=== PATIENT | male | born 1960 | race Caucasian/White ===

== ENCOUNTER 2017-10-08 12:33 | Inpatient (IN) | payer BC ==
[~2017-10-08] VITALS: Ht 190.5 cm; Wt 84.6 kg
[2017-10-08] MEDS ORDERED: IPRATROPIUM BROM 0.5 MG/2.5ML INH SOL NEB ONE (13:00)
[2017-10-08] MEDS ORDERED: ALBUTEROL SULF 2.5 MG/0.5ML(0.5%) NEB SOLN NEB ONE (13:00)
[2017-10-08 13:17] LABS: Basophils # (auto) 0 uL; Basophils % (auto) 0.1 % (0.0-2.0); Eosinophils # (auto) 0 uL; Hematocrit 39.5 % (41.0-53.0); Hemoglobin 13.5 g/dL (13.5-17.5); Lymphocytes # (auto) 0.8 uL; Lymphocytes % (auto) 4.2 % (10.0-50.0); Mean Corpuscular Hemoglobin 33.9 pg (28.0-32.0); Mean Corpuscular Hgb Conc. 34.2 g/dL (32.0-36.0); Mean Corpuscular Volume 99.2 fL (80.0-100.0); Monocytes # (auto) 1.5 uL; Monocytes % (auto) 8.2 % (0.0-12.0); Neutrophils # (auto) 16.4 uL; Neutrophils % (auto) 87.5 % (37.0-80.0); Nucleated Red Blood Cells % 0.1 %; Platelet Count (auto) 319 10^3/uL (140-450); Red Blood Cells 3.98 10^6/uL (4.5-5.90); White Blood Cell 18.8 10^3/uL (4.4-10.8)
[2017-10-08 13:37] LABS: Alanine Aminotransferase 42 U/L (16-61); Albumin 2.6 g/dL (3.4-5.0); Alkaline Phosphatase 120 U/L (45-117); Anion Gap 9 (5-15); Aspartate Aminotransferase 28 U/L (15-37); BUN/Creatinine Ratio 12.3; Bilirubin, Total 0.4 mg/dL (0.2-1.0); Blood Urea Nitrogen 7 mg/dL (7-18); Calcium 8.6 mg/dL (8.5-10.1); Carbon Dioxide 29 mmol/L (21-32); Chloride 88 mmol/L (98-107); GFR African American 191 mL/min; GFR Non-African American 158 mL/min; Glucose 133 mg/dL (74-106); Magnesium 2.4 mg/dL (1.6-2.6); Potassium 3.4 mmol/L (3.5-5.1); Sodium 126 mmol/L (136-145); Total Protein 7.4 g/dL (6.4-8.2)
[2017-10-08] MEDS ORDERED: cefTRIAXone 1GM/10ml IVPUSH 10 ML IV ONE ×2 (16:00→17:00)
[2017-10-08] MEDS ORDERED: AZITHROMYCIN 500MG/ 250ML 250 ML IV ONE ×2 (16:00→18:00)
[2017-10-08] MEDS ORDERED: POTASSIUM CHL 10% (20 MEQ/15ML) 15ml ORAL SOLN PO ONE (16:30)
[2017-10-08] MEDS: SODIUM CHLORIDE 0.9% 1,000 ML IV SCH (16:53)
[2017-10-08] MEDS ORDERED: NICOTINE 14 MG/24HR TOPICAL PATCH TD ONE (17:00)
[2017-10-08] MEDS ORDERED: GABAPENTIN 300 MG CAP PO ONE (17:00)
[2017-10-08] MEDS ORDERED: chlordiazePOXIDE HCL 25 MG CAP PO PRN (17:00)
[2017-10-08] MEDS ORDERED: HYDROcodone-ACET 5/325MG TAB PO PRN (17:00)
[2017-10-08] MEDS: InsuLIN REG 1unit/0.01ml Soln (100units/ml) SC SCH ×2 (17:00→21:55)
[2017-10-08] MEDS ORDERED: NITROGLYCERIN 0.4 MG SL TAB SL PRN (17:00)
[2017-10-08] MEDS ORDERED: MORPHINE SULFATE 8mg/ml INJ SDV IV PRN (17:00)
[2017-10-08] MEDS ORDERED: DEXTROSE (50%) 50ML SYRG IV PRN (17:00)
[2017-10-08] MEDS ORDERED: POTASSIUM CHL 10 Meq TABLET PO ONE (17:00)
[2017-10-08] MEDS ORDERED: ONDANSETRON HCL 4 MG/2 ML VIAL IV PRN (17:00)
[2017-10-08] MEDS ORDERED: LORazepam 2MG/ML-1ML VIAL IV PRN (17:00)
[2017-10-08] MEDS ORDERED: DOCUSATE SOD 100 MG CAP PO PRN (17:00)
[2017-10-08] MEDS ORDERED: ACETAMINOPHEN 325 MG TAB PO PRN (17:00)
[2017-10-08] MEDS: ACCU-CHEK COMFORT CURVE STRIP VI SCH ×2 (17:00→21:54)
[2017-10-08] MEDS: Boost Glucose Control 8 Ounces PO SCH (18:00)
[2017-10-08] MEDS: IPRATROPIUM BROM 0.5 MG/2.5ML INH SOL NEB SCH ×2 (18:28→22:36)
[2017-10-08] MEDS: ALBUTEROL SULF 2.5 MG/0.5ML(0.5%) NEB SOLN NEB SCH ×2 (18:28→22:36)
[2017-10-08] MEDS: BUDESONIDE (INHALATION) 0.5 MG/2 ML NEB NEB SCH (21:54)
[2017-10-08] MEDS: FAMOTIDINE 20 MG TAB PO SCH (22:01)
[2017-10-08] MEDS: CARVEDILOL 3.125 MG TAB PO SCH (22:01)
[2017-10-08] MEDS: IBUPROFEN 600 MG TAB PO SCH (22:01)
[2017-10-08] MEDS: GABAPENTIN 300 MG CAP PO SCH (22:01)
[2017-10-08 22:44] VITALS: BP 133/73
[2017-10-08] MEDS ORDERED: PNEUMOCOCCAL VACC POLYS 25 MCG/0.5 ML VIAL IM ONE (23:45)
[2017-10-09 01:55] VITALS: BP 133/73
[2017-10-09] MEDS: ALBUTEROL SULF 2.5 MG/0.5ML(0.5%) NEB SOLN NEB SCH ×6 (02:39→22:37)
[2017-10-09] MEDS: IPRATROPIUM BROM 0.5 MG/2.5ML INH SOL NEB SCH ×6 (02:39→22:37)
[2017-10-09 04:58] VITALS: BP 121/67
[2017-10-09] MEDS: CARVEDILOL 3.125 MG TAB PO SCH ×3 (05:48→21:45)
[2017-10-09] MEDS: GABAPENTIN 300 MG CAP PO SCH ×3 (05:48→21:45)
[2017-10-09] MEDS: IBUPROFEN 600 MG TAB PO SCH ×3 (05:48→21:45)
[2017-10-09] MEDS: SODIUM CHLORIDE 0.9% 1,000 ML IV SCH (05:54)
[2017-10-09 06:28] LABS: Hemoglobin 13.1 g/dL (13.5-17.5)
[2017-10-09 06:31] LABS: Hematocrit 38.2 % (41.0-53.0); Mean Corpuscular Hemoglobin 34.6 pg (28.0-32.0); Mean Corpuscular Hgb Conc. 34.4 g/dL (32.0-36.0); Mean Corpuscular Volume 100.7 fL (80.0-100.0); Platelet Count (auto) 334 10^3/uL (140-450); Red Blood Cells 3.79 10^6/uL (4.5-5.90); White Blood Cell 15.1 10^3/uL (4.4-10.8)
[2017-10-09 06:49] LABS: Band Neutrophils % (manual) 0; Basophils % (manual) 0 (0.0-2.0); Blast Cells 0; Eosinophils % (manual) 0 (0-7); Metamyelocytes % 0; Myelocytes % 0; Promyelocytes % 0; Reactive Lymphocytes 0
[2017-10-09 06:50] LABS: Albumin 2.4 g/dL (3.4-5.0); BUN/Creatinine Ratio 12.7
[2017-10-09] MEDS: ACCU-CHEK COMFORT CURVE STRIP VI SCH ×2 (06:54→11:05)
[2017-10-09] MEDS: InsuLIN REG 1unit/0.01ml Soln (100units/ml) SC SCH ×2 (06:54→11:05)
[2017-10-09 06:59] LABS: Bilirubin, Total 0.2 mg/dL (0.2-1.0); Potassium 4.1 mmol/L (3.5-5.1); Total Protein 6.7 g/dL (6.4-8.2)
[2017-10-09 08:19] LABS: Lymphocytes % (manual) 4 (10.0-50.0); Monocytes % (manual) 10 (0-12)
[2017-10-09] MEDS: Boost Glucose Control 8 Ounces PO SCH ×3 (08:28→18:00)
[2017-10-09] MEDS: ASPirin-EC 81 mg tab PO SCH (08:31)
[2017-10-09] MEDS: FAMOTIDINE 20 MG TAB PO SCH ×2 (08:31→21:45)
[2017-10-09] MEDS: cefTRIAXone 1GM/10ml IVPUSH 10 ML IV SCH (08:31)
[2017-10-09] MEDS: MULTIPLE VITAMIN TAB PO SCH (08:31)
[2017-10-09] MEDS: AZITHROMYCIN 500MG/ 250ML 250 ML IV SCH (08:31)
[2017-10-09] MEDS: LISINOPRIL 10 MG TAB PO SCH (08:32)
[2017-10-09] MEDS: NICOTINE 14 MG/24HR TOPICAL PATCH TD SCH (08:32)
[2017-10-09 09:00] VITALS: BP 96/68
[2017-10-09] MEDS: BUDESONIDE (INHALATION) 0.5 MG/2 ML NEB NEB SCH ×2 (10:08→19:03)
[2017-10-09 13:00] VITALS: BP 96/48
[2017-10-09 17:00] VITALS: BP 109/56
[2017-10-09 23:28] LABS: Urine Bacteria NONE SEEN /hpf (None Seen); Urine Blood TRACE /uL (Negative); Urine Specific Gravity 1.012 (1.001-1.035); Urine WBC 2 /hpf (0 - 3)
[2017-10-10 00:47] VITALS: BP 157/70
[2017-10-10] MEDS: ALBUTEROL SULF 2.5 MG/0.5ML(0.5%) NEB SOLN NEB SCH ×6 (02:17→22:30)
[2017-10-10] MEDS: IPRATROPIUM BROM 0.5 MG/2.5ML INH SOL NEB SCH ×6 (02:17→22:30)
[2017-10-10] MEDS: SODIUM CHLORIDE 0.9% 1,000 ML IV SCH (05:03)
[2017-10-10 06:00] VITALS: BP 143/67
[2017-10-10] MEDS: CARVEDILOL 3.125 MG TAB PO SCH (06:05)
[2017-10-10] MEDS: IBUPROFEN 600 MG TAB PO SCH ×3 (06:05→21:37)
[2017-10-10] MEDS: GABAPENTIN 300 MG CAP PO SCH ×3 (06:05→21:38)
[2017-10-10 06:55] LABS: Basophils # (auto) 0 uL; Eosinophils # (auto) 0.1 uL; Eosinophils % (auto) 0.6 % (0.0-7.0); Hematocrit 36.6 % (41.0-53.0); Hemoglobin 12.5 g/dL (13.5-17.5); Lymphocytes # (auto) 0.9 uL; Mean Corpuscular Hemoglobin 34.7 pg (28.0-32.0); Nucleated Red Blood Cells % 0.1 %; Red Blood Cells 3.59 10^6/uL (4.5-5.90)
[2017-10-10 06:58] LABS: Basophils % (auto) 0.1 % (0.0-2.0); Lymphocytes % (auto) 8.8 % (10.0-50.0); Mean Corpuscular Hgb Conc. 34.1 g/dL (32.0-36.0); Mean Corpuscular Volume 101.8 fL (80.0-100.0); Monocytes # (auto) 1.1 uL; Monocytes % (auto) 10.8 % (0.0-12.0); Neutrophils # (auto) 7.8 uL; Neutrophils % (auto) 79.7 % (37.0-80.0); Platelet Count (auto) 410 10^3/uL (140-450); White Blood Cell 9.8 10^3/uL (4.4-10.8)
[2017-10-10 07:05] LABS: Chloride 98 mmol/L (98-107); Potassium 4.2 mmol/L (3.5-5.1); Sodium 138 mmol/L (136-145)
[2017-10-10] MEDS: BUDESONIDE (INHALATION) 0.5 MG/2 ML NEB NEB SCH ×2 (07:09→18:44)
[2017-10-10 07:12] LABS: Albumin 2.2 g/dL (3.4-5.0); Anion Gap 7 (5-15); Aspartate Aminotransferase 26 U/L (15-37); BUN/Creatinine Ratio 15.6; Blood Urea Nitrogen 10 mg/dL (7-18); Calcium 8.9 mg/dL (8.5-10.1); Carbon Dioxide 33 mmol/L (21-32); GFR African American 167 mL/min; GFR Non-African American 138 mL/min; Glucose 142 mg/dL (74-106)
[2017-10-10 07:24] LABS: Alanine Aminotransferase 55 U/L (16-61); Alkaline Phosphatase 102 U/L (45-117); Bilirubin, Total < 0.1 mg/dL (0.2-1.0); Total Protein 6.3 g/dL (6.4-8.2)
[2017-10-10] MEDS: Boost Glucose Control 8 Ounces PO SCH ×2 (08:00→12:00)
[2017-10-10] MEDS: cefTRIAXone 1GM/10ml IVPUSH 10 ML IV SCH (08:56)
[2017-10-10] MEDS: FAMOTIDINE 20 MG TAB PO SCH ×2 (08:56→21:38)
[2017-10-10] MEDS: LISINOPRIL 10 MG TAB PO SCH (08:56)
[2017-10-10] MEDS: ASPirin-EC 81 mg tab PO SCH (08:56)
[2017-10-10] MEDS: MULTIPLE VITAMIN TAB PO SCH (08:56)
[2017-10-10] MEDS: AZITHROMYCIN 500MG/ 250ML 250 ML IV SCH (08:56)
[2017-10-10] MEDS: NICOTINE 14 MG/24HR TOPICAL PATCH TD SCH (08:57)
[2017-10-10 09:00] VITALS: BP 98/64
[2017-10-10] MEDS ORDERED: ENOXAPARIN SOD 40 MG/0.4 ML SYRINGE SC ONE (11:15)
[2017-10-10] MEDS ORDERED: IOHEXOL 350 MG/ML 100ML IJ ONE (11:59)
[2017-10-10] MEDS ORDERED: diphenhdrAMINE HCL 50 MG/1 ML VL ONE (12:53)
[2017-10-10 13:00] VITALS: BP 112/64
[2017-10-10] MEDS ORDERED: diphenhdrAMINE HCL 50 MG/1 ML VL IV ONE (13:00)
[2017-10-10 17:03] VITALS: BP 146/80
[2017-10-10 18:52] LABS: Folate (Folic Acid) 14.4 ng/mL (5.38-24)
[2017-10-10 21:30] VITALS: BP 119/65
[2017-10-10] MEDS: methylPREDNISolone SOD SUCC 125 MG/2 ML VL IV SCH (21:37)
[2017-10-10] MEDS: TEMAZEPAM 15 MG CAP PO PRN (23:07)
[2017-10-11] MEDS: IPRATROPIUM BROM 0.5 MG/2.5ML INH SOL NEB SCH ×6 (02:00→22:24)
[2017-10-11] MEDS: ALBUTEROL SULF 2.5 MG/0.5ML(0.5%) NEB SOLN NEB SCH ×6 (02:00→22:24)
[2017-10-11 05:00] VITALS: BP 142/83
[2017-10-11] MEDS: SODIUM CHLORIDE 0.9% 1,000 ML IV SCH ×2 (05:23→10:59)
[2017-10-11] MEDS: GABAPENTIN 300 MG CAP PO SCH ×3 (05:55→21:10)
[2017-10-11] MEDS: IBUPROFEN 600 MG TAB PO SCH ×3 (06:04→21:10)
[2017-10-11 06:58] LABS: Basophils # (auto) 0 uL; Basophils % (auto) 0.1 % (0.0-2.0); Eosinophils # (auto) 0 uL
[2017-10-11 07:00] LABS: % Iron Saturation 20.1 % (20-55); Hematocrit 35.7 % (41.0-53.0); Lymphocytes # (auto) 0.4 uL; Mean Corpuscular Hemoglobin 34.7 pg (28.0-32.0); Mean Corpuscular Hgb Conc. 33.8 g/dL (32.0-36.0); Mean Corpuscular Volume 102.7 fL (80.0-100.0); Monocytes # (auto) 0.1 uL; Monocytes % (auto) 1.5 % (0.0-12.0); Neutrophils # (auto) 9.2 uL; Neutrophils % (auto) 94.4 % (37.0-80.0); Platelet Count (auto) 470 10^3/uL (140-450); Red Blood Cells 3.47 10^6/uL (4.5-5.90); White Blood Cell 9.7 10^3/uL (4.4-10.8)
[2017-10-11 07:09] LABS: Albumin 2.4 g/dL (3.4-5.0); BUN/Creatinine Ratio 12.3; Bilirubin, Total 0.1 mg/dL (0.2-1.0); Calcium 8.5 mg/dL (8.5-10.1); Potassium 3.5 mmol/L (3.5-5.1); Total Protein 6.5 g/dL (6.4-8.2)
[2017-10-11] MEDS: Boost Glucose Control 8 Ounces PO SCH ×3 (08:00→18:00)
[2017-10-11 08:06] LABS: Immunoglobulin G, Serum 580 mg/dL (700-1600)
[2017-10-11 09:18] VITALS: BP 128/74
[2017-10-11] MEDS: NICOTINE 14 MG/24HR TOPICAL PATCH TD SCH (10:00)
[2017-10-11] MEDS: ASPirin-EC 81 mg tab PO SCH (10:00)
[2017-10-11] MEDS: ENOXAPARIN SOD 40 MG/0.4 ML SYRINGE SC SCH (10:00)
[2017-10-11] MEDS: MULTIPLE VITAMIN TAB PO SCH (10:00)
[2017-10-11] MEDS: methylPREDNISolone SOD SUCC 125 MG/2 ML VL IV SCH ×2 (10:00→21:10)
[2017-10-11] MEDS: AZITHROMYCIN 500MG/ 250ML 250 ML IV SCH (10:00)
[2017-10-11] MEDS: FAMOTIDINE 20 MG TAB PO SCH ×2 (10:00→21:10)
[2017-10-11] MEDS: BUDESONIDE (INHALATION) 0.5 MG/2 ML NEB NEB SCH ×2 (10:20→18:47)
[2017-10-11] MEDS: cefTRIAXone 1GM/10ml IVPUSH 10 ML IV SCH (10:28)
[2017-10-11 13:00] VITALS: BP 135/62
[2017-10-11 16:40] VITALS: BP 143/89
[2017-10-11] MEDS: MORPHINE SULFATE 8mg/ml INJ SDV IV PRN (21:08)
[2017-10-11 22:00] VITALS: BP 135/78
[2017-10-12] MEDS: TEMAZEPAM 15 MG CAP PO PRN (00:05)
[2017-10-12] MEDS: SODIUM CHLORIDE 0.9% 1,000 ML IV SCH (01:37)
[2017-10-12] MEDS: ALBUTEROL SULF 2.5 MG/0.5ML(0.5%) NEB SOLN NEB SCH ×5 (02:24→18:34)
[2017-10-12] MEDS: IPRATROPIUM BROM 0.5 MG/2.5ML INH SOL NEB SCH ×5 (02:24→18:34)
[2017-10-12] MEDS: MORPHINE SULFATE 8mg/ml INJ SDV IV PRN (02:31)
[2017-10-12 03:16] VITALS: BP 135/78
[2017-10-12] MEDS: IBUPROFEN 600 MG TAB PO SCH ×2 (05:11→14:25)
[2017-10-12] MEDS: GABAPENTIN 300 MG CAP PO SCH ×2 (05:11→14:25)
[2017-10-12 05:23] VITALS: BP 151/89
[2017-10-12 05:34] LABS: Eosinophils # (auto) 0 uL; Hemoglobin 11.8 g/dL (13.5-17.5); Lymphocytes # (auto) 0.5 uL; Monocytes # (auto) 0.2 uL; Red Cell Distribution Width 12.8 % (11.8-14.3)
[2017-10-12 05:39] LABS: Basophils # (auto) 0.3 uL; Basophils % (auto) 2.4 % (0.0-2.0); Eosinophils % (auto) 0.4 % (0.0-7.0); Hematocrit 35.5 % (41.0-53.0); Lymphocytes % (auto) 4.3 % (10.0-50.0); Mean Corpuscular Hgb Conc. 33.4 g/dL (32.0-36.0); Mean Corpuscular Volume 101.9 fL (80.0-100.0); Monocytes % (auto) 1.8 % (0.0-12.0); Neutrophils # (auto) 10.7 uL; Neutrophils % (auto) 91.1 % (37.0-80.0); Nucleated Red Blood Cells % 0.1 %; Platelet Count (auto) 486 10^3/uL (140-450); Red Blood Cells 3.48 10^6/uL (4.5-5.90); White Blood Cell 11.7 10^3/uL (4.4-10.8)
[2017-10-12 05:49] LABS: Albumin 2.4 g/dL (3.4-5.0); BUN/Creatinine Ratio 14.5; Calcium 8.6 mg/dL (8.5-10.1); Potassium 3.7 mmol/L (3.5-5.1)
[2017-10-12 05:52] LABS: Bilirubin, Total 0.1 mg/dL (0.2-1.0); Total Protein 6.1 g/dL (6.4-8.2)
[2017-10-12] MEDS: BUDESONIDE (INHALATION) 0.5 MG/2 ML NEB NEB SCH (06:39)
[2017-10-12] MEDS: Boost Glucose Control 8 Ounces PO SCH ×2 (08:00→12:00)
[2017-10-12 09:00] VITALS: BP 154/80
[2017-10-12] MEDS: cefTRIAXone 1GM/10ml IVPUSH 10 ML IV SCH (09:25)
[2017-10-12] MEDS: AZITHROMYCIN 500MG/ 250ML 250 ML IV SCH (09:41)
[2017-10-12] MEDS: methylPREDNISolone SOD SUCC 125 MG/2 ML VL IV SCH (09:41)
[2017-10-12] MEDS: ENOXAPARIN SOD 40 MG/0.4 ML SYRINGE SC SCH (09:41)
[2017-10-12] MEDS: FAMOTIDINE 20 MG TAB PO SCH (09:42)
[2017-10-12] MEDS: MULTIPLE VITAMIN TAB PO SCH (09:42)
[2017-10-12] MEDS: ASPirin-EC 81 mg tab PO SCH (09:42)
[2017-10-12] MEDS: NICOTINE 14 MG/24HR TOPICAL PATCH TD SCH (09:43)
[2017-10-12 13:00] VITALS: BP 154/98
[2017-10-12 17:00] VITALS: BP 160/96
== END 2017-10-12 19:40 | disposition home or self-care (01) | DRG 872 ==
LOC: ER 12:33 → TELE 12:34 → TELE-EAST 22:05
PROVIDERS: ADMIT Internal Medicine; ATTEND Family Medicine
DX: A41.9 Sepsis, unspecified organism (principal); E11.42 Type 2 diabetes mellitus with diabetic polyneuropathy; E44.0 Moderate protein-calorie malnutrition; J44.0 Chronic obstructive pulmonary disease with (acute) lower respiratory infection; Z94.84 Stem cells transplant status; I11.0 Hypertensive heart disease with heart failure; E87.1 Hypo-osmolality and hyponatremia; J45.901 Unspecified asthma with (acute) exacerbation; I50.9 Heart failure, unspecified; E11.65 Type 2 diabetes mellitus with hyperglycemia; J44.1 Chronic obstructive pulmonary disease with (acute) exacerbation; F10.239 Alcohol dependence with withdrawal, unspecified; Z96.642 Presence of left artificial hip joint; E87.6 Hypokalemia; F17.210 Nicotine dependence, cigarettes, uncomplicated; J20.9 Acute bronchitis, unspecified; Z82.49 Family history of ischemic heart disease and other diseases of the circulatory system; Z68.23 Body mass index [BMI] 23.0-23.9, adult; Z23 Encounter for immunization; Z85.71 Personal history of Hodgkin lymphoma; Z85.72 Personal history of non-Hodgkin lymphomas; Z92.21 Personal history of antineoplastic chemotherapy; Z79.899 Other long term (current) drug therapy; Z71.6 Tobacco abuse counseling
CPT/HCPCS: 36415; 36600; 71046; 71260; 74177; 80053; 81001; 82607; 82728; 82746; 82784; 82805; 82962; 83036; 83540; 83550; 83735; 83880; 84484; 85007; 85025; 85027; 85379; 87040; 87070; 87086; 87205; 87804; 93005; 93306; 94640; 96374; 99291; J1815; J2270

== ENCOUNTER 2024-08-05 16:14 | Inpatient (IN) | payer BC, OTHER ==
[~2024-08-05] VITALS: Ht 182.9 cm; Wt 75.8 kg
--- NOTE | 2024-08-05 16:44 | ECG ---
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
[2024-08-05] MEDS: ALBUTEROL SULF 2.5 MG/0.5ML(0.5%) NEB SOLN NEB ONE ×2 (17:07→23:27)
[2024-08-05] MEDS: IPRATROPIUM BROM 0.5 MG/2.5ML INH SOL NEB ONE ×2 (17:07→23:27)
--- NOTE | 2024-08-05 17:20 | DVH ---
CHEST RADIOGRAPH Indication: sob Technique: Single frontal view of the chest was obtained COMPARISON: None FINDINGS: Lines and Tubes: None Lungs: Clear Pleura: No effusion. No pneumothorax. Cardiomediastinal contours: Unremarkable Bones: Unremarkable IMPRESSION: 1. No acute disease. Postop sternotomyNo CHF No infiltrates No adenopathy No consolidation
[2024-08-05 18:00] VITALS: PULSE 110; RESP 25; O2SAT 94
[2024-08-05] MEDS: methylPREDNISolone SOD SUCC 125 MG/2 ML VL IM ONE (18:00)
[2024-08-05] MEDS: SODIUM CHLORIDE 0.9% 1,000 ML IV ONE (18:00)
[2024-08-05 18:54] LABS: Basophils # (auto) 0 10 ^3/uL (0-0.2); Basophils % (auto) 0.2 % (0.0-2.0); Eosinophils # (auto) 0 10 ^3/uL (0-0.8); Hematocrit 40.7 % (41.0-53.0); Hemoglobin 13.2 g/dL (13.5-17.5); Lymphocytes # (auto) 0.6 10 ^3/uL (0.4-5.4); Lymphocytes % (auto) 6.1 % (10.0-50.0); Mean Corpuscular Hemoglobin 32.1 pg (28.0-32.0); Mean Corpuscular Hgb Conc. 32.4 g/dL (32.0-36.0); Mean Corpuscular Volume 98.8 fL (80.0-100.0); Monocytes # (auto) 0.9 10 ^3/uL (0-1.3); Neutrophils # (auto) 8.6 10 ^3/uL (1.6-8.6); Neutrophils % (auto) 84.7 % (37.0-80.0); Nucleated Red Blood Cells % 0.1 %; Platelet Count (auto) 396 10^3/uL (140-450); Red Blood Cells 4.12 10^6/uL (4.5-5.90); Red Cell Distribution Width 15.1 % (11.8-14.3); White Blood Cell 10.2 10^3/uL (4.4-10.8)
[2024-08-05 19:20] VITALS: PULSE 112; RESP 25; O2SAT 95
[2024-08-05 19:25] LABS: Alanine Aminotransferase 19 U/L (7-40); Albumin 4.2 g/dL (3.2-4.8); Alkaline Phosphatase 81 U/L (46-116); Anion Gap 13 (5-15); Aspartate Aminotransferase 16 U/L (13-40); BUN/Creatinine Ratio 18.8 (10.0-20.0); Calcium 9.3 mg/dL (8.7-10.4); Carbon Dioxide 24 mmol/L (20-31); Chloride 101 mmol/L (98-107); Sodium 138 mmol/L (136-145)
[2024-08-05 19:26] LABS: Bilirubin, Total 0.2 mg/dL (0.2-1.0); Blood Urea Nitrogen 54 mg/dL (9-23); Glucose 122 mg/dL (74-106); Total Protein 6.4 g/dL (5.7-8.2)
[2024-08-05 21:21] LABS: Urine Bacteria None Seen /hpf (None Seen)
[2024-08-05 22:03] LABS: Urine Blood Negative /uL (Negative); Urine Clarity Turbid (Clear); Urine Color Yellow (Yellow); Urine Hyaline Cast FEW /lpf (0 - 2); Urine Protein, UAD 1+ (Negative); Urine Squamous Epithelial Cell FEW /hpf (<5); Urine Urobilinogen Normal (Negative); Urine WBC 3 /HPF (0-3); Urine pH 5.5 (5.0-9.0)
--- NOTE | 2024-08-05 22:25 | ED.PDOC ---
History of Present Illness HPI Comments 64-year-old male complaining of shortness a breath. States he he was diagnosed with influenza last week. He was discharged home without medications. States he was felt no significant improvement over the last week. States shortness a breath it got worse today so he called EMS. Patient states he does use 5 L nasal cannula at home. Does have a history of COPD. Patient's son called EMS because patient was not willing to get out of bed due to his generalized weakness and shortness a breath. On arrival patient's blood pressure is very low at 80s over 40s. Chief Complaint: Shortness of Breath Time Seen by MD: 16:51 Reviewed Notes: Nurses Notes Allergies: Coded Allergies: NO KNOWN ALLERGIES (Unverified , 10/08/17) Home Meds Unable to Obtain Active Prescriptions or Reported Meds Information Source: Patient, Emergency Med Personnel Mode of Arrival: EMS Past Medical History PAST MEDICAL HISTORY: CHF, COPD, HTN Surgical History: Hernia Repair Family History Family History: Unknown Social History Smoker: Cigarettes, Greater Than 1 Pack/Day Alcohol: Denies ETOH Use Drugs: Denies Drug Use Lives In: Home Constitutional: reports: fatigue; denies: chills, diaphoresis, fever, malaise, sweats, weakness, others EENTM: denies: blurred vision, double vision, ear bleeding, ear discharge, ear drainage, ear pain, ear ringing, eye pain, eye redness, hearing loss, mouth pain, mouth swelling, nasal discharge, nose bleeding, nose congestion, nose pain, photophobia, tearing, throat pain, throat swelling, voice changes, others Respiratory: reports: cough, SOB at rest, SOB with excertion; denies: he moptysis, orthopnea, shortness of breath, stridor, wheezing, others Cardiovascular: denies: chest pain, dizzy spells, diaphoresis, Dyspnea on exertion, edema, irregular heart beat, left arm pain, lightheadedness, palpitations, PND, syncope, others Gastrointestinal: denies: abdomen distended, abdominal pain, blood streaked bowels, constipated, diarrhea, dysphagia, difficulty swallowing, hematemesis, melena, nausea, poor appetite, poor fluid intake, rectal bleeding, rectal pain, vomiting, others Genitourinary: denies: burning, dysuria, flank pain, frequency, hematuria, incontinence, penile discharge, penile sore, pain, testicle pain, testicle swelling, urgency, others Neurological: denies: dizziness, fainting, headache, left sided numbness, left sided weakness, numbness, paresthesia, pre-existing deficit, right sided numbness, right sided weakness, seizure, speech problems, tingling, tremors, weakness, others Musculoskeletal: denies: back pain, gout, joint pain, joint swelling, muscle pain, muscle stiffness, neck pain, others Integumetry: denies: bruises, change in color, change in hair/nails, dryness, laceration, lesions, lumps, rash, wounds, others Allergic/Immunocompromised: denies: Difficulty Healing, Frequent Infections, Hives, Itching, others Hematologic/Lymphatic: denies: anemia, blood clots, easy bleeding, easy bruising, swollen glands, others Physical Exam General Appearance: No Apparent Distress, Normal HEENT: Normal ENT Inspection, Pharynx Normal, TMs Normal Neck: Full Range of Motion, Non-Tender, Normal, Normal Inspection Respiratory: Chest Non-Tender, Decreased Breath Sounds (Bilateral lower), No Accessory Muscle Use, Wheezing (Faint wheezing) Cardiovascular: No Edema, No JVD, No Murmur, No Gallop, Normal Peripheral Pulses, Regular Rate/Rhythm Breast Exam: Deferred Gastrointestinal: No Organomegaly, Non Tender, No Pulsatile Mass, Normal Bowel Sounds, Soft Genitalia: Deferred Pelvic: Deferred Rectal: Deferred Extremities: No calf tenderness, Normal capillary refill, Normal inspection, Normal range of motion, Non-tender, No pedal edema Musculoskeletal : Apperance: Normal Neurologic: Alert, cracking machine operator II-XII nml as Tested, No Motor Deficits, Normal Affect, Normal Mood, No Sensory Deficits Cerebellar Function: Normal Reflexes: Normal Skin: Dry, Normal Color, Warm Lymphatic: No Adenopathy Was a procedure done? Was a procedure done?: No Differential Dx Considerations may include: URI, influenza, COVID, strep throat, pharyngitis, pneumonia X-Ray, Labs, Meds, VS Vital Signs Date Time Temp Pulse Resp B/P (MAP) Pulse Ox O2 Delivery O2 Flow Rate FiO2 08/05/24 20:00 97.4 112 25 86/57 (67) 95 97.4 08/05/24 20:00 116 08/05/24 19:20 112 25 95 Nasal Cannula* 4 36 2/18/25 18:38 112 08/05/24 18:00 97.9 110 25 134/90 (105) 94 97.9 08/05/24 18:00 110 25 94 Nasal Cannula* 4 36 08/05/24 17:08 16 94 Nasal Cannula* 4 36 08/05/24 16:30 116 08/05/24 16:17 97.9 106 18 87/53 (64) 96 08/05/24 16:17 16 94 Nasal Cannula* 4 36 08/05/24 16:17 Nasal Cannula* 4 36 Lab Test 08/05/24 21:07 08/05/24 20:56 08/05/24 17:51 08/05/24 16:50 Range/Units Troponin I High Sensitivity 41 48 47 </=54 ng/L Urine Color Yellow Yellow Urine Clarity Turbid H Clear Urine pH 5.5 5.0-9.0 Urine Specific [place] 1.020 1.001-1.035 Urine Protein 1+ H Negative Urine Ketones Trace Negative Urine Blood Negative Negative /uL Urine Nitrite Negative Negative Urine Bilirubin Negative Negative Urine Urobilinogen Normal Negative mg/dL Urine Leukocyte Esterase Negative Negative /uL Urine RBC 1 0 - 3 /hpf Urine Microscopic WBC 3 0-3 /HPF Urine Squamous Epithelial Cells Few <5 /hpf Urine Bacteria None seen None Seen /hpf Urine Hyaline Casts Few 0 - 2 /lpf Urine Glucose Normal Normal mg/dL White Blood Count 10.2 4.4-10.8 10^3/uL Red Blood Count 4.12 L 4.5-5.90 10^6/uL Hemoglobin 13.2 L 13.5-17.5 g/dL Hematocrit 40.7 L 41.0-53.0 % Mean Corpuscular Volume 98.8 80.0-100.0 fL Mean Corpuscular Hemoglobin 32.1 H 28.0-32.0 pg Mean Corpuscular Hemoglobin Concent 32.4 32.0-36.0 g/dL Red Cell Distribution Width 15.1 H 11.8-14.3 % Platelet Count 396 140-450 10^3/uL Mean Platelet Volume 8.4 6.9-10.8 fL Neutrophils (%) (Auto) 84.7 H 37.0-80.0 % Lymphocytes (%) (Auto) 6.1 L 10.0-50.0 % Monocytes (%) (Auto) 9.0 0.0-12.0 % Eosinophils (%) (Auto) 0.0 0.0-7.0 % Basophils (%) (Auto) 0.2 0.0-2.0 % Neutrophils # (Auto) 8.6 1.6-8.6 10 ^3/uL Lymphocytes # (Auto) 0.6 0.4-5.4 10 ^3/uL Monocytes # (Auto) 0.9 0-1.3 10 ^3/uL Eosinophils # (Auto) 0 0-0.8 10 ^3/uL Basophils # (Auto) 0 0-0.2 10 ^3/uL Nucleated Red Blood Cells 0.1 % Sodium Level 138 136-145 mmol/L Potassium Level 5.0 3.5-5.1 mmol/L Chloride Level 101 98-107 mmol/L Carbon Dioxide Level 24 20-31 mmol/L Anion Gap 13 5-15 Blood Urea Nitrogen 54 H 9-23 mg/dL Creatinine 2.87 H 0.700-1.30 mg/dL Glomerular Filtration Rate Calc 24 >90 mL/min BUN/Creatinine Ratio 18.8 10.0-20.0 Serum Glucose 122 H 74-106 mg/dL Calcium Level 9.3 8.7-10.4 mg/dL Total Bilirubin 0.2 0.2-1.0 mg/dL Aspartate Amino Transferase (AST) 16 13-40 U/L Alanine Aminotransferase (ALT) 19 7-40 U/L Alkaline Phosphatase 81 46-116 U/L Total Protein 6.4 5.7-8.2 g/dL Albumin 4.2 3.2-4.8 g/dL Current Medications Medications (Trade) Dose Ordered Sig/Ashwin Route Start Time Stop Time Status Last Admin Albuterol (Ventolin Medneb) 2.5 mg ONCE ONCE NEB 08/05/24 17:00 08/05/24 17:01 DC 08/05/24 17:07 Ipratropium [place] (Atrovent Medneb) 0.5 mg ONCE ONCE NEB 08/05/24 17:00 08/05/24 17:01 DC 08/05/24 17:07 Methylprednisolone Sodium Succinate (Solu Medrol) 125 mg ONCE ONCE IM 08/05/24 17:00 08/05/24 17:01 DC 08/05/24 18:00 Sodium Chloride 1,000 ml @ 1,000 mls/hr Q1H ONCE IV 08/05/24 17:30 08/05/24 18:29 DC 08/05/24 18:00 X-Ray, Labs, Meds, VS Comment Imaging: X-rays and CT scans were reviewed and interpreted by this provider, imaging shows no fractures and no pathological disease. Pending radiology review. Laboratory: Labs reviewed and interpreted by this provider. Decreased BUN and creatinine concerns for possible acute kidney injury Patient will be given DuoNeb treatments Patient has prior medical visits reviewed. Med reconciliation performed Vital signs reviewed Time of 1ST Reevaluation: 22:25 Reevaluation 1ST: Improved Patient Education/Counseling: Diagnosis, Treatment Family Education/Counseling: Diagnosis, Treatment Departure 1 Departure Time of Disposition: 22:24 Impression: Primary Impression: COPD exacerbation Additional Impressions: Viral illness Hypoxia Acute kidney injury Disposition: ADMITTED INPATIENT Condition: Fair e-Prescriptions Unable to Obtain Active Prescriptions or Reported Meds Discharged With: Self Critical Care Note Critical Care Time?: No Stability Stability form required: No Heart Score Heart Score: Heart Score Response (Comments) Value History N/A 0 EKG N/A 0 Age N/A 0 Risk Factors N/A 0 Troponin N/A 0 Total 0 MICA GARLAND Aug 05, 2024 22:25
[2024-08-05 23:30] VITALS: O2SAT 94
[2024-08-05] MEDS: cefTRIAXone 1GM/50ML D5W 50 ML IV ONE (23:30)
[2024-08-05] MEDS ORDERED: NITROGLYCERIN 0.4 MG SL TAB SL PRN (23:30)
[2024-08-05] MEDS ORDERED: MORPHINE SULFATE INJ 2 MG/ml SYRG IV PRN (23:30)
[2024-08-06] VITALS (7 sets, daily range): BP systolic 86–151; BP diastolic 57–98; PULSE 109–130; RESP 20–36; TEMP 97.4–98.2; O2SAT 92–99
[2024-08-06] MEDS: ALBUMIN 5% 250 ML IV ONE (00:07)
--- NOTE | 2024-08-06 03:26 | DVHHP2 ---
History of Present Illness Reason for Visit: Shortness for breath History of Present Illness 64-year-old male presents for evaluation of shortness for breath. Patient with a history of COPD currently using 5 L nasal cannula oxygen at home presents for evaluation of a two day history of worsening shortness for breath. On arrival patient's saturation was in the low 80s. Denies chest pain or palpitations. No cough or fever. No other acute complaints. Heme/Onc: B12 deficiency Past Medical History Hypertension, peripheral vascular disease, COPD and? CHF Past Surgical History Hernia repair Family History Noncontributory Smoke: 1 pack per day ALCOHOL: none Drugs: None Lives: with Family Review of Systems Review of Systems Review of systems are currently negative otherwise addressed in HPI. Allergies: Coded Allergies: NO KNOWN ALLERGIES (Unverified , 10/08/17) Medications Current Medications Medications Dose Ordered Sig/[place] Route Start Time Stop Time Status Last Admin Dose Admin Albuterol 2.5 mg Q6HPRN PRN NEB 08/05/24 23:30 Ipratropium [place] 0.5 mg Q6HPRN PRN NEB 08/05/24 23:30 Amiodarone HCl 200 mg DAILY PO 08/06/24 10:00 Atorvastatin Calcium 10 mg HS PO 08/06/24 22:00 Methylprednisolone Sodium Succinate 40 mg BID IV 08/06/24 10:00 Ondansetron HCl 4 mg Q4HP PRN IV 08/05/24 23:30 Acetaminophen 650 mg Q6HP PRN PO 08/05/24 23:30 Nitroglycerin 0.4 mg Q5MINP PRN SL 08/05/24 23:30 Morphine Sulfate 2 mg Q30M PRN IV 08/05/24 23:30 Ceftriaxone Sodium 50 ml @ 100 mls/hr DAILY@09 IV 08/06/24 09:00 Exam Vital Signs Vital Signs Date Time Temp Pulse Resp B/P (MAP) Pulse Ox O2 Delivery O2 Flow Rate FiO2 08/06/24 00:00 97.4 86/57 94 4.0 36 97.4 08/05/24 23:30 Nasal Cannula 08/05/24 23:27 20 08/05/24 20:00 112 Exam Gen: 64-year-old male in moderate distress Skin: Warm, dry, normal color and texture, no rash. HEENT: Normocephalic atraumatic, mucous membranes moist and pink. Neck: Cervical and supraclavicular nodes normal without enlargement, trachea is midline, thyroid gland is normal without masses. Pulmonary: Bilateral wheeze Cardiac: Regular rate and rhythm. No murmur Abdomen: Soft, nontender, nondistended, bowel sounds present all 4 quadrants, no guarding, no rigidity, no organomegaly. Extremities: No cyanosis, clubbing, no edema Neuro: Cranial nerves II through XII grossly intact, normal affect and speech, no focal motor deficits. Labs/Xrays ORDERING PHYSICIAN: MICA GARLAND PROCEDURE(s): CXR1 - CHEST XRAY 1 VIEW REASON: sob ORDER NUMBER(s): [id number], ACCESSION NUMBER(s): [id number] CHEST RADIOGRAPH Indication: sob Technique: Single frontal view of the chest was obtained COMPARISON: None FINDINGS: Lines and Tubes: None Lungs: Clear Pleura: No effusion. No pneumothorax. Cardiomediastinal contours: Unremarkable Bones: Unremarkable IMPRESSION: 1. No acute disease. Postop sternotomyNo CHF No infiltrates No adenopathy No consolidation Labs Test 08/06/24 03:11 08/05/24 23:36 08/05/24 21:07 08/05/24 20:56 Range/Units D-Dimer, Quantitative 0.46 0.0-0.49 mg/L FEU Creatine Kinase 113 46-171 U/L Troponin I High Sensitivity 41 </=54 ng/L Urine Color Yellow Yellow Urine Clarity Turbid H Clear Urine pH 5.5 5.0-9.0 Urine Specific [place] 1.020 1.001-1.035 Urine Protein 1+ H Negative Urine Ketones Trace Negative Urine Blood Negative Negative /uL Urine Nitrite Negative Negative Urine Bilirubin Negative Negative Urine Urobilinogen Normal Negative mg/dL Urine Leukocyte Esterase Negative Negative /uL Urine RBC 1 0 - 3 /hpf Urine Microscopic WBC 3 0-3 /HPF Urine Squamous Epithelial Cells Few <5 /hpf Urine Bacteria None seen None Seen /hpf Urine Hyaline Casts Few 0 - 2 /lpf Urine Glucose Normal Normal mg/dL Test 08/05/24 17:51 Range/Units Eosinophils (%) (Auto) 0.0 0.0-7.0 % Eosinophils # (Auto) 0 0-0.8 10 ^3/uL Basophils # (Auto) 0 0-0.2 10 ^3/uL Nucleated Red Blood Cells 0.1 % Total Bilirubin 0.2 0.2-1.0 mg/dL Aspartate Amino Transferase (AST) 16 13-40 U/L Alanine Aminotransferase (ALT) 19 7-40 U/L Alkaline Phosphatase 81 46-116 U/L Total Protein 6.4 5.7-8.2 g/dL Albumin 4.2 3.2-4.8 g/dL Assessment/Plan Assessment/Plan Assessment Acute on chronic hypoxic respiratory failure COPD exacerbation Acute renal failure Hypotension Active smoker Plan Admit the patient to telemetry to the hospitalist Nephrology consultation Resume home medications Med nebs Continue treatment per orders. Plan discussed with: Patient My Orders Orders - ANNETTE ARNETT Procedure Category Date Status Time Albuterol Medneb PHA 08/05/24 In Process (Ventolin Medneb) 23:30 Ipratropium Medneb PHA 08/05/24 In Process (Atrovent Medneb) 23:30 Amiodarone Tablet PHA 08/06/24 In Process (Cordarone Tablet) 10:00 Atorvastatin (Lipitor) PHA 08/06/24 In Process 22:00 Methylprednisolone PHA 08/06/24 In Process Sod Succ (Solu Medrol 10:00 Rapid Influenza A&B LAB 08/05/24 Logged 23:16 Covid19 Antigen Adriana LAB 08/05/24 Logged Basic Metabolic Panel LAB 08/06/24 In Process 04:00 Admit ADMIT 08/05/24 Transmitted 23:16 Renal DIET 08/06/24 Transmitted Standard(2gna,3gk,Lopho) Breakfast Ondansetron Hcl PHA 08/05/24 In Process (Zofran) 23:30 Complete Blood Count LAB 08/06/24 In Process 04:00 Echo 2d Mode Cardiac US 08/05/24 Logged DOP 23:16 Condition: Fair VITALY 08/05/24 In Process 23:16 Acetaminophen Tablet PHA 08/05/24 In Process (Tylenol Tablet) 23:30 Bedrest With Bathroom VITALY 08/05/24 In Process Privileg 23:16 Nitroglycerin PHA 08/05/24 In Process Sublingual (Ntrostat 23:30 Morphine Sulfate PHA 08/05/24 In Process Injection 23:30 Stat Ekg For Chest VITALY 08/05/24 In Process Pain 23:16 Notify Md Of Changes VITALY 08/05/24 In Process From Base 23:16 Comic Writer For VITALY 08/05/24 In Process 24 Hours 23:16 Emergency Dysrhythmia VITALY 08/05/24 In Process Protocol 23:16 Rhythm Strips Once VITALY 08/05/24 In Process Every Shift 23:16 Oxygen By Nasal RT 08/05/24 Transmitted Cannula 23:16 *[facility] CONS 08/05/24 Transmitted -[place] 23:16 Ceftriaxone 1gm/50ml PHA 08/06/24 In Process D5w (Rocephin) 09:00 Date of Service: Aug 05, 2024 Billing Provider: ANNETTE ARNETT Common Visit Codes: [id number] INP/OBS CARE (HIGH) ANNETTE ARNETT Aug 06, 2024 03:26
[2024-08-06 03:35] LABS: Chloride 101 mmol/L (98-107); Potassium 4.7 mmol/L (3.5-5.1)
[2024-08-06 03:36] LABS: Anion Gap 14 (5-15); Hematocrit 38.7 % (41.0-53.0); Hemoglobin 12.4 g/dL (13.5-17.5); Mean Corpuscular Hemoglobin 31.8 pg (28.0-32.0); Mean Corpuscular Hgb Conc. 32.1 g/dL (32.0-36.0); Mean Corpuscular Volume 99.3 fL (80.0-100.0); Platelet Count (auto) 351 10^3/uL (140-450); Red Blood Cells 3.89 10^6/uL (4.5-5.90); Red Cell Distribution Width 15.1 % (11.8-14.3); White Blood Cell 7.9 10^3/uL (4.4-10.8)
[2024-08-06 03:37] LABS: Calcium 9.2 mg/dL (8.7-10.4)
[2024-08-06 03:41] LABS: BUN/Creatinine Ratio 17.2 (10.0-20.0)
[2024-08-06 03:42] LABS: Basophils % (manual) 0 (0.0-2.0); Blast Cells 0; Eosinophils % (manual) 0 (0-7); Metamyelocytes % 0; Myelocytes % 0; Promyelocytes % 0; Reactive Lymphocytes 0
[2024-08-06 03:55] LABS: Blood Urea Nitrogen 46 mg/dL (9-23); Carbon Dioxide 19 mmol/L (20-31); Glucose 151 mg/dL (74-106); Sodium 134 mmol/L (136-145)
[2024-08-06 05:25] LABS: Rapid Influenza A Negative (Negative); Rapid Influenza B Negative (Negative)
[2024-08-06 05:26] LABS: COVID19 ANTIGEN SOFIA FIA NEGATIVE (NEGATIVE)
[2024-08-06 07:33] LABS: Band Neutrophils % (manual) 1; Lymphocytes % (manual) 5 (10.0-50.0); Monocytes % (manual) 1 (0-12); Platelet Estimate Adequate
[2024-08-06] MEDS: AMIODARONE HCL 200 MG TAB PO SCH (10:10)
[2024-08-06] MEDS: cefTRIAXone 1GM/50ML D5W 50 ML IV SCH (10:10)
[2024-08-06] MEDS: methylPREDNISolone SOD SUCC 40 MG/ML VL IV SCH (10:10)
--- NOTE | 2024-08-06 11:42 | DVHPN2 ---
Subjective The patient is seen and examined at bedside. Complain of being tired and sick. Very confused and tried to take the oxygen off. Son at bedside. Reviewed: Care Plan, H&P, Labs, Medications, Previous Orders, Radiology Changes from previous H/P or p: No Changes Objective Vitals Vital Signs Date Time Temp Pulse Resp B/P (MAP) Pulse Ox O2 Delivery O2 Flow Rate FiO2 08/06/24 04:00 111 22 119/68 (85) 93 08/06/24 00:00 97.4 4.0 36 97.4 08/05/24 23:30 Nasal Cannula Intake/Output Intake and Output 08/06/24 07:00 Intake Total 1300 ml Balance 1300 ml Intake IV Total 1300 ml General Appearance: Alert, Cooperative, No acute distress HEENT: Atraumatic, PERRLA, EOMI, Mucous membr. moist/pink Neck: Supple Lungs: Clear to auscultation, Normal air movement Cardiovascular: Regular rate, Normal S1, Normal S2, No murmurs, Gallops, Rubs Abdomen: Normal bowel sounds, Soft, No tenderness Neuro: Cranial nerves 3-12 NL Psych/Mental Status: Mental status NL Medications Current Medications Medications Dose Ordered Sig/[place] Route Start Time Stop Time Status Last Admin Dose Admin Albuterol 2.5 mg Q6HPRN PRN NEB 08/05/24 23:30 Ipratropium [place] 0.5 mg Q6HPRN PRN NEB 08/05/24 23:30 Amiodarone HCl 200 mg DAILY PO 08/06/24 10:00 08/06/24 10:10 200 MG Atorvastatin Calcium 10 mg HS PO 08/06/24 22:00 Methylprednisolone Sodium Succinate 40 mg BID IV 08/06/24 10:00 08/06/24 10:10 40 MG Ondansetron HCl 4 mg Q4HP PRN IV 08/05/24 23:30 Acetaminophen 650 mg Q6HP PRN PO 08/05/24 23:30 Nitroglycerin 0.4 mg Q5MINP PRN SL 08/05/24 23:30 Morphine Sulfate 2 mg Q30M PRN IV 08/05/24 23:30 Ceftriaxone Sodium 50 ml @ 100 mls/hr DAILY@09 IV 08/06/24 09:00 08/06/24 10:10 100 MLS/HR Laboratory Results Laboratory Tests 08/06/24 03:11 Chemistry Test 2/18/25 17:51 08/06/24 03:11 Albumin 4.2 g/dL (3.2-4.8) Calcium Level 9.3 mg/dL (8.7-10.4) 9.2 mg/dL (8.7-10.4) Total Protein 6.4 g/dL (5.7-8.2) Coagulation Test 08/05/24 23:36 D-Dimer, Quantitative 0.46 mg/L FEU (0.0-0.49) LFT Test 08/05/24 17:51 Alanine Aminotransferase (ALT) 19 U/L (7-40) Alkaline Phosphatase 81 U/L (46-116) Aspartate Amino Transferase (AST) 16 U/L (13-40) Total Bilirubin 0.2 mg/dL (0.2-1.0) Urinalysis Test 08/05/24 20:56 Urine Color Yellow (Yellow) Urine Clarity Turbid (Clear) H Urine pH 5.5 (5.0-9.0) Urine Specific [place] 1.020 (1.001-1.035) Urine Protein 1+ (Negative) H Urine Ketones Trace (Negative) Urine Blood Negative /uL (Negative) Urine Nitrite Negative (Negative) Urine Bilirubin Negative (Negative) Urine Urobilinogen Normal mg/dL (Negative) Urine Leukocyte Esterase Negative /uL (Negative) Urine RBC 1 /hpf (0 - 3) Urine Microscopic WBC 3 /HPF (0-3) Urine Squamous Epithelial Cells Few /hpf (<5) Urine Bacteria None seen /hpf (None Seen) Urine Hyaline Casts Few /lpf (0 - 2) Urine Glucose Normal mg/dL (Normal) Labs and/or images reviewed: Labs reviewed by me Assessment/Plan Assessment/Plan Acute on chronic hypoxic respiratory failure COPD exacerbation Acute renal failure Hypotension Tobacco abuse Plan Continuing current management. We will start the patient on Rocephin 1 g IV q.day and Zithromax 500 mg IV q.day. waiting for dispatcher bus and trolley to see the patient. I will give bolus of normal saline 500 mL. Advised the patient to stop smoking. Continuing oxygen and advised the patient to not take oxygen off. I will continuing the patient nebulizer and I will start the patient on Solu- Medrol 60 mg IV Q 8 hours. This medical document was created using an electronic medical record system with [employer] direct computerized dictation system. Although this document has been carefully reviewed, there may still be some phonetic and typographical errors. These areas are purely typographical due to imperfections of the software programs, and do not reflect any compromise in the patient's medical care. Plan discussed with: Patient, Son Date of Service: Aug 06, 2024 Billing Provider: CRISSY BRYANT MD Common Visit Codes: [id number] INP/OBS CARE(HIGH) CRISSY BRYANT MD Aug 06, 2024 11:42
[2024-08-06] MEDS: SODIUM CHLORIDE 0.9% 1,000 ML IV ONE (12:55)
[2024-08-06] MEDS: LORazepam 2MG/ML-1ML VIAL ONE (16:11)
--- NOTE | 2024-08-06 17:01 | DVHINCON2 ---
Date of service: Aug 06, 2024 Reason for Consultation jerilyn History of Present Illness 64 years old male past medical history of non-Hodgkin's lymphoma on diagnosed in 2008, status post bone marrow transplant, extensive smoking history, COPD, chronic hypoxic respiratory failure using home O2, hypertension, questionable Congestive heart failure presented with chief complaints of worsening shortness of breath and lethargy as per the son who is bedside patient was sick likely secondary to norovirus was having extensive diarrhea and poor p.o. intake,,, ever since then patient has overall condition has been deteriorating per son patient seen and examined in emergency room Past Medical History As per HPI Past Surgical History As per HPI Allergies: Coded Allergies: NO KNOWN ALLERGIES (Unverified , 10/08/17) Home Meds Unable to Obtain Active Prescriptions or Reported Meds Current Medications Current Medications Medications (Trade) Dose Ordered Sig/Ashwin Route PRN Reason Start Time Stop Time Status Last Admin Albuterol (Ventolin Medneb) 2.5 mg Q6HPRN PRN NEB SHORTNESS OF BREATH 08/05/24 23:30 Ipratropium [place] (Atrovent Medneb) 0.5 mg Q6HPRN PRN NEB SHORTNESS OF BREATH 08/05/24 23:30 Amiodarone HCl (Cordarone Tablet) 200 mg DAILY PO 08/06/24 10:00 08/06/24 10:10 Atorvastatin Calcium (Lipitor) 10 mg HS PO 08/06/24 22:00 Methylprednisolone Sodium Succinate (Solu Medrol) 40 mg BID IV 08/06/24 10:00 08/06/24 10:10 Ondansetron HCl (Zofran) 4 mg Q4HP PRN IV NAUSEA / VOMITING 08/05/24 23:30 Acetaminophen (Tylenol Tablet) 650 mg Q6HP PRN PO PAIN SCALE 1-3 OR TEMP>100.4 08/05/24 23:30 Nitroglycerin (Ntrostat Sublingual) 0.4 mg Q5MINP PRN SL FOR CHEST PAIN 08/05/24 23:30 Morphine Sulfate 2 mg Q30M PRN IV FOR CHEST PAIN 08/05/24 23:30 Ceftriaxone Sodium 50 ml @ 100 mls/hr DAILY@09 IV 08/06/24 09:00 08/06/24 10:10 Lorazepam (Ativan Inj) 1 mg Q4HPRN PRN IV ANXIETY 08/06/24 13:45 UNV Family History: Hypertension G8 MOTHER G8 FATHER Review of Systems As documented in HPI H&P Exam Vital Signs/I&O Vital Sign Date Time Temp Pulse Resp B/P (MAP) Pulse Ox O2 Delivery O2 Flow Rate FiO2 08/06/24 15:30 129 24 127/63 (84) 08/06/24 13:30 87 08/06/24 12:07 Nasal Cannula* 3 32 08/06/24 00:00 97.4 97.4 Intake and Output 08/05/24 08/06/24 19:00 07:00 Intake Total 1300 ml Balance 1300 ml Intake IV Total 1300 ml Physical Exam General-not in any distress HEENT-normocephalic, no icterus, no pallor, neck supple Respiratory-tachypnea, difficulty breathing [id number] heard, Abdominal-soft, nontender, nondistended Musculoskeletal-no pedal edema, no calf tenderness Genitourinary-deferred Neuro-awake alert oriented x3, Psychiatric-not agitated, cooperative, Labs/Diagnostic Data Labs/Diagnostic Data Laboratory Tests Test 08/06/24 03:45 08/06/24 03:11 08/05/24 23:36 08/05/24 21:07 Range/Units Influenza Type A Antigen Negative Negative Influenza Type B Antigen Negative Negative SARS-CoV-2 Antigen (Rapid) Negative NEGATIVE White Blood Count 7.9 4.4-10.8 10^3/uL Red Blood Count 3.89 L 4.5-5.90 10^6/uL Hemoglobin 12.4 L 13.5-17.5 g/dL Hematocrit 38.7 L 41.0-53.0 % Mean Corpuscular Volume 99.3 80.0-100.0 fL Mean Corpuscular Hemoglobin 31.8 28.0-32.0 pg Mean Corpuscular Hemoglobin Concent 32.1 32.0-36.0 g/dL Red Cell Distribution Width 15.1 H 11.8-14.3 % Platelet Count 351 140-450 10^3/uL Mean Platelet Volume 8.6 6.9-10.8 fL Neutrophils (%) (Auto) 37.0-80.0 % Lymphocytes (%) (Auto) 10.0-50.0 % Monocytes (%) (Auto) 0.0-12.0 % Basophils (%) (Auto) 0.0-2.0 % Neutrophils # (Auto) 1.6-8.6 10 ^3/uL Lymphocytes # (Auto) 0.4-5.4 10 ^3/uL Monocytes # (Auto) 0-1.3 10 ^3/uL Differential Total Cells Counted 100.0 100 Neutrophils % (Manual) 93 H 37.0-80.0 Band Neutrophils % (Manual) 1 Lymphocytes % (Manual) 5 L 10.0-50.0 Monocytes % (Manual) 1 0-12 Eosinophils % (Manual) 0 0-7 Basophils % (Manual) 0 0.0-2.0 Metamyelocytes % (manual) 0 Myelocytes % (Manual) 0 Promyelocytes % (Manual) 0 Blast Cells % (Manual) 0 Reactive Lymphocytes 0 Platelet Estimate Adequate Sodium Level 134 L 136-145 mmol/L Potassium Level 4.7 3.5-5.1 mmol/L Chloride Level 101 98-107 mmol/L Carbon Dioxide Level 19 L 20-31 mmol/L Anion Gap 14 5-15 Blood Urea Nitrogen 46 H 9-23 mg/dL Creatinine 2.67 H 0.700-1.30 mg/dL Glomerular Filtration Rate Calc 26 >90 mL/min BUN/Creatinine Ratio 17.2 10.0-20.0 Serum Glucose 151 H 74-106 mg/dL Calcium Level 9.2 8.7-10.4 mg/dL D-Dimer, Quantitative 0.46 0.0-0.49 mg/L FEU Creatine Kinase 113 46-171 U/L Troponin I High Sensitivity 41 </=54 ng/L Test 08/05/24 20:56 08/05/24 17:51 08/05/24 16:50 Range/Units Urine Color Yellow Yellow Urine Clarity Turbid H Clear Urine pH 5.5 5.0-9.0 Urine Specific [place] 1.020 1.001-1.035 Urine Protein 1+ H Negative Urine Ketones Trace Negative Urine Blood Negative Negative /uL Urine Nitrite Negative Negative Urine Bilirubin Negative Negative Urine Urobilinogen Normal Negative mg/dL Urine Leukocyte Esterase Negative Negative /uL Urine RBC 1 0 - 3 /hpf Urine Microscopic WBC 3 0-3 /HPF Urine Squamous Epithelial Cells Few <5 /hpf Urine Bacteria None seen None Seen /hpf Urine Hyaline Casts Few 0 - 2 /lpf Urine Glucose Normal Normal mg/dL White Blood Count 10.2 4.4-10.8 10^3/uL Red Blood Count 4.12 L 4.5-5.90 10^6/uL Hemoglobin 13.2 L 13.5-17.5 g/dL Hematocrit 40.7 L 41.0-53.0 % Mean Corpuscular Volume 98.8 80.0-100.0 fL Mean Corpuscular Hemoglobin 32.1 H 28.0-32.0 pg Mean Corpuscular Hemoglobin Concent 32.4 32.0-36.0 g/dL Red Cell Distribution Width 15.1 H 11.8-14.3 % Platelet Count 396 140-450 10^3/uL Mean Platelet Volume 8.4 6.9-10.8 fL Neutrophils (%) (Auto) 84.7 H 37.0-80.0 % Lymphocytes (%) (Auto) 6.1 L 10.0-50.0 % Monocytes (%) (Auto) 9.0 0.0-12.0 % Eosinophils (%) (Auto) 0.0 0.0-7.0 % Basophils (%) (Auto) 0.2 0.0-2.0 % Neutrophils # (Auto) 8.6 1.6-8.6 10 ^3/uL Lymphocytes # (Auto) 0.6 0.4-5.4 10 ^3/uL Monocytes # (Auto) 0.9 0-1.3 10 ^3/uL Eosinophils # (Auto) 0 0-0.8 10 ^3/uL Basophils # (Auto) 0 0-0.2 10 ^3/uL Nucleated Red Blood Cells 0.1 % Sodium Level 138 136-145 mmol/L Potassium Level 5.0 3.5-5.1 mmol/L Chloride Level 101 98-107 mmol/L Carbon Dioxide Level 24 20-31 mmol/L Anion Gap 13 5-15 Blood Urea Nitrogen 54 H 9-23 mg/dL Creatinine 2.87 H 0.700-1.30 mg/dL Glomerular Filtration Rate Calc 24 >90 mL/min BUN/Creatinine Ratio 18.8 10.0-20.0 Serum Glucose 122 H 74-106 mg/dL Calcium Level 9.3 8.7-10.4 mg/dL Total Bilirubin 0.2 0.2-1.0 mg/dL Aspartate Amino Transferase (AST) 16 13-40 U/L Alanine Aminotransferase (ALT) 19 7-40 U/L Alkaline Phosphatase 81 46-116 U/L Troponin I High Sensitivity 48 47 </=54 ng/L Total Protein 6.4 5.7-8.2 g/dL Albumin 4.2 3.2-4.8 g/dL Assessment Acute kidney injury unknown baseline in the setting of hypotension Acute on chronic hypoxic respiratory failure COPD exacerbation History of non Hodgkin's lymphoma post bone marrow transplant History of recent gastroenteritis Recommendations IV normal saline as ordered Use vasopressors as needed to maintain map greater than 65 Complete septic w/u Discussed With son bedside Plan discussed with: Patient, Son IRIS FORTE MD Aug 06, 2024 17:01
[2024-08-06] MEDS: ALBUTEROL SULF 2.5 MG/0.5ML(0.5%) NEB SOLN NEB PRN (17:43)
[2024-08-06] MEDS: IPRATROPIUM BROM 0.5 MG/2.5ML INH SOL NEB PRN (17:43)
[2024-08-06] MEDS: HALOPERIDOL LACTATE 5 MG/ML INJ VIAL IM ONE (18:15)
[2024-08-06] MEDS: LORazepam 2MG/ML-1ML VIAL IV PRN (20:28)
[2024-08-06] MEDS: ATORVASTATIN 20 MG TAB PO SCH (21:15)
[2024-08-07] VITALS (41 sets, daily range): BP systolic 36–153; BP diastolic 31–101; PULSE 89–132; RESP 18–40; TEMP 97.4–98.9; O2SAT 80–100
--- NOTE | 2024-08-07 08:52 | DVHPN2 ---
Progress Note Date Seen: Aug 07, 2024 Medical Necessity Reason Pt with a Central, PICC or Fol: No Subjective Patient reports: Other Review of Systems: HEENT:Normal, CVS:Normal, RESPIRATORY:Abnormal, GI:Normal, :Normal, MSK:Normal, NEURO:Normal Objective vital signs Vital Sign Date Time Temp Pulse Resp B/P (MAP) Pulse Ox O2 Delivery O2 Flow Rate FiO2 08/07/24 07:57 97 Nasal Cannula* 4 36 08/07/24 07:57 116 26 08/07/24 04:36 97.8 119/44 (69) 97.8 Total Intake and Output 08/06/24 08/06/24 08/07/24 15:00 23:00 07:00 Intake Total 220 ml Output Total 0 ml Balance 220 ml medications Current Medications Medications Dose Ordered Sig/Ashwin Route Start Time Stop Time Status Last Admin Dose Admin Albuterol 2.5 mg Q6HPRN PRN NEB 08/05/24 23:30 08/07/24 07:57 2.5 MG Ipratropium [place] 0.5 mg Q6HPRN PRN NEB 08/05/24 23:30 08/07/24 07:57 0.5 MG Amiodarone HCl 200 mg DAILY PO 08/06/24 10:00 08/06/24 10:10 200 MG Atorvastatin Calcium 10 mg HS PO 08/06/24 22:00 08/06/24 21:15 10 MG Ondansetron HCl 4 mg Q4HP PRN IV 08/05/24 23:30 Acetaminophen 650 mg Q6HP PRN PO 08/05/24 23:30 Nitroglycerin 0.4 mg Q5MINP PRN SL 08/05/24 23:30 Morphine Sulfate 2 mg Q30M PRN IV 08/05/24 23:30 Ceftriaxone Sodium 50 ml @ 100 mls/hr DAILY@09 IV 08/06/24 09:00 08/06/24 10:10 100 MLS/HR Lorazepam 1 mg Q4HPRN PRN IV 08/06/24 13:45 08/07/24 08:26 1 MG Azithromycin 250 ml @ 125 mls/hr DAILY IV 08/07/24 10:00 UNV Methylprednisolone Sodium Succinate 60 mg Q8HR IV 08/07/24 14:00 UNV Examination: GENERAL:Normal, HEENT:Normal, NECK:Normal, LUNGS:Abnormal, CVS:Normal, ABDOMEN:Normal, MSK:Abnormal, SKIN:Normal, NEURO:Normal, :Normal laboratory and microbiology Laboratory Tests 08/06/24 03:11 Test 08/06/24 03:11 Range/Units Serum Glucose 151 H 74-106 mg/dL Problem List/Assessment/Plan Problem List/Assessment/Plan Acute kidney injury unknown baseline in the setting of hypotension Acute on chronic hypoxic respiratory failure COPD exacerbation History of non Hodgkin's lymphoma post bone marrow transplant History of recent gastroenteritis Recommendations kidney US hold ivf as bp better upcr check ckd pane llabs pending today Plan discussed with: Patient My Orders My Orders Orders - IRIS FORTE MD Procedure Category Date Status Time Kidney US 08/07/24 Verified 08:51 Urine Creatinine LAB 08/07/24 Verified 08:51 Urine Protein LAB 08/07/24 Verified 08:51 Urine Sodium LAB 08/07/24 Verified 08:51 Basic Metabolic Panel LAB 08/08/24 Verified 05:00 Basic Metabolic Panel LAB 08/09/24 Verified 05:00 Basic Metabolic Panel LAB 08/10/24 Verified 05:00 Basic Metabolic Panel LAB 08/11/24 Verified 05:00 Basic Metabolic Panel LAB 08/12/24 Verified 05:00 Basic Metabolic Panel LAB 08/13/24 Verified 05:00 Basic Metabolic Panel LAB 08/14/24 Verified 05:00 IRIS FORTE MD Aug 07, 2024 08:52
--- NOTE | 2024-08-07 10:02 | DVH ---
INDICATION: jerilyn TECHNIQUE: Multiple real-time sonographic images of the kidneys and bladder were obtained. COMPARISON: None FINDINGS: The right kidney measures 9 cm in length. The right renal echogenicity, contour and cortical thickne ss are within normal limits. No hydronephrosis or large masses/calculi are seen. The left kidney measures 11 cm in length. The left renal echogenicity, contour, and cortical thickne ss are within normal limits. no hydronephrosis or large masses/calculi are seen. No large intraluminal masses are seen in the bladder. IMPRESSION: 1. Unremarkable examination.
[2024-08-07 11:35] LABS: Basophils # (auto) 0 10 ^3/uL (0-0.2); Basophils % (auto) 0.1 % (0.0-2.0); Eosinophils # (auto) 0 10 ^3/uL (0-0.8); Eosinophils % (auto) 0.1 % (0.0-7.0); Hematocrit 35.9 % (41.0-53.0); Hemoglobin 11.6 g/dL (13.5-17.5); Lymphocytes # (auto) 0.2 10 ^3/uL (0.4-5.4); Lymphocytes % (auto) 2.3 % (10.0-50.0); Mean Corpuscular Hemoglobin 31.6 pg (28.0-32.0); Mean Corpuscular Hgb Conc. 32.3 g/dL (32.0-36.0); Mean Corpuscular Volume 97.8 fL (80.0-100.0); Monocytes # (auto) 0.7 10 ^3/uL (0-1.3); Monocytes % (auto) 6.7 % (0.0-12.0); Neutrophils # (auto) 9.9 10 ^3/uL (1.6-8.6); Neutrophils % (auto) 90.8 % (37.0-80.0); Platelet Count (auto) 353 10^3/uL (140-450); Red Blood Cells 3.67 10^6/uL (4.5-5.90); Red Cell Distribution Width 14.9 % (11.8-14.3); White Blood Cell 10.9 10^3/uL (4.4-10.8)
--- NOTE | 2024-08-07 11:35 | DVHSR ---
APPROVED REPORT EXAM: Two-dimensional and M-mode echocardiogram with Doppler and color Doppler. Blood Pressure: 119/68 mmHg INDICATION EF RISK FACTORS Height: 6', Weight: 170 DIMENSIONS LVDd5.2 (3.8-5.7cm)LA (2D)3.4 (1.9-4.0cm)Aortic Root3.9 (2.0-3.7cm) LVDs3.7 (2.5-4.0cm)LA (MM) (1.9-4.0cm)Aortic Cusp Exc1.8 (1.5-2.0cm) EF (%) 57.0 (55-70%)Rt. Atrium4.1 (1.9-4.0cm)Asc. Aorta3.3 cm IVSd1.2 (0.7-1.1cm)RV (D)3.8 (1.8-2.4cm) PWd0.9 (0.7-1.1cm) Mitral Valve MitralMitral Stenosis E wave0.94m/sMV Mean GR.mmHg E/A ratio0.02D MVAcm2 Aortic Valve Aortic ValveAortic Stenosis V10.93m/Swati Mean GR.6mmHg V21.71m/Swati Peak GR.12mmHg LVOT Diameter2.3 (1.8-2.4cm)Doppler AVA2.26cm2 Pulmonic Valve V21.10m/s Other Information Quality : Technically LimitedRhythm : Technically limited study due to body habitus and pt moving. Conclusion lvef 60% by visual estimate normal rv function left atrium enlarged normal pericardium no severe valve abnormalites noted
[2024-08-07] MEDS: methylPREDNISolone SOD SUCC 125 MG/2 ML VL IV ONE (12:04)
[2024-08-07 12:10] LABS: Sodium 142 mmol/L (136-145)
[2024-08-07 12:11] LABS: Anion Gap 4 (5-15); Carbon Dioxide 30 mmol/L (20-31)
[2024-08-07 12:12] LABS: Calcium 9.5 mg/dL (8.7-10.4)
[2024-08-07 12:15] LABS: Base Excess -2.8 mmol/L (-2.0-3.0)
[2024-08-07 12:17] LABS: BUN/Creatinine Ratio 29.6 (10.0-20.0)
[2024-08-07 12:19] LABS: Blood Urea Nitrogen 47 mg/dL (9-23); Chloride 108 mmol/L (98-107); Glucose 184 mg/dL (74-106); Potassium 5.2 mmol/L (3.5-5.1)
[2024-08-07 12:21] LABS: Phosphorus 2.2 mg/dL (2.4-5.1)
[2024-08-07 12:26] LABS: Magnesium 5.4 mg/dL (1.6-2.6)
[2024-08-07] MEDS: AZITHROMYCIN 500MG/ 250ML 250 ML IV SCH (14:16)
--- NOTE | 2024-08-07 15:05 | DVH ---
EXAM: XY CHEST XRAY 1 VIEW Indication: SOB Technique: Single frontal view of the chest was obtained Comparison: XY CHEST XRAY 1 VIEW on DOS: 08/05/24 FINDINGS: Lines and Tubes: None Lungs: No focal consolidation. Pleura: No effusion. No pneumothorax. Cardiomediastinal contours: Unremarkable Bones: No acute osseous abnormality. IMPRESSION: No acute cardiopulmonary disease.
[2024-08-07] MEDS: CALCIUM GLUC 1,000mg/50ml-NS 50 ML IV SCH (17:26)
[2024-08-07] MEDS: D5W/LACTATED RINGERS 1,000 ML IV ONE (17:27)
[2024-08-07] MEDS: methylPREDNISolone SOD SUCC 125 MG/2 ML VL IV SCH (17:34)
[2024-08-07] MEDS: FUROSEMIDE 40 MG/4 ML VIAL IV ONE (17:38)
[2024-08-07 18:25] LABS: Base Excess -0.8 mmol/L (-2.0-3.0)
[2024-08-07] MEDS: ETOMIDATE (2MG/ML) 20ML VIAL IV ONE ×2 (18:44→19:10)
[2024-08-07] MEDS: fentaNYL Drip 2500mCg/250mlNS 250 ML IV ONE (18:45)
[2024-08-07] MEDS: ROCURONIUM 10MG/ML 10ML VIAL IV ONE ×2 (18:45→19:10)
[2024-08-07] MEDS: NOREPINEPHRINE 8 MG/250ML KIT 250 ML IV SCH (19:00)
[2024-08-07] MEDS: fentaNYL Drip 2500mCg/250mlNS 250 ML IV SCH (19:00)
[2024-08-07] MEDS: PROPOFOL 100 ML IV SCH (19:00)
[2024-08-07] MEDS: MIDAZOLAM DRIP 50 mg/50mL 50 ML IV ONE (19:16)
--- NOTE | 2024-08-07 20:43 | DVH ---
CHEST RADIOGRAPH Indication: INTUBATION, CENTRAL LINE PLACEMENT, NG PLACED Technique: Single frontal view of the chest was obtained COMPARISON: XY CHEST XRAY 1 VIEW on DOS: 08/07/24, XY CHEST XRAY 1 VIEW on DOS: 08/05/24 FINDINGS: Lines and Tubes: Median sternotomy. Endotracheal tube and enteric catheter in satisfactory position. Lungs: Congestion Pleura: No effusion. No pneumothorax. Cardiomediastinal contours: Unremarkable Bones: Unremarkable IMPRESSION: Lines and tubes in satisfactory position.
[2024-08-07] MEDS ORDERED: GABA-339 PO (21:21)
[2024-08-07] MEDS ORDERED: MET50T PO (21:21)
[2024-08-07] MEDS: MIDAZOLAM DRIP 50 mg/50mL 50 ML IV SCH (21:57)
[2024-08-07 22:02] LABS: Base Excess -2.9 mmol/L (-2.0-3.0)
--- NOTE | 2024-08-07 22:43 | DVHINCON2 ---
Date of service: Aug 07, 2024 Referring Physician Romaine Durbin DO Reason for Consultation Acute on chronic hypoxic respiratory failure and COPD exacerbation History of Present Illness 64-year-old man with PMHx of COPD, hypertension, peripheral vascular disease, ? CHF, and B12 deficiency who presented to ED on 08/05/24 for evaluation of shortness of breath. Patient currently on 5 L nasal cannula oxygen at home, presented for evaluation of a 2-day history of worsening shortness of breath. On arrival to ED, O2 sat was in the low 80s. Denied chest pain, palpitations, cough, fever or other acute complaints. Patient was admitted for further care, and pulmonary consultation is requested for evaluation and management of acute on chronic hypoxic respiratory failure and COPD exacerbation. Review of Systems: 14-point review of systems negative unless otherwise noted above. Past Medical History: COPD, hypertension, peripheral vascular disease, ? CHF, B12 deficiency. Past Surgical History: Hernia repair Medications: Reviewed. Allergies: No known drug allergies. Family History: Significant for hypertension. No family history of premature CAD or lung disorders. Social History: Smoker, smokes 1 pack per day. No alcohol or illicit drug use. Family History: Hypertension G8 MOTHER G8 FATHER Allergies: Coded Allergies: NO KNOWN ALLERGIES (Unverified , 10/08/17) Home Meds Reported Medications Gabapentin (Gabapentin) 600 Mg Tab, 600 MG PO BID for 30 Days, MG 08/07/24 Metoprolol Tartrate (LOPRESSOR TABLET) 50 Mg Tb, 25 MG PO BID, #60 TAB 5 Refills 08/07/24 Current Medications Current Medications Medications (Trade) Dose Ordered Sig/Ashwin Route PRN Reason Start Time Stop Time Status Last Admin Azithromycin 250 ml @ 125 mls/hr DAILY IV 08/07/24 10:00 08/07/24 14:16 Methylprednisolone Sodium Succinate (Solu Medrol) 60 mg Q8HR IV 08/07/24 14:00 08/07/24 21:55 Calcium Gluconate/ Sodium Chloride 50 ml @ 100 mls/hr Q30M IV 08/07/24 15:00 08/07/24 15:59 DC 08/07/24 18:39 Propofol 100 ml @ 2.442 mls/ hr Q24H IV 08/07/24 19:00 Fentanyl Citrate 250 ml @ 2.5 mls/hr Q24H IV 08/07/24 19:00 08/07/24 19:00 Norepinephrine Bitartrate 250 ml @ 3.75 mls/hr Q24H IV 08/07/24 19:00 Midazolam HCl 50 ml @ 1 mls/hr Q24H IV 08/07/24 21:45 08/07/24 21:57 Vital Signs Vital Signs Date Time Temp Pulse Resp B/P (MAP) Pulse Ox O2 Delivery O2 Flow Rate FiO2 08/07/24 21:57 93/65 08/07/24 21:55 130 24 99 60 08/07/24 18:36 Facial BiPAP Mask 08/07/24 17:00 97.9 97.9 08/07/24 10:00 5 Physical Exam Gen.: Patient lying in bed in no apparent distress. On BiPAP Head: Normocephalic, atraumatic. Eyes: EOMI/PERRLA. Ears: Normal hearing. Normal anatomy. Neck/trachea: Trachea midline, supple. Nose: Normal external anatomy. Mouth: Moist mucous membranes. Chest: Decreased air entry bilaterally. No wheezing or rhonchi. Cardiovascular: Positive S1, positive S2. Regular rate and rhythm. Abdomen: Positive bowel sounds in all 4 quadrants. Soft, non-tender, non- distended. : Deferred. Rectal: Deferred. Skin: Warm, dry. Intact. Extremities: 2+ radial pulses bilaterally. No lower extremity edema. Neuro: Awake, alert, oriented x3. No gross motor or sensory deficits. Cranial nerves II through XII intact. Gait not assessed. Labs/Diagnostic Data Labs Test 08/07/24 21:30 08/07/24 18:20 08/07/24 11:57 08/07/24 10:57 Range/Units Blood Gas Specimen Type Arterial Blood Gas Sample Site Right brachial Blood Gas Patient Temperature 37.0 Arterial Blood Date Drawn [id number] Arterial Blood pH 7.213 *L 7.350-7.450 Arterial Blood Partial Pressure CO2 66.0 *H 35.0-48.0 mmHg Arterial Blood Partial Pressure O2 489.8 *H 83.0-108.0 mmHg Arterial Blood HCO3 26.0 21.0-28.0 mmol/L Arterial Blood Oxygen Saturation 99.6 H 94.0-98.0 % Arterial Blood Base Excess -2.9 L -2.0-3.0 mmol/L Arterial Blood Oxyhemoglobin 98.5 H 94.0-98.0 % Arterial Blood Carboxyhemoglobin 0.9 0.5-1.5 % Arterial Blood Methemoglobin 0.2 0.0-1.5 % Mason Test N/a Blood Gas Total Hemoglobin 12.10 L 13.5-17.5 g/dL Blood Gas Set Respiration Rate 24.0 Blood Gas Modality Vent - ac FiO2 % 100.0 Blood Gas Tidal Volume 450.0 Blood Gas PEEP or CPAP 8.0 Blood Gas Critical Value Read Back Yes Blood Gas Notified Whom Maribell stevenson md Blood Gas Notified Time [id number] Blood Gas Notified By Rasheed leyva rrt Blood Gas EPAP 6 Blood Gas IPAP 20 Blood Gas Liter Flow 3.00 White Blood Count 10.9 #H 4.4-10.8 10^3/uL Red Blood Count 3.67 L 4.5-5.90 10^6/uL Hemoglobin 11.6 L 13.5-17.5 g/dL Hematocrit 35.9 L 41.0-53.0 % Mean Corpuscular Volume 97.8 80.0-100.0 fL Mean Corpuscular Hemoglobin 31.6 28.0-32.0 pg Mean Corpuscular Hemoglobin Concent 32.3 32.0-36.0 g/dL Red Cell Distribution Width 14.9 H 11.8-14.3 % Platelet Count 353 140-450 10^3/uL Mean Platelet Volume 8.4 6.9-10.8 fL Neutrophils (%) (Auto) 90.8 H 37.0-80.0 % Lymphocytes (%) (Auto) 2.3 L 10.0-50.0 % Monocytes (%) (Auto) 6.7 0.0-12.0 % Eosinophils (%) (Auto) 0.1 0.0-7.0 % Basophils (%) (Auto) 0.1 0.0-2.0 % Neutrophils # (Auto) 9.9 H 1.6-8.6 10 ^3/uL Lymphocytes # (Auto) 0.2 L 0.4-5.4 10 ^3/uL Monocytes # (Auto) 0.7 0-1.3 10 ^3/uL Eosinophils # (Auto) 0 0-0.8 10 ^3/uL Basophils # (Auto) 0 0-0.2 10 ^3/uL Nucleated Red Blood Cells 0.0 % Sodium Level 142 # 136-145 mmol/L Potassium Level 5.2 H 3.5-5.1 mmol/L Chloride Level 108 H 98-107 mmol/L Carbon Dioxide Level 30 # 20-31 mmol/L Anion Gap 4 L 5-15 Blood Urea Nitrogen 47 H 9-23 mg/dL Creatinine 1.59 H 0.700-1.30 mg/dL Glomerular Filtration Rate Calc 49 >90 mL/min BUN/Creatinine Ratio 29.6 H 10.0-20.0 Serum Glucose 184 H 74-106 mg/dL Calcium Level 9.5 8.7-10.4 mg/dL Phosphorus Level 2.2 L 2.4-5.1 mg/dL Magnesium Level 5.4 *H 1.6-2.6 mg/dL Vitamin D 25-Hydroxy 81.4 30.0-100 ng/mL Parathyroid Hormone (Intact) 19.2 18.4-80.1 pg/mL Test 08/06/24 03:45 08/06/24 03:11 08/05/24 23:36 08/05/24 21:07 Range/Units Influenza Type A Antigen Negative Negative Influenza Type B Antigen Negative Negative SARS-CoV-2 Antigen (Rapid) Negative NEGATIVE Differential Total Cells Counted 100.0 100 Neutrophils % (Manual) 93 H 37.0-80.0 Band Neutrophils % (Manual) 1 Lymphocytes % (Manual) 5 L 10.0-50.0 Monocytes % (Manual) 1 0-12 Eosinophils % (Manual) 0 0-7 Basophils % (Manual) 0 0.0-2.0 Metamyelocytes % (manual) 0 Myelocytes % (Manual) 0 Promyelocytes % (Manual) 0 Blast Cells % (Manual) 0 Reactive Lymphocytes 0 Platelet Estimate Adequate D-Dimer, Quantitative 0.46 0.0-0.49 mg/L FEU Creatine Kinase 113 46-171 U/L Troponin I High Sensitivity 41 </=54 ng/L Test 08/05/24 20:56 08/05/24 17:51 Range/Units Urine Color Yellow Yellow Urine Clarity Turbid H Clear Urine pH 5.5 5.0-9.0 Urine Specific [place] 1.020 1.001-1.035 Urine Protein 1+ H Negative Urine Ketones Trace Negative Urine Blood Negative Negative /uL Urine Nitrite Negative Negative Urine Bilirubin Negative Negative Urine Urobilinogen Normal Negative mg/dL Urine Leukocyte Esterase Negative Negative /uL Urine RBC 1 0 - 3 /hpf Urine Microscopic WBC 3 0-3 /HPF Urine Squamous Epithelial Cells Few <5 /hpf Urine Bacteria None seen None Seen /hpf Urine Hyaline Casts Few 0 - 2 /lpf Urine Glucose Normal Normal mg/dL Total Bilirubin 0.2 0.2-1.0 mg/dL Aspartate Amino Transferase (AST) 16 13-40 U/L Alanine Aminotransferase (ALT) 19 7-40 U/L Alkaline Phosphatase 81 46-116 U/L Total Protein 6.4 5.7-8.2 g/dL Albumin 4.2 3.2-4.8 g/dL Microbiology Date/Time Source Procedure Growth Status 08/07/24 20:13 Trachea Pending Resulted 08/07/24 20:13 Trachea Pending Resulted 08/07/24 20:13 Trachea Pending Resulted 08/07/24 20:13 Trachea Pending Resulted 08/07/24 20:13 Trachea - Final See Separate Report... Resulted Assessment Impression: Acute on chronic hypoxic respiratory failure On mechanical ventilation Dependence on supplemental oxygen COPD exacerbation Nicotine dependence Acute renal failure Hypotension/shock Plan: ABG reviewed, notable for acidemia d/t hypercarbia Start BiPAP with IPAP 16, EPAP 6 Titrate IPAP to achieve tidal volume of 400-500 mL. Obtain ABG in 1 hour Upgrade to ICU Continue bronchodilators. IV steroids Lasix 40 mg IVP given Ativan for anxiety Patient underwent left subclavian central line and left radial arterial line placement. S/p bronchoscopy with RML BAL today d/t increased secretions - cleared mucous plugging from L5-L10 and R4-10 See separate procedure note for details. Monitor renal function. Monitor electrolytes. Supplement as necessary. Monitor ins and outs. DVT prophylaxis. Addendum: Patient's respiratory status decompensated and required emergent intubation and placement on mechanical ventilator. A bronchoscopy was performed to clear suspected mucus plugs. See separate procedure note for full details. A central line was placed for administration of medications and blood draws. An arterial line was placed for ABG draws and hemodynamic monitoring. s/p intubation CXR image and report reviewed. Endotracheal tube in place. Mild pulmonary vascular congestion. ABG reviewed. Compensated. On AC mode: Respiratory rate 24, tidal volume 550, peep of eight, FiO2 of 30%. Titrate FiO2 to keep sats above 92%. VAP bundle. Bronchodilators IV steroids Continue antibiotics On pressors for hemodynamic support. On Levophed Titrate to keep MAP above 65 mmHg. Monitor renal function Monitor electrolytes. Supplement as necessary. 35 minutes of critical care time. Prognosis: Poor given patient's multiple co-morbidities. Condition: Critical Rest of plan per hospitalist and other consultants. A total of 35 minutes of critical care time was spent reviewing the patient record, examining the patient, making a diagnostic and therapeutic plan, discussing this plan with the medical personnel, following up on diagnostic studies and following the patient for clinical stability excluding any and all procedures. At least 50% of this time was spent in direct, [id number] contact. Thank you, Dr. Durbin, for allowing me to participate in this patient's care. Further recommendations will depend on the patient's clinical course. Please do not hesitate to contact me if you have any questions or concerns. This medical document was created using an electronic medical record system with [employer] computerized dictation system. Although these documentations are being carefully reviewed, there may still be some phonetic and typographical changes. The errors are purely typographical, due to imperfection on the software program, and do not reflect any compromise in the patient's medical care. Plan discussed with: Other (RUBEN Barros/Dr. Durbin) NATHAN STEVENSON MD Aug 07, 2024 22:43
--- NOTE | 2024-08-07 22:48 | DVHNC2 ---
Procedure - Procedure: Endotracheal Intubation INDICATION: Acute respiratory failure, accessory muscle usage Physician: Nathan Chau MD CONSENT: Emergent procedure. Implied. Patient medications and allergies reviewed. Patient identification and proposed procedure were verified prior to the procedure by the physician, and a nurse in the patient's room. The heart rate, respiratory rate, oxygen saturations, blood pressure, adequacy of pulmonary ventilation, and response to care were monitored throughout the procedure. The physical status of the patient was reassessed after the procedure. PROCEDURE SUMMARY: A time out was performed. My hands were washed immediately prior to the procedure. I wore a surgical cap, mask with protective eyewear, gown and gloves throughout the procedure. The patient was placed on a desk monitor including continuous pulse oximetry. The patient received 16 mg Etomidate and 50 mg rocuronium for induction. Cricoid pressure was maintained from time induction agent was given to time of cuff balloon inflation. Using a MAC 4 GlideoScope and a size 8.0 endotracheal tube with stylet, the patient was intubated on the 1 attempt. The stylet was removed and cuff balloon was inflated. Appropriate endotracheal tube position was confirmed by direct visualization of vocal cord passage, fogging of the tube, CO2 colorimetric indicator and symmetric breath sounds. The tube was secured at 23 cm at the lips. Post intubation chest x-ray is demonstrates the ETT between 6 cm above the adeola. CPT Code: 63270 NATHAN CHAU MD Aug 07, 2024 22:48
--- NOTE | 2024-08-07 22:50 | DVHNC2 ---
Procedure - Bronchoscopy procedure note: Indications: Possible mucous plugging. 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 Complications: None Procedure: Patient medications and allergies reviewed. The risks and benefits of the procedure and the sedation options and risk were discussed with the patient's healthcare proxy. All questions were answered and informed consent was obtained. Patient identification and proposed procedure were verified prior to the procedure by the physician, and a nurse, and the respiratory therapist in ICU room. The heart rate, respiratory rate, oxygen saturations, blood pressure, adequacy of pulmonary ventilation, and response to care were monitored throughout the procedure. The physical status of the patient was reassessed after the procedure. After obtaining informed consent, the bronchoscope was introduced through the endotracheal tube and advanced into the trachea bronchial tree of both lungs. The procedure was accomplished without difficulty. The patient tolerated the procedure well. Findings: The trachea is in normal caliber. The adeola is sharp. The tracheobronchial tree of the right lung was examined to at least the first subsegmental level. The bronchial mucosa and anatomy in the right lung are normal. There are no endobronchial lesions. There was copious whitish secretions from right main stem bronchus onward throughout R4-R10. Right middle lobe (RML) Bronchoalveolar lavage (BAL) obtained. RML BAL sent for gram stain and culture and fungal culture. The left upper lobe, lingula, and left lower lobe were examined to at least the first subsegmental level. Bronchial mucosa and anatomy in the left upper lobe and lingula are normal. There were no endobronchial lesions. There was copious whitish secretions from left main stem bronchus onward throughout L5-L10. Mucous plugging removed from L5-L10. There was no active bleeding at the completion of the procedure. Estimated blood loss: Less than 5 mL. Impression: Left lower lobe and right middle/lower lobe atelectasis due to mucous plugging Mucous plugging from L5-L10 and R4-10 RML BAL performed Recommendation: Follow-up RML BAL results. Procedure codes: 01776, bronchoscopy, rigid and flexible, including fluoroscopic guidance, one performed; with bronchial endobronchial broncho-alveolar lavage, single or multiple sites NATHAN TALAVERA MD Aug 07, 2024 22:50
--- NOTE | 2024-08-07 22:52 | DVHNC2 ---
Procedure - ULTRASOUND-GUIDED LEFT SUBCLAVIAN INTERNAL JUGULAR CENTRAL VENOUS CANNULATION CPT Codes: 61728 (ultrasound guidance) 02064 (insertion of non-tunneled centrally inserted central venous catheter) 65009 (CXR interpretation) Patient medications and allergies reviewed. The risks and benefits of the procedure and the sedation options and risk were discussed with the patient's healthcare proxy. All questions were answered and informed consent was obtaine d. Patient identification and proposed procedure were verified prior to the procedure by the physician, and a nurse in the patient's room. The heart rate, respiratory rate, oxygen saturations, blood pressure, adequacy of pulmonary ventilation, and response to care were monitored throughout the procedure. The physical status of the patient was reassessed after the procedure. Date: 08/07/24 PHYSICIAN: Nathan Chau PREOPERATIVE DIAGNOSIS: Septic shock POSTOPERATIVE DIAGNOSIS: Septic shock PROCEDURE PERFORMED: Limited Ultrasound-guided LEFT SUBCLAVIAN jugular central line placement. ANESTHESIA: 2 mL of 1% lidocaine plain. ESTIMATED BLOOD LOSS: less than 5 mL. SPECIMENS: None. COMPLICATIONS: None. INDICATIONS FOR PROCEDURE: The patient is in need of large bore IV access for administration of fluids, including blood products and vasoactive drugs, possible transvenous cardiac pacing and CVP monitoring for hemodynamic instability. DESCRIPTION OF PROCEDURE IN DETAIL: The patient was lying in the Trendelenburg position with head turned 30 degrees away from the insertion site. The skin was thoroughly sponged with chlorhexidine and allowed to dry. All persons involved were shielded with hair nets, face masks and sterile gowns. With sterile-gloved hands the right neck area was drap ed with the large disposable sterile field provided in the pre-manufactured kit. The skin and subcutaneous tissues superficial to the LEFT SUBCLAVIAN vein were anesthetized with 2 mL of 1% lidocaine. The LEFT SUBCLAVIAN vein was identified on ultrasound using the linear ultrasound probe in the transverse orientation. The subclavian artery was identified and avoided utilizing color-flow. The subclavian vein was then placed in the center of the ultrasound field and compressed for patency. A movement artifact was identified as the needle was advanced through the skin and advanced toward the vessel. A real time hyperechoic signal revealed visualization of vascular needle entry into the lumen as blood was noted to flashback in the syringe. The needle was then held in place while the guide wire was advanced. The needle was then removed. Direct visualization of guide wire location within the vein was noted on ultrasound indicating proper placement and was document in the electronic medical record chart. A skin dilator was advanced over the guidewire and removed, and the triple-lumen catheter was then advanced over the guide wire into proper position. The guide wire was removed and discarded. The ports were aspirated which showed good blood return and then carefully flushed with normal saline. The catheter was stabilized and sutured to the skin with 2-0 silk at 2 anchor points. A sterile bio-patch and dressing was placed over the catheter, including the insertion site. The patient tolerated the procedure well. A chest x-ray was ordered for position confirmation. I reviewed the image immediately after it was taken at bedside. Post-procedure chest x-ray demonstrates the central line in the superior vena and no evidence of any pneumothorax. An image recording of the procedure accompanies the chart. NATHAN CHAU MD Aug 07, 2024 22:52
--- NOTE | 2024-08-07 22:54 | DVHNC2 ---
Procedure - Radial arterial line procedure note Indication: Hemodynamic monitoring, frequent blood ABG draws. 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 Indications, risks, and benefits were explained at length. Patient medications and allergies reviewed. The risks and benefits of the procedure and the sedation options and risk were discussed with the patient's healthcare proxy. All questions were answered and informed consent was obtained. Patient identification and proposed procedure were verified prior to the procedure by the physician, and a nurse in the patient's room. The heart rate, respiratory rate, oxygen saturations, blood pressure, adequacy of pulmonary ventilation, and response to care were monitored throughout the procedure. The physical status of the patient was reassessed after the procedure. Procedure summary: A time-out was performed. My hands were washed immediately prior to the procedure. I wore surgical cap, mask with protective eyewear, sterile gown and sterile gloves throughout the procedure. After an Mason test was performed to ensure adequate perfusion, the LEFT wrist was prepped using chlorhexidine scrub and draped in sterile fashion using sterile towels. The radial pulse was identified with the use of ultrasound. The wrist was positioned in the usual fashion. Anesthesia was achieved using 1% lidocaine. Using the radial arterial line kit, needle was inserted into the radial artery using ultrasound guidance. Arterial blood flow was seen to pulsate in the flash chamber. The internal guidewire was advanced easily into the radial artery. The catheter was then advanced over the wire and the needle and wire were withdrawn. The catheter was sutured into place with 1 sutures. A sterile Biopatch and Tegaderm was placed over the catheter at the insertion site. The patient tolerated the procedure without any hemodynamic compromise. At the time of procedure completion, the catheter was connected to the color television console monitor and calibrated. Appropriate waveform and blood pressure tracing was observed. Estimated blood loss is less than 5 mL. CPT: 84455 Arterial line insertion CPT: 76202 US add-on NATHAN CHAU MD Aug 07, 2024 22:54
[2024-08-07] MEDS: SODIUM CHLORIDE 0.9% 500 ML IV ONE (23:15)
[2024-08-07] MEDS: PHENYLEPHRINE IV 250 ML IV SCH (23:47)
[2024-08-08] VITALS (103 sets, daily range): BP systolic 80–142; BP diastolic 52–95; PULSE 48–131; RESP 15–25; TEMP 96.9–98.1; O2SAT 95–100
[2024-08-08 01:49] LABS: Base Excess 1.8 mmol/L (-2.0-3.0)
[2024-08-08 05:22] LABS: Anion Gap 8 (5-15); Carbon Dioxide 28 mmol/L (20-31); Potassium 4.5 mmol/L (3.5-5.1)
[2024-08-08 05:23] LABS: Calcium 9.6 mg/dL (8.7-10.4)
[2024-08-08 05:25] LABS: Chloride 110 mmol/L (98-107); Sodium 146 mmol/L (136-145)
[2024-08-08 05:28] LABS: BUN/Creatinine Ratio 36.5 (10.0-20.0)
[2024-08-08 05:29] LABS: Magnesium 2.1 mg/dL (1.6-2.6)
[2024-08-08 05:35] LABS: Blood Urea Nitrogen 46 mg/dL (9-23); Glucose 221 mg/dL (74-106)
[2024-08-08 06:30] LABS: Base Excess 3.4 mmol/L (-2.0-3.0)
--- NOTE | 2024-08-08 07:39 | DVH ---
EXAM: XR Chest, 1 View CLINICAL INDICATION: ETT ADVANCED, CHECK PLACEMENT TECHNIQUE: Frontal view of the chest. COMPARISON: XY CHEST PORTABLE on DOS: 08/07/24, XY CHEST XRAY 1 VIEW on DOS: 08/07/24, XY CHEST XRAY 1 VIEW on DOS: 08/05/24 FINDINGS: LUNGS AND PLEURAL SPACES: Mild pulmonary congestion. No consolidation. No pneumothorax. HEART: Unremarkable. No cardiomegaly. MEDIASTINUM: Unremarkable. Normal mediastinal contour. BONES/JOINTS: Unremarkable. No acute fracture. TUBES, LINES AND DEVICES: ETT with distal tip 6.9 cm from the adeola. Enteric tube tip in the stom ach. Left internal jugular central venous catheter tip in the superior vena cava. OTHER FINDINGS: . ... IMPRESSION: 1. ETT with distal tip 6.9 cm from the adeola. Further advancement by 3-4 cm may be beneficial. 2. Mild pulmonary congestion.
--- NOTE | 2024-08-08 09:43 | DVHPN2 ---
Progress Note Date Seen: Aug 08, 2024 Medical Necessity Reason Pt with a Central, PICC or Fol: No Subjective Review of Systems: RESPIRATORY:Abnormal Other Systems: Patient seen and examined by myself today in follow-up, patient remained intubated on ventilator Objective vital signs Vital Sign Date Time Temp Pulse Resp B/P (MAP) Pulse Ox O2 Delivery O2 Flow Rate FiO2 08/08/24 08:01 79 24 117/81 (93) 98 30 08/08/24 08:00 96.9 96.9 08/07/24 20:00 Mechanical Ventilator+ 08/07/24 10:00 5 Total Intake and Output 08/07/24 08/07/24 08/08/24 15:00 23:00 07:00 Intake Total 50 ml 400.0 ml 657.31 ml Output Total 225 ml 1300 ml Balance 50 ml 175.0 ml -642.69 ml medications Current Medications Medications Dose Ordered Sig/Ashwin Route Start Time Stop Time Status Last Admin Dose Admin Albuterol 2.5 mg Q6HPRN PRN NEB 08/05/24 23:30 08/07/24 07:57 2.5 MG Ipratropium [place] 0.5 mg Q6HPRN PRN NEB 08/05/24 23:30 08/07/24 07:57 0.5 MG Amiodarone HCl 200 mg DAILY PO 08/06/24 10:00 08/08/24 08:50 200 MG Atorvastatin Calcium 10 mg HS PO 08/06/24 22:00 08/07/24 21:55 10 MG Ondansetron HCl 4 mg Q4HP PRN IV 08/05/24 23:30 Acetaminophen 650 mg Q6HP PRN PO 08/05/24 23:30 Nitroglycerin 0.4 mg Q5MINP PRN SL 08/05/24 23:30 Morphine Sulfate 2 mg Q30M PRN IV 08/05/24 23:30 Ceftriaxone Sodium 50 ml @ 100 mls/hr DAILY@09 IV 08/06/24 09:00 08/08/24 08:50 100 MLS/HR Lorazepam 1 mg Q4HPRN PRN IV 08/06/24 13:45 08/07/24 17:24 1 MG Azithromycin 250 ml @ 125 mls/hr DAILY IV 08/07/24 10:00 08/08/24 08:50 125 MLS/HR Methylprednisolone Sodium Succinate 60 mg Q8HR IV 08/07/24 14:00 08/08/24 05:19 60 MG Propofol 100 ml @ 2.442 mls/ hr Q24H IV 08/07/24 19:00 Fentanyl Citrate 250 ml @ 2.5 mls/hr Q24H IV 08/07/24 19:00 08/08/24 07:40 20 MLS/HR Norepinephrine Bitartrate 250 ml @ 3.75 mls/hr Q24H IV 08/07/24 19:00 Midazolam HCl 50 ml @ 1 mls/hr Q24H IV 08/07/24 21:45 08/08/24 05:18 7 MLS/HR Phenylephrine HCl 250 ml @ 30 mls/hr Q8H20M IV 08/07/24 23:15 08/07/24 23:47 30 MLS/HR Examination: LUNGS:Normal, CVS:Normal, MSK:Normal laboratory and microbiology Laboratory Tests 08/08/24 04:29 08/07/24 10:57 Test 08/08/24 04:29 Range/Units Serum Glucose 221 H 74-106 mg/dL Microbiology Date/Time Source Procedure Growth Status 08/07/24 20:13 Trachea Pending Resulted 08/07/24 20:13 Trachea Pending Resulted 08/07/24 20:13 Trachea Pending Resulted 08/07/24 20:13 Trachea Pending Resulted 08/07/24 20:13 Trachea - Final See Separate Report... 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
[2024-08-08] MEDS: SOD CHL 0.45% 1,000 ML IV SCH (09:45)
--- NOTE | 2024-08-08 10:06 | DVH ---
CHEST RADIOGRAPH Indication: advanced et tube Technique: Frontal view of the chest. Comparison: XY CHEST PORTABLE on DOS: 08/08/24, XY CHEST PORTABLE on DOS: 08/07/24, XY CHEST XRAY 1 VIE W on DOS: 08/07/24, XY CHEST XRAY 1 VIEW on DOS: 08/05/24, XY CHEST PORTABLE on DOS: 08/08/24 FINDINGS: LUNGS AND PLEURAL SPACES: Mild pulmonary congestion. No consolidation. No pneumothorax. HEART: Unremarkable. No cardiomegaly. MEDIASTINUM: Unremarkable. Normal mediastinal contour. BONES/JOINTS: Unremarkable. No acute fracture. TUBES, LINES AND DEVICES: ETT with distal tip 5 cm from the adeola. Enteric tube tip in the stomac h. Left internal jugular central venous catheter tip in the superior vena cava. IMPRESSION: 1. ETT with distal tip 5 cm from the adeola. 2. Mild pulmonary congestion.
--- NOTE | 2024-08-08 11:28 | ECG ---
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
--- NOTE | 2024-08-08 16:33 | MEDREC ---
[facility] Intervention Section I [facility] Intervention: Review courses of therapy (PLEASE CONSIDER SWITCHING AZITHROMYCIN TO DOXYCYLINE FOR COPD EXACERBATION DUE TO QT PROLONGATION (QTc 519 ON 08/08). ) SUZANNA PAUL Aug 08, 2024 16:33
[2024-08-08] MEDS: BUMETANIDE 1mg/4ml VIAL (0.25mg/ml) IV SCH (20:28)
--- NOTE | 2024-08-08 21:16 | DVHPN2 ---
Progress Note - Dictate Date Seen: Aug 08, 2024 Medical Necessity Reason Pt with a Central, PICC or Fol: No Subjective Patient seen and examined at bedside. Sedated, intubated on mechanical ventilator. Overnight events reviewed. vital signs Vital Sign Date Time Temp Pulse Resp B/P (MAP) Pulse Ox O2 Delivery O2 Flow Rate FiO2 08/08/24 20:28 90/55 08/08/24 19:50 84 24 95 30 08/08/24 17:00 97.6 97.6 08/08/24 10:00 Mechanical Ventilator+ 08/07/24 10:00 5 Total Intake and Output 08/07/24 08/07/24 08/08/24 15:00 23:00 07:00 Intake Total 50 ml 400.0 ml 819.06 ml Output Total 225 ml 1300 ml Balance 50 ml 175.0 ml -480.94 ml medications Current Medications Medications Dose Ordered Sig/Ashwin Route Start Time Stop Time Status Last Admin Dose Admin Albuterol 2.5 mg Q6HPRN PRN NEB 08/05/24 23:30 08/07/24 07:57 2.5 MG Ipratropium [place] 0.5 mg Q6HPRN PRN NEB 08/05/24 23:30 08/07/24 07:57 0.5 MG Amiodarone HCl 200 mg DAILY PO 08/06/24 10:00 08/08/24 08:50 200 MG Atorvastatin Calcium 10 mg HS PO 08/06/24 22:00 08/07/24 21:55 10 MG Ondansetron HCl 4 mg Q4HP PRN IV 08/05/24 23:30 Acetaminophen 650 mg Q6HP PRN PO 08/05/24 23:30 Nitroglycerin 0.4 mg Q5MINP PRN SL 08/05/24 23:30 Morphine Sulfate 2 mg Q30M PRN IV 08/05/24 23:30 Ceftriaxone Sodium 50 ml @ 100 mls/hr DAILY@09 IV 08/06/24 09:00 08/08/24 08:50 100 MLS/HR Lorazepam 1 mg Q4HPRN PRN IV 08/06/24 13:45 08/07/24 17:24 1 MG Azithromycin 250 ml @ 125 mls/hr DAILY IV 08/07/24 10:00 08/08/24 08:50 125 MLS/HR Methylprednisolone Sodium Succinate 60 mg Q8HR IV 08/07/24 14:00 08/08/24 14:53 60 MG Propofol 100 ml @ 2.442 mls/ hr Q24H IV 08/07/24 19:00 Fentanyl Citrate 250 ml @ 2.5 mls/hr Q24H IV 08/07/24 19:00 08/08/24 19:33 20 MLS/HR Norepinephrine Bitartrate 250 ml @ 3.75 mls/hr Q24H IV 08/07/24 19:00 08/08/24 14:13 3.75 MLS/HR Midazolam HCl 50 ml @ 1 mls/hr Q24H IV 08/07/24 21:45 08/08/24 16:01 8 MLS/HR Phenylephrine HCl 250 ml @ 30 mls/hr Q8H20M IV 08/07/24 23:15 08/08/24 07:35 11.25 MLS/HR Sodium Chloride 1,000 ml @ 75 mls/hr [id number] IV 08/08/24 09:45 08/08/24 09:45 75 MLS/HR Dexmedetomidine HCl 400 mcg/ Dextrose 100 ml @ 3.805 mls/ hr Q24H IV 08/08/24 11:30 Bumetanide 1 mg BIDD IV 08/08/24 19:00 08/08/24 20:28 1 MG objective Gen.: Patient lying in bed in medical ICU. Sedated, intubated on mechanical ventilator. Head: Normocephalic, atraumatic. Eyes: PERRLA. Ears: Normal external anatomy. Throat: Endotracheal tube and orogastric tube in place. Neck: Supple, trachea midline. Chest: Transmitted breath sounds bilaterally. Decreased air entry bilaterally. No wheezing. Bibasilar crackles. Cardiovascular: Positive S1, positive S2. Regular rate and rhythm. Abdomen: Positive bowel sounds in all 4 quadrants. Soft, nontender, nondistended. : Charles in place. Normal external genitalia. Rectal: Deferred. Skin: Warm, dry. Intact. Extremities: 2+ radial pulses bilaterally. No lower extremity edema. Neuro: Sedated. laboratory and microbiology Laboratory Tests 08/08/24 04:29 08/07/24 10:57 Test 08/08/24 04:29 Range/Units Serum Glucose 221 H 74-106 mg/dL Assessment/Plan Impression: Acute on chronic hypoxic respiratory failure On mechanical ventilation COPD exacerbation Nicotine dependence Acute renal failure Hypotension/shock Events: Currently intubated, on mechanical ventilator. On AC mode: Respiratory rate 24, tidal volume 550, PEEP of 8, FiO2 of 30%. Titrate FiO2 to keep sats above 92%. CXR image and report reviewed. Endotracheal tube in place. Mild pulmonary vascular congestion. ABG reviewed. Compensated. Sedated on Versed/Fentanyl On pressors for hemodynamic support. On [place]-Synephrine 15 mcg/min Titrate to keep MAP above 65 mmHg. Continue bronchodilators IV steroids Continue antibiotics IV fluids with D5-LR. Labs and imaging reviewed. Rest of plan as noted below. Plan: s/p intubation and placement on mechanical ventilator on 08/07/24 On AC mode: Respiratory rate 24, tidal volume 550, PEEP of 8, FiO2 of 30%. Titrate FiO2 to keep sats above 92%. VAP bundle. Sedated on Versed/Fentanyl On pressors for hemodynamic support. Titrate to keep MAP above 65 mmHg. Continue bronchodilators. IV steroids - taper as tolerated Continue antibiotics 08/07 - S/p bronchoscopy with RML BAL d/t increased secretions - cleared mucous plugging from L5-L10 and R4-10 See separate procedure note for details. A central line was placed for administration of medications and blood draws. An arterial line was placed for ABG draws and hemodynamic monitoring. Monitor renal function. Monitor electrolytes. Supplement as necessary. Monitor ins and outs. DVT prophylaxis. Prognosis: Poor given patient's multiple co-morbidities. Condition: Critical Rest of plan per hospitalist and other consultants. A total of 35 minutes of critical care time was spent reviewing the patient record, examining the patient, making a diagnostic and therapeutic plan, discussing this plan with the medical personnel, following up on diagnostic studies and following the patient for clinical stability excluding any and all procedures. At least 50% of this time was spent in direct, [id number] contact. Thank you, Dr. Durbin, for allowing me to participate in this patient's care. Further recommendations will depend on the patient's clinical course. Please do not hesitate to contact me if you have any questions or concerns. This medical document was created using an electronic medical record system with [employer] system. Although these documentations are being carefully reviewed, there may still be some phonetic and typographical changes. The errors are purely typographical, due to imperfection on the software program, and do not reflect any compromise in the patient's medical care. Plan discussed with: Other (RUBEN Saeed) Critical Care Time(min): 35 NATHAN TALAVERA MD Aug 08, 2024 21:16
[2024-08-09] VITALS (107 sets, daily range): BP systolic 85–145; BP diastolic 54–93; PULSE 73–150; RESP 20–24; TEMP 96.8–99.1; O2SAT 92–100
[2024-08-09 05:42] LABS: Anion Gap 6 (5-15); Carbon Dioxide 28 mmol/L (20-31); Potassium 4.6 mmol/L (3.5-5.1)
[2024-08-09 05:43] LABS: Calcium 9.3 mg/dL (8.7-10.4)
[2024-08-09 05:48] LABS: BUN/Creatinine Ratio 41.9 (10.0-20.0)
[2024-08-09 05:49] LABS: Blood Urea Nitrogen 54 mg/dL (9-23); Chloride 112 mmol/L (98-107); Glucose 176 mg/dL (74-106); Sodium 146 mmol/L (136-145)
--- NOTE | 2024-08-09 06:17 | DVHINCON2 ---
Date of service: Aug 09, 2024 Referring Physician Cortney Burton NP Reason for Consultation Atrial Flutter History of Present Illness This is a 64-year old male known outside to our practice who initially presented (08/06/2024) with progressive worsening of shortness of breath for approximately 2 days prior to initial presentation. Upon ED arrival, patient was found hypoxic with an initial SPO2 level within the 80s. Patient was subsequently admitted to the telemetry unit where he had been undergoing management for acute hypoxic respiratory failure in the setting acute COPD exacerbation which respiratory status later deteriorated requiring subsequent endotracheal intu bation/bronchoscopy by Pulmonology services (08/07/2024). Patient was then upgraded to the ICU where he has been undergoing close observation and further management. It is of note, upon ED arrival, patient was noted to be in atrial flutter with presence of a variable AV block and in RVR which throughout present course of hospitalization atrial flutter itself has been managed with Amiodarone 200mg once daily. It is of note, TSH level is found abnormal at 0.08 which could have attributed to the underlying tachyarrhythmia. Initial HS troponin level was found unremarkable unremarkable at 47, with subsequent repeat levels of 48, and 41. D-dimer was found normal at 0.46. BNP level was found to be 101.87 which initial chest imaging upon arrival had revealed no acute cardiopulmonary abnormalities however subsequent repeat chest imaging (08/09/2024) revealed presence of pulmonary venous congestion which the patient has been undergoing diuretic therapy as managed by Nephrology services secondary to underlying acute kidney injury. Echocardiogram (08/06/2024) during present hospitalization has revealed a preserved LVEF of 60%. At present time of consultation, telemetry reveals atrial flutter with variable AV block and intermittent episodes of RVR. As the patient initially presented with shortness of breath and found to have atrial flutter with transient episodes of RVR, Cardiology services have now been involved by primary team request late within the admission for cardiac aspects of care. Past Medical History Past medical history includes chronic atrial fibrillation/flutter status post Watchman Device Implantation (03/27/2022), systolic heart failure with improved ejection fraction, coronary artery disease status post previous PCI involving pRCA (03/31/2022 [facility]), Hodgkin lymphoma status post chemotherapy, COPD on home oxygen, asthma, peripheral vascular disease, GERD, gastroenteritis, vitamin d deficiency, neuropathy, hyperlipidemia, hypertension, and chronic anemia. Patient is known to have underlying nicotine dependence. Cardiac Catheterization: (03/31/2022 [facility]) revealed 1 vessel coronary artery disease, Prox RCA 80% lesion, s/p RAFAT deployment, LVEF of 50%, EDP of 14 Echocardiogram: (01/26/2022 [facility]) revealed a reduced LVEF of 40-50% with mild con centric left ventricular hypertrophy Transesophageal Echocardiogram: (10/31/2022 [facility]) revealed LVEF is 55%, trace MR, minimal AR, mild TR, NEL watchman is functioning good. Echocardiogram: (08/06/2024 [facility] revealed LVEF of 60% by visual estimate, normal rv function, left atrium enlarged, normal pericardium, no severe valve abnormalities noted Past Surgical History Reviewed Family History: Hypertension G8 MOTHER G8 FATHER Allergies: Coded Allergies: NO KNOWN ALLERGIES (Unverified , 10/08/17) Home Meds Reported Medications Gabapentin (Gabapentin) 600 Mg Tab, 600 MG PO BID for 30 Days, MG 08/07/24 Metoprolol Tartrate (LOPRESSOR TABLET) 50 Mg Tb, 25 MG PO BID, #60 TAB 5 Refills 08/07/24 Current Medications Current Medications Medications (Trade) Dose Ordered Sig/Ashwin Route PRN Reason Start Time Stop Time Status Last Admin Sodium Chloride 1,000 ml @ 75 mls/hr [id number] IV 08/08/24 09:45 08/09/24 01:20 Dexmedetomidine HCl 400 mcg/ Dextrose 100 ml @ 3.805 mls/ hr Q24H IV 08/08/24 11:30 Bumetanide (Bumex Injection) 1 mg BIDD IV 08/08/24 19:00 08/09/24 05:38 Review of Systems Unable to perform as patient is mechanically intubated on sedation Vital Signs Vital Signs Date Time Temp Pulse Resp B/P (MAP) Pulse Ox O2 Delivery O2 Flow Rate FiO2 08/09/24 05:38 108/70 08/09/24 05:15 79 24 97 08/09/24 04:19 30 08/09/24 04:00 99.1 99.1 08/08/24 20:00 Mechanical Ventilator+ 08/07/24 10:00 5 Physical Exam Heart: S1 and S2 present. Patient is in atrial flutter Lungs: Scattered rhonchi. Abdomen: Benign. Extremities: Distal pulses palpable, 2+. Peripheral edema present Labs/Diagnostic Data Labs Test 08/09/24 04:50 08/08/24 06:23 08/08/24 04:29 08/07/24 21:30 Range/Units Sodium Level 146 H 136-145 mmol/L Potassium Level 4.6 3.5-5.1 mmol/L Chloride Level 112 H 98-107 mmol/L Carbon Dioxide Level 28 20-31 mmol/L Anion Gap 6 5-15 Blood Urea Nitrogen 54 H 9-23 mg/dL Creatinine 1.29 0.700-1.30 mg/dL Glomerular Filtration Rate Calc 63 >90 mL/min BUN/Creatinine Ratio 41.9 H 10.0-20.0 Serum Glucose 176 H 74-106 mg/dL Calcium Level 9.3 8.7-10.4 mg/dL Blood Gas Specimen Type Arterial Blood Gas Sample Site Left radial Blood Gas Patient Temperature 37.0 Arterial Blood Date Drawn [id number] Arterial Blood pH 7.409 7.350-7.450 Arterial Blood Partial Pressure CO2 46.4 35.0-48.0 mmHg Arterial Blood Partial Pressure O2 80.7 L 83.0-108.0 mmHg Arterial Blood HCO3 28.7 H 21.0-28.0 mmol/L Arterial Blood Oxygen Saturation 95.8 94.0-98.0 % Arterial Blood Base Excess 3.4 H -2.0-3.0 mmol/L Arterial Blood Oxyhemoglobin 94.7 94.0-98.0 % Arterial Blood Carboxyhemoglobin 0.8 0.5-1.5 % Arterial Blood Methemoglobin 0.3 0.0-1.5 % Mason Test Modified Blood Gas Total Hemoglobin 11.50 L 13.5-17.5 g/dL Blood Gas Set Respiration Rate 24.0 Blood Gas Modality Vent - ac FiO2 % 30.0 Blood Gas Tidal Volume 550.0 Blood Gas PEEP or CPAP 8.0 Magnesium Level 2.1 # 1.6-2.6 mg/dL Blood Gas Critical Value Read Back Yes Blood Gas Notified Whom Maribell stevenson md Blood Gas Notified Time [id number] Blood Gas Notified By Rasheed leyva bucket pusher Test 08/07/24 18:20 08/07/24 11:57 08/07/24 10:57 08/06/24 03:45 Range/Units Blood Gas EPAP 6 Blood Gas IPAP 20 Blood Gas Liter Flow 3.00 White Blood Count 10.9 #H 4.4-10.8 10^3/uL Red Blood Count 3.67 L 4.5-5.90 10^6/uL Hemoglobin 11.6 L 13.5-17.5 g/dL Hematocrit 35.9 L 41.0-53.0 % Mean Corpuscular Volume 97.8 80.0-100.0 fL Mean Corpuscular Hemoglobin 31.6 28.0-32.0 pg Mean Corpuscular Hemoglobin Concent 32.3 32.0-36.0 g/dL Red Cell Distribution Width 14.9 H 11.8-14.3 % Platelet Count 353 140-450 10^3/uL Mean Platelet Volume 8.4 6.9-10.8 fL Neutrophils (%) (Auto) 90.8 H 37.0-80.0 % Lymphocytes (%) (Auto) 2.3 L 10.0-50.0 % Monocytes (%) (Auto) 6.7 0.0-12.0 % Eosinophils (%) (Auto) 0.1 0.0-7.0 % Basophils (%) (Auto) 0.1 0.0-2.0 % Neutrophils # (Auto) 9.9 H 1.6-8.6 10 ^3/uL Lymphocytes # (Auto) 0.2 L 0.4-5.4 10 ^3/uL Monocytes # (Auto) 0.7 0-1.3 10 ^3/uL Eosinophils # (Auto) 0 0-0.8 10 ^3/uL Basophils # (Auto) 0 0-0.2 10 ^3/uL Nucleated Red Blood Cells 0.0 % Phosphorus Level 2.2 L 2.4-5.1 mg/dL Vitamin D 25-Hydroxy 81.4 30.0-100 ng/mL Parathyroid Hormone (Intact) 19.2 18.4-80.1 pg/mL Influenza Type A Antigen Negative Negative Influenza Type B Antigen Negative Negative SARS-CoV-2 Antigen (Rapid) Negative NEGATIVE Test 08/06/24 03:11 08/05/24 23:36 08/05/24 21:07 08/05/24 20:56 Range/Units Differential Total Cells Counted 100.0 100 Neutrophils % (Manual) 93 H 37.0-80.0 Band Neutrophils % (Manual) 1 Lymphocytes % (Manual) 5 L 10.0-50.0 Monocytes % (Manual) 1 0-12 Eosinophils % (Manual) 0 0-7 Basophils % (Manual) 0 0.0-2.0 Metamyelocytes % (manual) 0 Myelocytes % (Manual) 0 Promyelocytes % (Manual) 0 Blast Cells % (Manual) 0 Reactive Lymphocytes 0 Platelet Estimate Adequate D-Dimer, Quantitative 0.46 0.0-0.49 mg/L FEU Creatine Kinase 113 46-171 U/L Troponin I High Sensitivity 41 </=54 ng/L Urine Color Yellow Yellow Urine Clarity Turbid H Clear Urine pH 5.5 5.0-9.0 Urine Specific [place] 1.020 1.001-1.035 Urine Protein 1+ H Negative Urine Ketones Trace Negative Urine Blood Negative Negative /uL Urine Nitrite Negative Negative Urine Bilirubin Negative Negative Urine Urobilinogen Normal Negative mg/dL Urine Leukocyte Esterase Negative Negative /uL Urine RBC 1 0 - 3 /hpf Urine Microscopic WBC 3 0-3 /HPF Urine Squamous Epithelial Cells Few <5 /hpf Urine Bacteria None seen None Seen /hpf Urine Hyaline Casts Few 0 - 2 /lpf Urine Glucose Normal Normal mg/dL Test 08/05/24 17:51 Range/Units Total Bilirubin 0.2 0.2-1.0 mg/dL Aspartate Amino Transferase (AST) 16 13-40 U/L Alanine Aminotransferase (ALT) 19 7-40 U/L Alkaline Phosphatase 81 46-116 U/L Total Protein 6.4 5.7-8.2 g/dL Albumin 4.2 3.2-4.8 g/dL Microbiology Date/Time Source Procedure Growth Status 08/07/24 20:13 Trachea Pending Resulted 08/07/24 20:13 Trachea Pending Resulted 08/07/24 20:13 Trachea Pending Resulted 08/07/24 20:13 Trachea Pending Resulted 08/07/24 20:13 Trachea - Final See Separate Report... Resulted Plan/Recommendation ASSESSMENT: This is a 64-year old male known outside to our practice who initially presented (08/06/2024) with progressive worsening of shortness of breath for approximately 2 days prior to initial presentation. Upon ED arrival, patient was found hypoxic with an initial SPO2 level within the 80s. Patient was subsequently admitted to the telemetry unit where he had been undergoing management for acute hypoxic respiratory failure in the setting acute COPD exacerbation which respiratory status later deteriorated requiring subsequent endotracheal intubation/bronchoscopy by Pulmonology services (08/07/2024). Patient was then upgraded to the ICU where he has been undergoing close observation and further management. It is of note, upon ED arrival, patient was noted to be in atrial flutter with presence of a variable AV block and in RVR which throughout present course of hospitalization atrial flutter itself has been managed with Amiodarone 200mg once daily. It is of note, TSH level is found abnormal at 0.08 which could have attributed to the underlying tachyarrhythmia. Initial HS troponin level was found unremarkable unremarkable at 47, with subsequent repeat levels of 48, and 41. D-dimer was found normal at 0.46. BNP level was found to be 101.87 which initial chest imaging upon arrival had revealed no acute cardiopulmonary abnormalities however subsequent repeat chest imaging (08/09/2024) revealed presence of pulmonary venous congestion which the patient has been undergoing diuretic therapy as managed by Nephrology services secondary to underlying acute kidney injury. Echocardiogram (08/06/2024) during present hospitalization has revealed a preserved LVEF of 60%. At present time of consultation, telemetry reveals atrial flutter with variable AV block and intermittent episodes of RVR. As the patient initially presented with shortness of breath and found to have atrial flutter with transient episodes of RVR, Cardiology services have now been involved by primary team request late within the admission for cardiac aspects of care. Past medical history includes chronic atrial fibrillation/flutter status post Watchman Device Implantation (03/27/2022), systolic heart failure with improved ejection fraction, coronary artery disease status post previous PCI involving pRCA (03/31/2022 [facility]), Hodgkin lymphoma status post chemotherapy, COPD on home oxygen, asthma, peripheral vascular disease, GERD, gastroenteritis, vitamin d deficiency, neuropathy, hyperlipidemia, hypertension, and chronic anemia. Patient is known to have underlying nicotine dependence. Cardiac Catheterization: (03/31/2022 [facility]) revealed 1 vessel coronary artery disease, Prox RCA 80% lesion, s/p RAFAT deployment, LVEF of 50%, EDP of 14 Echocardiogram: (01/26/2022 [facility]) revealed a reduced LVEF of 40-50% with mild concentric left ventricular hypertrophy Transesophageal Echocardiogram: (10/31/2022 [facility]) revealed LVEF is 55%, trace MR, minimal AR, mild TR, NEL watchman is functioning good. Echocardiogram: (08/06/2024 [facility]) revealed LVEF of 60% by visual estimate, normal rv function, left atrium enlarged, normal pericardium, no severe valve abnormalities noted Acute on chronic COPD, with exacerbation Acute hypoxic respiratory failure, status post intubation/bronchoscopy (08/07/2024) Chronic atrial flutter with variable AV block, s/p watchman device implantation (03/27/2022) Systolic heart failure with improved LV function, EF of 60% (08/06/2024) Coronary artery disease, s/p previous PCI involving pRCA (03/31/2022) Abnormal TSH level (0.08), previously on Amiodarone Hypermagnesemia (5.4), resolved Acute kidney injury, improving Hypertension, history of Hyperkalemia, resolved Nicotine dependence Chronic anemia Hyperlipidemia CARDIAC SUGGESTIONS FOR MANAGEMENT: Request for thyroid sonogram Discontinue current Amiodarone secondary to abnormal thyroid function Proceed with rate control strategy as for now for underlying atrial flutter Start Metoprolol Tartrate 25mg twice daily for rate control (titrate as warranted) As patient is status post Watchman Device implantation, Aspirin 81mg daily is advised Fluid volume management (IV diuresis) as per Nephrology secondary to VALERI Proceed with close observation for overt signs of fluid overload Proceed with strict intakes, outputs, and daily weights Proceed with optimized medical therapy Proceed with risk factor modification Follow up renal function/electrolytes On IV antibiotics and steroids On Bumex 1mg IV twice daily Atorvastatin 10mg daily Aspirin 81mg daily Re-initiate GDMT for previous HF once clinically stable Proceed with close rate and rhythm surveillance Proceed with close hemodynamic surveillance Proceed with optimized blood pressure control Transfuse to sustain HGB level above 7.0 Sustain Magnesium level greater than 2.0 Sustain Potassium level greater than 4.0 Follow up renal function and electrolytes Patient to be counseled on importance of tobacco cessation as patient regains higher brain function Management of COPD exacerbation as per primary team/pulmonology Management of VALERI as per primary team/nephrology Management of co-morbidities as per primary team Management within the ICU Follow up peoplesoft hcm consultant recommendations Will proceed to follow from a cardiac perspective Further recommendations per clinical progression All available diagnostic labs, EKG's, and images were personally reviewed Patient's status, findings, and plan of care was reviewed and discussed with supervising physician Dr. Kong, who is in agreement with current plan of care. Plan of care discussed with and agreed upon by family / primary RN Prognosis: Guarded Thank you for allowing me to participate in the care of this patient. Further recommendations based on patients clinical course and progression, primary attending, and other consultants. Will continue to follow with primary attending. If you have any questions or concerns, please do not hesitate to contact me. A total of 75 minutes was spent reviewing the patient record, examining the patient, making a diagnostic and therapeutic plan, discussing this plan with medical personnel, following up on diagnostic studies and following the patient for clinical stability excluding any and all procedures. At least 50% of this time was spent in direct, [id number] contact. Plan discussed with: Other (Primary RN and Patients son ) PRINCE JOYNER Aug 09, 2024 06:17
[2024-08-09 07:18] LABS: Base Excess 2.4 mmol/L (-2.0-3.0)
[2024-08-09 09:02] LABS: Basophils # (auto) 0 10 ^3/uL (0-0.2); Basophils % (auto) 0.1 % (0.0-2.0); Eosinophils # (auto) 0 10 ^3/uL (0-0.8); Hematocrit 32.9 % (41.0-53.0); Hemoglobin 10.2 g/dL (13.5-17.5); Lymphocytes # (auto) 0.3 10 ^3/uL (0.4-5.4); Lymphocytes % (auto) 4.3 % (10.0-50.0); Mean Corpuscular Hemoglobin 30.2 pg (28.0-32.0); Mean Corpuscular Hgb Conc. 31.1 g/dL (32.0-36.0); Mean Corpuscular Volume 97.1 fL (80.0-100.0); Monocytes # (auto) 0.3 10 ^3/uL (0-1.3); Monocytes % (auto) 4.1 % (0.0-12.0); Neutrophils % (auto) 91.5 % (37.0-80.0); Nucleated Red Blood Cells % 0.2 %; Platelet Count (auto) 280 10^3/uL (140-450); Red Blood Cells 3.39 10^6/uL (4.5-5.90); Red Cell Distribution Width 14.9 % (11.8-14.3); White Blood Cell 6.6 10^3/uL (4.4-10.8)
--- NOTE | 2024-08-09 09:22 | DVHPN2 ---
Progress Note Date Seen: Aug 09, 2024 Medical Necessity Reason Pt with a Central, PICC or Fol: No Subjective Review of Systems: RESPIRATORY:Abnormal Other Systems: Patient seen and examined by myself today in follow-up, patient remained intubated on ventilator Objective vital signs Vital Sign Date Time Temp Pulse Resp B/P (MAP) Pulse Ox O2 Delivery O2 Flow Rate FiO2 08/09/24 09:00 146 24 121/73 (89) 98 08/09/24 08:15 30 08/09/24 08:00 97.1 97.1 08/08/24 20:00 Mechanical Ventilator+ 08/07/24 10:00 5 Total Intake and Output 08/08/24 08/08/24 08/09/24 15:00 23:00 07:00 Intake Total 1322.75 ml 899.25 ml 868.25 ml Output Total 350 ml 400 ml Balance 1322.75 ml 549.25 ml 468.25 ml medications Current Medications Medications Dose Ordered Sig/Ashwin Route Start Time Stop Time Status Last Admin Dose Admin Albuterol 2.5 mg Q6HPRN PRN NEB 08/05/24 23:30 08/07/24 07:57 2.5 MG Ipratropium [place] 0.5 mg Q6HPRN PRN NEB 08/05/24 23:30 08/07/24 07:57 0.5 MG Amiodarone HCl 200 mg DAILY PO 08/06/24 10:00 08/08/24 08:50 200 MG Atorvastatin Calcium 10 mg HS PO 08/06/24 22:00 08/08/24 21:54 10 MG Ondansetron HCl 4 mg Q4HP PRN IV 08/05/24 23:30 Acetaminophen 650 mg Q6HP PRN PO 08/05/24 23:30 Nitroglycerin 0.4 mg Q5MINP PRN SL 08/05/24 23:30 Morphine Sulfate 2 mg Q30M PRN IV 08/05/24 23:30 Ceftriaxone Sodium 50 ml @ 100 mls/hr DAILY@09 IV 08/06/24 09:00 08/09/24 08:44 100 MLS/HR Lorazepam 1 mg Q4HPRN PRN IV 08/06/24 13:45 08/07/24 17:24 1 MG Azithromycin 250 ml @ 125 mls/hr DAILY IV 08/07/24 10:00 08/08/24 08:50 125 MLS/HR Methylprednisolone Sodium Succinate 60 mg Q8HR IV 08/07/24 14:00 08/09/24 05:37 60 MG Propofol 100 ml @ 2.442 mls/ hr Q24H IV 08/07/24 19:00 Fentanyl Citrate 250 ml @ 2.5 mls/hr Q24H IV 08/07/24 19:00 08/09/24 08:47 12.5 MLS/HR Norepinephrine Bitartrate 250 ml @ 3.75 mls/hr Q24H IV 08/07/24 19:00 08/08/24 14:13 3.75 MLS/HR Midazolam HCl 50 ml @ 1 mls/hr Q24H IV 08/07/24 21:45 08/09/24 08:44 4 MLS/HR Phenylephrine HCl 250 ml @ 30 mls/hr Q8H20M IV 08/07/24 23:15 08/08/24 07:35 11.25 MLS/HR Sodium Chloride 1,000 ml @ 75 mls/hr [id number] IV 08/08/24 09:45 08/09/24 01:20 75 MLS/HR Dexmedetomidine HCl 400 mcg/ Dextrose 100 ml @ 3.805 mls/ hr Q24H IV 08/08/24 11:30 Bumetanide 1 mg BIDD IV 08/08/24 19:00 08/09/24 05:38 1 MG Aspirin 81 mg DAILY PO 08/09/24 10:00 Examination: LUNGS:Normal, CVS:Normal, MSK:Normal laboratory and microbiology Laboratory Tests 08/09/24 08:00 08/09/24 04:50 Test 08/09/24 04:50 Range/Units Serum Glucose 176 H 74-106 mg/dL Microbiology Date/Time Source Procedure Growth Status 08/07/24 20:13 Trachea Pending Resulted 08/07/24 20:13 Trachea Pending Resulted 08/07/24 20:13 Trachea Pending Resulted 08/07/24 20:13 Trachea Pending Resulted 08/07/24 20:13 Trachea - Final See Separate Report... 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
[2024-08-09 09:29] LABS: LDL Cholesterol 56 mg/dL (< 100)
[2024-08-09 09:30] LABS: Cholesterol 117 mg/dL (< 200)
[2024-08-09 09:36] LABS: HDL Cholesterol 30 mg/dL (40-59); Triglycerides 252 mg/dL (< 150)
--- NOTE | 2024-08-09 09:51 | DVH ---
EXAM: XR Chest, 1 View CLINICAL INDICATION: INTUBATED TECHNIQUE: Frontal view of the chest. COMPARISON: XY CHEST PORTABLE on DOS: 08/08/24, XY CHEST PORTABLE on DOS: 08/08/24, XY CHEST PORTABLE on DOS: 08/07/24, XY CHEST XRAY 1 VIEW on DOS: 08/07/24, XY CHEST XRAY 1 VIEW on DOS: 08/05/24 FINDINGS: LUNGS AND PLEURAL SPACES: Pulmonary venous congestion. Bibasilar atelectasis. No pneumothorax. HEART: Unremarkable. No cardiomegaly. MEDIASTINUM: Unremarkable. Normal mediastinal contour. BONES/JOINTS: Unremarkable. No acute fracture. TUBES, LINES AND DEVICES: The endotracheal tube (ETT) is in satisfactory position. Enteric tube ti p in the stomach. Left internal jugular central venous catheter tip in the superior vena cava. OTHER FINDINGS: . IMPRESSION: Pulmonary venous congestion.
[2024-08-09] MEDS: METOPROLOL TARTRATE 25 MG TAB PO SCH (10:26)
[2024-08-09] MEDS: ASPirin 81 mg TAB PO SCH (10:26)
[2024-08-09] MEDS: methylPREDNISolone SOD SUCC 125 MG/2 ML VL IV SCH (11:15)
[2024-08-09 19:16] LABS: Basophils # (auto) 0 10 ^3/uL (0-0.2); Basophils % (auto) 0.4 % (0.0-2.0); Eosinophils # (auto) 0 10 ^3/uL (0-0.8); Hematocrit 32.4 % (41.0-53.0); Hemoglobin 10.5 g/dL (13.5-17.5); Lymphocytes # (auto) 0.4 10 ^3/uL (0.4-5.4); Lymphocytes % (auto) 5.6 % (10.0-50.0); Mean Corpuscular Hemoglobin 31.4 pg (28.0-32.0); Mean Corpuscular Hgb Conc. 32.4 g/dL (32.0-36.0); Mean Corpuscular Volume 96.8 fL (80.0-100.0); Monocytes # (auto) 0.3 10 ^3/uL (0-1.3); Neutrophils # (auto) 6.7 10 ^3/uL (1.6-8.6); Nucleated Red Blood Cells % 0.1 %; Platelet Count (auto) 244 10^3/uL (140-450); Red Blood Cells 3.35 10^6/uL (4.5-5.90); Red Cell Distribution Width 14.7 % (11.8-14.3); White Blood Cell 7.4 10^3/uL (4.4-10.8)
[2024-08-09 19:21] LABS: Potassium 4.4 mmol/L (3.5-5.1); Sodium 144 mmol/L (136-145)
[2024-08-09 19:22] LABS: Anion Gap 7 (5-15); Carbon Dioxide 28 mmol/L (20-31); Chloride 109 mmol/L (98-107)
[2024-08-09 19:27] LABS: BUN/Creatinine Ratio 39.1 (10.0-20.0)
[2024-08-09 19:28] LABS: Blood Urea Nitrogen 54 mg/dL (9-23); Glucose 206 mg/dL (74-106)
--- NOTE | 2024-08-09 20:27 | DVHPN2 ---
Progress Note - Dictate Date Seen: Aug 09, 2024 Medical Necessity Reason Pt with a Central, PICC or Fol: No The following are medically ne: Lance Catheter Reason for lance catheter: Strict I&O Subjective Patient seen and examined at bedside. Sedated, intubated on mechanical ventilator. Overnight events reviewed. vital signs Vital Sign Date Time Temp Pulse Resp B/P (MAP) Pulse Ox O2 Delivery O2 Flow Rate FiO2 08/09/24 20:00 88 24 94/63 (73) 97 08/09/24 19:58 30 08/09/24 16:30 96.8 96.8 08/09/24 08:00 Mechanical Ventilator+ 08/07/24 10:00 5 Total Intake and Output 08/08/24 08/08/24 08/09/24 15:00 23:00 07:00 Intake Total 1322.75 ml 899.25 ml 974.50 ml Output Total 350 ml 400 ml Balance 1322.75 ml 549.25 ml 574.50 ml medications Current Medications Medications Dose Ordered Sig/Ashwin Route Start Time Stop Time Status Last Admin Dose Admin Albuterol 2.5 mg Q6HPRN PRN NEB 08/05/24 23:30 08/07/24 07:57 2.5 MG Ipratropium [place] 0.5 mg Q6HPRN PRN NEB 08/05/24 23:30 08/07/24 07:57 0.5 MG Atorvastatin Calcium 10 mg HS PO 08/06/24 22:00 08/08/24 21:54 10 MG Ondansetron HCl 4 mg Q4HP PRN IV 08/05/24 23:30 Acetaminophen 650 mg Q6HP PRN PO 08/05/24 23:30 Nitroglycerin 0.4 mg Q5MINP PRN SL 08/05/24 23:30 Morphine Sulfate 2 mg Q30M PRN IV 08/05/24 23:30 Ceftriaxone Sodium 50 ml @ 100 mls/hr DAILY@09 IV 08/06/24 09:00 08/09/24 08:44 100 MLS/HR Lorazepam 1 mg Q4HPRN PRN IV 08/06/24 13:45 08/07/24 17:24 1 MG Azithromycin 250 ml @ 125 mls/hr DAILY IV 08/07/24 10:00 08/09/24 10:00 125 MLS/HR Propofol 100 ml @ 2.442 mls/ hr Q24H IV 08/07/24 19:00 Fentanyl Citrate 250 ml @ 2.5 mls/hr Q24H IV 08/07/24 19:00 08/09/24 08:47 12.5 MLS/HR Norepinephrine Bitartrate 250 ml @ 3.75 mls/hr Q24H IV 08/07/24 19:00 08/08/24 14:13 3.75 MLS/HR Midazolam HCl 50 ml @ 1 mls/hr Q24H IV 08/07/24 21:45 08/09/24 08:44 4 MLS/HR Phenylephrine HCl 250 ml @ 30 mls/hr Q8H20M IV 08/07/24 23:15 08/08/24 07:35 11.25 MLS/HR Sodium Chloride 1,000 ml @ 75 mls/hr [id number] IV 08/08/24 09:45 08/09/24 01:20 75 MLS/HR Dexmedetomidine HCl 400 mcg/ Dextrose 100 ml @ 3.805 mls/ hr Q24H IV 08/08/24 11:30 08/09/24 10:05 3.805 MLS/HR Bumetanide 1 mg BIDD IV 08/08/24 19:00 08/09/24 17:26 1 MG Aspirin 81 mg DAILY PO 08/09/24 10:00 08/09/24 10:26 81 MG Metoprolol Tartrate 25 mg BID PO 08/09/24 10:00 08/09/24 10:26 25 MG Methylprednisolone Sodium Succinate 60 mg Q12HR IV 08/09/24 11:15 Enteral Nutritional Formula 1,000 ml DAILY NG 08/10/24 10:00 objective Gen.: Patient lying in bed in medical ICU. Sedated, intubated on mechanical ventilator. Head: Normocephalic, atraumatic. Eyes: PERRLA. Ears: Normal external anatomy. Throat: Endotracheal tube and orogastric tube in place. Neck: Supple, trachea midline. Chest: Transmitted breath sounds bilaterally. Decreased air entry bilaterally. No wheezing. Bibasilar crackles. Cardiovascular: Positive S1, positive S2. Regular rate and rhythm. Abdomen: Positive bowel sounds in all 4 quadrants. Soft, nontender, nondistended. : Lance in place. Normal external genitalia. Rectal: Deferred. Skin: Warm, dry. Intact. Extremities: 2+ radial pulses bilaterally. No lower extremity edema. Neuro: Sedated. laboratory and microbiology Laboratory Tests 08/09/24 18:38 Test 08/09/24 18:38 Range/Units Serum Glucose 206 H 74-106 mg/dL Assessment/Plan Impression: Acute on chronic hypoxic respiratory failure On mechanical ventilation COPD exacerbation Nicotine dependence Acute renal failure Hypotension/shock Events: Remains intubated, on mechanical ventilator. On AC mode: Respiratory rate 24, tidal volume 550, PEEP of 8, FiO2 of 30%. Titrate FiO2 to keep sats above 92%. CXR image and report reviewed. Endotracheal tube in place. Mild pulmonary vascular congestion. ABG reviewed. Compensated. Sedated on Versed/Fentanyl On Precedex drip Off pressors, hemodynamically stable Amiodarone + metoprolol Cardiology recs appreciated. Continue bronchodilators IV steroids - tapered frequency Continue antibiotics WBC 6.6 K, within normal IV fluids with 1/2 NS at 75 ml/hr. Diurese w/ Bumex as tolerated Monitor renal function. Monitor electrolytes. Supplement as necessary. SBT/EDINSON Will attempt CPAP in the AM. Accu-Cheks, ISS Hyperglycemia likely d/t steroids Labs and imaging reviewed. Rest of plan as noted below. Plan: s/p intubation and placement on mechanical ventilator on 08/07/24 On AC mode: Respiratory rate 24, tidal volume 550, PEEP of 8, FiO2 of 30%. Titrate FiO2 to keep sats above 92%. VAP bundle. Sedated on Versed/Fentanyl Pressors if necessary for hemodynamic support. Titrate to keep MAP above 65 mmHg. Continue bronchodilators. IV steroids - taper as tolerated Continue antibiotics 08/07 - S/p bronchoscopy with RML BAL d/t increased secretions - cleared mucous plugging from L5-L10 and R4-10 See separate procedure note for details. A central line was placed for administration of medications and blood draws. An arterial line was placed for ABG draws and hemodynamic monitoring. Monitor renal function. Monitor electrolytes. Supplement as necessary. Monitor ins and outs. DVT prophylaxis. Prognosis: Poor given patient's multiple co-morbidities. Condition: Critical Rest of plan per hospitalist and other consultants. A total of 35 minutes of critical care time was spent reviewing the patient record, examining the patient, making a diagnostic and therapeutic plan, discussing this plan with the medical personnel, following up on diagnostic studies and following the patient for clinical stability excluding any and all procedures. At least 50% of this time was spent in direct, [id number] contact. Thank you, Dr. Durbin, for allowing me to participate in this patient's care. Further recommendations will depend on the patient's clinical course. Please do not hesitate to contact me if you have any questions or concerns. This medical document was created using an electronic medical record system with [employer] dictation system. Although these documentations are being carefully reviewed, there may still be some phonetic and typographical changes. The errors are purely typographical, due to imperfection on the software program, and do not reflect any compromise in the patient's medical care. Dietary Evaluation Review Comments: 1) If GI route is prefererred, consider Jevity 1.2 @ 50 mL/hr goal rate as tolerated. Goal rate will provide 1440 kcals, 67g Pro, and 968 mL free H2O per 24 hrs. TF regimen will meet ~ 94% daily estimated energy needs and 100% daily estiamted protein needs. 2) If patient remains NPO for more than 7 days, consider TPN to meet at least 75% of estimated needs 3) Advance patient to cardiac diet when medically feasible, pending VASCULAR NURSE approval 4) Continue current plan of care Expected Outcomes/Goals: 1) patient to receive nutritional support within 7 days 2) labs to improve 3) diet to advance 4) f/u in 3 days Plan discussed with: Other (RN) Critical Care Time(min): 35 NATHAN TALAVERA MD Aug 09, 2024 20:27
[2024-08-09] MEDS: Jevity 1.2 Cal/Fiber 1 Liter NG SCH (22:22)
[2024-08-10] VITALS (108 sets, daily range): BP systolic 85–140; BP diastolic 55–89; PULSE 71–148; RESP 16–32; TEMP 97.6–98.6; O2SAT 94–100
--- NOTE | 2024-08-10 04:57 | DVHPN2 ---
Progress Note - Dictate Date Seen: Aug 10, 2024 Medical Necessity Reason Pt with a Central, PICC or Fol: No The following are medically ne: Lance Catheter Reason for lance catheter: Strict I&O vital signs Vital Sign Date Time Temp Pulse Resp B/P (MAP) Pulse Ox O2 Delivery O2 Flow Rate FiO2 08/10/24 04:03 83 24 108/70 (83) 96 30 08/10/24 00:15 98.2 98.2 08/09/24 20:00 Mechanical Ventilator+ Total Intake and Output 08/09/24 08/09/24 08/10/24 15:00 23:00 07:00 Intake Total 853.513 ml 768 ml 476.5 ml Output Total 850 ml Balance 853.513 ml -82 ml 476.5 ml medications Current Medications Medications Dose Ordered Sig/[place] Route Start Time Stop Time Status Last Admin Dose Admin Albuterol 2.5 mg Q6HPRN PRN NEB 08/05/24 23:30 08/07/24 07:57 2.5 MG Ipratropium [place] 0.5 mg Q6HPRN PRN NEB 08/05/24 23:30 08/07/24 07:57 0.5 MG Atorvastatin Calcium 10 mg HS PO 08/06/24 22:00 08/09/24 22:23 10 MG Ondansetron HCl 4 mg Q4HP PRN IV 08/05/24 23:30 Acetaminophen 650 mg Q6HP PRN PO 08/05/24 23:30 Nitroglycerin 0.4 mg Q5MINP PRN SL 08/05/24 23:30 Morphine Sulfate 2 mg Q30M PRN IV 08/05/24 23:30 Ceftriaxone Sodium 50 ml @ 100 mls/hr DAILY@09 IV 08/06/24 09:00 08/09/24 08:44 100 MLS/HR Lorazepam 1 mg Q4HPRN PRN IV 08/06/24 13:45 08/07/24 17:24 1 MG Azithromycin 250 ml @ 125 mls/hr DAILY IV 08/07/24 10:00 08/09/24 10:00 125 MLS/HR Propofol 100 ml @ 2.442 mls/ hr Q24H IV 08/07/24 19:00 Fentanyl Citrate 250 ml @ 2.5 mls/hr Q24H IV 08/07/24 19:00 08/10/24 00:19 15 MLS/HR Norepinephrine Bitartrate 250 ml @ 3.75 mls/hr Q24H IV 08/07/24 19:00 08/08/24 14:13 3.75 MLS/HR Midazolam HCl 50 ml @ 1 mls/hr Q24H IV 08/07/24 21:45 08/09/24 20:57 6 MLS/HR Phenylephrine HCl 250 ml @ 30 mls/hr Q8H20M IV 08/07/24 23:15 08/08/24 07:35 11.25 MLS/HR Sodium Chloride 1,000 ml @ 75 mls/hr [id number] IV 08/08/24 09:45 08/09/24 01:20 75 MLS/HR Dexmedetomidine HCl 400 mcg/ Dextrose 100 ml @ 3.805 mls/ hr Q24H IV 08/08/24 11:30 08/09/24 10:05 3.805 MLS/HR Bumetanide 1 mg BIDD IV 08/08/24 19:00 08/09/24 17:26 1 MG Aspirin 81 mg DAILY PO 08/09/24 10:00 08/09/24 10:26 81 MG Metoprolol Tartrate 25 mg BID PO 08/09/24 10:00 08/09/24 22:23 25 MG Methylprednisolone Sodium Succinate 60 mg Q12HR IV 08/09/24 11:15 08/09/24 22:23 60 MG Enteral Nutritional Formula 1,000 ml DAILY NG 08/10/24 10:00 08/09/24 22:22 1,000 ML laboratory and microbiology Laboratory Tests 08/09/24 18:38 Test 08/09/24 18:38 Range/Units Serum Glucose 206 H 74-106 mg/dL Assessment/Plan ASSESSMENT: This is a 64-year old male known outside to our practice who initially presented (08/06/2024) with progressive worsening of shortness of breath for approximately 2 days prior to initial presentation. Upon ED arrival, patient was found hypoxic with an initial SPO2 level within the 80s. Patient was subsequently admitted to the telemetry unit where he had been undergoing management for acute hypoxic respiratory failure in the setting acute COPD exacerbation which respiratory status later deteriorated requiring subsequent endotracheal intubation/bronchoscopy by Pulmonology services (08/07/2024). Patient was then upgraded to the ICU where he has been undergoing close observation and further management. It is of note, upon ED arrival, patient was noted to be in atrial flutter with presence of a variable AV block and in RVR which throughout present course of hospitalization atrial flutter itself has been managed with Amiodarone 200mg once daily. It is of note, TSH level is found abnormal at 0.08 which could have attributed to the underlying tachyarrhythmia. Initial HS troponin level was found unremarkable unremarkable at 47, with subsequent repeat levels of 48, and 41. D-dimer was found normal at 0.46. BNP level was found to be 101.87 which initial chest imaging upon arrival had revealed no acute cardiopulmonary abnormalities however subsequent repeat chest imaging (08/09/2024) revealed presence of pulmonary venous congestion which the patient has been undergoing diuretic therapy as managed by Nephrology services secondary to underlying acute kidney injury. Echocardiogram (08/06/2024) during present hospitalization has revealed a preserved LVEF of 60%. At present time of consultation, telemetry reveals atrial flutter with variable AV block and intermittent episodes of RVR. As the patient initially presented with shortness of breath and found to have atrial flutter with transient episodes of RVR, Cardiology services have now been involved by primary team request late within the admission for cardiac aspects of care. Past medical history includes chronic atrial fibrillation/flutter status post Watchman Device Implantation (03/27/2022), systolic heart failure with improved ejection fraction, coronary artery disease status post previous PCI involving pRCA (03/31/2022 [facility]), npn-Hodgkin lymphoma status post chemotherapy, COPD on home oxygen, asthma, peripheral vascular disease, GERD, gastroenteritis, vitamin d deficiency, neuropathy, hyperlipidemia, hypertension, and chronic anemia. Patient is known to have underlying nicotine dependence. Cardiac Catheterization: (03/31/2022 [facility]) revealed 1 vessel coronary artery disease, Prox RCA 80% lesion, s/p RAFAT deployment, LVEF of 50%, EDP of 14 Echocardiogram: (01/26/2022 [facility]) revealed a reduced LVEF of 40-50% with mild concentric left ventricular hypertrophy Transesophageal Echocardiogram: (10/31/2022 [facility]) revealed LVEF is 55%, trace MR, minimal AR, mild TR, NEL watchman is functioning good. Echocardiogram: (08/06/2024 [facility]) revealed LVEF of 60% by visual estimate, normal rv function, left atrium enlarged, normal pericardium, no severe valve abnormalities noted Acute on chronic COPD, with exacerbation Acute hypoxic respiratory failure, status post intubation/bronchoscopy (08/07/2024) Chronic atrial flutter with variable AV block, s/p watchman device implantation (03/27/2022) Systolic heart failure with improved LV function, EF of 60% (08/06/2024) Coronary artery disease, s/p previous PCI involving pRCA (03/31/2022) Abnormal TSH level (0.08), previously on Amiodarone Hypermagnesemia (5.4), resolved Acute kidney injury, improving Hypertension, history of Hyperkalemia, resolved Nicotine dependence Chronic anemia Hyperlipidemia CARDIAC SUGGESTIONS FOR MANAGEMENT: Request for thyroid sonogram upon extubation Amiodarone discontinued secondary to abnormal thyroid function Proceed with rate control strategy as for now for underlying atrial flutter Tolerating Metoprolol Tartrate 25mg twice daily for rate control (titrate as warranted) As patient is status post Watchman Device implantation, Aspirin 81mg daily is advised Fluid volume management (IV diuresis) as per Nephrology secondary to VALERI Proceed with close observation for overt signs of fluid overload Proceed with strict intakes, outputs, and daily weights Proceed with optimized medical therapy Proceed with risk factor modification Follow up renal function/electrolytes On IV antibiotics and steroids On Bumex 1mg IV twice daily Atorvastatin 10mg daily Aspirin 81mg daily Re-initiate GDMT for previous HF once clinically stable Proceed with close rate and rhythm surveillance Proceed with close hemodynamic surveillance Proceed with optimized blood pressure control Transfuse to sustain HGB level above 7.0 Sustain Magnesium level greater than 2.0 Sustain Potassium level greater than 4.0 Follow up renal function and electrolytes Patient to be counseled on importance of tobacco cessation as patient regains higher brain function Management of COPD exacerbation as per primary team/pulmonology Management of VALERI as per primary team/nephrology Management of co-morbidities as per primary team Management within the ICU Follow up contact center consultant recommendations Will proceed to follow from a cardiac perspective Further recommendations per clinical progression All available diagnostic labs, EKG's, and images were personally reviewed Patient's status, findings, and plan of care was reviewed and discussed with supervising physician Dr. Kong, who is in agreement with current plan of care. Plan of care discussed with and agreed upon by family / primary RN Prognosis: Guarded Thank you for allowing me to participate in the care of this patient. Further recommendations based on patients clinical course and progression, primary attending, and other consultants. Will continue to follow with primary attending. If you have any questions or concerns, please do not hesitate to contact me. A total of 75 minutes was spent reviewing the patient record, examining the patient, making a diagnostic and therapeutic plan, discussing this plan with medical personnel, following up on diagnostic studies and following the patient for clinical stability excluding any and all procedures. At least 50% of this time was spent in direct, [id number] contact. Dietary Evaluation Review Comments: 1) If GI route is prefererred, consider Jevity 1.2 @ 50 mL/hr goal rate as tolerated. Goal rate will provide 1440 kcals, 67g Pro, and 968 mL free H2O per 24 hrs. TF regimen will meet ~ 94% daily estimated energy needs and 100% daily estiamted protein needs. 2) If patient remains NPO for more than 7 days, consider TPN to meet at least 75% of estimated needs 3) Advance patient to cardiac diet when medically feasible, pending DYER ASSISTANT approval 4) Continue current plan of care Expected Outcomes/Goals: 1) patient to receive nutritional support within 7 days 2) labs to improve 3) diet to advance 4) f/u in 3 days Plan discussed with: Other (Primary RN ) PRINCE JOYNER Aug 10, 2024 04:57
[2024-08-10 05:20] LABS: Basophils # (auto) 0 10 ^3/uL (0-0.2); Basophils % (auto) 0.5 % (0.0-2.0); Eosinophils # (auto) 0 10 ^3/uL (0-0.8); Hematocrit 34.5 % (41.0-53.0); Lymphocytes # (auto) 0.4 10 ^3/uL (0.4-5.4); Lymphocytes % (auto) 4.5 % (10.0-50.0); Mean Corpuscular Hemoglobin 30.7 pg (28.0-32.0); Mean Corpuscular Hgb Conc. 31.7 g/dL (32.0-36.0); Mean Corpuscular Volume 96.9 fL (80.0-100.0); Monocytes # (auto) 0.4 10 ^3/uL (0-1.3); Monocytes % (auto) 3.8 % (0.0-12.0); Neutrophils # (auto) 8.6 10 ^3/uL (1.6-8.6); Neutrophils % (auto) 91.2 % (37.0-80.0); Nucleated Red Blood Cells % 0.1 %; Platelet Count (auto) 238 10^3/uL (140-450); Red Blood Cells 3.57 10^6/uL (4.5-5.90); Red Cell Distribution Width 14.7 % (11.8-14.3); White Blood Cell 9.4 10^3/uL (4.4-10.8)
[2024-08-10 05:28] LABS: Anion Gap 6 (5-15); Carbon Dioxide 30 mmol/L (20-31)
--- NOTE | 2024-08-10 05:43 | DVH ---
EXAM: XY CHEST PORTABLE Indication: INTUBATED Technique: Frontal view of the chest. Comparison: XY CHEST PORTABLE on DOS: 08/09/24, XY CHEST PORTABLE on DOS: 08/08/24, XY CHEST PORTABLE o n DOS: 08/08/24, XY CHEST PORTABLE on DOS: 08/07/24, XY CHEST XRAY 1 VIEW on DOS: 08/07/24, XY CHEST POR TABLE on DOS: 08/09/24 FINDINGS: LUNGS AND PLEURAL SPACES: Pulmonary venous congestion. Bibasilar atelectasis. No pneumothorax. HEART: Unremarkable. No cardiomegaly. MEDIASTINUM: Unremarkable. Normal mediastinal contour. BONES/JOINTS: Unremarkable. No acute fracture. TUBES, LINES AND DEVICES: The endotracheal tube (ETT) is in satisfactory position. Enteric tube ti p in the stomach. Left internal jugular central venous catheter tip in the superior vena cava. IMPRESSION: No significant change compared to prior exam.
[2024-08-10 05:55] LABS: Blood Urea Nitrogen 59 mg/dL (9-23); Chloride 110 mmol/L (98-107); Glucose 178 mg/dL (74-106); Potassium 5.2 mmol/L (3.5-5.1); Sodium 146 mmol/L (136-145)
[2024-08-10] MEDS ORDERED: METOPROLOL TARTRATE 1MG/1ML-5ML VIAL IV PRN ×2 (07:30)
[2024-08-10 08:45] LABS: Base Excess -0.8 mmol/L (-2.0-3.0)
--- NOTE | 2024-08-10 10:15 | DVHPN2 ---
Progress Note Date Seen: Aug 10, 2024 Medical Necessity Reason Pt with a Central, PICC or Fol: No The following are medically ne: Lance Catheter Reason for lance catheter: Strict I&O Subjective Review of Systems: RESPIRATORY:Abnormal Other Systems: Patient seen and examined by myself today in follow-up Patient intubated on ventilator Objective vital signs Vital Sign Date Time Temp Pulse Resp B/P (MAP) Pulse Ox O2 Delivery O2 Flow Rate FiO2 08/10/24 10:00 30 08/10/24 10:00 74 08/10/24 09:38 24 116/77 (90) 98 08/10/24 08:00 97.6 97.6 08/10/24 08:00 Mechanical Ventilator+ Total Intake and Output 08/09/24 08/09/24 08/10/24 15:00 23:00 07:00 Intake Total 853.513 ml 768 ml 927.415 ml Output Total 850 ml 1300 ml Balance 853.513 ml -82 ml -372.585 ml medications Current Medications Medications Dose Ordered Sig/[place] Route Start Time Stop Time Status Last Admin Dose Admin Albuterol 2.5 mg Q6HPRN PRN NEB 08/05/24 23:30 08/07/24 07:57 2.5 MG Ipratropium [place] 0.5 mg Q6HPRN PRN NEB 08/05/24 23:30 08/07/24 07:57 0.5 MG Atorvastatin Calcium 10 mg HS PO 08/06/24 22:00 08/09/24 22:23 10 MG Ondansetron HCl 4 mg Q4HP PRN IV 08/05/24 23:30 Acetaminophen 650 mg Q6HP PRN PO 08/05/24 23:30 Nitroglycerin 0.4 mg Q5MINP PRN SL 08/05/24 23:30 Morphine Sulfate 2 mg Q30M PRN IV 08/05/24 23:30 Ceftriaxone Sodium 50 ml @ 100 mls/hr DAILY@09 IV 08/06/24 09:00 08/10/24 07:48 100 MLS/HR Lorazepam 1 mg Q4HPRN PRN IV 08/06/24 13:45 08/07/24 17:24 1 MG Azithromycin 250 ml @ 125 mls/hr DAILY IV 08/07/24 10:00 08/10/24 07:47 125 MLS/HR Propofol 100 ml @ 2.442 mls/ hr Q24H IV 08/07/24 19:00 Fentanyl Citrate 250 ml @ 2.5 mls/hr Q24H IV 08/07/24 19:00 08/10/24 00:19 15 MLS/HR Norepinephrine Bitartrate 250 ml @ 3.75 mls/hr Q24H IV 08/07/24 19:00 08/08/24 14:13 3.75 MLS/HR Midazolam HCl 50 ml @ 1 mls/hr Q24H IV 08/07/24 21:45 08/09/24 20:57 6 MLS/HR Phenylephrine HCl 250 ml @ 30 mls/hr Q8H20M IV 08/07/24 23:15 08/08/24 07:35 11.25 MLS/HR Sodium Chloride 1,000 ml @ 75 mls/hr [id number] IV 08/08/24 09:45 08/10/24 05:06 75 MLS/HR Dexmedetomidine HCl 400 mcg/ Dextrose 100 ml @ 3.805 mls/ hr Q24H IV 08/08/24 11:30 08/09/24 10:05 3.805 MLS/HR Bumetanide 1 mg BIDD IV 08/08/24 19:00 08/10/24 05:07 1 MG Aspirin 81 mg DAILY PO 08/09/24 10:00 08/10/24 07:46 81 MG Metoprolol Tartrate 25 mg BID PO 08/09/24 10:00 08/10/24 07:46 25 MG Methylprednisolone Sodium Succinate 60 mg Q12HR IV 08/09/24 11:15 08/10/24 07:47 60 MG Enteral Nutritional Formula 1,000 ml DAILY NG 08/10/24 10:00 08/09/24 22:22 1,000 ML Metoprolol Tartrate 5 mg Q3HP PRN IV 08/10/24 07:30 Examination: LUNGS:Normal, CVS:Normal, MSK:Normal laboratory and microbiology Laboratory Tests 08/10/24 04:52 Test 08/10/24 04:52 Range/Units Serum Glucose 178 H 74-106 mg/dL Microbiology Date/Time Source Procedure Growth Status 08/08/24 21:20 Nose MRSA Screen - Final Complete Problem List/Assessment/Plan Problem List/Assessment/Plan Acute kidney injury unknown baseline in the setting of hypotension Acute on chronic hypoxic respiratory failure , patient intubated on ventilator COPD exacerbation 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 Goal rate will provide 1440 kcals, 67g Pro, and 968 mL free H2O per 24 hrs. TF regimen will meet ~ 94% daily estimated energy needs and 100% daily estiamted protein needs. 2) If patient remains NPO for more than 7 days, consider TPN to meet at least 75% of estimated needs 3) Advance patient to cardiac diet when medically feasible, pending CHUTE LOADER approval 4) Continue current plan of care Expected Outcomes/Goals: 1) patient to receive nutritional support within 7 days 2) labs to improve 3) diet to advance 4) f/u in 3 days ELLIOT VALDES MD Aug 10, 2024 10:15
[2024-08-10 10:41] LABS: Potassium 4.7 mmol/L (3.5-5.1); Sodium 143 mmol/L (136-145)
[2024-08-10 10:42] LABS: Anion Gap 6 (5-15); Carbon Dioxide 30 mmol/L (20-31)
[2024-08-10 10:47] LABS: BUN/Creatinine Ratio 42.8 (10.0-20.0); Calcium 8.6 mg/dL (8.7-10.4); Chloride 107 mmol/L (98-107)
[2024-08-10 10:48] LABS: Blood Urea Nitrogen 59 mg/dL (9-23); Glucose 228 mg/dL (74-106); Magnesium 1.9 mg/dL (1.6-2.6)
--- NOTE | 2024-08-10 21:20 | DVHPN2 ---
Reviewed: Care Plan, H&P, Labs, Medications, Previous Orders, Radiology Changes from previous H/P or p: No Changes General: Per HPI Objective Vitals Vital Signs Date Time Temp Pulse Resp B/P (MAP) Pulse Ox O2 Delivery O2 Flow Rate FiO2 08/10/24 21:00 75 16 98 08/10/24 20:35 30 08/10/24 20:00 98.4 98.4 08/10/24 08:00 Mechanical Ventilator+ Intake/Output Intake and Output 08/10/24 07:00 Intake Total 2548.928 ml Output Total 2150 ml Balance 398.928 ml IV Total 2448.928 ml Tube Feeding 40 ml Other 60 ml Output Urine Total 2150 ml General Appearance: Alert, Cooperative, No acute distress HEENT: Atraumatic, PERRLA, EOMI, Mucous membr. moist/pink Neck: Supple Lungs: Clear to auscultation, Normal air movement Cardiovascular: Regular rate, Normal S1, Normal S2, No murmurs, Gallops, Rubs Abdomen: Normal bowel sounds, Soft, No tenderness Neuro: Cranial nerves 3-12 NL Psych/Mental Status: Mental status NL Medications Current Medications Medications Dose Ordered Sig/Ashwin Route Start Time Stop Time Status Last Admin Dose Admin Albuterol 2.5 mg Q6HPRN PRN NEB 08/05/24 23:30 08/07/24 07:57 2.5 MG Ipratropium [place] 0.5 mg Q6HPRN PRN NEB 08/05/24 23:30 08/07/24 07:57 0.5 MG Atorvastatin Calcium 10 mg HS PO 08/06/24 22:00 08/09/24 22:23 10 MG Ondansetron HCl 4 mg Q4HP PRN IV 08/05/24 23:30 Acetaminophen 650 mg Q6HP PRN PO 08/05/24 23:30 Nitroglycerin 0.4 mg Q5MINP PRN SL 08/05/24 23:30 Morphine Sulfate 2 mg Q30M PRN IV 08/05/24 23:30 Ceftriaxone Sodium 50 ml @ 100 mls/hr DAILY@09 IV 08/06/24 09:00 08/10/24 07:48 100 MLS/HR Lorazepam 1 mg Q4HPRN PRN IV 08/06/24 13:45 08/07/24 17:24 1 MG Azithromycin 250 ml @ 125 mls/hr DAILY IV 08/07/24 10:00 08/10/24 07:47 125 MLS/HR Propofol 100 ml @ 2.442 mls/ hr Q24H IV 08/07/24 19:00 08/10/24 20:29 17.094 MLS/HR Fentanyl Citrate 250 ml @ 2.5 mls/hr Q24H IV 08/07/24 19:00 08/10/24 00:19 15 MLS/HR Norepinephrine Bitartrate 250 ml @ 3.75 mls/hr Q24H IV 08/07/24 19:00 08/08/24 14:13 3.75 MLS/HR Midazolam HCl 50 ml @ 1 mls/hr Q24H IV 08/07/24 21:45 08/09/24 20:57 6 MLS/HR Phenylephrine HCl 250 ml @ 30 mls/hr Q8H20M IV 08/07/24 23:15 08/08/24 07:35 11.25 MLS/HR Sodium Chloride 1,000 ml @ 75 mls/hr [id number] IV 08/08/24 09:45 08/10/24 20:29 75 MLS/HR Dexmedetomidine HCl 400 mcg/ Dextrose 100 ml @ 3.805 mls/ hr Q24H IV 08/08/24 11:30 08/10/24 11:30 11.415 MLS/HR Bumetanide 1 mg BIDD IV 08/08/24 19:00 08/10/24 17:53 1 MG Aspirin 81 mg DAILY PO 08/09/24 10:00 08/10/24 07:46 81 MG Metoprolol Tartrate 25 mg BID PO 08/09/24 10:00 08/10/24 07:46 25 MG Methylprednisolone Sodium Succinate 60 mg Q12HR IV 08/09/24 11:15 08/10/24 07:47 60 MG Enteral Nutritional Formula 1,000 ml DAILY NG 08/10/24 10:00 08/09/24 22:22 1,000 ML Metoprolol Tartrate 5 mg Q3HP PRN IV 08/10/24 07:30 Nicotine 1 patch DAILY TD 08/10/24 22:00 Laboratory Results Laboratory Tests 08/10/24 04:52 08/10/24 10:07 Chemistry Test 08/10/24 04:52 08/10/24 10:07 Calcium Level 9.0 mg/dL (8.7-10.4) 8.6 mg/dL (8.7-10.4) L Magnesium Level 1.9 mg/dL (1.6-2.6) Urinalysis Test 08/05/24 20:56 Urine Color Yellow (Yellow) Urine Clarity Turbid (Clear) H Urine pH 5.5 (5.0-9.0) Urine Specific [place] 1.020 (1.001-1.035) Urine Protein 1+ (Negative) H Urine Ketones Trace (Negative) Urine Blood Negative /uL (Negative) Urine Nitrite Negative (Negative) Urine Bilirubin Negative (Negative) Urine Urobilinogen Normal mg/dL (Negative) Urine Leukocyte Esterase Negative /uL (Negative) Urine RBC 1 /hpf (0 - 3) Urine Microscopic WBC 3 /HPF (0-3) Urine Squamous Epithelial Cells Few /hpf (<5) Urine Bacteria None seen /hpf (None Seen) Urine Hyaline Casts Few /lpf (0 - 2) Urine Glucose Normal mg/dL (Normal) Blood Gas Results Test 08/10/24 08:40 Arterial Blood pH 7.354 (7.350-7.450) FiO2 % 30.0 Microbiology Microbiology Date/Time Source Procedure Growth Status 08/08/24 21:20 Nose MRSA Screen - Final Complete Assessment/Plan Assessment/Plan Acute on chronic hypoxic respiratory failure, intubated COPD exacerbation Acute renal failure Hypotension Tobacco abuse Plan Continuing current management continue with Rocephin 1 g IV q.day and Zithromax 500 mg IV q.day. Plan discussed with: Other (nursing staff) Date of Service: Aug 07, 2024 Billing Provider: CHER JOHNSTON DO Common Visit Codes: [id number] CARE 30-74 MIN CHER JOHNSTON DO Aug 10, 2024 21:20
--- NOTE | 2024-08-10 21:22 | DVHPN2 ---
Reviewed: Care Plan, H&P, Labs, Medications, Previous Orders, Radiology Changes from previous H/P or p: No Changes General: Per HPI Objective Vitals Vital Signs Date Time Temp Pulse Resp B/P (MAP) Pulse Ox O2 Delivery O2 Flow Rate FiO2 08/10/24 21:00 75 16 98 08/10/24 20:35 30 08/10/24 20:00 98.4 98.4 08/10/24 08:00 Mechanical Ventilator+ Intake/Output Intake and Output 08/10/24 07:00 Intake Total 2548.928 ml Output Total 2150 ml Balance 398.928 ml IV Total 2448.928 ml Tube Feeding 40 ml Other 60 ml Output Urine Total 2150 ml General Appearance: Alert, No acute distress HEENT: Atraumatic, PERRLA, EOMI, Mucous membr. moist/pink Neck: Supple Lungs: Clear to auscultation, Normal air movement Cardiovascular: Regular rate, Normal S1, Normal S2, No murmurs, Gallops, Rubs Abdomen: Normal bowel sounds, Soft, No tenderness Neuro: Cranial nerves 3-12 NL Psych/Mental Status: Mental status NL Medications Current Medications Medications Dose Ordered Sig/Ashwin Route Start Time Stop Time Status Last Admin Dose Admin Albuterol 2.5 mg Q6HPRN PRN NEB 08/05/24 23:30 08/07/24 07:57 2.5 MG Ipratropium [place] 0.5 mg Q6HPRN PRN NEB 08/05/24 23:30 08/07/24 07:57 0.5 MG Atorvastatin Calcium 10 mg HS PO 08/06/24 22:00 08/09/24 22:23 10 MG Ondansetron HCl 4 mg Q4HP PRN IV 08/05/24 23:30 Acetaminophen 650 mg Q6HP PRN PO 08/05/24 23:30 Nitroglycerin 0.4 mg Q5MINP PRN SL 08/05/24 23:30 Morphine Sulfate 2 mg Q30M PRN IV 08/05/24 23:30 Ceftriaxone Sodium 50 ml @ 100 mls/hr DAILY@09 IV 08/06/24 09:00 08/10/24 07:48 100 MLS/HR Lorazepam 1 mg Q4HPRN PRN IV 08/06/24 13:45 08/07/24 17:24 1 MG Azithromycin 250 ml @ 125 mls/hr DAILY IV 08/07/24 10:00 08/10/24 07:47 125 MLS/HR Propofol 100 ml @ 2.442 mls/ hr Q24H IV 08/07/24 19:00 08/10/24 20:29 17.094 MLS/HR Fentanyl Citrate 250 ml @ 2.5 mls/hr Q24H IV 08/07/24 19:00 08/10/24 00:19 15 MLS/HR Norepinephrine Bitartrate 250 ml @ 3.75 mls/hr Q24H IV 08/07/24 19:00 08/08/24 14:13 3.75 MLS/HR Midazolam HCl 50 ml @ 1 mls/hr Q24H IV 08/07/24 21:45 08/09/24 20:57 6 MLS/HR Phenylephrine HCl 250 ml @ 30 mls/hr Q8H20M IV 08/07/24 23:15 08/08/24 07:35 11.25 MLS/HR Sodium Chloride 1,000 ml @ 75 mls/hr [id number] IV 08/08/24 09:45 08/10/24 20:29 75 MLS/HR Dexmedetomidine HCl 400 mcg/ Dextrose 100 ml @ 3.805 mls/ hr Q24H IV 08/08/24 11:30 08/10/24 11:30 11.415 MLS/HR Bumetanide 1 mg BIDD IV 08/08/24 19:00 08/10/24 17:53 1 MG Aspirin 81 mg DAILY PO 08/09/24 10:00 08/10/24 07:46 81 MG Metoprolol Tartrate 25 mg BID PO 08/09/24 10:00 08/10/24 07:46 25 MG Methylprednisolone Sodium Succinate 60 mg Q12HR IV 08/09/24 11:15 08/10/24 07:47 60 MG Enteral Nutritional Formula 1,000 ml DAILY NG 08/10/24 10:00 08/09/24 22:22 1,000 ML Metoprolol Tartrate 5 mg Q3HP PRN IV 08/10/24 07:30 Nicotine 1 patch DAILY TD 08/10/24 22:00 Laboratory Results Laboratory Tests 08/10/24 04:52 08/10/24 10:07 Chemistry Test 08/10/24 04:52 08/10/24 10:07 Calcium Level 9.0 mg/dL (8.7-10.4) 8.6 mg/dL (8.7-10.4) L Magnesium Level 1.9 mg/dL (1.6-2.6) Urinalysis Test 08/05/24 20:56 Urine Color Yellow (Yellow) Urine Clarity Turbid (Clear) H Urine pH 5.5 (5.0-9.0) Urine Specific [place] 1.020 (1.001-1.035) Urine Protein 1+ (Negative) H Urine Ketones Trace (Negative) Urine Blood Negative /uL (Negative) Urine Nitrite Negative (Negative) Urine Bilirubin Negative (Negative) Urine Urobilinogen Normal mg/dL (Negative) Urine Leukocyte Esterase Negative /uL (Negative) Urine RBC 1 /hpf (0 - 3) Urine Microscopic WBC 3 /HPF (0-3) Urine Squamous Epithelial Cells Few /hpf (<5) Urine Bacteria None seen /hpf (None Seen) Urine Hyaline Casts Few /lpf (0 - 2) Urine Glucose Normal mg/dL (Normal) Blood Gas Results Test 08/10/24 08:40 Arterial Blood pH 7.354 (7.350-7.450) FiO2 % 30.0 Microbiology Microbiology Date/Time Source Procedure Growth Status 08/08/24 21:20 Nose MRSA Screen - Final Complete Labs and/or images reviewed: Labs reviewed by me, Image(s) reviewed by me Assessment/Plan Assessment/Plan Acute on chronic hypoxic respiratory failure, intubated COPD exacerbation Acute renal failure Hypotension Tobacco abuse Plan weaning down on vent as tolerated discussed with nursing at bedside Plan discussed with: Other (nursing) Date of Service: Aug 08, 2024 Billing Provider: CHER JOHNSTON DO Common Visit Codes: [id number] CARE 30-74 MIN CHER JOHNSTON DO Aug 10, 2024 21:22
--- NOTE | 2024-08-10 21:23 | DVHPN2 ---
Reviewed: Care Plan, H&P, Labs, Medications, Previous Orders, Radiology Changes from previous H/P or p: No Changes General: Per HPI Objective Vitals Vital Signs Date Time Temp Pulse Resp B/P (MAP) Pulse Ox O2 Delivery O2 Flow Rate FiO2 08/10/24 21:00 75 16 98 08/10/24 20:35 30 08/10/24 20:00 98.4 98.4 08/10/24 08:00 Mechanical Ventilator+ Intake/Output Intake and Output 08/10/24 07:00 Intake Total 2548.928 ml Output Total 2150 ml Balance 398.928 ml IV Total 2448.928 ml Tube Feeding 40 ml Other 60 ml Output Urine Total 2150 ml General Appearance: Alert, No acute distress HEENT: Atraumatic, PERRLA, EOMI, Mucous membr. moist/pink Neck: Supple Lungs: Clear to auscultation, Normal air movement Cardiovascular: Regular rate, Normal S1, Normal S2, No murmurs, Gallops, Rubs Abdomen: Normal bowel sounds, Soft, No tenderness Neuro: Cranial nerves 3-12 NL Psych/Mental Status: Mental status NL Medications Current Medications Medications Dose Ordered Sig/Ashwin Route Start Time Stop Time Status Last Admin Dose Admin Albuterol 2.5 mg Q6HPRN PRN NEB 08/05/24 23:30 08/07/24 07:57 2.5 MG Ipratropium [place] 0.5 mg Q6HPRN PRN NEB 08/05/24 23:30 08/07/24 07:57 0.5 MG Atorvastatin Calcium 10 mg HS PO 08/06/24 22:00 08/09/24 22:23 10 MG Ondansetron HCl 4 mg Q4HP PRN IV 08/05/24 23:30 Acetaminophen 650 mg Q6HP PRN PO 08/05/24 23:30 Nitroglycerin 0.4 mg Q5MINP PRN SL 08/05/24 23:30 Morphine Sulfate 2 mg Q30M PRN IV 08/05/24 23:30 Ceftriaxone Sodium 50 ml @ 100 mls/hr DAILY@09 IV 08/06/24 09:00 08/10/24 07:48 100 MLS/HR Lorazepam 1 mg Q4HPRN PRN IV 08/06/24 13:45 08/07/24 17:24 1 MG Azithromycin 250 ml @ 125 mls/hr DAILY IV 08/07/24 10:00 08/10/24 07:47 125 MLS/HR Propofol 100 ml @ 2.442 mls/ hr Q24H IV 08/07/24 19:00 08/10/24 20:29 17.094 MLS/HR Fentanyl Citrate 250 ml @ 2.5 mls/hr Q24H IV 08/07/24 19:00 08/10/24 00:19 15 MLS/HR Norepinephrine Bitartrate 250 ml @ 3.75 mls/hr Q24H IV 08/07/24 19:00 08/08/24 14:13 3.75 MLS/HR Midazolam HCl 50 ml @ 1 mls/hr Q24H IV 08/07/24 21:45 08/09/24 20:57 6 MLS/HR Phenylephrine HCl 250 ml @ 30 mls/hr Q8H20M IV 08/07/24 23:15 08/08/24 07:35 11.25 MLS/HR Sodium Chloride 1,000 ml @ 75 mls/hr [id number] IV 08/08/24 09:45 08/10/24 20:29 75 MLS/HR Dexmedetomidine HCl 400 mcg/ Dextrose 100 ml @ 3.805 mls/ hr Q24H IV 08/08/24 11:30 08/10/24 11:30 11.415 MLS/HR Bumetanide 1 mg BIDD IV 08/08/24 19:00 08/10/24 17:53 1 MG Aspirin 81 mg DAILY PO 08/09/24 10:00 08/10/24 07:46 81 MG Metoprolol Tartrate 25 mg BID PO 08/09/24 10:00 08/10/24 07:46 25 MG Methylprednisolone Sodium Succinate 60 mg Q12HR IV 08/09/24 11:15 08/10/24 07:47 60 MG Enteral Nutritional Formula 1,000 ml DAILY NG 08/10/24 10:00 08/09/24 22:22 1,000 ML Metoprolol Tartrate 5 mg Q3HP PRN IV 08/10/24 07:30 Nicotine 1 patch DAILY TD 08/10/24 22:00 Laboratory Results Laboratory Tests 08/10/24 04:52 08/10/24 10:07 Chemistry Test 08/10/24 04:52 08/10/24 10:07 Calcium Level 9.0 mg/dL (8.7-10.4) 8.6 mg/dL (8.7-10.4) L Magnesium Level 1.9 mg/dL (1.6-2.6) Urinalysis Test 08/05/24 20:56 Urine Color Yellow (Yellow) Urine Clarity Turbid (Clear) H Urine pH 5.5 (5.0-9.0) Urine Specific [place] 1.020 (1.001-1.035) Urine Protein 1+ (Negative) H Urine Ketones Trace (Negative) Urine Blood Negative /uL (Negative) Urine Nitrite Negative (Negative) Urine Bilirubin Negative (Negative) Urine Urobilinogen Normal mg/dL (Negative) Urine Leukocyte Esterase Negative /uL (Negative) Urine RBC 1 /hpf (0 - 3) Urine Microscopic WBC 3 /HPF (0-3) Urine Squamous Epithelial Cells Few /hpf (<5) Urine Bacteria None seen /hpf (None Seen) Urine Hyaline Casts Few /lpf (0 - 2) Urine Glucose Normal mg/dL (Normal) Blood Gas Results Test 08/10/24 08:40 Arterial Blood pH 7.354 (7.350-7.450) FiO2 % 30.0 Microbiology Microbiology Date/Time Source Procedure Growth Status 08/08/24 21:20 Nose MRSA Screen - Final Complete Assessment/Plan Assessment/Plan Acute on chronic hypoxic respiratory failure, intubated COPD exacerbation Acute renal failure Hypotension Tobacco abuse Plan weaning down on vent as tolerated discussed with nursing at bedside Plan discussed with: Other (nursing staff) Date of Service: Aug 09, 2024 Billing Provider: CHER JOHNSTON DO Common Visit Codes: [id number] INP/OBS CARE(HIGH) CHER JOHNSTON DO Aug 10, 2024 21:23
[2024-08-10] MEDS: NICOTINE 21MG/24 HR TOPICAL PATCH TD SCH (22:25)
--- NOTE | 2024-08-10 23:00 | DVHPN2 ---
Progress Note - Dictate Date Seen: Aug 10, 2024 Medical Necessity Reason Pt with a Central, PICC or Fol: No The following are medically ne: Lance Catheter Reason for lance catheter: Strict I&O Subjective Patient seen and examined at bedside. Sedated, intubated on mechanical ventilator. Overnight events reviewed. vital signs Vital Sign Date Time Temp Pulse Resp B/P (MAP) Pulse Ox O2 Delivery O2 Flow Rate FiO2 08/10/24 22:46 143 24 102/55 (71) 98 08/10/24 20:35 30 08/10/24 20:00 98.4 98.4 08/10/24 08:00 Mechanical Ventilator+ Total Intake and Output 08/09/24 08/09/24 08/10/24 15:00 23:00 07:00 Intake Total 853.513 ml 768 ml 927.415 ml Output Total 850 ml 1300 ml Balance 853.513 ml -82 ml -372.585 ml medications Current Medications Medications Dose Ordered Sig/Ashwin Route Start Time Stop Time Status Last Admin Dose Admin Albuterol 2.5 mg Q6HPRN PRN NEB 08/05/24 23:30 08/07/24 07:57 2.5 MG Ipratropium [place] 0.5 mg Q6HPRN PRN NEB 08/05/24 23:30 08/07/24 07:57 0.5 MG Atorvastatin Calcium 10 mg HS PO 08/06/24 22:00 08/10/24 22:24 10 MG Ondansetron HCl 4 mg Q4HP PRN IV 08/05/24 23:30 Acetaminophen 650 mg Q6HP PRN PO 08/05/24 23:30 Nitroglycerin 0.4 mg Q5MINP PRN SL 08/05/24 23:30 Morphine Sulfate 2 mg Q30M PRN IV 08/05/24 23:30 Ceftriaxone Sodium 50 ml @ 100 mls/hr DAILY@09 IV 08/06/24 09:00 08/10/24 07:48 100 MLS/HR Lorazepam 1 mg Q4HPRN PRN IV 08/06/24 13:45 08/07/24 17:24 1 MG Azithromycin 250 ml @ 125 mls/hr DAILY IV 08/07/24 10:00 08/10/24 07:47 125 MLS/HR Propofol 100 ml @ 2.442 mls/ hr Q24H IV 08/07/24 19:00 08/10/24 20:29 17.094 MLS/HR Fentanyl Citrate 250 ml @ 2.5 mls/hr Q24H IV 08/07/24 19:00 08/10/24 00:19 15 MLS/HR Norepinephrine Bitartrate 250 ml @ 3.75 mls/hr Q24H IV 08/07/24 19:00 08/08/24 14:13 3.75 MLS/HR Midazolam HCl 50 ml @ 1 mls/hr Q24H IV 08/07/24 21:45 08/09/24 20:57 6 MLS/HR Phenylephrine HCl 250 ml @ 30 mls/hr Q8H20M IV 08/07/24 23:15 08/08/24 07:35 11.25 MLS/HR Sodium Chloride 1,000 ml @ 75 mls/hr [id number] IV 08/08/24 09:45 08/10/24 20:29 75 MLS/HR Dexmedetomidine HCl 400 mcg/ Dextrose 100 ml @ 3.805 mls/ hr Q24H IV 08/08/24 11:30 08/10/24 11:30 11.415 MLS/HR Bumetanide 1 mg BIDD IV 08/08/24 19:00 08/10/24 17:53 1 MG Aspirin 81 mg DAILY PO 08/09/24 10:00 08/10/24 07:46 81 MG Metoprolol Tartrate 25 mg BID PO 08/09/24 10:00 08/10/24 22:23 25 MG Methylprednisolone Sodium Succinate 60 mg Q12HR IV 08/09/24 11:15 08/10/24 22:24 60 MG Enteral Nutritional Formula 1,000 ml DAILY NG 08/10/24 10:00 08/09/24 22:22 1,000 ML Metoprolol Tartrate 5 mg Q3HP PRN IV 08/10/24 07:30 Nicotine 1 patch DAILY TD 08/10/24 22:00 08/10/24 22:25 1 PATCH objective Gen.: Patient lying in bed in medical ICU. Sedated, intubated on mechanical ventilator. Head: Normocephalic, atraumatic. Eyes: PERRLA. Ears: Normal external anatomy. Throat: Endotracheal tube and orogastric tube in place. Neck: Supple, trachea midline. Chest: Transmitted breath sounds bilaterally. Decreased air entry bilaterally. No wheezing. Bibasilar crackles. Cardiovascular: Positive S1, positive S2. Regular rate and rhythm. Abdomen: Positive bowel sounds in all 4 quadrants. Soft, nontender, nondistended. : Lance in place. Normal external genitalia. Rectal: Deferred. Skin: Warm, dry. Intact. Extremities: 2+ radial pulses bilaterally. No lower extremity edema. Neuro: Sedated. laboratory and microbiology Laboratory Tests 08/10/24 10:07 08/10/24 04:52 Test 08/10/24 10:07 Range/Units Serum Glucose 228 H 74-106 mg/dL Assessment/Plan Impression: Acute on chronic hypoxic respiratory failure On mechanical ventilation COPD exacerbation Nicotine dependence Acute renal failure Hypotension/shock Events: Remains intubated, on mechanical ventilator. On AC mode: Respiratory rate 24, tidal volume 550, PEEP of 8, FiO2 of 30%. Titrate FiO2 to keep sats above 92%. CXR image and report reviewed. Endotracheal tube in place. Mild pulmonary vascular congestion. Bibasilar atelectasis. No pneumothorax ABG reviewed. Compensated. Sedated on Versed/Fentanyl Off pressors, hemodynamically stable On metoprolol Cardiology recs appreciated. Continue bronchodilators IV steroids - tapered frequency Continue antibiotics WBC within normal limits IV fluids with 1/2 NS at 75 ml/hr. Hgb currently 11.0 g/dl Diurese w/ Bumex as tolerated Monitor renal function - Cr of 1.38 Monitor electrolytes. Supplement as necessary. SBT/EDINSON Taper sedation CPAP in the AM with PS 8, PEEP of 5 Accu-Cheks, ISS Hyperglycemia likely d/t steroids NRT. Labs and imaging reviewed. Rest of plan as noted below. Plan: s/p intubation and placement on mechanical ventilator on 08/07/24 On AC mode: Respiratory rate 24, tidal volume 550, PEEP of 8, FiO2 of 30%. Titrate FiO2 to keep sats above 92%. VAP bundle. Sedated on Versed/Fentanyl Pressors if necessary for hemodynamic support. Titrate to keep MAP above 65 mmHg. Continue bronchodilators. IV steroids - taper as tolerated Continue antibiotics 08/07 - S/p bronchoscopy with RML BAL d/t increased secretions - cleared mucous plugging from L5-L10 and R4-10 See separate procedure note for details. A central line was placed for administration of medications and blood draws. An arterial line was placed for ABG draws and hemodynamic monitoring. Monitor renal function. Monitor electrolytes. Supplement as necessary. Monitor ins and outs. DVT prophylaxis. Prognosis: Poor given patient's multiple co-morbidities. Condition: Critical Rest of plan per hospitalist and other consultants. A total of 35 minutes of critical care time was spent reviewing the patient record, examining the patient, making a diagnostic and therapeutic plan, discussing this plan with the medical personnel, following up on diagnostic studies and following the patient for clinical stability excluding any and all procedures. At least 50% of this time was spent in direct, [id number] contact. Thank you, Dr. Durbni, for allowing me to participate in this patient's care. Further recommendations will depend on the patient's clinical course. Please do not hesitate to contact me if you have any questions or concerns. This medical document was created using an electronic medical record system with [employer] dictation system. Although these documentations are being carefully reviewed, there may still be some phonetic and typographical changes. The errors are purely typographical, due to imperfection on the software program, and do not reflect any compromise in the patient's medical care. Dietary Evaluation Review Comments: 1) If GI route is prefererred, consider Jevity 1.2 @ 50 mL/hr goal rate as tolerated. Goal rate will provide 1440 kcals, 67g Pro, and 968 mL free H2O per 24 hrs. TF regimen will meet ~ 94% daily estimated energy needs and 100% daily estiamted protein needs. 2) If patient remains NPO for more than 7 days, consider TPN to meet at least 75% of estimated needs 3) Advance patient to cardiac diet when medically feasible, pending WORK ORDER CLERK approval 4) Continue current plan of care Expected Outcomes/Goals: 1) patient to receive nutritional support within 7 days 2) labs to improve 3) diet to advance 4) f/u in 3 days Plan discussed with: Other (RUBEN Garcia) Critical Care Time(min): 35 NATHAN TALAVERA MD Aug 10, 2024 23:00
[2024-08-11] VITALS (107 sets, daily range): BP systolic 81–147; BP diastolic 46–94; PULSE 42–168; RESP 13–39; TEMP 97.8–99.1; O2SAT 86–100
[2024-08-11 05:46] LABS: Chloride 107 mmol/L (98-107); Potassium 4.1 mmol/L (3.5-5.1); Sodium 145 mmol/L (136-145)
[2024-08-11 05:47] LABS: Anion Gap 8 (5-15); Carbon Dioxide 30 mmol/L (20-31)
[2024-08-11 05:48] LABS: Calcium 8.9 mg/dL (8.7-10.4)
[2024-08-11 05:53] LABS: BUN/Creatinine Ratio 47.7 (10.0-20.0); Blood Urea Nitrogen 52 mg/dL (9-23); Glucose 168 mg/dL (74-106)
[2024-08-11 07:50] LABS: Base Excess 3.3 mmol/L (-2.0-3.0)
--- NOTE | 2024-08-11 09:05 | DVHPN2 ---
Progress Note - Dictate Date Seen: Aug 11, 2024 Medical Necessity Reason Pt with a Central, PICC or Fol: No The following are medically ne: Lance Catheter Reason for lance catheter: Strict I&O vital signs Vital Sign Date Time Temp Pulse Resp B/P (MAP) Pulse Ox O2 Delivery O2 Flow Rate FiO2 08/11/24 08:32 148 24 117/86 (96) 98 30 08/11/24 08:00 98.8 98.8 08/10/24 20:00 Mechanical Ventilator+ Total Intake and Output 08/10/24 08/10/24 08/11/24 14:59 22:59 06:59 Intake Total 958.453 ml 748.466 ml 1004.839 ml Output Total 750 ml 1600 ml Balance 958.453 ml -1.534 ml -595.161 ml medications Current Medications Medications Dose Ordered Sig/Ashwin Route Start Time Stop Time Status Last Admin Dose Admin Albuterol 2.5 mg Q6HPRN PRN NEB 08/05/24 23:30 08/07/24 07:57 2.5 MG Ipratropium [place] 0.5 mg Q6HPRN PRN NEB 08/05/24 23:30 08/07/24 07:57 0.5 MG Atorvastatin Calcium 10 mg HS PO 08/06/24 22:00 08/10/24 22:24 10 MG Ondansetron HCl 4 mg Q4HP PRN IV 08/05/24 23:30 Acetaminophen 650 mg Q6HP PRN PO 08/05/24 23:30 Nitroglycerin 0.4 mg Q5MINP PRN SL 08/05/24 23:30 Morphine Sulfate 2 mg Q30M PRN IV 08/05/24 23:30 Ceftriaxone Sodium 50 ml @ 100 mls/hr DAILY@09 IV 08/06/24 09:00 08/11/24 08:23 100 MLS/HR Lorazepam 1 mg Q4HPRN PRN IV 08/06/24 13:45 08/07/24 17:24 1 MG Azithromycin 250 ml @ 125 mls/hr DAILY IV 08/07/24 10:00 08/10/24 07:47 125 MLS/HR Propofol 100 ml @ 2.442 mls/ hr Q24H IV 08/07/24 19:00 08/11/24 08:23 9.768 MLS/HR Fentanyl Citrate 250 ml @ 2.5 mls/hr Q24H IV 08/07/24 19:00 08/10/24 00:19 15 MLS/HR Norepinephrine Bitartrate 250 ml @ 3.75 mls/hr Q24H IV 08/07/24 19:00 08/08/24 14:13 3.75 MLS/HR Midazolam HCl 50 ml @ 1 mls/hr Q24H IV 08/07/24 21:45 08/11/24 00:24 2 MLS/HR Phenylephrine HCl 250 ml @ 30 mls/hr Q8H20M IV 08/07/24 23:15 08/08/24 07:35 11.25 MLS/HR Sodium Chloride 1,000 ml @ 75 mls/hr [id number] IV 08/08/24 09:45 08/10/24 20:29 75 MLS/HR Dexmedetomidine HCl 400 mcg/ Dextrose 100 ml @ 3.805 mls/ hr Q24H IV 08/08/24 11:30 08/10/24 11:30 11.415 MLS/HR Bumetanide 1 mg BIDD IV 08/08/24 19:00 08/11/24 05:28 1 MG Aspirin 81 mg DAILY PO 08/09/24 10:00 08/10/24 07:46 81 MG Metoprolol Tartrate 25 mg BID PO 08/09/24 10:00 08/10/24 22:23 25 MG Methylprednisolone Sodium Succinate 60 mg Q12HR IV 08/09/24 11:15 08/10/24 22:24 60 MG Enteral Nutritional Formula 1,000 ml DAILY NG 08/10/24 10:00 08/09/24 22:22 1,000 ML Metoprolol Tartrate 5 mg Q3HP PRN IV 08/10/24 07:30 Nicotine 1 patch DAILY TD 08/10/24 22:00 08/10/24 22:25 1 PATCH laboratory and microbiology Laboratory Tests 08/11/24 05:16 08/10/24 04:52 Test 08/11/24 05:16 Range/Units Serum Glucose 168 H 74-106 mg/dL Assessment/Plan This is a 64-year old male known outside to our practice who initially presented (08/06/2024) with progressive worsening of shortness of breath for approximately 2 days prior to initial presentation. Upon ED arrival, patient was found hypoxic with an initial SPO2 level within the 80s. Patient was subsequently admitted to the telemetry unit where he had been undergoing management for acute hypoxic respiratory failure in the setting acute COPD exacerbation which respiratory status later deteriorated requiring subsequent endotracheal intubation/bronchoscopy by Pulmonology services (08/07/2024). Patient was then upgraded to the ICU where he has been undergoing close observation and further management. It is of note, upon ED arrival, patient was noted to be in atrial flutter with presence of a variable AV block and in RVR which throughout present course of hospitalization atrial flutter itself has been managed with Amiodarone 200mg once daily. It is of note, TSH level is found abnormal at 0.08 which could have attributed to the underlying tachyarrhythmia. Initial HS troponin level was found unremarkable unremarkable at 47, with subsequent repeat levels of 48, and 41. D-dimer was found normal at 0.46. BNP level was found to be 101.87 which initial chest imaging upon arrival had revealed no acute cardiopulmonary abnormalities however subsequent repeat chest imaging (08/09/2024) revealed presence of pulmonary venous congestion which the patient has been undergoing diuretic therapy as managed by Nephrology services secondary to underlying acute kidney injury. Echocardiogram (08/06/2024) during present hospitalization has revealed a preserved LVEF of 60%. At present time of consultation, telemetry reveals atrial flutter with variable AV block and intermittent episodes of RVR. As the patient initially presented with shortness of breath and found to have atrial flutter with transient episodes of RVR, Cardiology services have now been involved by primary team request late within the admission for cardiac aspects of care. Past medical history includes chronic atrial fibrillation/flutter status post Watchman Device Implantation (03/27/2022), systolic heart failure with improved ejection fraction, coronary artery disease status post previous PCI involving pRCA (03/31/2022 [facility]), npn-Hodgkin lymphoma status post chemotherapy, COPD on home oxygen, asthma, peripheral vascular disease, GERD, gastroenteritis, vitamin d deficiency, neuropathy, hyperlipidemia, hypertension, and chronic anemia. Patient is known to have underlying nicotine dependence. Cardiac Catheterization: (03/31/2022 [facility]) revealed 1 vessel coronary artery disease, Prox RCA 80% lesion, s/p RAFAT deployment, LVEF of 50%, EDP of 14 Echocardiogram: (01/26/2022 [facility]) revealed a reduced LVEF of 40-50% with mild concentric left ventricular hypertrophy Transesophageal Echocardiogram: (10/31/2022 [facility]) revealed LVEF is 55%, trace MR, minimal AR, mild TR, NEL watchman is functioning good. Echocardiogram: (08/06/2024 [facility]) revealed LVEF of 60% by visual estimate, normal rv function, left atrium enlarged, normal pericardium, no severe valve abnormalities noted Acute on chronic COPD, with exacerbation Acute hypoxic respiratory failure, status post intubation/bronchoscopy (08/07/2024) Chronic atrial flutter with variable AV block, s/p watchman device implantation (03/27/2022) Systolic heart failure with improved LV function, EF of 60% (08/06/2024) Coronary artery disease, s/p previous PCI involving pRCA (03/31/2022) Abnormal TSH level (0.08), previously on Amiodarone Hypermagnesemia (5.4), resolved Acute kidney injury, improving Hypertension, history of Hyperkalemia, resolved Nicotine dependence Chronic anemia Hyperlipidemia CARDIAC SUGGESTIONS FOR MANAGEMENT: Request for thyroid sonogram upon extubation Amiodarone discontinued secondary to abnormal thyroid function Proceed with rate control strategy as for now for underlying atrial flutter Tolerating Metoprolol Tartrate 25mg twice daily for rate control (titrate as warranted) As patient is status post Watchman Device implantation, Aspirin 81mg daily is advised Fluid volume management (IV diuresis) as per Nephrology secondary to VALERI Proceed with close observation for overt signs of fluid overload Proceed with strict intakes, outputs, and daily weights Proceed with optimized medical therapy Proceed with risk factor modification Follow up renal function/electrolytes On IV antibiotics and steroids On Bumex 1mg IV twice daily Atorvastatin 10mg daily Aspirin 81mg daily DVT prophylaxis Re-initiate GDMT for previous HF once clinically stable Proceed with close rate and rhythm surveillance Proceed with close hemodynamic surveillance Proceed with optimized blood pressure control Transfuse to sustain HGB level above 7.0 Sustain Magnesium level greater than 2.0 Sustain Potassium level greater than 4.0 Follow up renal function and electrolytes Patient to be counseled on importance of tobacco cessation as patient regains higher brain function Management of COPD exacerbation as per primary team/pulmonology Management of VALERI as per primary team/nephrology Management of co-morbidities as per primary team Management within the ICU Follow up oracle iam consultant recommendations Will proceed to follow from a cardiac perspective Further recommendations per clinical progression All available diagnostic labs, EKG's, and images were personally reviewed Patient's status, findings, and plan of care was reviewed and discussed with supervising physician Dr. Kong, who is in agreement with current plan of care. Plan of care discussed with and agreed upon by family / primary RN Prognosis: Guarded Thank you for allowing me to participate in the care of this patient. Further recommendations based on patients clinical course and progression, primary attending, and other consultants. Will continue to follow with primary attending. If you have any questions or concerns, please do not hesitate to contact me. A total of 75 minutes was spent reviewing the patient record, examining the patient, making a diagnostic and therapeutic plan, discussing this plan with medical personnel, following up on diagnostic studies and following the patient for clinical stability excluding any and all procedures. At least 50% of this time was spent in direct, [id number] contact. Dietary Evaluation Review Comments: 1) If GI route is prefererred, consider Jevity 1.2 @ 50 mL/hr goal rate as tolerated. Goal rate will provide 1440 kcals, 67g Pro, and 968 mL free H2O per 24 hrs. TF regimen will meet ~ 94% daily estimated energy needs and 100% daily estiamted protein needs. 2) If patient remains NPO for more than 7 days, consider TPN to meet at least 75% of estimated needs 3) Advance patient to cardiac diet when medically feasible, pending [employer] approval 4) Continue current plan of care Expected Outcomes/Goals: 1) patient to receive nutritional support within 7 days 2) labs to improve 3) diet to advance 4) f/u in 3 days Plan discussed with: Other (nurse) FRANCE VIRAMONTES MD Aug 11, 2024 09:05
--- NOTE | 2024-08-11 12:22 | DVHPN2 ---
Progress Note Date Seen: Aug 11, 2024 Medical Necessity Reason Pt with a Central, PICC or Fol: No The following are medically ne: Lance Catheter Reason for lance catheter: Strict I&O Objective vital signs Vital Sign Date Time Temp Pulse Resp B/P (MAP) Pulse Ox O2 Delivery O2 Flow Rate FiO2 08/11/24 12:00 98.3 144 30 130/94 (106) 96 98.3 08/11/24 10:28 30 08/11/24 08:00 Mechanical Ventilator+ Total Intake and Output 08/10/24 08/10/24 08/11/24 15:00 23:00 07:00 Intake Total 952.356 ml 765.931 ml 902.861 ml Output Total 750 ml 1600 ml Balance 952.356 ml 15.931 ml -697.139 ml medications Current Medications Medications Dose Ordered Sig/Ashwin Route Start Time Stop Time Status Last Admin Dose Admin Albuterol 2.5 mg Q6HPRN PRN NEB 08/05/24 23:30 08/07/24 07:57 2.5 MG Ipratropium [place] 0.5 mg Q6HPRN PRN NEB 08/05/24 23:30 08/07/24 07:57 0.5 MG Atorvastatin Calcium 10 mg HS PO 08/06/24 22:00 08/10/24 22:24 10 MG Ondansetron HCl 4 mg Q4HP PRN IV 08/05/24 23:30 Acetaminophen 650 mg Q6HP PRN PO 08/05/24 23:30 Nitroglycerin 0.4 mg Q5MINP PRN SL 08/05/24 23:30 Morphine Sulfate 2 mg Q30M PRN IV 08/05/24 23:30 Ceftriaxone Sodium 50 ml @ 100 mls/hr DAILY@09 IV 08/06/24 09:00 08/11/24 08:23 100 MLS/HR Lorazepam 1 mg Q4HPRN PRN IV 08/06/24 13:45 08/07/24 17:24 1 MG Azithromycin 250 ml @ 125 mls/hr DAILY IV 08/07/24 10:00 08/11/24 09:21 125 MLS/HR Propofol 100 ml @ 2.442 mls/ hr Q24H IV 08/07/24 19:00 08/11/24 08:23 9.768 MLS/HR Fentanyl Citrate 250 ml @ 2.5 mls/hr Q24H IV 08/07/24 19:00 08/10/24 00:19 15 MLS/HR Norepinephrine Bitartrate 250 ml @ 3.75 mls/hr Q24H IV 08/07/24 19:00 08/08/24 14:13 3.75 MLS/HR Midazolam HCl 50 ml @ 1 mls/hr Q24H IV 08/07/24 21:45 08/11/24 00:24 2 MLS/HR Phenylephrine HCl 250 ml @ 30 mls/hr Q8H20M IV 08/07/24 23:15 08/08/24 07:35 11.25 MLS/HR Dexmedetomidine HCl 400 mcg/ Dextrose 100 ml @ 3.805 mls/ hr Q24H IV 08/08/24 11:30 08/11/24 09:23 9.513 MLS/HR Bumetanide 1 mg BIDD IV 08/08/24 19:00 08/11/24 05:28 1 MG Aspirin 81 mg DAILY PO 08/09/24 10:00 08/11/24 09:23 81 MG Metoprolol Tartrate 25 mg BID PO 08/09/24 10:00 08/11/24 09:22 25 MG Methylprednisolone Sodium Succinate 60 mg Q12HR IV 08/09/24 11:15 08/11/24 09:19 60 MG Enteral Nutritional Formula 1,000 ml DAILY NG 08/10/24 10:00 08/09/24 22:22 1,000 ML Metoprolol Tartrate 5 mg Q3HP PRN IV 08/10/24 07:30 Nicotine 1 patch DAILY TD 08/10/24 22:00 08/11/24 09:22 1 PATCH Enoxaparin Sodium 40 mg DAILY SC 08/11/24 10:00 UNV Micafungin Sodium 100 mg/Sodium Chloride 100 ml @ 100 mls/hr DAILY IV 08/12/24 10:00 UNV Examination: LUNGS:Abnormal, CVS:Abnormal laboratory and microbiology Laboratory Tests 08/11/24 05:16 08/10/24 04:52 Test 08/11/24 05:16 Range/Units Serum Glucose 168 H 74-106 mg/dL Microbiology Date/Time Source Procedure Growth Status 08/08/24 21:20 Nose MRSA Screen - Final Complete Problem List/Assessment/Plan Problem List/Assessment/Plan Acute kidney injury unknown baseline in the setting of hypotension Acute on chronic hypoxic respiratory failure , patient intubated on ventilator COPD exacerbation 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 Goal rate will provide 1440 kcals, 67g Pro, and 968 mL free H2O per 24 hrs. TF regimen will meet ~ 94% daily estimated energy needs and 100% daily estiamted protein needs. 2) If patient remains NPO for more than 7 days, consider TPN to meet at least 75% of estimated needs 3) Advance patient to cardiac diet when medically feasible, pending [employer] approval 4) Continue current plan of care Expected Outcomes/Goals: 1) patient to receive nutritional support within 7 days 2) labs to improve 3) diet to advance 4) f/u in 3 days ISRAEL MACHUCA MD Aug 11, 2024 12:22
--- NOTE | 2024-08-11 15:08 | DVHPN2 ---
Subjective Patient encephalopathic, awake and following some commands while on mechanical ventilation. Reviewed: Care Plan, H&P, Labs, Medications, Previous Orders, Radiology Changes from previous H/P or p: No Changes General: Per HPI Objective Vitals Vital Signs Date Time Temp Pulse Resp B/P (MAP) Pulse Ox O2 Delivery O2 Flow Rate FiO2 08/11/24 12:00 98.3 144 30 130/94 (106) 96 98.3 08/11/24 10:28 30 08/11/24 08:00 Mechanical Ventilator+ Intake/Output Intake and Output 08/11/24 07:00 Intake Total 2621.148 ml Output Total 2350 ml Balance 271.148 ml IV Total 2461.148 ml Tube Feeding 100 ml Other 60 ml Output Urine Total 2350 ml General Appearance: Alert, No acute distress HEENT: Atraumatic, PERRLA, EOMI, Mucous membr. moist/pink Neck: Supple Lungs: Clear to auscultation, Normal air movement Cardiovascular: Normal S1, Normal S2, No murmurs, Gallops, Rubs, Other (A flutter 2-1 conduction) Abdomen: Normal bowel sounds, Soft, No tenderness Neuro: Cranial nerves 3-12 NL Skin: Dry, Intact Psych/Mental Status: Mental status NL Medications Current Medications Medications Dose Ordered Sig/Ashwin Route Start Time Stop Time Status Last Admin Dose Admin Albuterol 2.5 mg Q6HPRN PRN NEB 08/05/24 23:30 08/07/24 07:57 2.5 MG Ipratropium [place] 0.5 mg Q6HPRN PRN NEB 08/05/24 23:30 08/07/24 07:57 0.5 MG Atorvastatin Calcium 10 mg HS PO 08/06/24 22:00 08/10/24 22:24 10 MG Ondansetron HCl 4 mg Q4HP PRN IV 08/05/24 23:30 Acetaminophen 650 mg Q6HP PRN PO 08/05/24 23:30 Nitroglycerin 0.4 mg Q5MINP PRN SL 08/05/24 23:30 Morphine Sulfate 2 mg Q30M PRN IV 08/05/24 23:30 Ceftriaxone Sodium 50 ml @ 100 mls/hr DAILY@09 IV 08/06/24 09:00 08/11/24 08:23 100 MLS/HR Lorazepam 1 mg Q4HPRN PRN IV 08/06/24 13:45 08/07/24 17:24 1 MG Azithromycin 250 ml @ 125 mls/hr DAILY IV 08/07/24 10:00 08/11/24 09:21 125 MLS/HR Propofol 100 ml @ 2.442 mls/ hr Q24H IV 08/07/24 19:00 08/11/24 08:23 9.768 MLS/HR Fentanyl Citrate 250 ml @ 2.5 mls/hr Q24H IV 08/07/24 19:00 08/10/24 00:19 15 MLS/HR Norepinephrine Bitartrate 250 ml @ 3.75 mls/hr Q24H IV 08/07/24 19:00 08/08/24 14:13 3.75 MLS/HR Midazolam HCl 50 ml @ 1 mls/hr Q24H IV 08/07/24 21:45 08/11/24 00:24 2 MLS/HR Phenylephrine HCl 250 ml @ 30 mls/hr Q8H20M IV 08/07/24 23:15 08/08/24 07:35 11.25 MLS/HR Dexmedetomidine HCl 400 mcg/ Dextrose 100 ml @ 3.805 mls/ hr Q24H IV 08/08/24 11:30 08/11/24 09:23 9.513 MLS/HR Bumetanide 1 mg BIDD IV 08/08/24 19:00 08/11/24 05:28 1 MG Aspirin 81 mg DAILY PO 08/09/24 10:00 08/11/24 09:23 81 MG Metoprolol Tartrate 25 mg BID PO 08/09/24 10:00 08/11/24 09:22 25 MG Methylprednisolone Sodium Succinate 60 mg Q12HR IV 08/09/24 11:15 08/11/24 09:19 60 MG Enteral Nutritional Formula 1,000 ml DAILY NG 08/10/24 10:00 08/09/24 22:22 1,000 ML Metoprolol Tartrate 5 mg Q3HP PRN IV 08/10/24 07:30 Nicotine 1 patch DAILY TD 08/10/24 22:00 08/11/24 09:22 1 PATCH Enoxaparin Sodium 40 mg DAILY SC 08/11/24 10:00 Micafungin Sodium 100 mg/Sodium Chloride 100 ml @ 100 mls/hr DAILY IV 08/12/24 10:00 Diltiazem HCl 125 ml @ 5 mls/hr Q24H IV 08/11/24 14:45 UNV Laboratory Results Laboratory Tests 08/10/24 04:52 08/11/24 05:16 Chemistry Test 08/11/24 05:16 Calcium Level 8.9 mg/dL (8.7-10.4) Urinalysis Test 08/05/24 20:56 Urine Color Yellow (Yellow) Urine Clarity Turbid (Clear) H Urine pH 5.5 (5.0-9.0) Urine Specific [place] 1.020 (1.001-1.035) Urine Protein 1+ (Negative) H Urine Ketones Trace (Negative) Urine Blood Negative /uL (Negative) Urine Nitrite Negative (Negative) Urine Bilirubin Negative (Negative) Urine Urobilinogen Normal mg/dL (Negative) Urine Leukocyte Esterase Negative /uL (Negative) Urine RBC 1 /hpf (0 - 3) Urine Microscopic WBC 3 /HPF (0-3) Urine Squamous Epithelial Cells Few /hpf (<5) Urine Bacteria None seen /hpf (None Seen) Urine Hyaline Casts Few /lpf (0 - 2) Urine Glucose Normal mg/dL (Normal) Blood Gas Results Test 08/11/24 07:40 Arterial Blood pH 7.472 (7.350-7.450) FiO2 % 30.0 Microbiology Microbiology Date/Time Source Procedure Growth Status 08/08/24 21:20 Nose MRSA Screen - Final Complete Labs and/or images reviewed: Labs reviewed by me, Image(s) reviewed by me Assessment/Plan Assessment/Plan Impression: -acute respiratory failure with mechanical ventilation -COPD -acute kidney injury, vasomotor nephropathy -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 Critical care time spent with patient discussing and formulating plan of care: 40 minutes. This does not include time spent performing procedures. This medical document was created using an electronic medical record system with Dragon computerized dictation system. Although this document has been carefully reviewed, there may still be some phonetic and typographical errors. These areas are purely typographical due to imperfections of the software programs, and do not reflect any compromise in the patient's medical care. Plan discussed with: Patient, Other (RN) My Orders Orders - MAIKEL MCKINNEY NP Procedure Category Date Status Time Micafungin Sodium PHA 08/12/24 In Process (Mycamine) 10:00 Diltiazem Injection PHA 08/11/24 Logged (Cardizem Injection) 14:45 Diltiazem 125mg/125ml PHA 08/11/24 Logged Bag Kit (Cardizem) 14:45 Date of Service: Aug 11, 2024 Billing Provider: MAIKEL MCKINNEY NP Common Visit Codes: [id number] CARE 30-74 MIN MAIKEL MCKINNEY NP Aug 11, 2024 15:08
[2024-08-11 16:00] LABS: Base Excess 4.9 mmol/L (-2.0-3.0)
[2024-08-11] MEDS: ONDANSETRON HCL 4 MG/2 ML VIAL IV PRN (16:08)
[2024-08-11] MEDS: ENOXAPARIN SOD 40 MG/0.4 ML SYRINGE SC SCH (16:47)
[2024-08-11] MEDS: dilTIAZem 25 MG/5 ML VIAL IV ONE (16:47)
[2024-08-11] MEDS: dilTIAZem 125mg/125ml BAG KIT 125 ML IV SCH (17:41)
[2024-08-11] MEDS: ACETAMINOPHEN 325 MG TAB PO PRN (17:56)
[2024-08-11] MEDS ORDERED: NICOTINE 7MG/24HR TOPICAL PATCH TD ONE (20:15)
--- NOTE | 2024-08-11 22:31 | DVHPN2 ---
Progress Note - Dictate Date Seen: Aug 11, 2024 Medical Necessity Reason Pt with a Central, PICC or Fol: No The following are medically ne: Lance Catheter Reason for lance catheter: Strict I&O Subjective Patient seen and examined at bedside. S/p extubation, on supplemental oxygen Overnight events reviewed. vital signs Vital Sign Date Time Temp Pulse Resp B/P (MAP) Pulse Ox O2 Delivery O2 Flow Rate FiO2 08/11/24 20:17 96 Nasal Cannula 3.0 08/11/24 20:17 32 08/11/24 20:15 97.8 111 16 138/77 (97) 97.8 Total Intake and Output 08/10/24 08/10/24 08/11/24 15:00 23:00 07:00 Intake Total 952.356 ml 765.931 ml 927.361 ml Output Total 750 ml 1600 ml Balance 952.356 ml 15.931 ml -672.639 ml medications Current Medications Medications Dose Ordered Sig/Ashwin Route Start Time Stop Time Status Last Admin Dose Admin Albuterol 2.5 mg Q6HPRN PRN NEB 08/05/24 23:30 08/07/24 07:57 2.5 MG Ipratropium [place] 0.5 mg Q6HPRN PRN NEB 08/05/24 23:30 08/07/24 07:57 0.5 MG Atorvastatin Calcium 10 mg HS PO 08/06/24 22:00 08/10/24 22:24 10 MG Ondansetron HCl 4 mg Q4HP PRN IV 08/05/24 23:30 08/11/24 16:08 4 MG Acetaminophen 650 mg Q6HP PRN PO 08/05/24 23:30 08/11/24 17:56 650 MG Nitroglycerin 0.4 mg Q5MINP PRN SL 08/05/24 23:30 Morphine Sulfate 2 mg Q30M PRN IV 08/05/24 23:30 Ceftriaxone Sodium 50 ml @ 100 mls/hr DAILY@09 IV 08/06/24 09:00 08/11/24 08:23 100 MLS/HR Lorazepam 1 mg Q4HPRN PRN IV 08/06/24 13:45 08/11/24 22:20 1 MG Azithromycin 250 ml @ 125 mls/hr DAILY IV 08/07/24 10:00 08/11/24 09:21 125 MLS/HR Propofol 100 ml @ 2.442 mls/ hr Q24H IV 08/07/24 19:00 08/11/24 08:23 9.768 MLS/HR Fentanyl Citrate 250 ml @ 2.5 mls/hr Q24H IV 08/07/24 19:00 08/10/24 00:19 15 MLS/HR Norepinephrine Bitartrate 250 ml @ 3.75 mls/hr Q24H IV 08/07/24 19:00 08/08/24 14:13 3.75 MLS/HR Midazolam HCl 50 ml @ 1 mls/hr Q24H IV 08/07/24 21:45 08/11/24 00:24 2 MLS/HR Phenylephrine HCl 250 ml @ 30 mls/hr Q8H20M IV 08/07/24 23:15 08/08/24 07:35 11.25 MLS/HR Dexmedetomidine HCl 400 mcg/ Dextrose 100 ml @ 3.805 mls/ hr Q24H IV 08/08/24 11:30 08/11/24 09:23 9.513 MLS/HR Bumetanide 1 mg BIDD IV 08/08/24 19:00 08/11/24 17:49 1 MG Aspirin 81 mg DAILY PO 08/09/24 10:00 08/11/24 09:23 81 MG Metoprolol Tartrate 25 mg BID PO 08/09/24 10:00 08/11/24 09:22 25 MG Methylprednisolone Sodium Succinate 60 mg Q12HR IV 08/09/24 11:15 08/11/24 22:19 60 MG Enteral Nutritional Formula 1,000 ml DAILY NG 08/10/24 10:00 08/09/24 22:22 1,000 ML Metoprolol Tartrate 5 mg Q3HP PRN IV 08/10/24 07:30 Nicotine 1 patch DAILY TD 08/10/24 22:00 08/11/24 09:22 1 PATCH Enoxaparin Sodium 40 mg DAILY SC 08/11/24 10:00 08/11/24 16:47 40 MG Micafungin Sodium 100 mg/Sodium Chloride 100 ml @ 100 mls/hr DAILY IV 08/12/24 10:00 Diltiazem HCl 125 ml @ 5 mls/hr Q24H IV 08/11/24 14:45 08/11/24 17:41 5 MLS/HR objective Gen.: Patient lying in bed in no apparent distress. On supplemental oxygen. Head: Normocephalic, atraumatic. Eyes: EOMI/PERRLA. Ears: Normal hearing. Normal anatomy. Neck/trachea: Trachea midline, supple. Nose: Normal external anatomy. Mouth: Moist mucous membranes. Chest: Decreased air entry bilaterally. No wheezing or rhonchi. Cardiovascular: Positive S1, positive S2. Regular rate and rhythm. Abdomen: Positive bowel sounds in all 4 quadrants. Soft, non-tender, non- distended. : Deferred. Rectal: Deferred. Skin: Warm, dry. Intact. Extremities: 2+ radial pulses bilaterally. No lower extremity edema. Neuro: Awake, alert, oriented x3. No gross motor or sensory deficits. Cranial nerves II through XII intact. Gait not assessed. laboratory and microbiology Laboratory Tests 08/11/24 05:16 08/10/24 04:52 Test 08/11/24 05:16 Range/Units Serum Glucose 168 H 74-106 mg/dL Assessment/Plan Impression: Acute on chronic hypoxic respiratory failure On mechanical ventilation COPD exacerbation Nicotine dependence Acute renal failure Hypotension/shock Events: CXR image and report reviewed. Endotracheal tube in place. Mild pulmonary vascular congestion. Bibasilar atelectasis. No pneumothorax ABG reviewed. Compensated. Vent support AC mode: Respiratory rate 24, tidal volume 550, PEEP of 8, FiO2 of 30%. Patient tolerated CPAP trial and was extubated uneventfully, placed on cool aerosol Son at bedside. Off pressors, hemodynamically stable Continue bronchodilators IV steroids - taper as tolerated Continue antibiotics WBC within normal limits Monitor hemoglobin Diurese w/ Bumex as tolerated Monitor renal function Monitor electrolytes. Supplement as necessary. Accu-Cheks for glycemic monitoring NRT. Labs and imaging reviewed. Rest of plan as noted below. Plan: s/p extubation Supplemental oxygen Titrate to keep sats above 90% Pressors if necessary for hemodynamic support. Titrate to keep MAP above 65 mmHg. Continue bronchodilators. IV steroids - taper as tolerated Continue antibiotics 08/07 - S/p bronchoscopy with RML BAL d/t increased secretions - cleared mucous plugging from L5-L10 and R4-10 See separate procedure note for details. A central line was placed for administration of medications and blood draws. An arterial line was placed for ABG draws and hemodynamic monitoring. Monitor renal function. Monitor electrolytes. Supplement as necessary. Monitor ins and outs. DVT prophylaxis. Prognosis: Poor given patient's multiple co-morbidities. Condition: Critical Rest of plan per hospitalist and other consultants. A total of 35 minutes of critical care time was spent reviewing the patient record, examining the patient, making a diagnostic and therapeutic plan, discussing this plan with the medical personnel, following up on diagnostic studies and following the patient for clinical stability excluding any and all procedures. At least 50% of this time was spent in direct, [id number] contact. Thank you, Dr. Durbin, for allowing me to participate in this patient's care. Further recommendations will depend on the patient's clinical course. Please do not hesitate to contact me if you have any questions or concerns. This medical document was created using an electronic medical record system with [employer] dictation system. Although these documentations are being carefully reviewed, there may still be some phonetic and typographical changes. The errors are purely typographical, due to imperfection on the software program, and do not reflect any compromise in the patient's medical care. Dietary Evaluation Review Comments: 1) If GI route is prefererred, consider Jevity 1.2 @ 50 mL/hr goal rate as tolerated. Goal rate will provide 1440 kcals, 67g Pro, and 968 mL free H2O per 24 hrs. TF regimen will meet ~ 94% daily estimated energy needs and 100% daily estiamted protein needs. 2) If patient remains NPO for more than 7 days, consider TPN to meet at least 75% of estimated needs 3) Advance patient to cardiac diet when medically feasible, pending SIGNAL MAINTAINER HELPER approval 4) Continue current plan of care Expected Outcomes/Goals: 1) patient to receive nutritional support within 7 days 2) labs to improve 3) diet to advance 4) f/u in 3 days Plan discussed with: Other (RUBEN Mcdaniel) Critical Care Time(min): 35 NATHAN TALAVERA MD Aug 11, 2024 22:31
[2024-08-12] VITALS (97 sets, daily range): BP systolic 96–156; BP diastolic 26–106; PULSE 53–153; RESP 14–37; TEMP 97.4–98.8; O2SAT 74–99
[2024-08-12] MEDS: KETOROLAC TROMETH 30 MG/ML 1ML VIAL IV ONE (05:34)
[2024-08-12 05:38] LABS: Basophils # (auto) 0.1 10 ^3/uL (0-0.2); Basophils % (auto) 0.7 % (0.0-2.0); Eosinophils # (auto) 0 10 ^3/uL (0-0.8); Hematocrit 34.9 % (41.0-53.0); Hemoglobin 11.4 g/dL (13.5-17.5); Lymphocytes # (auto) 0.3 10 ^3/uL (0.4-5.4); Lymphocytes % (auto) 1.8 % (10.0-50.0); Mean Corpuscular Hemoglobin 31.1 pg (28.0-32.0); Mean Corpuscular Hgb Conc. 32.8 g/dL (32.0-36.0); Monocytes # (auto) 0.4 10 ^3/uL (0-1.3); Monocytes % (auto) 2.5 % (0.0-12.0); Neutrophils # (auto) 15.9 10 ^3/uL (1.6-8.6); Platelet Count (auto) 232 10^3/uL (140-450); Red Blood Cells 3.68 10^6/uL (4.5-5.90); Red Cell Distribution Width 14.5 % (11.8-14.3); White Blood Cell 16.7 10^3/uL (4.4-10.8)
[2024-08-12 05:55] LABS: Anion Gap 9 (5-15); Chloride 101 mmol/L (98-107); Potassium 4.1 mmol/L (3.5-5.1); Sodium 145 mmol/L (136-145)
[2024-08-12 05:57] LABS: Calcium 9.2 mg/dL (8.7-10.4)
[2024-08-12 06:01] LABS: BUN/Creatinine Ratio 36.1 (10.0-20.0)
--- NOTE | 2024-08-12 06:14 | DVHPN2 ---
Progress Note - Dictate Date Seen: Aug 12, 2024 Medical Necessity Reason Pt with a Central, PICC or Fol: No The following are medically ne: Lance Catheter Reason for lance catheter: Strict I&O vital signs Vital Sign Date Time Temp Pulse Resp B/P (MAP) Pulse Ox O2 Delivery O2 Flow Rate FiO2 08/12/24 04:00 98.8 110 25 110/50 (70) 96 98.8 08/12/24 03:50 Nasal Cannula* 3 32 Total Intake and Output 08/11/24 08/11/24 08/12/24 15:00 23:00 07:00 Intake Total 397.4 ml 126 ml 65 ml Output Total 1500 ml Balance 397.4 ml -1374 ml 65 ml medications Current Medications Medications Dose Ordered Sig/Ashwin Route Start Time Stop Time Status Last Admin Dose Admin Albuterol 2.5 mg Q6HPRN PRN NEB 08/05/24 23:30 08/12/24 04:05 2.5 MG Ipratropium [place] 0.5 mg Q6HPRN PRN NEB 08/05/24 23:30 08/12/24 04:05 0.5 MG Atorvastatin Calcium 10 mg HS PO 08/06/24 22:00 08/10/24 22:24 10 MG Ondansetron HCl 4 mg Q4HP PRN IV 08/05/24 23:30 08/11/24 16:08 4 MG Acetaminophen 650 mg Q6HP PRN PO 08/05/24 23:30 08/11/24 17:56 650 MG Nitroglycerin 0.4 mg Q5MINP PRN SL 08/05/24 23:30 Morphine Sulfate 2 mg Q30M PRN IV 08/05/24 23:30 Ceftriaxone Sodium 50 ml @ 100 mls/hr DAILY@09 IV 08/06/24 09:00 08/11/24 08:23 100 MLS/HR Lorazepam 1 mg Q4HPRN PRN IV 08/06/24 13:45 08/12/24 02:24 1 MG Azithromycin 250 ml @ 125 mls/hr DAILY IV 08/07/24 10:00 08/11/24 09:21 125 MLS/HR Propofol 100 ml @ 2.442 mls/ hr Q24H IV 08/07/24 19:00 08/11/24 08:23 9.768 MLS/HR Fentanyl Citrate 250 ml @ 2.5 mls/hr Q24H IV 08/07/24 19:00 08/10/24 00:19 15 MLS/HR Norepinephrine Bitartrate 250 ml @ 3.75 mls/hr Q24H IV 08/07/24 19:00 08/08/24 14:13 3.75 MLS/HR Midazolam HCl 50 ml @ 1 mls/hr Q24H IV 08/07/24 21:45 08/11/24 00:24 2 MLS/HR Phenylephrine HCl 250 ml @ 30 mls/hr Q8H20M IV 08/07/24 23:15 08/08/24 07:35 11.25 MLS/HR Dexmedetomidine HCl 400 mcg/ Dextrose 100 ml @ 3.805 mls/ hr Q24H IV 08/08/24 11:30 08/11/24 09:23 9.513 MLS/HR Bumetanide 1 mg BIDD IV 08/08/24 19:00 08/12/24 03:58 1 MG Aspirin 81 mg DAILY PO 08/09/24 10:00 08/11/24 09:23 81 MG Metoprolol Tartrate 25 mg BID PO 08/09/24 10:00 08/11/24 09:22 25 MG Methylprednisolone Sodium Succinate 60 mg Q12HR IV 08/09/24 11:15 08/11/24 22:19 60 MG Enteral Nutritional Formula 1,000 ml DAILY NG 08/10/24 10:00 08/09/24 22:22 1,000 ML Metoprolol Tartrate 5 mg Q3HP PRN IV 08/10/24 07:30 Nicotine 1 patch DAILY TD 08/10/24 22:00 08/11/24 09:22 1 PATCH Enoxaparin Sodium 40 mg DAILY SC 08/11/24 10:00 08/11/24 16:47 40 MG Micafungin Sodium 100 mg/Sodium Chloride 100 ml @ 100 mls/hr DAILY IV 08/12/24 10:00 Diltiazem HCl 125 ml @ 5 mls/hr Q24H IV 08/11/24 14:45 08/11/24 17:41 5 MLS/HR laboratory and microbiology Test 08/12/24 05:09 Range/Units Serum Glucose Pending Assessment/Plan This is a 64-year old male known outside to our practice who initially presented (08/06/2024) with progressive worsening of shortness of breath for approximately 2 days prior to initial presentation. Upon ED arrival, patient was found hypoxic with an initial SPO2 level within the 80s. Patient was subsequently admitted to the telemetry unit where he had been undergoing management for acute hypoxic respiratory failure in the setting acute COPD exacerbation which respiratory status later deteriorated requiring subsequent endotracheal intubation/bronchoscopy by Pulmonology services (08/07/2024). Patient was then upgraded to the ICU where he has been undergoing close observation and further management. It is of note, upon ED arrival, patient was noted to be in atrial flutter with presence of a variable AV block and in RVR which throughout present course of hospitalization atrial flutter itself has been managed with Amiodarone 200mg once daily. It is of note, TSH level is found abnormal at 0.08 which could have attributed to the underlying tachyarrhythmia. Initial HS troponin level was found unremarkable unremarkable at 47, with subsequent repeat levels of 48, and 41. D-dimer was found normal at 0.46. BNP level was found to be 101.87 which initial chest imaging upon arrival had revealed no acute cardiopulmonary abnormalities however subsequent repeat chest imaging (08/09/2024) revealed presence of pulmonary venous congestion which the patient has been undergoing diuretic therapy as managed by Nephrology services secondary to underlying acute kidney injury. Echocardiogram (08/06/2024) during present hospitalization has revealed a preserved LVEF of 60%. At present time of consultation, telemetry reveals atrial flutter with variable AV block and intermittent episodes of RVR. As the patient initially presented with shortness of breath and found to have atrial flutter with transient episodes of RVR, Cardiology services have now been involved by primary team request late within the admission for cardiac aspects of care. Past medical history includes chronic atrial fibrillation/flutter status post Watchman Device Implantation (03/27/2022), systolic heart failure with improved ejection fraction, coronary artery disease status post previous PCI involving pRCA (03/31/2022 [facility]), npn-Hodgkin lymphoma status post chemotherapy, COPD on home oxygen, asthma, peripheral vascular disease, GERD, gastroenteritis, vitamin d deficiency, neuropathy, hyperlipidemia, hypertension, and chronic anemia. Patient is known to have underlying nicotine dependence. Cardiac Catheterization: (03/31/2022 [facility]) revealed 1 vessel coronary artery disease, Prox RCA 80% lesion, s/p RAFAT deployment, LVEF of 50%, EDP of 14 Echocardiogram: (01/26/2022 [facility]) revealed a reduced LVEF of 40-50% with mild concentric left ventricular hypertrophy Transesophageal Echocardiogram: (10/31/2022 [facility] revealed LVEF is 55%, trace MR, minimal AR, mild TR, NEL watchman is functioning good. Echocardiogram: (08/06/2024 [facility]) revealed LVEF of 60% by visual estimate, normal rv function, left atrium enlarged, normal pericardium, no severe valve abnormalities noted Acute on chronic COPD, with exacerbation Acute hypoxic respiratory failure, status post intubation/bronchoscopy (08/07/2024) Chronic atrial flutter with variable AV block, s/p watchman device implantation (03/27/2022) Systolic heart failure with improved LV function, EF of 60% (08/06/2024) Coronary artery disease, s/p previous PCI involving pRCA (03/31/2022) Abnormal TSH level (0.08), previously on Amiodarone Hypermagnesemia (5.4), resolved Acute kidney injury, improving Hypertension, history of Hyperkalemia, resolved Nicotine dependence Chronic anemia Hyperlipidemia CARDIAC SUGGESTIONS FOR MANAGEMENT: Request for thyroid sonogram upon extubation Amiodarone discontinued secondary to abnormal thyroid function Proceed with rate control strategy as for now for underlying atrial flutter Tolerating Metoprolol Tartrate 25mg twice daily for rate control (titrate as warranted) As patient is status post Watchman Device implantation, Aspirin 81mg daily is advised Fluid volume management (IV diuresis) as per Nephrology secondary to VALERI Proceed with close observation for overt signs of fluid overload Proceed with strict intakes, outputs, and daily weights Proceed with optimized medical therapy Proceed with risk factor modification Follow up renal function/electrolytes On IV antibiotics and steroids On Bumex 1mg IV twice daily Atorvastatin 10mg daily Aspirin 81mg daily DVT prophylaxis Re-initiate GDMT for previous HF once clinically stable Proceed with close rate and rhythm surveillance Proceed with close hemodynamic surveillance Proceed with optimized blood pressure control Transfuse to sustain HGB level above 7.0 Sustain Magnesium level greater than 2.0 Sustain Potassium level greater than 4.0 Follow up renal function and electrolytes Patient to be counseled on importance of tobacco cessation as patient regains higher brain function Management of COPD exacerbation as per primary team/pulmonology Management of VALERI as per primary team/nephrology Management of co-morbidities as per primary team Management within the ICU Follow up managing consultant clinical professor recommendations Will proceed to follow from a cardiac perspective Further recommendations per clinical progression All available diagnostic labs, EKG's, and images were personally reviewed Patient's status, findings, and plan of care was reviewed and discussed with supervising physician Dr. Kong, who is in agreement with current plan of care. Plan of care discussed with and agreed upon by family / primary RN Prognosis: Guarded Thank you for allowing me to participate in the care of this patient. Further recommendations based on patients clinical course and progression, primary attending, and other consultants. Will continue to follow with primary attending. If you have any questions or concerns, please do not hesitate to contact me. A total of 75 minutes was spent reviewing the patient record, examining the patient, making a diagnostic and therapeutic plan, discussing this plan with medical personnel, following up on diagnostic studies and following the patient for clinical stability excluding any and all procedures. At least 50% of this time was spent in direct, [id number] contact. Dietary Evaluation Review Comments: 1) If GI route is prefererred, consider Jevity 1.2 @ 50 mL/hr goal rate as tolerated. Goal rate will provide 1440 kcals, 67g Pro, and 968 mL free H2O per 24 hrs. TF regimen will meet ~ 94% daily estimated energy needs and 100% daily estiamted protein needs. 2) If patient remains NPO for more than 7 days, consider TPN to meet at least 75% of estimated needs 3) Advance patient to cardiac diet when medically feasible, pending ELEMENTARY SCHOOL TEACHER'S AIDE approval 4) Continue current plan of care Expected Outcomes/Goals: 1) patient to receive nutritional support within 7 days 2) labs to improve 3) diet to advance 4) f/u in 3 days Plan discussed with: Other (nurse) FRANCE VIRAMONTES MD Aug 12, 2024 06:14
[2024-08-12 06:41] LABS: Blood Urea Nitrogen 39 mg/dL (9-23); Carbon Dioxide 35 mmol/L (20-31); Glucose 183 mg/dL (74-106)
[2024-08-12] MEDS ORDERED: ONDANSETRON HCL 4 MG/2 ML VIAL IV PRN (08:45)
--- NOTE | 2024-08-12 09:48 | DVH ---
ULTRASOUND SOFT TISSUE HEAD AND NECK CLINICAL INDICATION: Hyperthyroid TECHNIQUE: Multiple real time sonographic images of the thyroid were obtained. Comparison: None FINDINGS: The right thyroid gland measures 4.0 x 2.0 x 2.0 cm. The left thyroid gland measures approximately 4.2 x 2.4 x 2.2 cm. The isthmus measures 0.3 cm. IMPRESSION: 1. Normal Thyroid. [employer] TI-RADS Categories and Recommendations (2017): TR1: 0 points, Benign, No FNA TR2: 2 points, Not suspicious, No FNA TR3: 3 points, Mildly suspicious, FNA if > or = 2.5 cm, Follow if > or = 1.5 cm TR4: 4-6 points, Moderately Suspicious, FNA if > or = 1.5 cm, Follow if > or = 1.0 cm TR5: 7+ points, Highly Suspicious, FNA if > or = 1.0 cm, Follow if > or = 0.5 cm Follow-up ultrasound guidelines: TR5: yearly for 5 years, if no growth or change in TI-RADS level TR4: at 1, 2, 3 and 5 years, if no growth or change in TI-RADS level TR3: at 1, 3 and 5 years, if no growth or change in TI-RADS level If increased but below threshold for FNA, repeat in one year. Source: ACR Thyroid Imaging, Reporting and Data System (TI-RADS): White Paper of the A[employer] TI-RADS Committee. Chris engel al., J Am Denisha Radiol 2017;14:587-595.
[2024-08-12] MEDS: HYDROcodone-ACET 5/325MG TAB PO PRN (09:51)
--- NOTE | 2024-08-12 10:07 | DVHPN2 ---
Subjective Patient was awake and following commands. Reviewed: Care Plan, H&P, Labs, Medications, Previous Orders, Radiology Changes from previous H/P or p: Changes General: Per HPI Objective Vitals Vital Signs Date Time Temp Pulse Resp B/P (MAP) Pulse Ox O2 Delivery O2 Flow Rate FiO2 08/12/24 09:30 108 23 126/76 (93) 92 08/12/24 08:00 98.6 98.6 08/12/24 08:00 Nasal Cannula* 2 28 Intake/Output Intake and Output 08/12/24 07:00 Intake Total 618.4 ml Output Total 4400 ml Balance -3781.6 ml Intake Oral 0 ml IV Total 538.4 ml Tube Feeding 80 ml Output Urine Total 4400 ml General Appearance: Alert, Oriented X3, Cooperative, mild distress HEENT: Atraumatic, PERRLA, EOMI, Mucous membr. moist/pink Neck: Supple Lungs: Clear to auscultation, Normal air movement Cardiovascular: Normal S1, Normal S2, No murmurs, Gallops, Rubs, Other (A flutter 2-1 conduction) Abdomen: Normal bowel sounds, Soft, No tenderness Neuro: Cranial nerves 3-12 NL Skin: Dry, Intact Psych/Mental Status: Mental status NL Medications Current Medications Medications Dose Ordered Sig/Ashwin Route Start Time Stop Time Status Last Admin Dose Admin Albuterol 2.5 mg Q6HPRN PRN NEB 08/05/24 23:30 08/12/24 04:05 2.5 MG Ipratropium [place] 0.5 mg Q6HPRN PRN NEB 08/05/24 23:30 08/12/24 04:05 0.5 MG Atorvastatin Calcium 10 mg HS PO 08/06/24 22:00 08/10/24 22:24 10 MG Acetaminophen 650 mg Q6HP PRN PO 08/05/24 23:30 08/11/24 17:56 650 MG Nitroglycerin 0.4 mg Q5MINP PRN SL 08/05/24 23:30 Morphine Sulfate 2 mg Q30M PRN IV 08/05/24 23:30 Ceftriaxone Sodium 50 ml @ 100 mls/hr DAILY@09 IV 08/06/24 09:00 08/12/24 09:09 100 MLS/HR Lorazepam 1 mg Q4HPRN PRN IV 08/06/24 13:45 08/12/24 06:34 1 MG Azithromycin 250 ml @ 125 mls/hr DAILY IV 08/07/24 10:00 08/11/24 09:21 125 MLS/HR Norepinephrine Bitartrate 250 ml @ 3.75 mls/hr Q24H IV 08/07/24 19:00 08/08/24 14:13 3.75 MLS/HR Midazolam HCl 50 ml @ 1 mls/hr Q24H IV 08/07/24 21:45 08/11/24 00:24 2 MLS/HR Bumetanide 1 mg BIDD IV 08/08/24 19:00 08/12/24 03:58 1 MG Aspirin 81 mg DAILY PO 08/09/24 10:00 08/11/24 09:23 81 MG Metoprolol Tartrate 25 mg BID PO 08/09/24 10:00 08/11/24 09:22 25 MG Methylprednisolone Sodium Succinate 60 mg Q12HR IV 08/09/24 11:15 08/11/24 22:19 60 MG Enteral Nutritional Formula 1,000 ml DAILY NG 08/10/24 10:00 08/09/24 22:22 1,000 ML Metoprolol Tartrate 5 mg Q3HP PRN IV 08/10/24 07:30 Nicotine 1 patch DAILY TD 08/10/24 22:00 08/11/24 09:22 1 PATCH Enoxaparin Sodium 40 mg DAILY SC 08/11/24 10:00 08/11/24 16:47 40 MG Micafungin Sodium 100 mg/Sodium Chloride 100 ml @ 100 mls/hr DAILY IV 08/12/24 10:00 Diltiazem HCl 125 ml @ 5 mls/hr Q24H IV 08/11/24 14:45 08/12/24 06:33 15 MLS/HR Morphine Sulfate 1 mg Q4HPRN PRN IV 08/12/24 08:45 Acetaminophen/ Hydrocodone Bitart 1 tab Q6HPRN PRN PO 08/12/24 08:45 08/12/24 09:51 1 TAB Ondansetron HCl 4 mg Q6HP PRN IV 08/12/24 08:45 Laboratory Results Laboratory Tests 08/12/24 05:09 Chemistry Test 08/12/24 05:09 Calcium Level 9.2 mg/dL (8.7-10.4) Urinalysis Test 08/05/24 20:56 Urine Color Yellow (Yellow) Urine Clarity Turbid (Clear) H Urine pH 5.5 (5.0-9.0) Urine Specific [place] 1.020 (1.001-1.035) Urine Protein 1+ (Negative) H Urine Ketones Trace (Negative) Urine Blood Negative /uL (Negative) Urine Nitrite Negative (Negative) Urine Bilirubin Negative (Negative) Urine Urobilinogen Normal mg/dL (Negative) Urine Leukocyte Esterase Negative /uL (Negative) Urine RBC 1 /hpf (0 - 3) Urine Microscopic WBC 3 /HPF (0-3) Urine Squamous Epithelial Cells Few /hpf (<5) Urine Bacteria None seen /hpf (None Seen) Urine Hyaline Casts Few /lpf (0 - 2) Urine Glucose Normal mg/dL (Normal) Blood Gas Results Test 08/11/24 15:51 Arterial Blood pH 7.421 (7.350-7.450) FiO2 % 30.0 Microbiology Microbiology Date/Time Source Procedure Growth Status 08/08/24 21:20 Nose MRSA Screen - Final Complete Labs and/or images reviewed: Labs reviewed by me, Image(s) reviewed by me Assessment/Plan Assessment/Plan Impression: -acute respiratory failure with mechanical ventilation -COPD -acute kidney injury, vasomotor nephropathy -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 Currently on nasal cannula at 4 liters/minute. Instructed nurse to perform bedside swallow eval. Currently in AFib with RVR with improved rate, noted to be at 115 beats per minute unless. Continue Cardizem drip. Add metoprolol tartrate if tolerating p.o.. -PT consultation -cardiology consultation -pulmonology consultation -continue current anticoagulation -continue current antibiotic therapy, add micafungin given growth filamentous fungi -PUD prophylaxis -repeat labs and chest x-ray in a.m. -discussion made with patient's son who was bedside. All questions answered Critical care time spent with patient discussing and formulating plan of care: 40 minutes. This does not include time spent performing procedures. This medical document was created using an electronic medical record system with [employer] system. Although this document has been carefully reviewed, there may still be some phonetic and typographical errors. These areas are purely typographical due to imperfections of the software programs, and do not reflect any compromise in the patient's medical care. Plan discussed with: Patient, Other (RN) My Orders Orders - MAIKEL MCKINNEY NP Procedure Category Date Status Time Micafungin Sodium PHA 08/12/24 In Process (Mycamine) 10:00 Diltiazem 125mg/125ml PHA 08/11/24 In Process Bag Kit (Cardizem) 14:45 Thyroid Panel LAB 08/12/24 In Process 08:44 Pt Request For Service PT 08/12/24 Logged 08:44 Thyroid US 08/12/24 Resulted 08:44 Complete Blood Count LAB 08/13/24 Verified 04:00 Morphine Sulfate PHA 08/12/24 In Process Injection 08:45 Hydrocodone-Acet PHA 08/12/24 In Process 5/325mg Tab (Arnett 08:45 Ondansetron Hcl PHA 08/12/24 In Process (Zofran) 08:45 Date of Service: Aug 12, 2024 Billing Provider: MAIKEL MCKINNEY NP Common Visit Codes: 07618-[id number] CARE 30-74 MIN MAIKEL MCKINNEY NP Aug 12, 2024 10:07
--- NOTE | 2024-08-12 10:47 | ECG ---
[facility] Test Date: 2024-08-08 Test Time: 12:44:30 Pat Name: LEW WATERS Department: Room: 0264 A Gender: M [employer]: : [id number] Requested By: CHER JOHNSTON Order Number: [id number] Reading MD: Job Moeller Measurements Intervals [place] Rate: 82 P: 87 IA: 178 QRS: -39 QRSD: 104 T: 68 QT: 404 QTc: 472 Interpretive Statements Normal sinus rhythm Left axis deviation Anterior infarct , age undetermined Electronically Signed On 08-12-2024 21:27:43 PST by Job Moeller Please click the below link to view image of tracing.
[2024-08-12] MEDS: MICAFUNGIN SODIUM 100 MG in SODIUM CHL 0.9% 100 ML IV SCH (11:02)
--- NOTE | 2024-08-12 13:27 | DVHPN2 ---
Progress Note Date Seen: Aug 12, 2024 Medical Necessity Reason Pt with a Central, PICC or Fol: No The following are medically ne: Lance Catheter Reason for lance catheter: Strict I&O Subjective Review of Systems: RESPIRATORY:Abnormal, NEURO:Abnormal Objective vital signs Vital Sign Date Time Temp Pulse Resp B/P (MAP) Pulse Ox O2 Delivery O2 Flow Rate FiO2 08/12/24 12:21 78 20 98 08/12/24 12:15 Nasal Cannula* 3 32 08/12/24 12:02 129/74 08/12/24 08:00 98.6 98.6 Total Intake and Output 08/11/24 08/11/24 08/12/24 15:00 23:00 07:00 Intake Total 397.4 ml 126 ml 110 ml Output Total 1500 ml 2900 ml Balance 397.4 ml -1374 ml -2790 ml medications Current Medications Medications Dose Ordered Sig/Ashwin Route Start Time Stop Time Status Last Admin Dose Admin Albuterol 2.5 mg Q6HPRN PRN NEB 08/05/24 23:30 08/12/24 12:15 2.5 MG Ipratropium [place] 0.5 mg Q6HPRN PRN NEB 08/05/24 23:30 08/12/24 12:15 0.5 MG Atorvastatin Calcium 10 mg HS PO 08/06/24 22:00 08/10/24 22:24 10 MG Acetaminophen 650 mg Q6HP PRN PO 08/05/24 23:30 08/11/24 17:56 650 MG Nitroglycerin 0.4 mg Q5MINP PRN SL 08/05/24 23:30 Morphine Sulfate 2 mg Q30M PRN IV 08/05/24 23:30 Ceftriaxone Sodium 50 ml @ 100 mls/hr DAILY@09 IV 08/06/24 09:00 08/12/24 09:09 100 MLS/HR Lorazepam 1 mg Q4HPRN PRN IV 08/06/24 13:45 08/12/24 13:04 1 MG Azithromycin 250 ml @ 125 mls/hr DAILY IV 08/07/24 10:00 08/12/24 11:02 125 MLS/HR Norepinephrine Bitartrate 250 ml @ 3.75 mls/hr Q24H IV 08/07/24 19:00 08/08/24 14:13 3.75 MLS/HR Midazolam HCl 50 ml @ 1 mls/hr Q24H IV 08/07/24 21:45 08/11/24 00:24 2 MLS/HR Bumetanide 1 mg BIDD IV 08/08/24 19:00 08/12/24 03:58 1 MG Aspirin 81 mg DAILY PO 08/09/24 10:00 08/12/24 11:00 81 MG Metoprolol Tartrate 25 mg BID PO 08/09/24 10:00 08/12/24 11:02 25 MG Enteral Nutritional Formula 1,000 ml DAILY NG 08/10/24 10:00 08/09/24 22:22 1,000 ML Metoprolol Tartrate 5 mg Q3HP PRN IV 08/10/24 07:30 Nicotine 1 patch DAILY TD 08/10/24 22:00 08/12/24 11:02 1 PATCH Enoxaparin Sodium 40 mg DAILY SC 08/11/24 10:00 08/12/24 11:00 40 MG Micafungin Sodium 100 mg/Sodium Chloride 100 ml @ 100 mls/hr DAILY IV 08/12/24 10:00 08/12/24 11:02 100 MLS/HR Diltiazem HCl 125 ml @ 5 mls/hr Q24H IV 08/11/24 14:45 08/12/24 06:33 15 MLS/HR Morphine Sulfate 1 mg Q4HPRN PRN IV 08/12/24 08:45 Acetaminophen/ Hydrocodone Bitart 1 tab Q6HPRN PRN PO 08/12/24 08:45 08/12/24 09:51 1 TAB Ondansetron HCl 4 mg Q6HP PRN IV 08/12/24 08:45 Methylprednisolone Sodium Succinate 40 mg Q12HR IV 08/12/24 22:00 Examination: GENERAL:Abnormal, LUNGS:Abnormal, ABDOMEN:Abnormal, NEURO:Abnormal laboratory and microbiology Laboratory Tests 08/12/24 05:09 Test 08/12/24 05:09 Range/Units Serum Glucose 183 H 74-106 mg/dL Microbiology Date/Time Source Procedure Growth Status 08/08/24 21:20 Nose MRSA Screen - Final Complete Problem List/Assessment/Plan Problem List/Assessment/Plan Acute kidney injury unknown baseline in the setting of hypotension Acute on chronic hypoxic respiratory failure , patient intubated on ventilator COPD exacerbation 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 Goal rate will provide 1440 kcals, 67g Pro, and 968 mL free H2O per 24 hrs. TF regimen will meet ~ 94% daily estimated energy needs and 100% daily estiamted protein needs. 2) If patient remains NPO for more than 7 days, consider TPN to meet at least 75% of estimated needs 3) Advance patient to cardiac diet when medically feasible, pending DIGITAL TECH approval 4) Continue current plan of care Expected Outcomes/Goals: 1) patient to receive nutritional support within 7 days 2) labs to improve 3) diet to advance 4) f/u in 3 days ISRAEL MACHUCA MD Aug 12, 2024 13:27
--- NOTE | 2024-08-12 22:19 | DVHPN2 ---
Progress Note - Dictate Date Seen: Aug 12, 2024 Medical Necessity Reason Pt with a Central, PICC or Fol: No The following are medically ne: Lance Catheter Reason for lance catheter: Strict I&O Subjective Patient seen and examined at bedside. remains on supplemental oxygen Overnight events reviewed. vital signs Vital Sign Date Time Temp Pulse Resp B/P (MAP) Pulse Ox O2 Delivery O2 Flow Rate FiO2 08/12/24 20:00 97.4 74 18 97 97.4 08/12/24 12:15 Nasal Cannula* 3 32 Total Intake and Output 08/11/24 08/11/24 08/12/24 15:00 23:00 07:00 Intake Total 397.4 ml 126 ml 110 ml Output Total 1500 ml 2900 ml Balance 397.4 ml -1374 ml -2790 ml medications Current Medications Medications Dose Ordered Sig/[place] Route Start Time Stop Time Status Last Admin Dose Admin Albuterol 2.5 mg Q6HPRN PRN NEB 08/05/24 23:30 08/12/24 12:15 2.5 MG Ipratropium [place] 0.5 mg Q6HPRN PRN NEB 08/05/24 23:30 08/12/24 12:15 0.5 MG Atorvastatin Calcium 10 mg HS PO 08/06/24 22:00 08/10/24 22:24 10 MG Acetaminophen 650 mg Q6HP PRN PO 08/05/24 23:30 08/11/24 17:56 650 MG Nitroglycerin 0.4 mg Q5MINP PRN SL 08/05/24 23:30 Morphine Sulfate 2 mg Q30M PRN IV 08/05/24 23:30 Ceftriaxone Sodium 50 ml @ 100 mls/hr DAILY@09 IV 08/06/24 09:00 08/12/24 09:09 100 MLS/HR Lorazepam 1 mg Q4HPRN PRN IV 08/06/24 13:45 08/12/24 21:21 1 MG Azithromycin 250 ml @ 125 mls/hr DAILY IV 08/07/24 10:00 08/12/24 11:02 125 MLS/HR Norepinephrine Bitartrate 250 ml @ 3.75 mls/hr Q24H IV 08/07/24 19:00 08/08/24 14:13 3.75 MLS/HR Midazolam HCl 50 ml @ 1 mls/hr Q24H IV 08/07/24 21:45 08/11/24 00:24 2 MLS/HR Bumetanide 1 mg BIDD IV 08/08/24 19:00 08/12/24 17:30 1 MG Aspirin 81 mg DAILY PO 08/09/24 10:00 08/12/24 11:00 81 MG Metoprolol Tartrate 25 mg BID PO 08/09/24 10:00 08/12/24 11:02 25 MG Enteral Nutritional Formula 1,000 ml DAILY NG 08/10/24 10:00 08/09/24 22:22 1,000 ML Metoprolol Tartrate 5 mg Q3HP PRN IV 08/10/24 07:30 Nicotine 1 patch DAILY TD 08/10/24 22:00 08/12/24 11:02 1 PATCH Enoxaparin Sodium 40 mg DAILY SC 08/11/24 10:00 08/12/24 11:00 40 MG Micafungin Sodium 100 mg/Sodium Chloride 100 ml @ 100 mls/hr DAILY IV 08/12/24 10:00 08/12/24 11:02 100 MLS/HR Diltiazem HCl 125 ml @ 5 mls/hr Q24H IV 08/11/24 14:45 08/12/24 06:33 15 MLS/HR Morphine Sulfate 1 mg Q4HPRN PRN IV 08/12/24 08:45 Acetaminophen/ Hydrocodone Bitart 1 tab Q6HPRN PRN PO 08/12/24 08:45 08/12/24 17:49 1 TAB Ondansetron HCl 4 mg Q6HP PRN IV 08/12/24 08:45 Methylprednisolone Sodium Succinate 40 mg Q12HR IV 08/12/24 22:00 objective Gen.: Patient lying in bed in no apparent distress. On supplemental oxygen. Head: Normocephalic, atraumatic. Eyes: EOMI/PERRLA. Ears: Normal hearing. Normal anatomy. Neck/trachea: Trachea midline, supple. Nose: Normal external anatomy. Mouth: Moist mucous membranes. Chest: Decreased air entry bilaterally. No wheezing or rhonchi. Cardiovascular: Positive S1, positive S2. Regular rate and rhythm. Abdomen: Positive bowel sounds in all 4 quadrants. Soft, non-tender, non- distended. : Deferred. Rectal: Deferred. Skin: Warm, dry. Intact. Extremities: 2+ radial pulses bilaterally. No lower extremity edema. Neuro: Awake, alert, oriented x3. No gross motor or sensory deficits. Cranial nerves II through XII intact. Gait not assessed. laboratory and microbiology Laboratory Tests 08/12/24 05:09 Test 08/12/24 05:09 Range/Units Serum Glucose 183 H 74-106 mg/dL Assessment/Plan Impression: Acute on chronic hypoxic respiratory failure COPD exacerbation Nicotine dependence Acute renal failure Hypotension/shock Events: Remains on supplemental O2 On 3 LPM via NC Taper O2 as tolerated Labs reviewed; wbc of 16.7, trended up Monitor Hgb - stable at 11.4 g/dl Continue bronchodilators IV steroids - taper as tolerated Continue antibiotics/antifungals Diurese w/ Bumex as tolerated Monitor renal function Monitor electrolytes. Supplement as necessary. Accu-Cheks, ISS - hyperglycemia likely due to steroids NRT. Labs and imaging reviewed. Rest of plan as noted below. Plan: s/p extubation on 08/11/24 Supplemental oxygen Titrate to keep sats above 90% Pressors if necessary for hemodynamic support. Titrate to keep MAP above 65 mmHg. Continue bronchodilators. IV steroids - taper as tolerated Continue antibiotics 08/07 - S/p bronchoscopy with RML BAL d/t increased secretions - cleared mucous plugging from L5-L10 and R4-10 See separate procedure note for details. A central line was placed for administration of medications and blood draws. An arterial line was placed for ABG draws and hemodynamic monitoring. Monitor renal function. Monitor electrolytes. Supplement as necessary. Monitor ins and outs. DVT prophylaxis. Prognosis: Poor given patient's multiple co-morbidities. Condition: Critical Rest of plan per hospitalist and other consultants. A total of 35 minutes of critical care time was spent reviewing the patient record, examining the patient, making a diagnostic and therapeutic plan, discussing this plan with the medical personnel, following up on diagnostic studies and following the patient for clinical stability excluding any and all procedures. At least 50% of this time was spent in direct, [id number] contact. Thank you, Dr. Durbin, for allowing me to participate in this patient's care. Further recommendations will depend on the patient's clinical course. Please do not hesitate to contact me if you have any questions or concerns. This medical document was created using an electronic medical record system with Dragon computerized dictation system. Although these documentations are being carefully reviewed, there may still be some phonetic and typographical changes. The errors are purely typographical, due to imperfection on the software program, and do not reflect any compromise in the patient's medical care. Dietary Evaluation Review Comments: 1) If GI route is prefererred, consider Jevity 1.2 @ 50 mL/hr goal rate as tolerated. Goal rate will provide 1440 kcals, 67g Pro, and 968 mL free H2O per 24 hrs. TF regimen will meet ~ 94% daily estimated energy needs and 100% daily estiamted protein needs. 2) If patient remains NPO for more than 7 days, consider TPN to meet at least 75% of estimated needs 3) Advance patient to cardiac diet when medically feasible, pending INSURANCE SALES ASSISTANT approval 4) Continue current plan of care Expected Outcomes/Goals: 1) patient to receive nutritional support within 7 days 2) labs to improve 3) diet to advance 4) f/u in 3 days Plan discussed with: Patient, Other (RUBEN Lea) Critical Care Time(min): 35 NATHAN TALAVERA MD Aug 12, 2024 22:19
[2024-08-12] MEDS: MORPHINE SULFATE INJ 2 MG/ml SYRG IV PRN (22:20)
[2024-08-12] MEDS: methylPREDNISolone SOD SUCC 125 MG/2 ML VL IV SCH (22:38)
[2024-08-13] VITALS (115 sets, daily range): BP systolic 90–155; BP diastolic 39–110; PULSE 69–135; RESP 10–33; TEMP 97.1–98.9; O2SAT 83–100
[2024-08-13 06:13] LABS: Basophils # (auto) 0 10 ^3/uL (0-0.2); Eosinophils # (auto) 0 10 ^3/uL (0-0.8); Hemoglobin 11.5 g/dL (13.5-17.5); Lymphocytes # (auto) 0.3 10 ^3/uL (0.4-5.4); Lymphocytes % (auto) 2.4 % (10.0-50.0); Mean Corpuscular Hemoglobin 30.6 pg (28.0-32.0); Mean Corpuscular Volume 95.5 fL (80.0-100.0); Monocytes # (auto) 0.3 10 ^3/uL (0-1.3); Monocytes % (auto) 2.7 % (0.0-12.0); Neutrophils # (auto) 10.7 10 ^3/uL (1.6-8.6); Neutrophils % (auto) 94.9 % (37.0-80.0); Nucleated Red Blood Cells % 0.1 %; Platelet Count (auto) 203 10^3/uL (140-450); Red Blood Cells 3.77 10^6/uL (4.5-5.90); Red Cell Distribution Width 14.3 % (11.8-14.3); White Blood Cell 11.2 10^3/uL (4.4-10.8)
[2024-08-13 06:28] LABS: Anion Gap 7 (5-15); Chloride 99 mmol/L (98-107); Potassium 4.4 mmol/L (3.5-5.1); Sodium 144 mmol/L (136-145)
[2024-08-13 06:34] LABS: BUN/Creatinine Ratio 32.6 (10.0-20.0)
[2024-08-13 06:38] LABS: Blood Urea Nitrogen 29 mg/dL (9-23); Carbon Dioxide 38 mmol/L (20-31); Glucose 162 mg/dL (74-106)
--- NOTE | 2024-08-13 06:55 | DVHPN2 ---
Progress Note - Dictate Date Seen: Aug 13, 2024 Medical Necessity Reason Pt with a Central, PICC or Fol: No The following are medically ne: Lance Catheter Reason for lance catheter: Strict I&O vital signs Vital Sign Date Time Temp Pulse Resp B/P (MAP) Pulse Ox O2 Delivery O2 Flow Rate FiO2 08/13/24 06:45 117 17 130/64 (86) 93 08/13/24 05:58 Nasal Cannula* 4 36 08/13/24 04:00 98.9 98.9 Total Intake and Output 08/12/24 08/12/24 08/13/24 15:00 23:00 07:00 Intake Total 535 ml 1060 ml 100 ml Output Total 1400 ml 950 ml Balance 535 ml -340 ml -850 ml medications Current Medications Medications Dose Ordered Sig/Ashwin Route Start Time Stop Time Status Last Admin Dose Admin Albuterol 2.5 mg Q6HPRN PRN NEB 08/05/24 23:30 08/12/24 12:15 2.5 MG Ipratropium [place] 0.5 mg Q6HPRN PRN NEB 08/05/24 23:30 08/12/24 12:15 0.5 MG Atorvastatin Calcium 10 mg HS PO 08/06/24 22:00 08/12/24 22:28 10 MG Acetaminophen 650 mg Q6HP PRN PO 08/05/24 23:30 08/11/24 17:56 650 MG Nitroglycerin 0.4 mg Q5MINP PRN SL 08/05/24 23:30 Morphine Sulfate 2 mg Q30M PRN IV 08/05/24 23:30 Ceftriaxone Sodium 50 ml @ 100 mls/hr DAILY@09 IV 08/06/24 09:00 08/12/24 09:09 100 MLS/HR Lorazepam 1 mg Q4HPRN PRN IV 08/06/24 13:45 08/13/24 01:47 1 MG Azithromycin 250 ml @ 125 mls/hr DAILY IV 08/07/24 10:00 08/12/24 11:02 125 MLS/HR Norepinephrine Bitartrate 250 ml @ 3.75 mls/hr Q24H IV 08/07/24 19:00 08/08/24 14:13 3.75 MLS/HR Midazolam HCl 50 ml @ 1 mls/hr Q24H IV 08/07/24 21:45 08/11/24 00:24 2 MLS/HR Bumetanide 1 mg BIDD IV 08/08/24 19:00 08/13/24 06:15 1 MG Aspirin 81 mg DAILY PO 08/09/24 10:00 08/12/24 11:00 81 MG Metoprolol Tartrate 25 mg BID PO 08/09/24 10:00 08/12/24 22:28 25 MG Enteral Nutritional Formula 1,000 ml DAILY NG 08/10/24 10:00 08/09/24 22:22 1,000 ML Metoprolol Tartrate 5 mg Q3HP PRN IV 08/10/24 07:30 Nicotine 1 patch DAILY TD 08/10/24 22:00 08/12/24 11:02 1 PATCH Enoxaparin Sodium 40 mg DAILY SC 08/11/24 10:00 08/12/24 11:00 40 MG Micafungin Sodium 100 mg/Sodium Chloride 100 ml @ 100 mls/hr DAILY IV 08/12/24 10:00 08/12/24 11:02 100 MLS/HR Diltiazem HCl 125 ml @ 5 mls/hr Q24H IV 08/11/24 14:45 08/13/24 03:19 5 MLS/HR Morphine Sulfate 1 mg Q4HPRN PRN IV 08/12/24 08:45 08/12/24 22:20 1 MG Acetaminophen/ Hydrocodone Bitart 1 tab Q6HPRN PRN PO 08/12/24 08:45 08/12/24 17:49 1 TAB Ondansetron HCl 4 mg Q6HP PRN IV 08/12/24 08:45 Methylprednisolone Sodium Succinate 40 mg Q12HR IV 08/12/24 22:00 08/12/24 22:38 40 MG laboratory and microbiology Laboratory Tests 08/13/24 04:59 Test 08/13/24 04:59 Range/Units Serum Glucose 162 H 74-106 mg/dL Assessment/Plan This is a 64-year old male known outside to our practice who initially presented (08/06/2024) with progressive worsening of shortness of breath for approximately 2 days prior to initial presentation. Upon ED arrival, patient was found hypoxic with an initial SPO2 level within the 80s. Patient was subsequently admitted to the telemetry unit where he had been undergoing management for acute hypoxic respiratory failure in the setting acute COPD exacerbation which respiratory status later deteriorated requiring subsequent endotracheal intubation/bronchoscopy by Pulmonology services (08/07/2024). Patient was then upgraded to the ICU where he has been undergoing close observation and further management. It is of note, upon ED arrival, patient was noted to be in atrial flutter with presence of a variable AV block and in RVR which throughout present course of hospitalization atrial flutter itself has been managed with Amiodarone 200mg once daily. It is of note, TSH level is found abnormal at 0.08 which could have attributed to the underlying tachyarrhythmia. Initial HS troponin level was found unremarkable unremarkable at 47, with subsequent repeat levels of 48, and 41. D-dimer was found normal at 0.46. BNP level was found to be 101.87 which initial chest imaging upon arrival had revealed no acute cardiopulmonary abnormalities however subsequent repeat chest imaging (08/09/2024) revealed presence of pulmonary venous congestion which the patient has been undergoing diuretic therapy as managed by Nephrology services secondary to underlying acute kidney injury. Echocardiogram (08/06/2024) during present hospitalization has revealed a preserved LVEF of 60%. At present time of consultation, telemetry reveals atrial flutter with variable AV block and intermittent episodes of RVR. As the patient initially presented with shortness of breath and found to have atrial flutter with transient episodes of RVR, Cardiology services have now been involved by primary team request late within the admission for cardiac aspects of care. Past medical history includes chronic atrial fibrillation/flutter status post Watchman Device Implantation (03/27/2022), systolic heart failure with improved ejection fraction, coronary artery disease status post previous PCI involving pRCA (03/31/2022 [facility]), npn-Hodgkin lymphoma status post chemotherapy, COPD on home oxygen, asthma, peripheral vascular disease, GERD, gastroenteritis, vitamin d deficiency, neuropathy, hyperlipidemia, hypertension, and chronic anemia. Patient is known to have underlying nicotine dependence. Cardiac Catheterization: (03/31/2022 [facility]) revealed 1 vessel coronary artery disease, Prox RCA 80% lesion, s/p RAFAT deployment, LVEF of 50%, EDP of 14 Echocardiogram: (01/26/2022 [facility]) revealed a reduced LVEF of 40-50% with mild concentric left ventricular hypertrophy Transesophageal Echocardiogram: ([place]/20[place] [facility] revealed LVEF is 55%, trace MR, minimal AR, mild TR, NEL watchman is functioning good. Echocardiogram: (08/06/2024 [facility]) revealed LVEF of 60% by visual estimate, normal rv function, left atrium enlarged, normal pericardium, no severe valve abnormalities noted Thyroid ultrasound revealed: IMPRESSION: 1. Normal Thyroid. Acute on chronic COPD, with exacerbation Acute hypoxic respiratory failure, status post intubation/bronchoscopy (08/07/2024) Chronic atrial flutter with variable AV block, s/p watchman device implantation (03/27/2022) Systolic heart failure with improved LV function, EF of 60% (08/06/2024) Coronary artery disease, s/p previous PCI involving pRCA (03/31/2022) Abnormal TSH level (0.08), previously on Amiodarone Hypermagnesemia (5.4), resolved Acute kidney injury, improving Hypertension, history of Hyperkalemia, resolved Nicotine dependence Chronic anemia Hyperlipidemia CARDIAC SUGGESTIONS FOR MANAGEMENT: Amiodarone discontinued secondary to abnormal thyroid function Proceed with rate control strategy as for now for underlying atrial flutter Increase Metoprolol Tartrate to 50 mg twice daily for rate control (titrate as warranted) As patient is status post Watchman Device implantation, Aspirin 81mg daily is advised Fluid volume management (IV diuresis) as per Nephrology secondary to VALERI Proceed with close observation for overt signs of fluid overload Proceed with strict intakes, outputs, and daily weights Proceed with optimized medical therapy Proceed with risk factor modification Follow up renal function/electrolytes On IV antibiotics and steroids On Bumex 1mg IV twice daily Atorvastatin 10mg daily Aspirin 81mg daily DVT prophylaxis Re-initiate GDMT for previous HF once clinically stable Proceed with close rate and rhythm surveillance Proceed with close hemodynamic surveillance Proceed with optimized blood pressure control Transfuse to sustain HGB level above 7.0 Sustain Magnesium level greater than 2.0 Sustain Potassium level greater than 4.0 Follow up renal function and electrolytes Patient to be counseled on importance of tobacco cessation as patient regains higher brain function Management of COPD exacerbation as per primary team/pulmonology Management of VALERI as per primary team/nephrology Management of co-morbidities as per primary team Management within the ICU Follow up managing consultant recommendations Will proceed to follow from a cardiac perspective Further recommendations per clinical progression All available diagnostic labs, EKG's, and images were personally reviewed Patient's status, findings, and plan of care was reviewed and discussed with supervising physician Dr. Kong, who is in agreement with current plan of care. Plan of care discussed with and agreed upon by family / primary RN Prognosis: Guarded Thank you for allowing me to participate in the care of this patient. Further recommendations based on patients clinical course and progression, primary attending, and other consultants. Will continue to follow with primary attending. If you have any questions or concerns, please do not hesitate to contact me. A total of 75 minutes was spent reviewing the patient record, examining the patient, making a diagnostic and therapeutic plan, discussing this plan with medical personnel, following up on diagnostic studies and following the patient for clinical stability excluding any and all procedures. At least 50% of this time was spent in direct, [id number] contact. Dietary Evaluation Review Comments: 1) If GI route is prefererred, consider Jevity 1.2 @ 50 mL/hr goal rate as tolerated. Goal rate will provide 1440 kcals, 67g Pro, and 968 mL free H2O per 24 hrs. TF regimen will meet ~ 94% daily estimated energy needs and 100% daily estiamted protein needs. 2) If patient remains NPO for more than 7 days, consider TPN to meet at least 75% of estimated needs 3) Advance patient to cardiac diet when medically feasible, pending [employer] approval 4) Continue current plan of care Expected Outcomes/Goals: 1) patient to receive nutritional support within 7 days 2) labs to improve 3) diet to advance 4) f/u in 3 days Plan discussed with: Other (nurse) FRANCE VIRAMONTES MD Aug 13, 2024 06:55
--- NOTE | 2024-08-13 09:42 | DVHPN2 ---
Subjective Patient was awake and following commands. Reviewed: Care Plan, H&P, Labs, Medications, Previous Orders, Radiology Changes from previous H/P or p: No Changes General: Per HPI Objective Vitals Vital Signs Date Time Temp Pulse Resp B/P (MAP) Pulse Ox O2 Delivery O2 Flow Rate FiO2 08/13/24 08:20 112 19 98 Nasal Cannula* 4 36 08/13/24 07:00 129/84 08/13/24 04:00 98.9 98.9 Intake/Output Intake and Output 08/13/24 07:00 Intake Total 1695 ml Output Total 2350 ml Balance -655 ml Intake Oral 990 ml IV Total 705 ml Output Urine Total 2350 ml General Appearance: Alert, Oriented X3, Cooperative, mild distress HEENT: Atraumatic, PERRLA, EOMI, Mucous membr. moist/pink Neck: Supple Lungs: Clear to auscultation, Normal air movement Cardiovascular: Normal S1, Normal S2, No murmurs, Gallops, Rubs, Other (A flutter 2-1 conduction) Abdomen: Normal bowel sounds, Soft, No tenderness Neuro: Cranial nerves 3-12 NL Skin: Dry, Intact Psych/Mental Status: Mental status NL Medications Current Medications Medications Dose Ordered Sig/Ashwin Route Start Time Stop Time Status Last Admin Dose Admin Albuterol 2.5 mg Q6HPRN PRN NEB 08/05/24 23:30 08/12/24 12:15 2.5 MG Ipratropium [place] 0.5 mg Q6HPRN PRN NEB 08/05/24 23:30 08/12/24 12:15 0.5 MG Atorvastatin Calcium 10 mg HS PO 08/06/24 22:00 08/12/24 22:28 10 MG Acetaminophen 650 mg Q6HP PRN PO 08/05/24 23:30 08/11/24 17:56 650 MG Nitroglycerin 0.4 mg Q5MINP PRN SL 08/05/24 23:30 Morphine Sulfate 2 mg Q30M PRN IV 08/05/24 23:30 Ceftriaxone Sodium 50 ml @ 100 mls/hr DAILY@09 IV 08/06/24 09:00 08/13/24 08:51 100 MLS/HR Lorazepam 1 mg Q4HPRN PRN IV 08/06/24 13:45 08/13/24 01:47 1 MG Norepinephrine Bitartrate 250 ml @ 3.75 mls/hr Q24H IV 08/07/24 19:00 08/08/24 14:13 3.75 MLS/HR Midazolam HCl 50 ml @ 1 mls/hr Q24H IV 08/07/24 21:45 08/11/24 00:24 2 MLS/HR Bumetanide 1 mg BIDD IV 08/08/24 19:00 08/13/24 06:15 1 MG Aspirin 81 mg DAILY PO 08/09/24 10:00 08/12/24 11:00 81 MG Enteral Nutritional Formula 1,000 ml DAILY NG 08/10/24 10:00 08/09/24 22:22 1,000 ML Nicotine 1 patch DAILY TD 08/10/24 22:00 08/12/24 11:02 1 PATCH Enoxaparin Sodium 40 mg DAILY SC 08/11/24 10:00 08/12/24 11:00 40 MG Micafungin Sodium 100 mg/Sodium Chloride 100 ml @ 100 mls/hr DAILY IV 08/12/24 10:00 08/12/24 11:02 100 MLS/HR Diltiazem HCl 125 ml @ 5 mls/hr Q24H IV 08/11/24 14:45 08/13/24 03:19 5 MLS/HR Morphine Sulfate 1 mg Q4HPRN PRN IV 08/12/24 08:45 08/12/24 22:20 1 MG Acetaminophen/ Hydrocodone Bitart 1 tab Q6HPRN PRN PO 08/12/24 08:45 08/12/24 17:49 1 TAB Ondansetron HCl 4 mg Q6HP PRN IV 08/12/24 08:45 Methylprednisolone Sodium Succinate 40 mg Q12HR IV 08/12/24 22:00 08/12/24 22:38 40 MG Metoprolol Tartrate 50 mg BID PO 08/13/24 10:00 Laboratory Results Laboratory Tests 08/13/24 04:59 Chemistry Test 08/13/24 04:59 Calcium Level 9.0 mg/dL (8.7-10.4) Urinalysis Test 08/05/24 20:56 Urine Color Yellow (Yellow) Urine Clarity Turbid (Clear) H Urine pH 5.5 (5.0-9.0) Urine Specific [place] 1.020 (1.001-1.035) Urine Protein 1+ (Negative) H Urine Ketones Trace (Negative) Urine Blood Negative /uL (Negative) Urine Nitrite Negative (Negative) Urine Bilirubin Negative (Negative) Urine Urobilinogen Normal mg/dL (Negative) Urine Leukocyte Esterase Negative /uL (Negative) Urine RBC 1 /hpf (0 - 3) Urine Microscopic WBC 3 /HPF (0-3) Urine Squamous Epithelial Cells Few /hpf (<5) Urine Bacteria None seen /hpf (None Seen) Urine Hyaline Casts Few /lpf (0 - 2) Urine Glucose Normal mg/dL (Normal) Microbiology Microbiology Date/Time Source Procedure Growth Status 08/08/24 21:20 Nose MRSA Screen - Final Complete Labs and/or images reviewed: Labs reviewed by me, Image(s) reviewed by me Assessment/Plan Assessment/Plan Impression: -acute respiratory failure with mechanical ventilation -COPD -acute kidney injury, vasomotor nephropathy -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 Swallow evaluation pending. Patient was able to tolerate thickened liquids and applesauce yesterday. Continues to be in AFib with RVR. Cardizem drip at 10 milligrams/hour. Discussed with primary nurse to get patient out of bed with physical therapy, start p.o. intake, and given increased metoprolol tartrate dose. -PT consultation: Pending -cardiology consultation : Recommendations reviewed -pulmonology consultation -continue current anticoagulation -continue current antibiotic therapy, add micafungin given growth filamentous fungi -PUD prophylaxis -repeat labs and chest x-ray in a.m. -discussion made with patient's son who was bedside. All questions answered Critical care time spent with patient discussing and formulating plan of care: 40 minutes. This does not include time spent performing procedures. This medical document was created using an electronic medical record system with [employer] system. Although this document has been carefully reviewed, there may still be some phonetic and typographical errors. These areas are purely typographical due to imperfections of the software programs, and do not reflect any compromise in the patient's medical care. Plan discussed with: Patient, Other (RN) My Orders Orders - MAIKEL MCKINNEY NP Procedure Category Date Status Time Chest Xray 1 View XY 08/13/24 Logged 09:28 Date of Service: Aug 13, 2024 Billing Provider: MAIKEL MCKINNEY NP Common Visit Codes: 41175-GSVCENOA CARE 30-74 MIN MAIKEL MCKINNEY NP Aug 13, 2024 09:42
[2024-08-13] MEDS: METOPROLOL TARTRATE 50 MG TAB PO SCH (10:00)
--- NOTE | 2024-08-13 10:18 | DVH ---
CHEST RADIOGRAPH Indication: chf Technique: Single frontal view of the chest was obtained Comparison: XY CHEST PORTABLE on DOS: 08/10/24, XY CHEST PORTABLE on DOS: 08/09/24, XY CHEST PORTABLE o n DOS: 08/08/24, XY CHEST PORTABLE on DOS: 08/08/24, XY CHEST PORTABLE on DOS: 08/07/24 FINDINGS: Lines and Tubes: Left central venous catheter tip in the SVC. Lungs: No focal consolidation. Pleura: No effusion. No pneumothorax. Cardiomediastinal contours: Unremarkable Bones: No acute osseous abnormality. IMPRESSION: No acute cardiopulmonary disease.
[2024-08-13 11:07] LABS: Free Thyroxine Index 3.5 (1.2-4.9); Thyroxine (T4) 9.9 ug/dL (4.5-12.0)
--- NOTE | 2024-08-13 14:44 | DVHPN2 ---
Progress Note Date Seen: Aug 13, 2024 Medical Necessity Reason Pt with a Central, PICC or Fol: No The following are medically ne: Lance Catheter Reason for lance catheter: Strict I&O Objective vital signs Vital Sign Date Time Temp Pulse Resp B/P (MAP) Pulse Ox O2 Delivery O2 Flow Rate FiO2 08/13/24 14:10 76 08/13/24 14:07 19 97 Nasal Cannula* 2 28 08/13/24 14:00 95/48 (64) 08/13/24 12:15 97.1 97.1 Total Intake and Output 08/12/24 08/12/24 08/13/24 15:00 23:00 07:00 Intake Total 535 ml 1060 ml 100 ml Output Total 1400 ml 950 ml Balance 535 ml -340 ml -850 ml medications Current Medications Medications Dose Ordered Sig/Ashwin Route Start Time Stop Time Status Last Admin Dose Admin Albuterol 2.5 mg Q6HPRN PRN NEB 08/05/24 23:30 08/12/24 12:15 2.5 MG Ipratropium [place] 0.5 mg Q6HPRN PRN NEB 08/05/24 23:30 08/12/24 12:15 0.5 MG Atorvastatin Calcium 10 mg HS PO 08/06/24 22:00 08/12/24 22:28 10 MG Acetaminophen 650 mg Q6HP PRN PO 08/05/24 23:30 08/11/24 17:56 650 MG Nitroglycerin 0.4 mg Q5MINP PRN SL 08/05/24 23:30 Morphine Sulfate 2 mg Q30M PRN IV 08/05/24 23:30 Ceftriaxone Sodium 50 ml @ 100 mls/hr DAILY@09 IV 08/06/24 09:00 08/13/24 08:51 100 MLS/HR Lorazepam 1 mg Q4HPRN PRN IV 08/06/24 13:45 08/13/24 01:47 1 MG Norepinephrine Bitartrate 250 ml @ 3.75 mls/hr Q24H IV 08/07/24 19:00 08/08/24 14:13 3.75 MLS/HR Midazolam HCl 50 ml @ 1 mls/hr Q24H IV 08/07/24 21:45 08/11/24 00:24 2 MLS/HR Bumetanide 1 mg BIDD IV 08/08/24 19:00 08/13/24 06:15 1 MG Aspirin 81 mg DAILY PO 08/09/24 10:00 08/13/24 10:00 81 MG Enteral Nutritional Formula 1,000 ml DAILY NG 08/10/24 10:00 08/09/24 22:22 1,000 ML Nicotine 1 patch DAILY TD 08/10/24 22:00 08/13/24 10:00 1 PATCH Enoxaparin Sodium 40 mg DAILY SC 08/11/24 10:00 08/13/24 10:00 40 MG Micafungin Sodium 100 mg/Sodium Chloride 100 ml @ 100 mls/hr DAILY IV 08/12/24 10:00 08/13/24 13:32 100 MLS/HR Diltiazem HCl 125 ml @ 5 mls/hr Q24H IV 08/11/24 14:45 08/13/24 03:19 5 MLS/HR Morphine Sulfate 1 mg Q4HPRN PRN IV 08/12/24 08:45 08/12/24 22:20 1 MG Acetaminophen/ Hydrocodone Bitart 1 tab Q6HPRN PRN PO 08/12/24 08:45 08/12/24 17:49 1 TAB Ondansetron HCl 4 mg Q6HP PRN IV 08/12/24 08:45 Methylprednisolone Sodium Succinate 40 mg Q12HR IV 08/12/24 22:00 08/13/24 12:40 40 MG Metoprolol Tartrate 50 mg BID PO 08/13/24 10:00 08/13/24 10:00 50 MG Examination: GENERAL:Abnormal, LUNGS:Normal, CVS:Abnormal, ABDOMEN:Abnormal laboratory and microbiology Laboratory Tests 08/13/24 04:59 Test 08/13/24 04:59 Range/Units Serum Glucose 162 H 74-106 mg/dL Microbiology Date/Time Source Procedure Growth Status 08/08/24 21:20 Nose MRSA Screen - Final Complete Problem List/Assessment/Plan Problem List/Assessment/Plan Acute kidney injury unknown baseline in the setting of hypotension Acute on chronic hypoxic respiratory failure , patient intubated on ventilator COPD exacerbation 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 Goal rate will provide 1440 kcals, 67g Pro, and 968 mL free H2O per 24 hrs. TF regimen will meet ~ 94% daily estimated energy needs and 100% daily estiamted protein needs. 2) If patient remains NPO for more than 7 days, consider TPN to meet at least 75% of estimated needs 3) Advance patient to cardiac diet when medically feasible, pending [employer] approval 4) Continue current plan of care Expected Outcomes/Goals: 1) patient to receive nutritional support within 7 days 2) labs to improve 3) diet to advance 4) f/u in 3 days ISRAEL MACHUCA MD Aug 13, 2024 14:44
--- NOTE | 2024-08-13 22:54 | DVHPN2 ---
Progress Note - Dictate Date Seen: Aug 13, 2024 Medical Necessity Reason Pt with a Central, PICC or Fol: No The following are medically ne: Lance Catheter Reason for lance catheter: Strict I&O Subjective Patient seen and examined at bedside. remains on supplemental oxygen Overnight events reviewed. vital signs Vital Sign Date Time Temp Pulse Resp B/P (MAP) Pulse Ox O2 Delivery O2 Flow Rate FiO2 08/13/24 21:51 140/80 08/13/24 21:50 138 08/13/24 20:44 08/13/24 20:05 Nasal Cannula* 08/13/24 20:00 97.8 97.8 Total Intake and Output 08/12/24 08/12/24 08/13/24 15:00 23:00 07:00 Intake Total 535 ml 1060 ml 100 ml Output Total 1400 ml 950 ml Balance 535 ml -340 ml -850 ml medications Current Medications Medications Dose Ordered Sig/Ashwin Route Start Time Stop Time Status Last Admin Dose Admin Albuterol 2.5 mg Q6HPRN PRN NEB 08/05/24 23:30 08/13/24 20:03 2.5 MG Ipratropium [place] 0.5 mg Q6HPRN PRN NEB 08/05/24 23:30 08/13/24 20:03 0.5 MG Atorvastatin Calcium 10 mg HS PO 08/06/24 22:00 08/13/24 21:50 10 MG Acetaminophen 650 mg Q6HP PRN PO 08/05/24 23:30 08/11/24 17:56 650 MG Nitroglycerin 0.4 mg Q5MINP PRN SL 08/05/24 23:30 Morphine Sulfate 2 mg Q30M PRN IV 08/05/24 23:30 Ceftriaxone Sodium 50 ml @ 100 mls/hr DAILY@09 IV 08/06/24 09:00 08/13/24 08:51 100 MLS/HR Lorazepam 1 mg Q4HPRN PRN IV 08/06/24 13:45 08/13/24 01:47 1 MG Norepinephrine Bitartrate 250 ml @ 3.75 mls/hr Q24H IV 08/07/24 19:00 08/08/24 14:13 3.75 MLS/HR Midazolam HCl 50 ml @ 1 mls/hr Q24H IV 08/07/24 21:45 08/11/24 00:24 2 MLS/HR Aspirin 81 mg DAILY PO 08/09/24 10:00 08/13/24 10:00 81 MG Enteral Nutritional Formula 1,000 ml DAILY NG 08/10/24 10:00 08/09/24 22:22 1,000 ML Nicotine 1 patch DAILY TD 08/10/24 22:00 08/13/24 10:00 1 PATCH Enoxaparin Sodium 40 mg DAILY SC 08/11/24 10:00 08/13/24 10:00 40 MG Micafungin Sodium 100 mg/Sodium Chloride 100 ml @ 100 mls/hr DAILY IV 08/12/24 10:00 08/13/24 13:32 100 MLS/HR Diltiazem HCl 125 ml @ 5 mls/hr Q24H IV 08/11/24 14:45 08/13/24 21:51 5 MLS/HR Morphine Sulfate 1 mg Q4HPRN PRN IV 08/12/24 08:45 08/12/24 22:20 1 MG Acetaminophen/ Hydrocodone Bitart 1 tab Q6HPRN PRN PO 08/12/24 08:45 08/12/24 17:49 1 TAB Ondansetron HCl 4 mg Q6HP PRN IV 08/12/24 08:45 Methylprednisolone Sodium Succinate 40 mg Q12HR IV 08/12/24 22:00 08/13/24 21:49 40 MG Metoprolol Tartrate 50 mg BID PO 08/13/24 10:00 08/13/24 21:50 50 MG Furosemide 20 mg DAILY PO 08/14/24 10:00 objective Gen.: Patient lying in bed in no apparent distress. On supplemental oxygen. Head: Normocephalic, atraumatic. Eyes: EOMI/PERRLA. Ears: Normal hearing. Normal anatomy. Neck/trachea: Trachea midline, supple. Nose: Normal external anatomy. Mouth: Moist mucous membranes. Chest: Decreased air entry bilaterally. No wheezing or rhonchi. Cardiovascular: Positive S1, positive S2. Regular rate and rhythm. Abdomen: Positive bowel sounds in all 4 quadrants. Soft, non-tender, non- distended. : Deferred. Rectal: Deferred. Skin: Warm, dry. Intact. Extremities: 2+ radial pulses bilaterally. No lower extremity edema. Neuro: Awake, alert, oriented x3. No gross motor or sensory deficits. Cranial nerves II through XII intact. Gait not assessed. laboratory and microbiology Laboratory Tests 08/13/24 04:59 Test 08/13/24 04:59 Range/Units Serum Glucose 162 H 74-106 mg/dL Assessment/Plan Impression: Acute on chronic hypoxic respiratory failure COPD exacerbation Nicotine dependence Acute renal failure Hypotension/shock Events: Remains on supplemental O2 On 4 LPM via NC Taper O2 as tolerated Labs reviewed; wbc of 11.2, trended down Monitor Hgb - stable at 11.5 g/dl Continue bronchodilators IV steroids - taper as tolerated Continue antibiotics/antifungals Incentive spirometry Cardizem drip for AFib Cardiology recs appreciated Diurese w/ Bumex as tolerated Monitor renal function Monitor electrolytes. Supplement as necessary. Accu-Cheks, ISS - hyperglycemia likely due to steroids NRT. Labs and imaging reviewed. Rest of plan as noted below. Plan: s/p extubation on 08/11/24 Supplemental oxygen Titrate to keep sats above 90% Pressors if necessary for hemodynamic support. Titrate to keep MAP above 65 mmHg. Continue bronchodilators. IV steroids - taper as tolerated Continue antibiotics 08/07 - S/p bronchoscopy with RML BAL d/t increased secretions - cleared mucous plugging from L5-L10 and R4-10 See separate procedure note for details. A central line was placed for administration of medications and blood draws. An arterial line was placed for ABG draws and hemodynamic monitoring. Monitor renal function. Monitor electrolytes. Supplement as necessary. Monitor ins and outs. DVT prophylaxis. Prognosis: Poor given patient's multiple co-morbidities. Condition: Critical Rest of plan per hospitalist and other consultants. A total of 35 minutes of critical care time was spent reviewing the patient record, examining the patient, making a diagnostic and therapeutic plan, discussing this plan with the medical personnel, following up on diagnostic studies and following the patient for clinical stability excluding any and all procedures. At least 50% of this time was spent in direct, [id number] contact. Thank you, Dr. Durbin, for allowing me to participate in this patient's care. Further recommendations will depend on the patient's clinical course. Please do not hesitate to contact me if you have any questions or concerns. This medical document was created using an electronic medical record system with [employer] system. Although these documentations are being carefully reviewed, there may still be some phonetic and typographical changes. The errors are purely typographical, due to imperfection on the software program, and do not reflect any compromise in the patient's medical care. Dietary Evaluation Review Comments: 1) If GI route is prefererred, consider Jevity 1.2 @ 50 mL/hr goal rate as tolerated. Goal rate will provide 1440 kcals, 67g Pro, and 968 mL free H2O per 24 hrs. TF regimen will meet ~ 94% daily estimated energy needs and 100% daily estiamted protein needs. 2) If patient remains NPO for more than 7 days, consider TPN to meet at least 75% of estimated needs 3) Advance patient to cardiac diet when medically feasible, pending SITE RELIABILITY ENGINEER approval 4) Continue current plan of care Expected Outcomes/Goals: 1) patient to receive nutritional support within 7 days 2) labs to improve 3) diet to advance 4) f/u in 3 days Plan discussed with: Patient, Other (RUBEN Ye) Critical Care Time(min): 35 NATHAN TALAVERA MD Aug 13, 2024 22:54
[2024-08-14] VITALS (46 sets, daily range): BP systolic 92–137; BP diastolic 48–120; PULSE 77–139; RESP 11–35; TEMP 97.6–98.6; O2SAT 88–100
[2024-08-14 05:05] LABS: Basophils # (auto) 0 10 ^3/uL (0-0.2); Basophils % (auto) 0.2 % (0.0-2.0); Eosinophils # (auto) 0 10 ^3/uL (0-0.8); Hematocrit 37.3 % (41.0-53.0); Lymphocytes # (auto) 0.3 10 ^3/uL (0.4-5.4); Lymphocytes % (auto) 2.5 % (10.0-50.0); Mean Corpuscular Hemoglobin 30.3 pg (28.0-32.0); Mean Corpuscular Hgb Conc. 32.2 g/dL (32.0-36.0); Mean Corpuscular Volume 94.4 fL (80.0-100.0); Monocytes # (auto) 0.6 10 ^3/uL (0-1.3); Monocytes % (auto) 4.8 % (0.0-12.0); Neutrophils # (auto) 12.5 10 ^3/uL (1.6-8.6); Neutrophils % (auto) 92.5 % (37.0-80.0); Nucleated Red Blood Cells % 0.1 %; Platelet Count (auto) 187 10^3/uL (140-450); Red Blood Cells 3.95 10^6/uL (4.5-5.90); Red Cell Distribution Width 14.7 % (11.8-14.3); White Blood Cell 13.5 10^3/uL (4.4-10.8)
[2024-08-14 05:16] LABS: Potassium 4.1 mmol/L (3.5-5.1); Sodium 138 mmol/L (136-145)
[2024-08-14 05:17] LABS: Anion Gap 8 (5-15); Calcium 8.7 mg/dL (8.7-10.4)
[2024-08-14 05:22] LABS: BUN/Creatinine Ratio 26.1 (10.0-20.0)
[2024-08-14 05:32] LABS: Blood Urea Nitrogen 23 mg/dL (9-23); Carbon Dioxide 34 mmol/L (20-31); Chloride 96 mmol/L (98-107); Glucose 163 mg/dL (74-106)
--- NOTE | 2024-08-14 07:45 | DVHPN2 ---
Progress Note - Dictate Date Seen: Aug 14, 2024 Medical Necessity Reason Pt with a Central, PICC or Fol: No The following are medically ne: Lance Catheter Reason for lance catheter: Strict I&O vital signs Vital Sign Date Time Temp Pulse Resp B/P (MAP) Pulse Ox O2 Delivery O2 Flow Rate FiO2 08/14/24 07:16 105 33 115/76 (89) 92 08/14/24 06:00 Nasal Cannula* 2 28 08/14/24 04:16 98.2 98.2 Total Intake and Output 08/13/24 08/13/24 08/14/24 15:00 23:00 07:00 Intake Total 220 ml 260 ml 170 ml Output Total 2050 ml 550 ml Balance 220 ml -1790 ml -380 ml medications Current Medications Medications Dose Ordered Sig/Ashwin Route Start Time Stop Time Status Last Admin Dose Admin Albuterol 2.5 mg Q6HPRN PRN NEB 08/05/24 23:30 08/14/24 06:56 2.5 MG Ipratropium [place] 0.5 mg Q6HPRN PRN NEB 08/05/24 23:30 08/14/24 06:56 0.5 MG Atorvastatin Calcium 10 mg HS PO 08/06/24 22:00 08/13/24 21:50 10 MG Acetaminophen 650 mg Q6HP PRN PO 08/05/24 23:30 08/11/24 17:56 650 MG Nitroglycerin 0.4 mg Q5MINP PRN SL 08/05/24 23:30 Morphine Sulfate 2 mg Q30M PRN IV 08/05/24 23:30 Ceftriaxone Sodium 50 ml @ 100 mls/hr DAILY@09 IV 08/06/24 09:00 08/13/24 08:51 100 MLS/HR Lorazepam 1 mg Q4HPRN PRN IV 08/06/24 13:45 08/14/24 05:56 1 MG Norepinephrine Bitartrate 250 ml @ 3.75 mls/hr Q24H IV 08/07/24 19:00 08/08/24 14:13 3.75 MLS/HR Midazolam HCl 50 ml @ 1 mls/hr Q24H IV 08/07/24 21:45 08/11/24 00:24 2 MLS/HR Aspirin 81 mg DAILY PO 08/09/24 10:00 08/13/24 10:00 81 MG Enteral Nutritional Formula 1,000 ml DAILY NG 08/10/24 10:00 08/09/24 22:22 1,000 ML Nicotine 1 patch DAILY TD 08/10/24 22:00 08/13/24 10:00 1 PATCH Enoxaparin Sodium 40 mg DAILY SC 08/11/24 10:00 08/13/24 10:00 40 MG Micafungin Sodium 100 mg/Sodium Chloride 100 ml @ 100 mls/hr DAILY IV 08/12/24 10:00 08/13/24 13:32 100 MLS/HR Diltiazem HCl 125 ml @ 5 mls/hr Q24H IV 08/11/24 14:45 08/13/24 21:51 5 MLS/HR Morphine Sulfate 1 mg Q4HPRN PRN IV 08/12/24 08:45 08/14/24 01:48 1 MG Acetaminophen/ Hydrocodone Bitart 1 tab Q6HPRN PRN PO 08/12/24 08:45 08/12/24 17:49 1 TAB Ondansetron HCl 4 mg Q6HP PRN IV 08/12/24 08:45 Methylprednisolone Sodium Succinate 40 mg Q12HR IV 08/12/24 22:00 08/13/24 21:49 40 MG Metoprolol Tartrate 50 mg BID PO 08/13/24 10:00 08/13/24 21:50 50 MG Furosemide 20 mg DAILY PO 08/14/24 10:00 laboratory and microbiology Laboratory Tests 08/14/24 04:52 Test 08/14/24 04:52 Range/Units Serum Glucose 163 H 74-106 mg/dL Assessment/Plan This is a 64-year old male known outside to our practice who initially presented (08/06/2024) with progressive worsening of shortness of breath for approximately 2 days prior to initial presentation. Upon ED arrival, patient was found hypoxic with an initial SPO2 level within the 80s. Patient was subsequently admitted to the telemetry unit where he had been undergoing management for acute hypoxic respiratory failure in the setting acute COPD exacerbation which respiratory status later deteriorated requiring subsequent endotracheal intubation/bronchoscopy by Pulmonology services (08/07/2024). Patient was then upgraded to the ICU where he has been undergoing close observation and further management. It is of note, upon ED arrival, patient was noted to be in atrial flutter with presence of a variable AV block and in RVR which throughout present course of hospitalization atrial flutter itself has been managed with Amiodarone 200mg once daily. It is of note, TSH level is found abnormal at 0.08 which could have attributed to the underlying tachyarrhythmia. Initial HS troponin level was found unremarkable unremarkable at 47, with subsequent repeat levels of 48, and 41. D-dimer was found normal at 0.46. BNP level was found to be 101.87 which initial chest imaging upon arrival had revealed no acute cardiopulmonary abnormalities however subsequent repeat chest imaging (08/09/2024) revealed presence of pulmonary venous congestion which the patient has been undergoing diuretic therapy as managed by Nephrology services secondary to underlying acute kidney injury. Echocardiogram (08/06/2024) during present hospitalization has revealed a preserved LVEF of 60%. At present time of consultation, telemetry reveals atrial flutter with variable AV block and intermittent episodes of RVR. As the patient initially presented with shortness of breath and found to have atrial flutter with transient episodes of RVR, Cardiology services have now been involved by primary team request late within the admission for cardiac aspects of care. Past medical history includes chronic atrial fibrillation/flutter status post Watchman Device Implantation (03/27/2022), systolic heart failure with improved ejection fraction, coronary artery disease status post previous PCI involving pRCA (03/31/2022 [facility]), npn-Hodgkin lymphoma status post chemotherapy, COPD on home oxygen, asthma, peripheral vascular disease, GERD, gastroenteritis, vitamin d deficiency, neuropathy, hyperlipidemia, hypertension, and chronic anemia. Patient is known to have underlying nicotine dependence. Cardiac Catheterization: (03/31/2022 [facility]) revealed 1 vessel coronary artery disease, Prox RCA 80% lesion, s/p RAFAT deployment, LVEF of 50%, EDP of 14 Echocardiogram: (01/26/2022 [facility]) revealed a reduced LVEF of 40-50% with mild concentric left ventricular hypertrophy Transesophageal Echocardiogram: (10/31/2022 [facility] [place]) revealed LVEF is 55%, trace MR, minimal AR, mild TR, NEL watchman is functioning good. Echocardiogram: (08/06/[facility] revealed LVEF of 60% by visual estimate, normal rv function, left atrium enlarged, normal pericardium, no severe valve abnormalities noted Thyroid ultrasound revealed: IMPRESSION: 1. Normal Thyroid. Acute on chronic COPD, with exacerbation Acute hypoxic respiratory failure, status post intubation/bronchoscopy (08/07/2024) Chronic atrial flutter with variable AV block, s/p watchman device implantation (03/27/2022) Systolic heart failure with improved LV function, EF of 60% (08/06/2024) Coronary artery disease, s/p previous PCI involving pRCA (03/31/2022) Abnormal TSH level (0.08), previously on Amiodarone Hypermagnesemia (5.4), resolved Acute kidney injury, improving Hypertension, history of Hyperkalemia, resolved Nicotine dependence Chronic anemia Hyperlipidemia CARDIAC SUGGESTIONS FOR MANAGEMENT: Amiodarone discontinued secondary to abnormal thyroid function Proceed with rate control strategy as for now for underlying atrial flutter Metoprolol Tartrate 50 mg twice daily for rate control (titrate as warranted) As patient is status post Watchman Device implantation, Aspirin 81mg daily is advised Fluid volume management (IV diuresis) as per Nephrology secondary to VALERI Proceed with close observation for overt signs of fluid overload Proceed with strict intakes, outputs, and daily weights Proceed with optimized medical therapy Proceed with risk factor modification Follow up renal function/electrolytes On IV antibiotics and steroids On Bumex 1mg IV twice daily Atorvastatin 10mg daily Aspirin 81mg daily DVT prophylaxis Re-initiate GDMT for previous HF once clinically stable Proceed with close rate and rhythm surveillance Proceed with close hemodynamic surveillance Proceed with optimized blood pressure control Transfuse to sustain HGB level above 7.0 Sustain Magnesium level greater than 2.0 Sustain Potassium level greater than 4.0 Follow up renal function and electrolytes Patient to be counseled on importance of tobacco cessation as patient regains higher brain function Management of COPD exacerbation as per primary team/pulmonology Management of VALERI as per primary team/nephrology Management of co-morbidities as per primary team Management within the ICU Follow up performance improvement consultant recommendations Will proceed to follow from a cardiac perspective Further recommendations per clinical progression All available diagnostic labs, EKG's, and images were personally reviewed Patient's status, findings, and plan of care was reviewed and discussed with supervising physician Dr. Kong, who is in agreement with current plan of care. Plan of care discussed with and agreed upon by family / primary RN Prognosis: Guarded Thank you for allowing me to participate in the care of this patient. Further recommendations based on patients clinical course and progression, primary attending, and other consultants. Will continue to follow with primary attending. If you have any questions or concerns, please do not hesitate to contact me. A total of 75 minutes was spent reviewing the patient record, examining the patient, making a diagnostic and therapeutic plan, discussing this plan with medical personnel, following up on diagnostic studies and following the patient for clinical stability excluding any and all procedures. At least 50% of this time was spent in direct, [id number] contact. Dietary Evaluation Review Comments: 1) If GI route is prefererred, consider Jevity 1.2 @ 50 mL/hr goal rate as tolerated. Goal rate will provide 1440 kcals, 67g Pro, and 968 mL free H2O per 24 hrs. TF regimen will meet ~ 94% daily estimated energy needs and 100% daily estiamted protein needs. 2) If patient remains NPO for more than 7 days, consider TPN to meet at least 75% of estimated needs 3) Advance patient to cardiac diet when medically feasible, pending AWNING SPREADER approval 4) Continue current plan of care Expected Outcomes/Goals: 1) patient to receive nutritional support within 7 days 2) labs to improve 3) diet to advance 4) f/u in 3 days Plan discussed with: Other (nurse) FRANCE VIRAMONTES MD Aug 14, 2024 07:45
[2024-08-14] MEDS: FUROSEMIDE 20 MG TAB PO SCH (09:14)
--- NOTE | 2024-08-14 11:36 | DVHPN2 ---
Subjective Patient was awake and following commands. Reviewed: Care Plan, H&P, Labs, Medications, Previous Orders, Radiology Changes from previous H/P or p: No Changes General: Per HPI Objective Vitals Vital Signs Date Time Temp Pulse Resp B/P (MAP) Pulse Ox O2 Delivery O2 Flow Rate FiO2 08/14/24 09:15 78 118/66 08/14/24 08:00 34 92 Nasal Cannula* 2 28 08/14/24 04:16 98.2 98.2 Intake/Output Intake and Output 08/14/24 07:00 Intake Total 650 ml Output Total 2600 ml Balance -1950 ml Intake Oral 320 ml IV Total 330 ml Output Urine Total 2600 ml Stool Total 0 ml General Appearance: Alert, Oriented X3, Cooperative, mild distress HEENT: Atraumatic, PERRLA, EOMI, Mucous membr. moist/pink Neck: Supple Lungs: Clear to auscultation, Normal air movement Cardiovascular: Normal S1, Normal S2, No murmurs, Gallops, Rubs, Other (A flutter 2-1 conduction) Abdomen: Normal bowel sounds, Soft, No tenderness Neuro: Cranial nerves 3-12 NL Skin: Dry, Intact Psych/Mental Status: Mental status NL Medications Current Medications Medications Dose Ordered Sig/Ashwin Route Start Time Stop Time Status Last Admin Dose Admin Albuterol 2.5 mg Q6HPRN PRN NEB 08/05/24 23:30 08/14/24 06:56 2.5 MG Ipratropium [place] 0.5 mg Q6HPRN PRN NEB 08/05/24 23:30 08/14/24 06:56 0.5 MG Atorvastatin Calcium 10 mg HS PO 08/06/24 22:00 08/13/24 21:50 10 MG Acetaminophen 650 mg Q6HP PRN PO 08/05/24 23:30 08/11/24 17:56 650 MG Nitroglycerin 0.4 mg Q5MINP PRN SL 08/05/24 23:30 Morphine Sulfate 2 mg Q30M PRN IV 08/05/24 23:30 Ceftriaxone Sodium 50 ml @ 100 mls/hr DAILY@09 IV 08/06/24 09:00 08/14/24 09:15 100 MLS/HR Lorazepam 1 mg Q4HPRN PRN IV 08/06/24 13:45 08/14/24 05:56 1 MG Norepinephrine Bitartrate 250 ml @ 3.75 mls/hr Q24H IV 08/07/24 19:00 08/08/24 14:13 3.75 MLS/HR Midazolam HCl 50 ml @ 1 mls/hr Q24H IV 08/07/24 21:45 08/11/24 00:24 2 MLS/HR Aspirin 81 mg DAILY PO 08/09/24 10:00 08/14/24 09:13 81 MG Enteral Nutritional Formula 1,000 ml DAILY NG 08/10/24 10:00 08/09/24 22:22 1,000 ML Nicotine 1 patch DAILY TD 08/10/24 22:00 08/14/24 09:14 1 PATCH Enoxaparin Sodium 40 mg DAILY SC 08/11/24 10:00 08/14/24 09:14 40 MG Micafungin Sodium 100 mg/Sodium Chloride 100 ml @ 100 mls/hr DAILY IV 08/12/24 10:00 08/14/24 09:35 100 MLS/HR Diltiazem HCl 125 ml @ 5 mls/hr Q24H IV 08/11/24 14:45 08/13/24 21:51 5 MLS/HR Morphine Sulfate 1 mg Q4HPRN PRN IV 08/12/24 08:45 08/14/24 01:48 1 MG Acetaminophen/ Hydrocodone Bitart 1 tab Q6HPRN PRN PO 08/12/24 08:45 08/12/24 17:49 1 TAB Ondansetron HCl 4 mg Q6HP PRN IV 08/12/24 08:45 Methylprednisolone Sodium Succinate 40 mg Q12HR IV 08/12/24 22:00 08/14/24 09:15 40 MG Metoprolol Tartrate 50 mg BID PO 08/13/24 10:00 08/14/24 09:15 50 MG Furosemide 20 mg DAILY PO 08/14/24 10:00 08/14/24 09:14 20 MG Laboratory Results Laboratory Tests 08/14/24 04:52 Chemistry Test 08/14/24 04:52 Calcium Level 8.7 mg/dL (8.7-10.4) Urinalysis Test 08/05/24 20:56 Urine Color Yellow (Yellow) Urine Clarity Turbid (Clear) H Urine pH 5.5 (5.0-9.0) Urine Specific [place] 1.020 (1.001-1.035) Urine Protein 1+ (Negative) H Urine Ketones Trace (Negative) Urine Blood Negative /uL (Negative) Urine Nitrite Negative (Negative) Urine Bilirubin Negative (Negative) Urine Urobilinogen Normal mg/dL (Negative) Urine Leukocyte Esterase Negative /uL (Negative) Urine RBC 1 /hpf (0 - 3) Urine Microscopic WBC 3 /HPF (0-3) Urine Squamous Epithelial Cells Few /hpf (<5) Urine Bacteria None seen /hpf (None Seen) Urine Hyaline Casts Few /lpf (0 - 2) Urine Glucose Normal mg/dL (Normal) Microbiology Microbiology Date/Time Source Procedure Growth Status 08/08/24 21:20 Nose MRSA Screen - Final Complete Labs and/or images reviewed: Labs reviewed by me, Image(s) reviewed by me Assessment/Plan Assessment/Plan Impression: -acute respiratory failure with mechanical ventilation -COPD -acute kidney injury, vasomotor nephropathy -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 Cardizem drip is off. Tolerating p.o.. -PT consultation: Out of bed and ambulate as tolerate -cardiology consultation : Recommendations reviewed -pulmonology consultation -continue current anticoagulation -continue current antibiotic therapy, add micafungin given growth filamentous fungi -PUD prophylaxis -repeat labs and chest x-ray in a.m. -transfer to telemetry Total time spent with patient discussing and formulating plan of care: 35 minutes. This medical document was created using an electronic medical record system with [employer] dictation system. Although this document has been carefully reviewed, there may still be some phonetic and typographical errors. These areas are purely typographical due to imperfections of the software programs, and do not reflect any compromise in the patient's medical care. Plan discussed with: Patient, Other (RN) My Orders Orders - MAIKEL MCKINNEY NP Procedure Category Date Status Time Pureed DIET 08/13/24 Transmitted Lunch Transfer Orders XFER 08/13/24 Transmitted 12:07 Date of Service: Aug 14, 2024 Billing Provider: MAIKEL MCKINNEY NP Common Visit Codes: [id number] INP/OBS CARE(HIGH) MAIKEL MCKINNEY NP Aug 14, 2024 11:36
[2024-08-14] MEDS: LEVALBUTEROL HCL 1.25 MG/3 ML NEB NEB SCH (12:17)
[2024-08-14] MEDS: MELATONIN 5 MG TAB PO ONE (22:15)
--- NOTE | 2024-08-14 22:43 | DVHPN2 ---
Progress Note - Dictate Date Seen: Aug 14, 2024 Medical Necessity Reason Pt with a Central, PICC or Fol: No The following are medically ne: Lance Catheter Reason for lance catheter: Strict I&O Subjective Patient seen and examined at bedside. remains on supplemental oxygen Overnight events reviewed. vital signs Vital Sign Date Time Temp Pulse Resp B/P (MAP) Pulse Ox O2 Delivery O2 Flow Rate FiO2 08/14/24 21:32 98/49 08/14/24 21:00 98.5 117 19 99 98.5 08/14/24 19:22 2.0 28 08/14/24 16:00 Nasal Cannula* Total Intake and Output 08/13/24 08/13/24 08/14/24 15:00 23:00 07:00 Intake Total 220 ml 260 ml 170 ml Output Total 2050 ml 550 ml Balance 220 ml -1790 ml -380 ml medications Current Medications Medications Dose Ordered Sig/Ashwin Route Start Time Stop Time Status Last Admin Dose Admin Ipratropium [place] 0.5 mg Q6HPRN PRN NEB 08/05/24 23:30 08/14/24 06:56 0.5 MG Atorvastatin Calcium 10 mg HS PO 08/06/24 22:00 08/14/24 21:25 10 MG Acetaminophen 650 mg Q6HP PRN PO 08/05/24 23:30 08/11/24 17:56 650 MG Nitroglycerin 0.4 mg Q5MINP PRN SL 08/05/24 23:30 Morphine Sulfate 2 mg Q30M PRN IV 08/05/24 23:30 Ceftriaxone Sodium 50 ml @ 100 mls/hr DAILY@09 IV 08/06/24 09:00 08/14/24 09:15 100 MLS/HR Aspirin 81 mg DAILY PO 08/09/24 10:00 08/14/24 09:13 81 MG Nicotine 1 patch DAILY TD 08/10/24 22:00 08/14/24 09:14 1 PATCH Enoxaparin Sodium 40 mg DAILY SC 08/11/24 10:00 08/14/24 09:14 40 MG Micafungin Sodium 100 mg/Sodium Chloride 100 ml @ 100 mls/hr DAILY IV 08/12/24 10:00 08/14/24 09:35 100 MLS/HR Acetaminophen/ Hydrocodone Bitart 1 tab Q6HPRN PRN PO 08/12/24 08:45 08/14/24 21:37 1 TAB Ondansetron HCl 4 mg Q6HP PRN IV 08/12/24 08:45 Metoprolol Tartrate 50 mg BID PO 08/13/24 10:00 08/14/24 09:15 50 MG Furosemide 20 mg DAILY PO 08/14/24 10:00 08/14/24 09:14 20 MG Levalbuterol HCl 1.25 mg Q6HP NEB 08/14/24 12:00 08/14/24 12:17 1.25 MG Methylprednisolone Sodium Succinate 40 mg DAILY IV 08/15/24 10:00 08/18/24 09:59 objective Gen.: Patient lying in bed in no apparent distress. On supplemental oxygen. Head: Normocephalic, atraumatic. Eyes: EOMI/PERRLA. Ears: Normal hearing. Normal anatomy. Neck/trachea: Trachea midline, supple. Nose: Normal external anatomy. Mouth: Moist mucous membranes. Chest: Decreased air entry bilaterally. No wheezing or rhonchi. Cardiovascular: Positive S1, positive S2. Regular rate and rhythm. Abdomen: Positive bowel sounds in all 4 quadrants. Soft, non-tender, non- distended. : Deferred. Rectal: Deferred. Skin: Warm, dry. Intact. Extremities: 2+ radial pulses bilaterally. No lower extremity edema. Neuro: Awake, alert, oriented x3. No gross motor or sensory deficits. Cranial nerves II through XII intact. Gait not assessed. laboratory and microbiology Laboratory Tests 08/14/24 04:52 Test 08/14/24 04:52 Range/Units Serum Glucose 163 H 74-106 mg/dL Assessment/Plan Impression: Acute on chronic hypoxic respiratory failure COPD exacerbation Nicotine dependence Acute renal failure Hypotension/shock Events: Remains on supplemental O2 On 2 LPM via NC Taper O2 as tolerated Labs reviewed; wbc of 13.5, trended up Monitor Hgb - stable at 12.0 g/dl Continue bronchodilators IV steroids - taper as tolerated. Change frequency to daily in AM. Continue antibiotics/antifungals Incentive spirometry Maintain euvolemia Monitor renal function Monitor electrolytes. Supplement as necessary. Accu-Cheks, ISS - hyperglycemia likely due to steroids NRT. Patient is stable for downgrade from the pulmonary standpoint. Labs and imaging reviewed. Rest of plan as noted below. Plan: s/p extubation on 08/11/24 Supplemental oxygen Titrate to keep sats above 90% Pressors if necessary for hemodynamic support. Titrate to keep MAP above 65 mmHg. Continue bronchodilators. IV steroids - taper as tolerated Continue antibiotics 08/07 - S/p bronchoscopy with RML BAL d/t increased secretions - cleared mucous plugging from L5-L10 and R4-10 See separate procedure note for details. A central line was placed for administration of medications and blood draws. An arterial line was placed for ABG draws and hemodynamic monitoring. Maintain euvolemia Monitor renal function. Monitor electrolytes. Supplement as necessary. Monitor ins and outs. DVT prophylaxis. Prognosis: Guarded given patient's multiple co-morbidities. Condition: Critical Rest of plan per hospitalist and other consultants. A total of 35 minutes of critical care time was spent reviewing the patient record, examining the patient, making a diagnostic and therapeutic plan, discussing this plan with the medical personnel, following up on diagnostic studies and following the patient for clinical stability excluding any and all procedures. At least 50% of this time was spent in direct, [id number] contact. Thank you, Dr. Durbin, for allowing me to participate in this patient's care. Further recommendations will depend on the patient's clinical course. Please do not hesitate to contact me if you have any questions or concerns. This medical document was created using an electronic medical record system with [employer] dictation system. Although these documentations are being carefully reviewed, there may still be some phonetic and typographical changes. The errors are purely typographical, due to imperfection on the software program, and do not reflect any compromise in the patient's medical care. Dietary Evaluation Review Comments: 1) If GI route is prefererred, consider Jevity 1.2 @ 50 mL/hr goal rate as tolerated. Goal rate will provide 1440 kcals, 67g Pro, and 968 mL free H2O per 24 hrs. TF regimen will meet ~ 94% daily estimated energy needs and 100% daily estiamted protein needs. 2) If patient remains NPO for more than 7 days, consider TPN to meet at least 75% of estimated needs 3) Advance patient to cardiac diet when medically feasible, pending [employer] approval 4) Continue current plan of care Expected Outcomes/Goals: 1) patient to receive nutritional support within 7 days 2) labs to improve 3) diet to advance 4) f/u in 3 days Plan discussed with: Patient, Other (RN Ty) Critical Care Time(min): 35 NATHAN TALAVERA MD Aug 14, 2024 22:43
[2024-08-15] VITALS (9 sets, daily range): BP systolic 96–118; BP diastolic 51–77; PULSE 53–131; RESP 18–20; TEMP 97.4–97.8; O2SAT 90–100
--- NOTE | 2024-08-15 07:25 | DVHPN2 ---
Progress Note - Dictate Date Seen: Aug 15, 2024 Medical Necessity Reason Pt with a Central, PICC or Fol: No The following are medically ne: Lance Catheter Reason for lance catheter: Strict I&O vital signs Vital Sign Date Time Temp Pulse Resp B/P (MAP) Pulse Ox O2 Delivery O2 Flow Rate FiO2 08/15/24 05:00 97.6 118 19 107/65 (79) 97 97.6 08/14/24 22:13 Nasal Cannula 2.0 08/14/24 22:13 28 Total Intake and Output 08/14/24 08/14/24 08/15/24 15:00 23:00 07:00 Intake Total 250 ml 800 ml Output Total 100 ml 300 ml Balance 250 ml -100 ml 500 ml medications Current Medications Medications Dose Ordered Sig/Ashwin Route Start Time Stop Time Status Last Admin Dose Admin Ipratropium [place] 0.5 mg Q6HPRN PRN NEB 08/05/24 23:30 08/14/24 06:56 0.5 MG Atorvastatin Calcium 10 mg HS PO 08/06/24 22:00 08/14/24 21:25 10 MG Acetaminophen 650 mg Q6HP PRN PO 08/05/24 23:30 08/11/24 17:56 650 MG Nitroglycerin 0.4 mg Q5MINP PRN SL 08/05/24 23:30 Morphine Sulfate 2 mg Q30M PRN IV 08/05/24 23:30 Ceftriaxone Sodium 50 ml @ 100 mls/hr DAILY@09 IV 08/06/24 09:00 08/14/24 09:15 100 MLS/HR Aspirin 81 mg DAILY PO 08/09/24 10:00 08/14/24 09:13 81 MG Nicotine 1 patch DAILY TD 08/10/24 22:00 08/14/24 09:14 1 PATCH Enoxaparin Sodium 40 mg DAILY SC 08/11/24 10:00 08/14/24 09:14 40 MG Micafungin Sodium 100 mg/Sodium Chloride 100 ml @ 100 mls/hr DAILY IV 08/12/24 10:00 08/14/24 09:35 100 MLS/HR Acetaminophen/ Hydrocodone Bitart 1 tab Q6HPRN PRN PO 08/12/24 08:45 08/14/24 21:37 1 TAB Ondansetron HCl 4 mg Q6HP PRN IV 08/12/24 08:45 Metoprolol Tartrate 50 mg BID PO 08/13/24 10:00 08/14/24 09:15 50 MG Furosemide 20 mg DAILY PO 08/14/24 10:00 08/14/24 09:14 20 MG Levalbuterol HCl 1.25 mg Q6HP NEB 08/14/24 12:00 08/14/24 12:17 1.25 MG Methylprednisolone Sodium Succinate 40 mg DAILY IV 08/15/24 10:00 08/18/24 09:59 laboratory and microbiology Laboratory Tests 08/14/24 04:52 Test 08/14/24 04:52 Range/Units Serum Glucose 163 H 74-106 mg/dL Assessment/Plan This is a 64-year old male known outside to our practice who initially presented (08/06/2024) with progressive worsening of shortness of breath for approximately 2 days prior to initial presentation. Upon ED arrival, patient was found hypoxic with an initial SPO2 level within the 80s. Patient was subsequently admitted to the telemetry unit where he had been undergoing management for acute hypoxic respiratory failure in the setting acute COPD exacerbation which respiratory status later deteriorated requiring subsequent endotracheal intubation/bronchoscopy by Pulmonology services (08/07/2024). Patient was then upgraded to the ICU where he has been undergoing close observation and further management. It is of note, upon ED arrival, patient was noted to be in atrial flutter with presence of a variable AV block and in RVR which throughout present course of hospitalization atrial flutter itself has been managed with Amiodarone 200mg once daily. It is of note, TSH level is found abnormal at 0.08 which could have attributed to the underlying tachyarrhythmia. Initial HS troponin level was found unremarkable unremarkable at 47, with subsequent repeat levels of 48, and 41. D-dimer was found normal at 0.46. BNP level was found to be 101.87 which initial chest imaging upon arrival had revealed no acute cardiopulmonary abnormalities however subsequent repeat chest imaging (08/09/2024) revealed presence of pulmonary venous congestion which the patient has been undergoing diuretic therapy as managed by Nephrology services secondary to underlying acute kidney injury. Echocardiogram (08/06/2024) during present hospitalization has revealed a preserved LVEF of 60%. At present time of consultation, telemetry reveals atrial flutter with variable AV block and intermittent episodes of RVR. As the patient initially presented with shortness of breath and found to have atrial flutter with transient episodes of RVR, Cardiology services have now been involved by primary team request late within the admission for cardiac aspects of care. Past medical history includes chronic atrial fibrillation/flutter status post Watchman Device Implantation (03/27/2022), systolic heart failure with improved ejection fraction, coronary artery disease status post previous PCI involving pRCA (03/31/2022 [facility]), npn-Hodgkin lymphoma status post chemotherapy, COPD on home oxygen, asthma, peripheral vascular disease, GERD, gastroenteritis, vitamin d deficiency, neuropathy, hyperlipidemia, hypertension, and chronic anemia. Patient is known to have underlying nicotine dependence. Cardiac Catheterization: (03/31/2022 [facility]) revealed 1 vessel coronary artery disease, Prox RCA 80% lesion, s/p RAFAT deployment, LVEF of 50%, EDP of 14 Echocardiogram: (01/26/2022 [facility]) revealed a reduced LVEF of 40-50% with mild concentric left ventricular hypertrophy Transesophageal Echocardiogram: (10/31/2022 [facility]) revealed LVEF is 55%, trace MR, minimal AR, mild TR, NEL watchman is functioning good. Echocardiogram: (08/06/2024 [facility]) revealed LVEF of 60% by visual estimate, normal rv function, left atrium enlarged, normal pericardium, no severe valve abnormalities noted Thyroid ultrasound revealed: IMPRESSION: 1. Normal Thyroid. Acute on chronic COPD, with exacerbation Acute hypoxic respiratory failure, status post intubation/bronchoscopy (08/07/2024) Chronic atrial flutter with variable AV block, s/p watchman device implantation (03/27/2022) Systolic heart failure with improved LV function, EF of 60% (08/06/2024) Coronary artery disease, s/p previous PCI involving pRCA (03/31/2022) Abnormal TSH level (0.08), previously on Amiodarone Hypermagnesemia (5.4), resolved Acute kidney injury, improving Hypertension, history of Hyperkalemia, resolved Nicotine dependence Chronic anemia Hyperlipidemia CARDIAC SUGGESTIONS FOR MANAGEMENT: Amiodarone discontinued secondary to abnormal thyroid function Proceed with rate control strategy as for now for underlying atrial flutter Metoprolol Tartrate 50 mg three daily for rate control (titrate as warranted) As patient is status post Watchman Device implantation, Aspirin 81mg daily is advised Fluid volume management (IV diuresis) as per Nephrology secondary to VALERI Proceed with close observation for overt signs of fluid overload Proceed with strict intakes, outputs, and daily weights Proceed with optimized medical therapy Proceed with risk factor modification Follow up renal function/electrolytes On IV antibiotics and steroids On Bumex 1mg IV twice daily Atorvastatin 10mg daily Aspirin 81mg daily DVT prophylaxis Re-initiate GDMT for previous HF once clinically stable Proceed with close rate and rhythm surveillance Proceed with close hemodynamic surveillance Proceed with optimized blood pressure control Transfuse to sustain HGB level above 7.0 Sustain Magnesium level greater than 2.0 Sustain Potassium level greater than 4.0 Follow up renal function and electrolytes Patient to be counseled on importance of tobacco cessation as patient regains higher brain function Management of COPD exacerbation as per primary team/pulmonology Management of VALERI as per primary team/nephrology Management of co-morbidities as per primary team Management within the ICU Follow up mining consultant recommendations Will proceed to follow from a cardiac perspective Further recommendations per clinical progression All available diagnostic labs, EKG's, and images were personally reviewed Patient's status, findings, and plan of care was reviewed and discussed with supervising physician Dr. Kong, who is in agreement with current plan of care. Plan of care discussed with and agreed upon by family / primary RN Prognosis: Guarded Thank you for allowing me to participate in the care of this patient. Further recommendations based on patients clinical course and progression, primary attending, and other consultants. Will continue to follow with primary attending. If you have any questions or concerns, please do not hesitate to contact me. A total of 75 minutes was spent reviewing the patient record, examining the patient, making a diagnostic and therapeutic plan, discussing this plan with medical personnel, following up on diagnostic studies and following the patient for clinical stability excluding any and all procedures. At least 50% of this time was spent in direct, [id number] contact. Dietary Evaluation Review Comments: 1) If GI route is prefererred, consider Jevity 1.2 @ 50 mL/hr goal rate as tolerated. Goal rate will provide 1440 kcals, 67g Pro, and 968 mL free H2O per 24 hrs. TF regimen will meet ~ 94% daily estimated energy needs and 100% daily estiamted protein needs. 2) If patient remains NPO for more than 7 days, consider TPN to meet at least 75% of estimated needs 3) Advance patient to cardiac diet when medically feasible, pending [employer] DRAF[employer] approval 4) Continue current plan of care Expected Outcomes/Goals: 1) patient to receive nutritional support within 7 days 2) labs to improve 3) diet to advance 4) f/u in 3 days Plan discussed with: Patient, Other (nurse) FRANCE VIRAMONTES MD Aug 15, 2024 07:25
[2024-08-15] MEDS: methylPREDNISolone SOD SUCC 125 MG/2 ML VL IV SCH (10:21)
[2024-08-15] MEDS: METOPROLOL TARTRATE 50 MG TAB PO SCH (10:22)
--- NOTE | 2024-08-15 11:41 | DVHPN2 ---
Subjective Patient now alert and oriented x3 Reviewed: Care Plan, H&P, Labs, Medications, Previous Orders, Radiology Changes from previous H/P or p: No Changes General: Per HPI Objective Vitals Vital Signs Date Time Temp Pulse Resp B/P (MAP) Pulse Ox O2 Delivery O2 Flow Rate FiO2 08/15/24 10:22 140 115/51 08/15/24 09:00 97.4 20 92 97.4 08/15/24 07:45 Nasal Cannula* 2 28 Intake/Output Intake and Output 08/15/24 07:00 Intake Total 1050 ml Output Total 400 ml Balance 650 ml Intake Oral 900 ml IV Total 150 ml Output Urine Total 400 ml General Appearance: Alert, Oriented X3, Cooperative, mild distress HEENT: Atraumatic, PERRLA, EOMI, Mucous membr. moist/pink Neck: Supple Lungs: Clear to auscultation, Normal air movement Cardiovascular: Normal S1, Normal S2, No murmurs, Gallops, Rubs, Other (A flutter 2-1 conduction) Abdomen: Normal bowel sounds, Soft, No tenderness Neuro: Cranial nerves 3-12 NL Skin: Dry, Intact Psych/Mental Status: Mental status NL Medications Current Medications Medications Dose Ordered Sig/Ashwin Route Start Time Stop Time Status Last Admin Dose Admin Ipratropium [place] 0.5 mg Q6HPRN PRN NEB 08/05/24 23:30 08/14/24 06:56 0.5 MG Atorvastatin Calcium 10 mg HS PO 08/06/24 22:00 08/14/24 21:25 10 MG Acetaminophen 650 mg Q6HP PRN PO 08/05/24 23:30 08/11/24 17:56 650 MG Nitroglycerin 0.4 mg Q5MINP PRN SL 08/05/24 23:30 Morphine Sulfate 2 mg Q30M PRN IV 08/05/24 23:30 Ceftriaxone Sodium 50 ml @ 100 mls/hr DAILY@09 IV 08/06/24 09:00 08/15/24 10:20 100 MLS/HR Aspirin 81 mg DAILY PO 08/09/24 10:00 08/15/24 10:22 81 MG Nicotine 1 patch DAILY TD 08/10/24 22:00 08/15/24 10:34 1 PATCH Enoxaparin Sodium 40 mg DAILY SC 08/11/24 10:00 08/15/24 10:21 40 MG Micafungin Sodium 100 mg/Sodium Chloride 100 ml @ 100 mls/hr DAILY IV 08/12/24 10:00 08/14/24 09:35 100 MLS/HR Acetaminophen/ Hydrocodone Bitart 1 tab Q6HPRN PRN PO 08/12/24 08:45 08/15/24 10:35 1 TAB Ondansetron HCl 4 mg Q6HP PRN IV 08/12/24 08:45 Furosemide 20 mg DAILY PO 08/14/24 10:00 08/15/24 10:21 20 MG Levalbuterol HCl 1.25 mg Q6HP NEB 08/14/24 12:00 08/14/24 12:17 1.25 MG Methylprednisolone Sodium Succinate 40 mg DAILY IV 08/15/24 10:00 08/18/24 09:59 08/15/24 10:21 40 MG Metoprolol Tartrate 50 mg TID PO 08/15/24 09:30 08/15/24 10:22 50 MG Laboratory Results Laboratory Tests 08/14/24 04:52 Urinalysis Test 08/05/24 20:56 Urine Color Yellow (Yellow) Urine Clarity Turbid (Clear) H Urine pH 5.5 (5.0-9.0) Urine Specific [place] 1.020 (1.001-1.035) Urine Protein 1+ (Negative) H Urine Ketones Trace (Negative) Urine Blood Negative /uL (Negative) Urine Nitrite Negative (Negative) Urine Bilirubin Negative (Negative) Urine Urobilinogen Normal mg/dL (Negative) Urine Leukocyte Esterase Negative /uL (Negative) Urine RBC 1 /hpf (0 - 3) Urine Microscopic WBC 3 /HPF (0-3) Urine Squamous Epithelial Cells Few /hpf (<5) Urine Bacteria None seen /hpf (None Seen) Urine Hyaline Casts Few /lpf (0 - 2) Urine Glucose Normal mg/dL (Normal) Microbiology Microbiology Date/Time Source Procedure Growth Status 08/08/24 21:20 Nose MRSA Screen - Final Complete Labs and/or images reviewed: Labs reviewed by me, Image(s) reviewed by me Assessment/Plan Assessment/Plan Impression: -acute respiratory failure with mechanical ventilation -COPD -acute kidney injury, vasomotor nephropathy -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 Noted worsening AFib with RVR with ambulation. Increase beta-franky therapy. Neurologically, patient was less confused. -PT consultation: Out of bed and ambulate as tolerate -cardiology consultation : Recommendations reviewed -pulmonology consultation -continue current anticoagulation -continue current antibiotic therapy, add micafungin given growth filamentous fungi -PUD prophylaxis -repeat labs and chest x-ray in a.m. Total time spent with patient discussing and formulating plan of care: 35 minutes. This medical document was created using an electronic medical record system with [employer] dictation system. Although this document has been carefully reviewed, there may still be some phonetic and typographical errors. These areas are purely typographical due to imperfections of the software programs, and do not reflect any compromise in the patient's medical care. Plan discussed with: Patient, Other (RN) Date of Service: Aug 15, 2024 Billing Provider: MAIKEL MCKINNEY NP Common Visit Codes: [id number] INP/OBS CARE(HIGH) MAIKEL MCKINNEY NP Aug 15, 2024 11:41
[2024-08-15] MEDS: METOPROLOL TARTRATE 1MG/1ML-5ML VIAL IV ONE (13:45)
[2024-08-15] MEDS: LEVALBUTEROL HCL 1.25 MG/3 ML NEB ONE (18:02)
[2024-08-15] MEDS: IPRATROPIUM BROM 0.5 MG/2.5ML INH SOL ONE (18:02)
--- NOTE | 2024-08-15 23:15 | DVHPN2 ---
Progress Note - Dictate Date Seen: Aug 15, 2024 Medical Necessity Reason Pt with a Central, PICC or Fol: No The following are medically ne: Lance Catheter Reason for lance catheter: Strict I&O Subjective Patient seen and examined at bedside. remains on supplemental oxygen Overnight events reviewed. vital signs Vital Sign Date Time Temp Pulse Resp B/P (MAP) Pulse Ox O2 Delivery O2 Flow Rate FiO2 08/15/24 22:09 76 124/76 08/15/24 21:00 97.7 19 94 97.7 08/15/24 07:45 Nasal Cannula* 2 28 Total Intake and Output 08/14/24 08/14/24 08/15/24 15:00 23:00 07:00 Intake Total 250 ml 800 ml Output Total 100 ml 300 ml Balance 250 ml -100 ml 500 ml medications Current Medications Medications Dose Ordered Sig/Ashwin Route Start Time Stop Time Status Last Admin Dose Admin Atorvastatin Calcium 10 mg HS PO 08/06/24 22:00 08/15/24 21:08 10 MG Acetaminophen 650 mg Q6HP PRN PO 08/05/24 23:30 08/11/24 17:56 650 MG Nitroglycerin 0.4 mg Q5MINP PRN SL 08/05/24 23:30 Morphine Sulfate 2 mg Q30M PRN IV 08/05/24 23:30 Ceftriaxone Sodium 50 ml @ 100 mls/hr DAILY@09 IV 08/06/24 09:00 08/15/24 10:20 100 MLS/HR Aspirin 81 mg DAILY PO 08/09/24 10:00 08/15/24 10:22 81 MG Nicotine 1 patch DAILY TD 08/10/24 22:00 08/15/24 10:34 1 PATCH Enoxaparin Sodium 40 mg DAILY SC 08/11/24 10:00 08/15/24 10:21 40 MG Micafungin Sodium 100 mg/Sodium Chloride 100 ml @ 100 mls/hr DAILY IV 08/12/24 10:00 08/15/24 12:33 100 MLS/HR Acetaminophen/ Hydrocodone Bitart 1 tab Q6HPRN PRN PO 08/12/24 08:45 08/15/24 20:45 1 TAB Ondansetron HCl 4 mg Q6HP PRN IV 08/12/24 08:45 Furosemide 20 mg DAILY PO 08/14/24 10:00 08/15/24 10:21 20 MG Methylprednisolone Sodium Succinate 40 mg DAILY IV 08/15/24 10:00 08/18/24 09:59 08/15/24 10:21 40 MG Metoprolol Tartrate 50 mg TID PO 08/15/24 09:30 08/15/24 21:09 50 MG objective Gen.: Patient lying in bed in no apparent distress. On supplemental oxygen. Head: Normocephalic, atraumatic. Eyes: EOMI/PERRLA. Ears: Normal hearing. Normal anatomy. Neck/trachea: Trachea midline, supple. Nose: Normal external anatomy. Mouth: Moist mucous membranes. Chest: Decreased air entry bilaterally. No wheezing or rhonchi. Cardiovascular: Positive S1, positive S2. Regular rate and rhythm. Abdomen: Positive bowel sounds in all 4 quadrants. Soft, non-tender, non- distended. : Deferred. Rectal: Deferred. Skin: Warm, dry. Intact. Extremities: 2+ radial pulses bilaterally. No lower extremity edema. Neuro: Awake, alert, oriented x3. No gross motor or sensory deficits. Cranial nerves II through XII intact. Gait not assessed. laboratory and microbiology Laboratory Tests 08/14/24 04:52 Test 08/14/24 04:52 Range/Units Serum Glucose 163 H 74-106 mg/dL Assessment/Plan Impression: Acute on chronic hypoxic respiratory failure COPD exacerbation Nicotine dependence Acute renal failure Hypotension/shock Events: Remains on supplemental O2 On 2 LPM via NC Taper O2 as tolerated Monitor WBC Monitor Hgb Continue steroids Continue antibiotics/antifungals Incentive spirometry Maintain euvolemia Monitor renal function Monitor electrolytes. Supplement as necessary. Accu-Cheks, ISS - hyperglycemia likely due to steroids NRT. Patient is stable for downgrade from the pulmonary standpoint. Labs and imaging reviewed. Rest of plan as noted below. Plan: s/p extubation on 08/11/24 Supplemental oxygen Titrate to keep sats above 92% Pressors if necessary for hemodynamic support. Titrate to keep MAP above 65 mmHg. Continue steroids Continue antibiotics 08/07 - S/p bronchoscopy with RML BAL d/t increased secretions - cleared mucous plugging from L5-L10 and R4-10 See separate procedure note for details. A central line was placed for administration of medications and blood draws. An arterial line was placed for ABG draws and hemodynamic monitoring. Maintain euvolemia Monitor renal function. Monitor electrolytes. Supplement as necessary. Monitor ins and outs. DVT prophylaxis. Prognosis: Guarded given patient's multiple co-morbidities. Rest of plan per hospitalist and other consultants. Thank you, Dr. Durbin, for allowing me to participate in this patient's care. Further recommendations will depend on the patient's clinical course. Please do not hesitate to contact me if you have any questions or concerns. This medical document was created using an electronic medical record system with [employer] dictation system. Although these documentations are being carefully reviewed, there may still be some phonetic and typographical changes. The errors are purely typographical, due to imperfection on the software program, and do not reflect any compromise in the patient's medical care. Dietary Evaluation Review Comments: 1) If GI route is prefererred, consider Jevity 1.2 @ 50 mL/hr goal rate as tolerated. Goal rate will provide 1440 kcals, 67g Pro, and 968 mL free H2O per 24 hrs. TF regimen will meet ~ 94% daily estimated energy needs and 100% daily estiamted protein needs. 2) If patient remains NPO for more than 7 days, consider TPN to meet at least 75% of estimated needs 3) Advance patient to cardiac diet when medically feasible, pending PAYROLL AUDITOR approval 4) Continue current plan of care Expected Outcomes/Goals: 1) patient to receive nutritional support within 7 days 2) labs to improve 3) diet to advance 4) f/u in 3 days Plan discussed with: Patient, Other (RN Summer) NATHAN TALAVERA MD Aug 15, 2024 23:15
[2024-08-16] VITALS (8 sets, daily range): BP systolic 89–117; BP diastolic 48–70; PULSE 62–122; RESP 18–19; TEMP 97.3–98.2; O2SAT 95–97
[2024-08-16 07:22] LABS: Basophils # (auto) 0 10 ^3/uL (0-0.2); Basophils % (auto) 0.1 % (0.0-2.0); Eosinophils # (auto) 0 10 ^3/uL (0-0.8); Eosinophils % (auto) 0.2 % (0.0-7.0); Hematocrit 39.6 % (41.0-53.0); Hemoglobin 13.1 g/dL (13.5-17.5); Lymphocytes # (auto) 1.3 10 ^3/uL (0.4-5.4); Lymphocytes % (auto) 10.5 % (10.0-50.0); Mean Corpuscular Hemoglobin 31.2 pg (28.0-32.0); Mean Corpuscular Volume 94.6 fL (80.0-100.0); Monocytes # (auto) 0.9 10 ^3/uL (0-1.3); Monocytes % (auto) 7.5 % (0.0-12.0); Neutrophils # (auto) 10.1 10 ^3/uL (1.6-8.6); Neutrophils % (auto) 81.7 % (37.0-80.0); Nucleated Red Blood Cells % 0.1 %; Platelet Count (auto) 157 10^3/uL (140-450); Red Blood Cells 4.19 10^6/uL (4.5-5.90); Red Cell Distribution Width 14.4 % (11.8-14.3); White Blood Cell 12.3 10^3/uL (4.4-10.8)
[2024-08-16 07:28] LABS: Anion Gap 7 (5-15)
[2024-08-16 07:34] LABS: BUN/Creatinine Ratio 29.2 (10.0-20.0); Glucose 98 mg/dL (74-106)
[2024-08-16 07:42] LABS: Blood Urea Nitrogen 26 mg/dL (9-23); Carbon Dioxide 36 mmol/L (20-31); Chloride 92 mmol/L (98-107); Potassium 3.5 mmol/L (3.5-5.1); Sodium 135 mmol/L (136-145)
--- NOTE | 2024-08-16 11:36 | DVHPN2 ---
Progress Note - Dictate Date Seen: Aug 16, 2024 Medical Necessity Reason Pt with a Central, PICC or Fol: No The following are medically ne: Lance Catheter Reason for lance catheter: Strict I&O vital signs Vital Sign Date Time Temp Pulse Resp B/P (MAP) Pulse Ox O2 Delivery O2 Flow Rate FiO2 08/16/24 09:35 98/48 08/16/24 08:30 98.2 110 19 95 98.2 08/15/24 20:00 Nasal Cannula* 2 28 Total Intake and Output 08/15/24 08/15/24 08/16/24 15:00 23:00 07:00 Intake Total 150 ml 580 ml 420 ml Output Total 800 ml 450 ml Balance 150 ml -220 ml -30 ml medications Current Medications Medications Dose Ordered Sig/Ashwin Route Start Time Stop Time Status Last Admin Dose Admin Atorvastatin Calcium 10 mg HS PO 08/06/24 22:00 08/15/24 21:08 10 MG Acetaminophen 650 mg Q6HP PRN PO 08/05/24 23:30 08/16/24 01:20 650 MG Nitroglycerin 0.4 mg Q5MINP PRN SL 08/05/24 23:30 Morphine Sulfate 2 mg Q30M PRN IV 08/05/24 23:30 Ceftriaxone Sodium 50 ml @ 100 mls/hr DAILY@09 IV 08/06/24 09:00 08/16/24 09:33 100 MLS/HR Aspirin 81 mg DAILY PO 08/09/24 10:00 08/16/24 09:34 81 MG Nicotine 1 patch DAILY TD 08/10/24 22:00 08/16/24 09:36 1 PATCH Enoxaparin Sodium 40 mg DAILY SC 08/11/24 10:00 08/16/24 09:35 40 MG Micafungin Sodium 100 mg/Sodium Chloride 100 ml @ 100 mls/hr DAILY IV 08/12/24 10:00 08/16/24 11:24 100 MLS/HR Acetaminophen/ Hydrocodone Bitart 1 tab Q6HPRN PRN PO 08/12/24 08:45 08/16/24 06:59 1 TAB Ondansetron HCl 4 mg Q6HP PRN IV 08/12/24 08:45 Furosemide 20 mg DAILY PO 08/14/24 10:00 08/16/24 09:35 20 MG Methylprednisolone Sodium Succinate 40 mg DAILY IV 08/15/24 10:00 08/18/24 09:59 08/16/24 09:35 40 MG Metoprolol Tartrate 50 mg TID PO 08/15/24 09:30 08/15/24 21:09 50 MG laboratory and microbiology Laboratory Tests 08/16/24 05:04 Test 08/16/24 05:04 Range/Units Serum Glucose 98 74-106 mg/dL Assessment/Plan This is a 64-year old male known outside to our practice who initially presented (08/06/2024) with progressive worsening of shortness of breath for approximately 2 days prior to initial presentation. Upon ED arrival, patient was found hypoxic with an initial SPO2 level within the 80s. Patient was subsequently admitted to the telemetry unit where he had been undergoing management for acute hypoxic respiratory failure in the setting acute COPD exacerbation which respiratory status later deteriorated requiring subsequent endotracheal intubation/bronchoscopy by Pulmonology services (08/07/2024). Patient was then upgraded to the ICU where he has been undergoing close observation and further management. It is of note, upon ED arrival, patient was noted to be in atrial flutter with presence of a variable AV block and in RVR which throughout present course of hospitalization atrial flutter itself has been managed with Amiodarone 200mg once daily. It is of note, TSH level is found abnormal at 0.08 which could have attributed to the underlying tachyarrhythmia. Initial HS troponin level was found unremarkable unremarkable at 47, with subsequent repeat levels of 48, and 41. D-dimer was found normal at 0.46. BNP level was found to be 101.87 which initial chest imaging upon arrival had revealed no acute cardiopulmonary abnormalities however subsequent repeat chest imaging (08/09/2024) revealed presence of pulmonary venous congestion which the patient has been undergoing diuretic therapy as managed by Nephrology services secondary to underlying acute kidney injury. Echocardiogram (08/06/2024) during present hospitalization has revealed a preserved LVEF of 60%. At present time of consultation, telemetry reveals atrial flutter with variable AV block and intermittent episodes of RVR. As the patient initially presented with shortness of breath and found to have atrial flutter with transient episodes of RVR, Cardiology services have now been involved by primary team request late within the admission for cardiac aspects of care. Past medical history includes chronic atrial fibrillation/flutter status post Watchman Device Implantation (03/27/2022), systolic heart failure with improved ejection fraction, coronary artery disease status post previous PCI involving pRCA (03/31/2022 [facility]), npn-Hodgkin lymphoma status post chemotherapy, COPD on home oxygen, asthma, peripheral vascular disease, GERD, gastroenteritis, vitamin d deficiency, neuropathy, hyperlipidemia, hypertension, and chronic anemia. Patient is known to have underlying nicotine dependence. Cardiac Catheterization: (03/31/2022 [facility]) revealed 1 vessel coronary artery disease, Prox RCA 80% lesion, s/p RAFAT deployment, LVEF of 50%, EDP of 14 Echocardiogram: (01/26/2022 [facility]) revealed a reduced LVEF of 40-50% with mild concentric left ventricular hypertrophy Transesophageal Echocardiogram: (10/31/2022 [facility]) revealed LVEF is 55%, trace MR, minimal AR, mild TR, NEL watchman is functioning good. Echocardiogram: (08/06/2024 [facility]) revealed LVEF of 60% by visual estimate, normal rv function, left atrium enlarged, normal pericardium, no severe valve abnormalities noted Thyroid ultrasound revealed: IMPRESSION: 1. Normal Thyroid. Acute on chronic COPD, with exacerbation Acute hypoxic respiratory failure, status post intubation/bronchoscopy (08/07/2024) Chronic atrial flutter with variable AV block, s/p watchman device implantation (03/27/2022) Systolic heart failure with improved LV function, EF of 60% (08/06/2024) Coronary artery disease, s/p previous PCI involving pRCA (03/31/2022) Abnormal TSH level (0.08), previously on Amiodarone Hypermagnesemia (5.4), resolved Acute kidney injury, improving Hypertension, history of Hyperkalemia, resolved Nicotine dependence Chronic anemia Hyperlipidemia CARDIAC SUGGESTIONS FOR MANAGEMENT: Amiodarone discontinued secondary to abnormal thyroid function Proceed with rate control strategy as for now for underlying atrial flutter As patient is status post Watchman Device implantation, Aspirin 81mg daily is advised Fluid volume management (IV diuresis) as per Nephrology secondary to VALERI Proceed with close observation for overt signs of fluid overload Proceed with strict intakes, outputs, and daily weights Proceed with optimized medical therapy Proceed with risk factor modification Follow up renal function/electrolytes On IV antibiotics and steroids On Bumex 1mg IV twice daily Atorvastatin 10mg daily Aspirin 81mg daily Stop Metoprolol Start Sotalol at 80 mg BID EKG DVT prophylaxis Re-initiate GDMT for previous HF once clinically stable Proceed with close rate and rhythm surveillance Proceed with close hemodynamic surveillance Proceed with optimized blood pressure control Transfuse to sustain HGB level above 7.0 Sustain Magnesium level greater than 2.0 Sustain Potassium level greater than 4.0 Follow up renal function and electrolytes Patient to be counseled on importance of tobacco cessation as patient regains higher brain function Management of COPD exacerbation as per primary team/pulmonology Management of VALERI as per primary team/nephrology Management of co-morbidities as per primary team Management within the ICU Follow up credit consultant recommendations Will proceed to follow from a cardiac perspective Further recommendations per clinical progression All available diagnostic labs, EKG's, and images were personally reviewed Patient's status, findings, and plan of care was reviewed and discussed with supervising physician Dr. Kong, who is in agreement with current plan of care. Plan of care discussed with and agreed upon by family / primary RN Prognosis: Guarded Thank you for allowing me to participate in the care of this patient. Further recommendations based on patients clinical course and progression, primary attending, and other consultants. Will continue to follow with primary attending. If you have any questions or concerns, please do not hesitate to contact me. A total of 75 minutes was spent reviewing the patient record, examining the patient, making a diagnostic and therapeutic plan, discussing this plan with medical personnel, following up on diagnostic studies and following the patient for clinical stability excluding any and all procedures. At least 50% of this time was spent in direct, [id number] contact. Dietary Evaluation Review Comments: 1) If GI route is prefererred, consider Jevity 1.2 @ 50 mL/hr goal rate as tolerated. Goal rate will provide 1440 kcals, 67g Pro, and 968 mL free H2O per 24 hrs. TF regimen will meet ~ 94% daily estimated energy needs and 100% daily estiamted protein needs. 2) If patient remains NPO for more than 7 days, consider TPN to meet at least 75% of estimated needs 3) Advance patient to cardiac diet when medically feasible, pending GPS NAVIGATION INSTALLER approval 4) Continue current plan of care Expected Outcomes/Goals: 1) patient to receive nutritional support within 7 days 2) labs to improve 3) diet to advance 4) f/u in 3 days Plan discussed with: Patient, Other (nurse) FRANCE VIRAMONTES MD Aug 16, 2024 11:36
--- NOTE | 2024-08-16 14:09 | DVHPN2 ---
Subjective The patient is seen and examined at bedside. No complains today. Remain weak. Reviewed: Care Plan, H&P, Labs, Medications, Previous Orders, Radiology Changes from previous H/P or p: No Changes General: Per HPI Objective Vitals Vital Signs Date Time Temp Pulse Resp B/P (MAP) Pulse Ox O2 Delivery O2 Flow Rate FiO2 08/16/24 09:35 98/48 08/16/24 08:30 98.2 110 19 95 98.2 08/16/24 08:10 Nasal Cannula* 2 28 Intake/Output Intake and Output 08/16/24 07:00 Intake Total 1150 ml Output Total 1250 ml Balance -100 ml Intake Oral 1000 ml IV Total 150 ml Output Urine Total 1250 ml # Bowel Movements 1 General Appearance: Alert, Cooperative, mild distress HEENT: Atraumatic, PERRLA, EOMI, Mucous membr. moist/pink Neck: Supple Lungs: Clear to auscultation, Normal air movement Cardiovascular: Normal S1, Normal S2, No murmurs, Gallops, Rubs, Other (A flutter 2-1 conduction) Abdomen: Normal bowel sounds, Soft, No tenderness Neuro: Cranial nerves 3-12 NL Skin: Dry, Intact Psych/Mental Status: Mental status NL Medications Current Medications Medications Dose Ordered Sig/Ashwin Route Start Time Stop Time Status Last Admin Dose Admin Atorvastatin Calcium 10 mg HS PO 08/06/24 22:00 08/15/24 21:08 10 MG Acetaminophen 650 mg Q6HP PRN PO 08/05/24 23:30 08/16/24 01:20 650 MG Nitroglycerin 0.4 mg Q5MINP PRN SL 08/05/24 23:30 Morphine Sulfate 2 mg Q30M PRN IV 08/05/24 23:30 Ceftriaxone Sodium 50 ml @ 100 mls/hr DAILY@09 IV 08/06/24 09:00 08/16/24 09:33 100 MLS/HR Aspirin 81 mg DAILY PO 08/09/24 10:00 08/16/24 09:34 81 MG Nicotine 1 patch DAILY TD 08/10/24 22:00 08/16/24 09:36 1 PATCH Enoxaparin Sodium 40 mg DAILY SC 08/11/24 10:00 08/16/24 09:35 40 MG Micafungin Sodium 100 mg/Sodium Chloride 100 ml @ 100 mls/hr DAILY IV 08/12/24 10:00 08/16/24 11:24 100 MLS/HR Acetaminophen/ Hydrocodone Bitart 1 tab Q6HPRN PRN PO 08/12/24 08:45 08/16/24 06:59 1 TAB Ondansetron HCl 4 mg Q6HP PRN IV 08/12/24 08:45 Furosemide 20 mg DAILY PO 08/14/24 10:00 08/16/24 09:35 20 MG Methylprednisolone Sodium Succinate 40 mg DAILY IV 08/15/24 10:00 08/18/24 09:59 08/16/24 09:35 40 MG Metoprolol Tartrate 50 mg TID PO 08/15/24 09:30 08/15/24 21:09 50 MG Sotalol HCl 80 mg Q12HR PO 08/16/24 22:00 Laboratory Results Laboratory Tests 08/16/24 05:04 Chemistry Test 08/16/24 05:04 Calcium Level 9.0 mg/dL (8.7-10.4) Urinalysis Test 08/05/24 20:56 Urine Color Yellow (Yellow) Urine Clarity Turbid (Clear) H Urine pH 5.5 (5.0-9.0) Urine Specific [place] 1.020 (1.001-1.035) Urine Protein 1+ (Negative) H Urine Ketones Trace (Negative) Urine Blood Negative /uL (Negative) Urine Nitrite Negative (Negative) Urine Bilirubin Negative (Negative) Urine Urobilinogen Normal mg/dL (Negative) Urine Leukocyte Esterase Negative /uL (Negative) Urine RBC 1 /hpf (0 - 3) Urine Microscopic WBC 3 /HPF (0-3) Urine Squamous Epithelial Cells Few /hpf (<5) Urine Bacteria None seen /hpf (None Seen) Urine Hyaline Casts Few /lpf (0 - 2) Urine Glucose Normal mg/dL (Normal) Microbiology Microbiology Date/Time Source Procedure Growth Status 08/08/24 21:20 Nose MRSA Screen - Final Complete Labs and/or images reviewed: Labs reviewed by me Assessment/Plan Assessment/Plan Acute on chronic hypoxic respiratory failure COPD exacerbation Nicotine dependence Acute renal failure Hypotension/shock Plan: Continue current management. Remains on supplemental O2 On 2 LPM via NC Taper O2 as tolerated Monitor WBC Monitor Hgb Continue steroids Continue antibiotics/antifungals Incentive spirometry Maintain euvolemia Monitor renal function Monitor electrolytes. Supplement as necessary. Accu-Cheks, ISS - hyperglycemia likely due to steroids PT to get the patient out of bed and ambulate. This medical document was created using an electronic medical record system with [employer] computerized dictation system. Although this document has been carefully reviewed, there may still be some phonetic and typographical errors. These areas are purely typographical due to imperfections of the software programs, and do not reflect any compromise in the patient's medical care. Plan discussed with: Patient, Son Date of Service: Aug 16, 2024 Billing Provider: CRISSY BRYANT MD Common Visit Codes: 67632-[id number] INP/OBS CARE(HIGH) CRISSY BRYANT MD Aug 16, 2024 14:09
[2024-08-16] MEDS: SOTALOL HCL 80 MG TAB PO ONE (16:21)
[2024-08-16] MEDS: SOTALOL HCL 80 MG TAB PO SCH (22:23)
--- NOTE | 2024-08-16 23:00 | DVHPN2 ---
Progress Note - Dictate Date Seen: Aug 16, 2024 Medical Necessity Reason Pt with a Central, PICC or Fol: No The following are medically ne: Lance Catheter Reason for lance catheter: Strict I&O Subjective Patient seen and examined at bedside. remains on supplemental oxygen Overnight events reviewed. vital signs Vital Sign Date Time Temp Pulse Resp B/P (MAP) Pulse Ox O2 Delivery O2 Flow Rate FiO2 08/16/24 22:23 87 89/61 08/16/24 20:00 19 95 Nasal Cannula* 08 1508/16/24 16:35 97.4 97.4 Total Intake and Output 08/15/24 08/15/24 08/16/24 15:00 23:00 07:00 Intake Total 150 ml 580 ml 420 ml Output Total 800 ml 450 ml Balance 150 ml -220 ml -30 ml medications Current Medications Medications Dose Ordered Sig/Ashwin Route Start Time Stop Time Status Last Admin Dose Admin Atorvastatin Calcium 10 mg HS PO 08/06/24 22:00 08/16/24 22:21 10 MG Acetaminophen 650 mg Q6HP PRN PO 08/05/24 23:30 08/16/24 20:53 650 MG Nitroglycerin 0.4 mg Q5MINP PRN SL 08/05/24 23:30 Morphine Sulfate 2 mg Q30M PRN IV 08/05/24 23:30 Ceftriaxone Sodium 50 ml @ 100 mls/hr DAILY@09 IV 08/06/24 09:00 08/16/24 09:33 100 MLS/HR Aspirin 81 mg DAILY PO 08/09/24 10:00 08/16/24 09:34 81 MG Nicotine 1 patch DAILY TD 08/10/24 22:00 08/16/24 09:36 1 PATCH Enoxaparin Sodium 40 mg DAILY SC 08/11/24 10:00 08/16/24 09:35 40 MG Micafungin Sodium 100 mg/Sodium Chloride 100 ml @ 100 mls/hr DAILY IV 08/12/24 10:00 08/16/24 11:24 100 MLS/HR Acetaminophen/ Hydrocodone Bitart 1 tab Q6HPRN PRN PO 08/12/24 08:45 08/16/24 18:47 1 TAB Ondansetron HCl 4 mg Q6HP PRN IV 08/12/24 08:45 Furosemide 20 mg DAILY PO 08/14/24 10:00 08/16/24 09:35 20 MG Methylprednisolone Sodium Succinate 40 mg DAILY IV 08/15/24 10:00 08/18/24 09:59 08/16/24 09:35 40 MG Sotalol HCl 80 mg Q12HR PO 08/16/24 22:00 08/16/24 22:23 80 MG objective Gen.: Patient lying in bed in no apparent distress. On supplemental oxygen. Head: Normocephalic, atraumatic. Eyes: EOMI/PERRLA. Ears: Normal hearing. Normal anatomy. Neck/trachea: Trachea midline, supple. Nose: Normal external anatomy. Mouth: Moist mucous membranes. Chest: Decreased air entry bilaterally. No wheezing or rhonchi. Cardiovascular: Positive S1, positive S2. Regular rate and rhythm. Abdomen: Positive bowel sounds in all 4 quadrants. Soft, non-tender, non- distended. : Deferred. Rectal: Deferred. Skin: Warm, dry. Intact. Extremities: 2+ radial pulses bilaterally. No lower extremity edema. Neuro: Awake, alert, oriented x3. No gross motor or sensory deficits. Cranial nerves II through XII intact. Gait not assessed. laboratory and microbiology Laboratory Tests 08/16/24 05:04 Test 08/16/24 05:04 Range/Units Serum Glucose 98 74-106 mg/dL Assessment/Plan Impression: Acute on chronic hypoxic respiratory failure COPD exacerbation Nicotine dependence Acute renal failure Hypotension/shock Events: Remains on supplemental O2 On 2 LPM via NC Taper O2 as tolerated Monitor WBC - 12.3 K Monitor Hgb - 13.1 K Continue bronchodilators - refusing Continue IV steroids Continue antibiotics/antifungals Incentive spirometry Maintain euvolemia Monitor renal function Monitor electrolytes. Supplement as necessary. Accu-Cheks NRT. PT eval. Labs and imaging reviewed. Rest of plan as noted below. Plan: s/p extubation on 08/11/24 Supplemental oxygen Titrate to keep sats above 92% Pressors if necessary for hemodynamic support. Titrate to keep MAP above 65 mmHg. Continue steroids Continue antibiotics 08/07 - S/p bronchoscopy with RML BAL d/t increased secretions - cleared mucous plugging from L5-L10 and R4-10 See separate procedure note for details. A central line was placed for administration of medications and blood draws. An arterial line was placed for ABG draws and hemodynamic monitoring. Maintain euvolemia Monitor renal function. Monitor electrolytes. Supplement as necessary. Monitor ins and outs. DVT prophylaxis. Prognosis: Guarded given patient's multiple co-morbidities. Rest of plan per hospitalist and other consultants. Thank you, Dr. Durbin, for allowing me to participate in this patient's care. Further recommendations will depend on the patient's clinical course. Please do not hesitate to contact me if you have any questions or concerns. This medical document was created using an electronic medical record system with [employer] dictation system. Although these documentations are being carefully reviewed, there may still be some phonetic and typographical changes. The errors are purely typographical, due to imperfection on the software program, and do not reflect any compromise in the patient's medical care. Dietary Evaluation Review Comments: 1) If GI route is prefererred, consider Jevity 1.2 @ 50 mL/hr goal rate as tolerated. Goal rate will provide 1440 kcals, 67g Pro, and 968 mL free H2O per 24 hrs. TF regimen will meet ~ 94% daily estimated energy needs and 100% daily estiamted protein needs. 2) If patient remains NPO for more than 7 days, consider TPN to meet at least 75% of estimated needs 3) Advance patient to cardiac diet when medically feasible, pending ANIMAL NURSE approval 4) Continue current plan of care Expected Outcomes/Goals: 1) patient to receive nutritional support within 7 days 2) labs to improve 3) diet to advance 4) f/u in 3 days Plan discussed with: Patient, Other (RUBEN Martinez) NATHAN TALAVERA MD Aug 16, 2024 23:00
[2024-08-17] VITALS (8 sets, daily range): BP systolic 91–104; BP diastolic 58–70; PULSE 63–93; RESP 16–18; TEMP 97.4–97.9; O2SAT 93–98
--- NOTE | 2024-08-17 07:33 | DVHPN2 ---
Progress Note - Dictate Date Seen: Aug 17, 2024 Medical Necessity Reason Pt with a Central, PICC or Fol: No The following are medically ne: Lance Catheter Reason for lance catheter: Strict I&O vital signs Vital Sign Date Time Temp Pulse Resp B/P (MAP) Pulse Ox O2 Delivery O2 Flow Rate FiO2 08/17/24 05:00 97.6 80 18 91/63 (72) 98 97.6 08/16/24 20:00 Nasal Cannula* 2 28 Total Intake and Output 08/16/24 08/16/24 08/17/24 15:00 23:00 07:00 Intake Total 150 ml 502 ml 450 ml Output Total 1100 ml 350 ml Balance 150 ml -598 ml 100 ml medications Current Medications Medications Dose Ordered Sig/Ashwin Route Start Time Stop Time Status Last Admin Dose Admin Atorvastatin Calcium 10 mg HS PO 08/06/24 22:00 08/16/24 22:21 10 MG Acetaminophen 650 mg Q6HP PRN PO 08/05/24 23:30 08/16/24 20:53 650 MG Nitroglycerin 0.4 mg Q5MINP PRN SL 08/05/24 23:30 Morphine Sulfate 2 mg Q30M PRN IV 08/05/24 23:30 Ceftriaxone Sodium 50 ml @ 100 mls/hr DAILY@09 IV 08/06/24 09:00 08/16/24 09:33 100 MLS/HR Aspirin 81 mg DAILY PO 08/09/24 10:00 08/16/24 09:34 81 MG Nicotine 1 patch DAILY TD 08/10/24 22:00 08/16/24 09:36 1 PATCH Enoxaparin Sodium 40 mg DAILY SC 08/11/24 10:00 08/16/24 09:35 40 MG Micafungin Sodium 100 mg/Sodium Chloride 100 ml @ 100 mls/hr DAILY IV 08/12/24 10:00 08/16/24 11:24 100 MLS/HR Acetaminophen/ Hydrocodone Bitart 1 tab Q6HPRN PRN PO 08/12/24 08:45 08/17/24 01:02 1 TAB Ondansetron HCl 4 mg Q6HP PRN IV 08/12/24 08:45 Furosemide 20 mg DAILY PO 08/14/24 10:00 08/16/24 09:35 20 MG Methylprednisolone Sodium Succinate 40 mg DAILY IV 08/15/24 10:00 3/3/25 09:59 08/16/24 09:35 40 MG Sotalol HCl 80 mg Q12HR PO 08/16/24 22:00 08/16/24 22:23 80 MG laboratory and microbiology Laboratory Tests 08/16/24 05:04 Test 08/16/24 05:04 Range/Units Serum Glucose 98 74-106 mg/dL Assessment/Plan This is a 64-year old male known outside to our practice who initially presented (08/06/2024) with progressive worsening of shortness of breath for approximately 2 days prior to initial presentation. Upon ED arrival, patient was found hypoxic with an initial SPO2 level within the 80s. Patient was subsequently admitted to the telemetry unit where he had been undergoing management for acute hypoxic respiratory failure in the setting acute COPD exacerbation which respiratory status later deteriorated requiring subsequent endotracheal intubation/bronchoscopy by Pulmonology services (08/07/2024). Patient was then upgraded to the ICU where he has been undergoing close observation and further management. It is of note, upon ED arrival, patient was noted to be in atrial flutter with presence of a variable AV block and in RVR which throughout present course of hospitalization atrial flutter itself has been managed with Amiodarone 200mg once daily. It is of note, TSH level is found abnormal at 0.08 which could have attributed to the underlying tachyarrhythmia. Initial HS troponin level was found unremarkable unremarkable at 47, with subsequent repeat levels of 48, and 41. D-dimer was found normal at 0.46. BNP level was found to be 101.87 which initial chest imaging upon arrival had revealed no acute cardiopulmonary abnormalities however subsequent repeat chest imaging (08/09/2024) revealed presence of pulmonary venous congestion which the patient has been undergoing diuretic therapy as managed by Nephrology services secondary to underlying acute kidney injury. Echocardiogram (08/06/2024) during present hospitalization has revealed a preserved LVEF of 60%. At present time of consultation, telemetry reveals atrial flutter with variable AV block and intermittent episodes of RVR. As the patient initially presented with shortness of breath and found to have atrial flutter with transient episodes of RVR, Cardiology services have now been involved by primary team request late within the admission for cardiac aspects of care. Past medical history includes chronic atrial fibrillation/flutter status post Watchman Device Implantation (03/27/2022), systolic heart failure with improved ejection fraction, coronary artery disease status post previous PCI involving pRCA (03/31/2022 [facility]), npn-Hodgkin lymphoma status post chemotherapy, COPD on home oxygen, asthma, peripheral vascular disease, GERD, gastroenteritis, vitamin d deficiency, neuropathy, hyperlipidemia, hypertension, and chronic anemia. Patient is known to have underlying nicotine dependence. Cardiac Catheterization: (03/31/2022 [facility]) revealed 1 vessel coronary artery disease, Prox RCA 80% lesion, s/p RAFAT deployment, LVEF of 50%, EDP of 14 Echocardiogram: (01/26/2022 [facility]) revealed a reduced LVEF of 40-50% with mild concentric left ventricular hypertrophy Transesophageal Echocardiogram: (10/31/2022 [facility] [place] revealed LVEF is 55%, trace MR, minimal AR, mild TR, NEL watchman is functioning good. Echocardiogram: (08/06/2024 [facility]) revealed LVEF of 60% by visual estimate, normal rv function, left atrium enlarged, normal pericardium, no severe valve abnormalities noted Thyroid ultrasound revealed: IMPRESSION: 1. Normal Thyroid. Acute on chronic COPD, with exacerbation Acute hypoxic respiratory failure, status post intubation/bronchoscopy (08/07/2024) Chronic atrial flutter with variable AV block, s/p watchman device implantation (03/27/2022) Systolic heart failure with improved LV function, EF of 60% (08/06/2024) Coronary artery disease, s/p previous PCI involving pRCA (03/31/2022) Abnormal TSH level (0.08), previously on Amiodarone Hypermagnesemia (5.4), resolved Acute kidney injury, improving Hypertension, history of Hyperkalemia, resolved Nicotine dependence Chronic anemia Hyperlipidemia CARDIAC SUGGESTIONS FOR MANAGEMENT: Amiodarone discontinued secondary to abnormal thyroid function Proceed with rate control strategy as for now for underlying atrial flutter As patient is status post Watchman Device implantation, Aspirin 81mg daily is advised Fluid volume management (IV diuresis) as per Nephrology secondary to VALERI Proceed with close observation for overt signs of fluid overload Proceed with strict intakes, outputs, and daily weights Proceed with optimized medical therapy Proceed with risk factor modification Follow up renal function/electrolytes On IV antibiotics and steroids On Bumex 1mg IV twice daily Atorvastatin 10mg daily Aspirin 81mg daily On Sotalol at 80 mg BID EKG DVT prophylaxis Re-initiate GDMT for previous HF once clinically stable Proceed with close rate and rhythm surveillance Proceed with close hemodynamic surveillance Proceed with optimized blood pressure control Transfuse to sustain HGB level above 7.0 Sustain Magnesium level greater than 2.0 Sustain Potassium level greater than 4.0 Follow up renal function and electrolytes Patient to be counseled on importance of tobacco cessation as patient regains higher brain function Management of COPD exacerbation as per primary team/pulmonology Management of VALERI as per primary team/nephrology Management of co-morbidities as per primary team Management within tele Follow up area development consultant recommendations Will proceed to follow from a cardiac perspective Further recommendations per clinical progression All available diagnostic labs, EKG's, and images were personally reviewed Patient's status, findings, and plan of care was reviewed and discussed with supervising physician Dr. Kong, who is in agreement with current plan of care. Plan of care discussed with and agreed upon by family / primary RN Prognosis: Guarded Thank you for allowing me to participate in the care of this patient. Further recommendations based on patients clinical course and progression, primary attending, and other consultants. Will continue to follow with primary attending. If you have any questions or concerns, please do not hesitate to contact me. A total of 75 minutes was spent reviewing the patient record, examining the patient, making a diagnostic and therapeutic plan, discussing this plan with medical personnel, following up on diagnostic studies and following the patient for clinical stability excluding any and all procedures. At least 50% of this time was spent in direct, [id number] contact. Dietary Evaluation Review Comments: 1) If GI route is prefererred, consider Jevity 1.2 @ 50 mL/hr goal rate as tolerated. Goal rate will provide 1440 kcals, 67g Pro, and 968 mL free H2O per 24 hrs. TF regimen will meet ~ 94% daily estimated energy needs and 100% daily estiamted protein needs. 2) If patient remains NPO for more than 7 days, consider TPN to meet at least 75% of estimated needs 3) Advance patient to cardiac diet when medically feasible, pending WIRE GALVANIZER approval 4) Continue current plan of care Expected Outcomes/Goals: 1) patient to receive nutritional support within 7 days 2) labs to improve 3) diet to advance 4) f/u in 3 days Plan discussed with: Patient, Other (nurse) FRANCE VIRAMONTES MD Aug 17, 2024 07:33
--- NOTE | 2024-08-17 21:23 | DVHPN2 ---
Progress Note - Dictate Date Seen: Aug 17, 2024 Medical Necessity Reason Pt with a Central, PICC or Fol: No The following are medically ne: Lance Catheter Reason for lance catheter: Strict I&O Subjective Patient seen and examined at bedside. remains on supplemental oxygen Overnight events reviewed. vital signs Vital Sign Date Time Temp Pulse Resp B/P (MAP) Pulse Ox O2 Delivery O2 Flow Rate FiO2 08/17/24 20:00 77 18 96 Nasal Cannula* 2 28 08/17/24 17:00 97.4 99/61 (74) 97.4 Total Intake and Output 08/16/24 08/16/24 08/17/24 15:00 23:00 07:00 Intake Total 150 ml 502 ml 450 ml Output Total 1100 ml 350 ml Balance 150 ml -598 ml 100 ml medications Current Medications Medications Dose Ordered Sig/Ashwin Route Start Time Stop Time Status Last Admin Dose Admin Atorvastatin Calcium 10 mg HS PO 08/06/24 22:00 08/16/24 22:21 10 MG Acetaminophen 650 mg Q6HP PRN PO 08/05/24 23:30 08/16/24 20:53 650 MG Nitroglycerin 0.4 mg Q5MINP PRN SL 08/05/24 23:30 Morphine Sulfate 2 mg Q30M PRN IV 08/05/24 23:30 Ceftriaxone Sodium 50 ml @ 100 mls/hr DAILY@09 IV 08/06/24 09:00 08/17/24 08:56 100 MLS/HR Aspirin 81 mg DAILY PO 08/09/24 10:00 08/17/24 09:02 81 MG Nicotine 1 patch DAILY TD 08/10/24 22:00 08/17/24 09:36 1 PATCH Enoxaparin Sodium 40 mg DAILY SC 08/11/24 10:00 08/17/24 09:07 40 MG Micafungin Sodium 100 mg/Sodium Chloride 100 ml @ 100 mls/hr DAILY IV 08/12/24 10:00 08/17/24 09:16 100 MLS/HR Acetaminophen/ Hydrocodone Bitart 1 tab Q6HPRN PRN PO 08/12/24 08:45 08/17/24 15:36 1 TAB Ondansetron HCl 4 mg Q6HP PRN IV 08/12/24 08:45 Furosemide 20 mg DAILY PO 08/14/24 10:00 08/16/24 09:35 20 MG Methylprednisolone Sodium Succinate 40 mg DAILY IV 08/15/24 10:00 08/18/24 09:59 08/17/24 09:16 40 MG Sotalol HCl 80 mg Q12HR PO 08/16/24 22:00 08/17/24 09:06 80 MG objective Gen.: Patient lying in bed in no apparent distress. On supplemental oxygen. Head: Normocephalic, atraumatic. Eyes: EOMI/PERRLA. Ears: Normal hearing. Normal anatomy. Neck/trachea: Trachea midline, supple. Nose: Normal external anatomy. Mouth: Moist mucous membranes. Chest: Decreased air entry bilaterally. No wheezing or rhonchi. Cardiovascular: Positive S1, positive S2. Regular rate and rhythm. Abdomen: Positive bowel sounds in all 4 quadrants. Soft, non-tender, non- distended. : Deferred. Rectal: Deferred. Skin: Warm, dry. Intact. Extremities: 2+ radial pulses bilaterally. No lower extremity edema. Neuro: Awake, alert, oriented x3. No gross motor or sensory deficits. Cranial nerves II through XII intact. Gait not assessed. laboratory and microbiology Laboratory Tests 08/16/24 05:04 Test 08/16/24 05:04 Range/Units Serum Glucose 98 74-106 mg/dL Assessment/Plan Impression: Acute on chronic hypoxic respiratory failure COPD exacerbation Nicotine dependence Acute renal failure Hypotension/shock Events: Remains on supplemental O2 On 2 LPM via NC Taper O2 as tolerated Monitor WBC - 12.3 K Monitor Hgb - 13.1 K Continue bronchodilators Continue IV steroids Continue antibiotics/antifungals Incentive spirometry Maintain euvolemia Monitor renal function Monitor electrolytes. Supplement as necessary. Accu-Cheks NRT. Physical therapy. Disposition per hospitalist. Labs and imaging reviewed. Rest of plan as noted below. Plan: s/p extubation on 08/11/24 Supplemental oxygen Titrate to keep sats above 92% Pressors if necessary for hemodynamic support. Titrate to keep MAP above 65 mmHg. Continue steroids Continue antibiotics 08/07 - S/p bronchoscopy with RML BAL d/t increased secretions - cleared mucous plugging from L5-L10 and R4-10 See separate procedure note for details. A central line was placed for administration of medications and blood draws. An arterial line was placed for ABG draws and hemodynamic monitoring. Maintain euvolemia Monitor renal function. Monitor electrolytes. Supplement as necessary. Monitor ins and outs. DVT prophylaxis. Prognosis: Guarded given patient's multiple co-morbidities. Rest of plan per hospitalist and other consultants. Thank you, Dr. Durbin, for allowing me to participate in this patient's care. Further recommendations will depend on the patient's clinical course. Please do not hesitate to contact me if you have any questions or concerns. This medical document was created using an electronic medical record system with [employer] dictation system. Although these documentations are being carefully reviewed, there may still be some phonetic and typographical changes. The errors are purely typographical, due to imperfection on the software program, and do not reflect any compromise in the patient's medical care. Dietary Evaluation Review Comments: 1) If GI route is prefererred, consider Jevity 1.2 @ 50 mL/hr goal rate as tolerated. Goal rate will provide 1440 kcals, 67g Pro, and 968 mL free H2O per 24 hrs. TF regimen will meet ~ 94% daily estimated energy needs and 100% daily estiamted protein needs. 2) If patient remains NPO for more than 7 days, consider TPN to meet at least 75% of estimated needs 3) Advance patient to cardiac diet when medically feasible, pending BINDERY HELPER approval 4) Continue current plan of care Expected Outcomes/Goals: 1) patient to receive nutritional support within 7 days 2) labs to improve 3) diet to advance 4) f/u in 3 days Plan discussed with: Patient, Other (RUBEN Childress) NATHAN TALAVERA MD Aug 17, 2024 21:23
--- NOTE | 2024-08-17 22:29 | DVHPN2 ---
Subjective The patient is seen and examined at bedside. Feel better , want to go home. Reviewed: Care Plan, H&P, Labs, Medications, Previous Orders, Radiology Changes from previous H/P or p: No Changes General: Per HPI Objective Vitals Vital Signs Date Time Temp Pulse Resp B/P (MAP) Pulse Ox O2 Delivery O2 Flow Rate FiO2 08/17/24 21:41 63 104/67 08/17/24 21:00 97.5 16 96 97.5 08/17/24 20:00 Nasal Cannula* 2 28 Intake/Output Intake and Output 08/17/24 07:00 Intake Total 1102 ml Output Total 1450 ml Balance -348 ml Intake Oral 952 ml IV Total 150 ml Output Urine Total 1450 ml # Bowel Movements 2 General Appearance: Alert, Oriented X3, Cooperative, mild distress HEENT: Atraumatic, PERRLA, EOMI, Mucous membr. moist/pink Neck: Supple Lungs: Clear to auscultation, Normal air movement Cardiovascular: Normal S1, Normal S2, No murmurs, Gallops, Rubs, Other (A flutter 2-1 conduction) Abdomen: Normal bowel sounds, Soft, No tenderness Neuro: Cranial nerves 3-12 NL Skin: Dry, Intact Psych/Mental Status: Mental status NL Medications Current Medications Medications Dose Ordered Sig/Ashwin Route Start Time Stop Time Status Last Admin Dose Admin Atorvastatin Calcium 10 mg HS PO 08/06/24 22:00 08/17/24 21:40 10 MG Acetaminophen 650 mg Q6HP PRN PO 08/05/24 23:30 08/16/24 20:53 650 MG Nitroglycerin 0.4 mg Q5MINP PRN SL 08/05/24 23:30 Morphine Sulfate 2 mg Q30M PRN IV 08/05/24 23:30 Ceftriaxone Sodium 50 ml @ 100 mls/hr DAILY@09 IV 08/06/24 09:00 08/17/24 08:56 100 MLS/HR Aspirin 81 mg DAILY PO 08/09/24 10:00 08/17/24 09:02 81 MG Nicotine 1 patch DAILY TD 08/10/24 22:00 08/17/24 09:36 1 PATCH Enoxaparin Sodium 40 mg DAILY SC 08/11/24 10:00 08/17/24 09:07 40 MG Micafungin Sodium 100 mg/Sodium Chloride 100 ml @ 100 mls/hr DAILY IV 08/12/24 10:00 08/17/24 09:16 100 MLS/HR Acetaminophen/ Hydrocodone Bitart 1 tab Q6HPRN PRN PO 08/12/24 08:45 08/17/24 21:40 1 TAB Ondansetron HCl 4 mg Q6HP PRN IV 08/12/24 08:45 Furosemide 20 mg DAILY PO 08/14/24 10:00 08/16/24 09:35 20 MG Methylprednisolone Sodium Succinate 40 mg DAILY IV 08/15/24 10:00 08/18/24 09:59 08/17/24 09:16 40 MG Sotalol HCl 80 mg Q12HR PO 08/16/24 22:00 08/17/24 21:41 80 MG Laboratory Results Laboratory Tests 08/16/24 05:04 Urinalysis Test 08/05/24 20:56 Urine Color Yellow (Yellow) Urine Clarity Turbid (Clear) H Urine pH 5.5 (5.0-9.0) Urine Specific [place] 1.020 (1.001-1.035) Urine Protein 1+ (Negative) H Urine Ketones Trace (Negative) Urine Blood Negative /uL (Negative) Urine Nitrite Negative (Negative) Urine Bilirubin Negative (Negative) Urine Urobilinogen Normal mg/dL (Negative) Urine Leukocyte Esterase Negative /uL (Negative) Urine RBC 1 /hpf (0 - 3) Urine Microscopic WBC 3 /HPF (0-3) Urine Squamous Epithelial Cells Few /hpf (<5) Urine Bacteria None seen /hpf (None Seen) Urine Hyaline Casts Few /lpf (0 - 2) Urine Glucose Normal mg/dL (Normal) Microbiology Microbiology Date/Time Source Procedure Growth Status 08/08/24 21:20 Nose MRSA Screen - Final Complete Labs and/or images reviewed: Labs reviewed by me Assessment/Plan Assessment/Plan Acute on chronic hypoxic respiratory failure COPD exacerbation Nicotine dependence Acute renal failure Hypotension/shock Plan: Continue current management. Remains on supplemental O2 On 2 LPM via NC Taper O2 as tolerated Monitor WBC Monitor Hgb Continue steroids Continue antibiotics/antifungals Incentive spirometry Maintain euvolemia Monitor renal function Monitor electrolytes. Supplement as necessary. Accu-Cheks, ISS - hyperglycemia likely due to steroids PT to get the patient out of bed and ambulate. Will anticipate to discharge when can abmulate a little bit further than ambulate around the room with support. This medical document was created using an electronic medical record system with [employer] direct computerized dictation system. Although this document has been carefully reviewed, there may still be some phonetic and typographical errors. These areas are purely typographical due to imperfections of the software programs, and do not reflect any compromise in the patient's medical care. This medical document was created using an electronic medical record system with [employer] direct computerized dictation system. Although this document has been carefully reviewed, there may still be some phonetic and typographical errors. These areas are purely typographical due to imperfections of the software programs, and do not reflect any compromise in the patient's medical care. Plan discussed with: Patient, Son Date of Service: Aug 17, 2024 Billing Provider: CRISSY BRYANT MD Common Visit Codes: [id number] INP/OBS CARE(HIGH) CRISSY BRYANT MD Aug 17, 2024 22:29
[2024-08-18 05:00] VITALS: BP 105/63; PULSE 60; RESP 18; TEMP 97.6; O2SAT 99
--- NOTE | 2024-08-18 07:57 | DVHPN2 ---
Progress Note - Dictate Date Seen: Aug 18, 2024 Medical Necessity Reason Pt with a Central, PICC or Fol: No The following are medically ne: Lance Catheter Reason for lance catheter: Strict I&O vital signs Vital Sign Date Time Temp Pulse Resp B/P (MAP) Pulse Ox O2 Delivery O2 Flow Rate FiO2 08/18/24 05:00 97.6 60 18 105/63 (77) 99 97.6 08/17/24 20:00 Nasal Cannula* 2 28 Total Intake and Output 08/17/24 08/17/24 08/18/24 15:00 23:00 07:00 Intake Total 1860 ml 800 ml 60 ml Output Total 350 ml 300 ml Balance 1860 ml 450 ml -240 ml medications Current Medications Medications Dose Ordered Sig/Ashwin Route Start Time Stop Time Status Last Admin Dose Admin Atorvastatin Calcium 10 mg HS PO 08/06/24 22:00 08/17/24 21:40 10 MG Acetaminophen 650 mg Q6HP PRN PO 08/05/24 23:30 08/17/24 23:15 650 MG Nitroglycerin 0.4 mg Q5MINP PRN SL 08/05/24 23:30 Morphine Sulfate 2 mg Q30M PRN IV 08/05/24 23:30 Ceftriaxone Sodium 50 ml @ 100 mls/hr DAILY@09 IV 08/06/24 09:00 08/17/24 08:56 100 MLS/HR Aspirin 81 mg DAILY PO 08/09/24 10:00 08/17/24 09:02 81 MG Nicotine 1 patch DAILY TD 08/10/24 22:00 08/17/24 09:36 1 PATCH Enoxaparin Sodium 40 mg DAILY SC 08/11/24 10:00 08/17/24 09:07 40 MG Micafungin Sodium 100 mg/Sodium Chloride 100 ml @ 100 mls/hr DAILY IV 08/12/24 10:00 08/17/24 09:16 100 MLS/HR Acetaminophen/ Hydrocodone Bitart 1 tab Q6HPRN PRN PO 08/12/24 08:45 08/18/24 03:55 1 TAB Ondansetron HCl 4 mg Q6HP PRN IV 08/12/24 08:45 Furosemide 20 mg DAILY PO 08/14/24 10:00 08/16/24 09:35 20 MG Methylprednisolone Sodium Succinate 40 mg DAILY IV 08/15/24 10:00 08/18/24 09:59 08/17/24 09:16 40 MG Sotalol HCl 80 mg Q12HR PO 08/16/24 22:00 08/17/24 21:41 80 MG laboratory and microbiology Laboratory Tests 08/16/24 05:04 Test 08/16/24 05:04 Range/Units Serum Glucose 98 74-106 mg/dL Assessment/Plan This is a 64-year old male known outside to our practice who initially presented (08/06/2024) with progressive worsening of shortness of breath for approximately 2 days prior to initial presentation. Upon ED arrival, patient was found hypoxic with an initial SPO2 level within the 80s. Patient was subsequently admitted to the telemetry unit where he had been undergoing management for acute hypoxic respiratory failure in the setting acute COPD exacerbation which respiratory status later deteriorated requiring subsequent endotracheal intubation/bronchoscopy by Pulmonology services (08/07/2024). Patient was then upgraded to the ICU where he has been undergoing close observation and further management. It is of note, upon ED arrival, patient was noted to be in atrial flutter with presence of a variable AV block and in RVR which throughout present course of hospitalization atrial flutter itself has been managed with Amiodarone 200mg once daily. It is of note, TSH level is found abnormal at 0.08 which could have attributed to the underlying tachyarrhythmia. Initial HS troponin level was found unremarkable unremarkable at 47, with subsequent repeat levels of 48, and 41. D-dimer was found normal at 0.46. BNP level was found to be 101.87 which initial chest imaging upon arrival had revealed no acute cardiopulmonary abnormalities however subsequent repeat chest imaging (08/09/2024) revealed presence of pulmonary venous congestion which the patient has been undergoing diuretic therapy as managed by Nephrology services secondary to underlying acute kidney injury. Echocardiogram (08/06/2024) during present hospitalization has revealed a preserved LVEF of 60%. At present time of consultation, telemetry reveals atrial flutter with variable AV block and intermittent episodes of RVR. As the patient initially presented with shortness of breath and found to have atrial flutter with transient episodes of RVR, Cardiology services have now been involved by primary team request late within the admission for cardiac aspects of care. Past medical history includes chronic atrial fibrillation/flutter status post Watchman Device Implantation (03/27/2022), systolic heart failure with improved ejection fraction, coronary artery disease status post previous PCI involving pRCA (03/31/2022 [facility]), npn-Hodgkin lymphoma status post chemotherapy, COPD on home oxygen, asthma, peripheral vascular disease, GERD, gastroenteritis, vitamin d deficiency, neuropathy, hyperlipidemia, hypertension, and chronic anemia. Patient is known to have underlying nicotine dependence. Cardiac Catheterization: (03/31/2022 [facility]) revealed 1 vessel coronary artery disease, Prox RCA 80% lesion, s/p RAFAT deployment, LVEF of 50%, EDP of 14 Echocardiogram: (01/26/2022 [facility]) revealed a reduced LVEF of 40-50% with mild concentric left ventricular hypertrophy Transesophageal Echocardiogram: (10/31/2022 [facility] [place]) revealed LVEF is 55%, trace MR, minimal AR, mild TR, NEL watchman is functioning good. Echocardiogram: (08/06/2024 [facility]) revealed LVEF of 60% by visual estimate, normal rv function, left atrium enlarged, normal pericardium, no severe valve abnormalities noted Thyroid ultrasound revealed: IMPRESSION: 1. Normal Thyroid. Acute on chronic COPD, with exacerbation Acute hypoxic respiratory failure, status post intubation/bronchoscopy (08/07/2024) Chronic atrial flutter with variable AV block, s/p watchman device implantation (03/27/2022) Systolic heart failure with improved LV function, EF of 60% (08/06/2024) Coronary artery disease, s/p previous PCI involving pRCA (03/31/2022) Abnormal TSH level (0.08), previously on Amiodarone Hypermagnesemia (5.4), resolved Acute kidney injury, improving Hypertension, history of Hyperkalemia, resolved Nicotine dependence Chronic anemia Hyperlipidemia CARDIAC SUGGESTIONS FOR MANAGEMENT: Amiodarone discontinued secondary to abnormal thyroid function Proceed with rate control strategy as for now for underlying atrial flutter As patient is status post Watchman Device implantation, Aspirin 81mg daily is advised Fluid volume management (IV diuresis) as per Nephrology secondary to VALERI Proceed with close observation for overt signs of fluid overload Proceed with strict intakes, outputs, and daily weights Proceed with optimized medical therapy Proceed with risk factor modification Follow up renal function/electrolytes On IV antibiotics and steroids On Bumex 1mg IV twice daily Atorvastatin 10mg daily Aspirin 81mg daily On Sotalol at 80 mg BID EKG: sinus rhythm DVT prophylaxis Re-initiate GDMT for previous HF once clinically stable Proceed with close rate and rhythm surveillance Proceed with close hemodynamic surveillance Proceed with optimized blood pressure control Transfuse to sustain HGB level above 7.0 Sustain Magnesium level greater than 2.0 Sustain Potassium level greater than 4.0 Follow up renal function and electrolytes Patient to be counseled on importance of tobacco cessation as patient regains higher brain function Management of COPD exacerbation as per primary team/pulmonology Management of VALERI as per primary team/nephrology Management of co-morbidities as per primary team Management within tele Follow up consultant dietitian recommendations Will proceed to follow from a cardiac perspective Further recommendations per clinical progression All available diagnostic labs, EKG's, and images were personally reviewed Patient's status, findings, and plan of care was reviewed and discussed with supervising physician Dr. Kong, who is in agreement with current plan of care. Plan of care discussed with and agreed upon by family / primary RN Prognosis: Guarded Thank you for allowing me to participate in the care of this patient. Further recommendations based on patients clinical course and progression, primary attending, and other consultants. Will continue to follow with primary attending. If you have any questions or concerns, please do not hesitate to contact me. A total of 55 minutes was spent reviewing the patient record, examining the patient, making a diagnostic and therapeutic plan, discussing this plan with medical personnel, following up on diagnostic studies and following the patient for clinical stability excluding any and all procedures. At least 50% of this time was spent in direct, gkmv-ut-dhet contact. Dietary Evaluation Review Comments: 1) If GI route is prefererred, consider Jevity 1.2 @ 50 mL/hr goal rate as tolerated. Goal rate will provide 1440 kcals, 67g Pro, and 968 mL free H2O per 24 hrs. TF regimen will meet ~ 94% daily estimated energy needs and 100% daily estiamted protein needs. 2) If patient remains NPO for more than 7 days, consider TPN to meet at least 75% of estimated needs 3) Advance patient to cardiac diet when medically feasible, pending CONTENT DIRECTOR approval 4) Continue current plan of care Expected Outcomes/Goals: 1) patient to receive nutritional support within 7 days 2) labs to improve 3) diet to advance 4) f/u in 3 days Plan discussed with: Patient, Other (nurse) FRANCE VIRAMONTES MD Aug 18, 2024 07:57
[2024-08-18 08:00] VITALS: PULSE 65
[2024-08-18 08:56] VITALS: BP 95/53; PULSE 74; RESP 17; TEMP 98.4; O2SAT 97
[2024-08-18 12:44] VITALS: BP 101/52; PULSE 78; RESP 17; TEMP 98.1; O2SAT 98
[2024-08-18] MEDS ORDERED: ATOR20TA50 PO (14:19)
[2024-08-18] MEDS ORDERED: ASPI-325 PO (14:19)
[2024-08-18] MEDS ORDERED: SOTA80TA20 PO (14:19)
--- NOTE | 2024-08-18 14:28 | DVHDS2 ---
Discharge Summary Date of Admission Aug 05, 2024 at 23:16 Date of Discharge: Aug 18, 2024 Admitting Diagnosis Acute on chronic respiratory failure Labs/Diagnostic Data: Laboratory Results Test 08/16/24 05:04 08/12/24 05:09 08/11/24 19:14 08/11/24 15:51 White Blood Count 12.3 10^3/uL (4.4-10.8) Red Blood Count 4.19 10^6/uL (4.5-5.90) Hemoglobin 13.1 g/dL (13.5-17.5) Hematocrit 39.6 % (41.0-53.0) Mean Corpuscular Volume 94.6 fL (80.0-100.0) Mean Corpuscular Hemoglobin 31.2 pg (28.0-32.0) Mean Corpuscular Hemoglobin Concent 33.0 g/dL (32.0-36.0) Red Cell Distribution Width 14.4 % (11.8-14.3) Platelet Count 157 10^3/uL (140-450) Mean Platelet Volume 9.6 fL (6.9-10.8) Neutrophils (%) (Auto) 81.7 % (37.0-80.0) Lymphocytes (%) (Auto) 10.5 % (10.0-50.0) Monocytes (%) (Auto) 7.5 % (0.0-12.0) Eosinophils (%) (Auto) 0.2 % (0.0-7.0) Basophils (%) (Auto) 0.1 % (0.0-2.0) Neutrophils # (Auto) 10.1 10 ^3/uL (1.6-8.6) Lymphocytes # (Auto) 1.3 10 ^3/uL (0.4-5.4) Monocytes # (Auto) 0.9 10 ^3/uL (0-1.3) Eosinophils # (Auto) 0 10 ^3/uL (0-0.8) Basophils # (Auto) 0 10 ^3/uL (0-0.2) Nucleated Red Blood Cells 0.1 % Sodium Level 135 mmol/L (136-145) Potassium Level 3.5 mmol/L (3.5-5.1) Chloride Level 92 mmol/L (98-107) Carbon Dioxide Level 36 mmol/L (20-31) Anion Gap 7 (5-15) Blood Urea Nitrogen 26 mg/dL (9-23) Creatinine 0.89 mg/dL (0.700-1.30) Glomerular Filtration Rate Calc 97 mL/min (>90) BUN/Creatinine Ratio 29.2 (10.0-20.0) Serum Glucose 98 mg/dL (74-106) Calcium Level 9.0 mg/dL (8.7-10.4) Free Thyroxine Index 3.5 (1.2-4.9) Thyroxine (T4) 9.9 ug/dL (4.5-12.0) Triiodothyronine (T3) Uptake 35 % (24-39) Miscellaneous Referred Test ([facility] Specimen Type Arterial Blood Gas Sample Site Right radial Blood Gas Patient Temperature 37.0 Arterial Blood Date Drawn [id number] Arterial Blood pH 7.421 (7.350-7.450) Arterial Blood Partial Pressure CO2 47.4 mmHg (35.0-48.0) Arterial Blood Partial Pressure O2 81.1 mmHg (83.0-108.0) Arterial Blood HCO3 30.1 mmol/L (21.0-28.0) Arterial Blood Oxygen Saturation 94.9 % (94.0-98.0) Arterial Blood Base Excess 4.9 mmol/L (-2.0-3.0) Arterial Blood Oxyhemoglobin 94.5 % (94.0-98.0) Arterial Blood Carboxyhemoglobin 0.4 % (0.5-1.5) Arterial Blood Methemoglobin 0.0 % (0.0-1.5) Mason Test Modified Blood Gas Total Hemoglobin 11.80 g/dL (13.5-17.5) Blood Gas Modality Vent - cpap FiO2 % 30.0 Blood Gas Tidal Volume 550.0 Blood Gas Pressure Support 8 Blood Gas PEEP or CPAP 5.0 Test 08/11/24 07:40 08/10/24 10:07 08/09/24 18:38 08/09/24 06:18 Blood Gas Set Respiration Rate 24.0 Magnesium Level 1.9 mg/dL (1.6-2.6) Free Thyroxine (T4) Calculated 1.60 ng/dL (0.89-1.76) Triglycerides Level 252 mg/dL (< 150) Cholesterol Level 117 mg/dL (< 200) LDL Cholesterol 56 mg/dL (< 100) HDL Cholesterol 30 mg/dL (40-59) Test 08/09/24 06:07 08/07/24 21:30 08/07/24 18:20 08/07/24 11:57 B-Type Natriuretic Peptide 101.87 pg/mL (0-100) Thyroid Stimulating Hormone (TSH) 0.08 uIU/mL (0.55-4.78) Blood Gas Critical Value Read Back Yes Blood Gas Notified Whom Maribell stevenson md Blood Gas Notified Time [id number] Blood Gas Notified By Rasheed leyva keypuncher Blood Gas EPAP 6 Blood Gas IPAP 20 Blood Gas Liter Flow 3.00 Test 08/07/24 10:57 08/06/24 03:45 08/06/24 03:11 08/05/24 23:36 Phosphorus Level 2.2 mg/dL (2.4-5.1) Vitamin D 25-Hydroxy 81.4 ng/mL (30.0-100) Parathyroid Hormone (Intact) 19.2 pg/mL (18.4-80.1) Influenza Type A Antigen Negative (Negative) Influenza Type B Antigen Negative (Negative) SARS-CoV-2 Antigen (Rapid) Negative (NEGATIVE) Differential Total Cells Counted 100.0 (100) Neutrophils % (Manual) 93 (37.0-80.0) Band Neutrophils % (Manual) 1 Lymphocytes % (Manual) 5 (10.0-50.0) Monocytes % (Manual) 1 (0-12) Eosinophils % (Manual) 0 (0-7) Basophils % (Manual) 0 (0.0-2.0) Metamyelocytes % (manual) 0 Myelocytes % (Manual) 0 Promyelocytes % (Manual) 0 Blast Cells % (Manual) 0 Reactive Lymphocytes 0 Platelet Estimate Adequate D-Dimer, Quantitative 0.46 mg/L FEU (0.0-0.49) Test 08/05/24 21:07 08/05/24 20:56 08/05/24 17:51 Creatine Kinase 113 U/L (46-171) Troponin I High Sensitivity 41 ng/L (</=54) Urine Color Yellow (Yellow) Urine Clarity Turbid (Clear) Urine pH 5.5 (5.0-9.0) Urine Specific [place] 1.020 (1.001-1.035) Urine Protein 1+ (Negative) Urine Ketones Trace (Negative) Urine Blood Negative /uL (Negative) Urine Nitrite Negative (Negative) Urine Bilirubin Negative (Negative) Urine Urobilinogen Normal mg/dL (Negative) Urine Leukocyte Esterase Negative /uL (Negative) Urine RBC 1 /hpf (0 - 3) Urine Microscopic WBC 3 /HPF (0-3) Urine Squamous Epithelial Cells Few /hpf (<5) Urine Bacteria None seen /hpf (None Seen) Urine Hyaline Casts Few /lpf (0 - 2) Urine Glucose Normal mg/dL (Normal) Total Bilirubin 0.2 mg/dL (0.2-1.0) Aspartate Amino Transferase (AST) 16 U/L (13-40) Alanine Aminotransferase (ALT) 19 U/L (7-40) Alkaline Phosphatase 81 U/L (46-116) Total Protein 6.4 g/dL (5.7-8.2) Albumin 4.2 g/dL (3.2-4.8) Other Laboratory Tests 08/16/24 05:04 Brief Hx & Hospital Course: History of Present Illness 64-year-old male presents for evaluation of shortness for breath. Patient with a history of COPD currently using 5 L nasal cannula oxygen at home presents for evaluation of a two day history of worsening shortness for breath. On arrival patient's saturation was in the low 80s. Denies chest pain or palpitations. No cough or fever. No other acute complaints. Course of hospitalization: Patient had complicated hospitalization requiring mechanical ventilation. Patient underwent bronchoscopy. Patient was started on empiric antibiotic therapy. Patient had atrial fibrillation/flutter with rapid ventricular rate that was refractory to both Cardizem and amiodarone drip. Patient did convert to sinus rhythm after patient was placed on sotalol. Cardiology consultation was obtained who assisted with control of the patient's heart rate. Patient was now on baseline home O2, ambulating approximately 40 ft with a walker. Patient was states that he was DME including oxygen and walker at home and requesting to be discharged home. Patient will be discharged home with recommendations for outpatient physical therapy. Social service consultation has been placed for this. He was instructed to follow up with Cardiology, pulmonology, as well as his PCP in two three weeks as well as a discharge Clinic in one week. Patient has received adequate IV antimicrobial therapy while in the hospital and we will be discharged with no further antibiotics. Further medications to be discharge with can be found in his reconciliation. Patient was agreeable with discharge plan. All questions answered. Physical examination General: Alert and Oriented x3. No acute distress. Well-nourished. Eyes: EOMI. Anicteric. HENT: Moist mucous membranes. Lungs: Clear to auscultation bilaterally. No accessory muscle use. Cardiovascular: Regular rate and rhythm. No murmur. No JVD. Abdomen: Soft, non-tender and non-distended. No palpable masses. Extremities: No edema. Non-tender. Skin: No rashes or lesions. Warm. Neurologic: No focal neurological deficits. CN II-XII grossly intact, but not individually tested. Psychiatric: Cooperative. Appropriate mood and affect. Total time spent with patient discussing and formulating plan of care: 35 minutes. This medical document was created using an electronic medical record system with [employer] system. Although this document has been carefully reviewed, there may still be some phonetic and typographical errors. These areas are purely typographical due to imperfections of the software programs, and do not reflect any compromise in the patient's medical care. Consults/Reason for consult Pulmonology: Acute respiratory failure Cardiology: Atrial fibrillation/flutter with rapid ventricular rate Condition at Discharge: Guarded Final Diagnosis/Problems List Acute on chronic respiratory failure -acute respiratory failure with mechanical ventilation -COPD -acute kidney injury, vasomotor nephropathy -community-acquired pneumonia , probable Gram-positive/Gram-negative etiology -AFib flutter with rapid ventricular rate -coronary artery disease -acute diastolic heart failure -acute delirium Discharge Disposition: Home Discharge Instruct/Medications Diet: Cardiac 2g Na,low cholest Activity: No Restrictions, As Tolerated Activity comment: Recommended outpatient physical therapy to be established Follow Up/Referral: Discharge Clinic in one week PCP in 1-2 weeks Cardiology in 1-2 weeks Pulmonology in 1-2 weeks Medications: Continue medications per medication reconciliation form 36 Discharge Statement: "Patient was advised to return to the ER or call 911 if any headaches, dizziness, shortness of breath, chest pain, abdominal pain, bleeding, fevers, or worsening of medical condition. Patient was counseled about treatment plan, medications, possible side effects, patientverbalized understanding. All questions were answered to the best of my ability. This discharge took greater then 30 minutes in planning, reviewing documentation, counseling the patient, and discussing with other team members." ASSESSMENT ASSESSMENT Assessment Acute respiratory failure Date of Service: Aug 18, 2024 Billing Provider: MAIKEL MCKINNEY NP Common Visit Codes: [id number] INP/OBS CARE(HIGH), [id number] DISCH DAY >30min MAIKEL MCKINNEY NP Aug 18, 2024 14:28
--- NOTE | 2024-08-18 23:12 | DVHPN2 ---
Progress Note - Dictate Date Seen: Aug 18, 2024 Medical Necessity Reason Pt with a Central, PICC or Fol: No The following are medically ne: Lance Catheter Reason for lance catheter: Strict I&O Subjective Patient seen and examined at bedside. Remains on supplemental oxygen Overnight events reviewed. vital signs Vital Sign Date Time Temp Pulse Resp B/P (MAP) Pulse Ox O2 Delivery O2 Flow Rate FiO2 08/18/24 12:44 98.1 78 17 101/52 (68) 98 98.1 08/17/24 20:00 Nasal Cannula* 2 28 Total Intake and Output 08/17/24 08/17/24 08/18/24 15:00 23:00 07:00 Intake Total 1860 ml 800 ml 60 ml Output Total 350 ml 300 ml Balance 1860 ml 450 ml -240 ml objective Gen.: Patient lying in bed in no apparent distress. On supplemental oxygen. Head: Normocephalic, atraumatic. Eyes: EOMI/PERRLA. Ears: Normal hearing. Normal anatomy. Neck/trachea: Trachea midline, supple. Nose: Normal external anatomy. Mouth: Moist mucous membranes. Chest: Decreased air entry bilaterally. No wheezing or rhonchi. Cardiovascular: Positive S1, positive S2. Regular rate and rhythm. Abdomen: Positive bowel sounds in all 4 quadrants. Soft, non-tender, non- distended. : Deferred. Rectal: Deferred. Skin: Warm, dry. Intact. Extremities: 2+ radial pulses bilaterally. No lower extremity edema. Neuro: Awake, alert, oriented x3. No gross motor or sensory deficits. Cranial nerves II through XII intact. Gait not assessed. laboratory and microbiology Laboratory Tests 08/16/24 05:04 Test 08/16/24 05:04 Range/Units Serum Glucose 98 74-106 mg/dL Assessment/Plan Impression: Acute on chronic hypoxic respiratory failure COPD exacerbation Nicotine dependence Acute renal failure Hypotension/shock Events: Remains on supplemental O2 On 2 LPM via NC Monitor WBC Monitor hemoglobin Continue bronchodilators Continue IV steroids - transition to PO prednisone on discharge Continue antibiotics Incentive spirometry Accu-Cheks NRT. Physical therapy. Patient is stable for discharge from the pulmonary standpoint. Disposition per hospitalist. Labs and imaging reviewed. Rest of plan as noted below. Plan: s/p extubation on 08/11/24 Supplemental oxygen Titrate to keep sats above 92% Pressors if necessary for hemodynamic support. Titrate to keep MAP above 65 mmHg. Continue steroids Continue antibiotics 08/07 - S/p bronchoscopy with RML BAL d/t increased secretions - cleared mucous plugging from L5-L10 and R4-10 See separate procedure note for details. A central line was placed for administration of medications and blood draws. An arterial line was placed for ABG draws and hemodynamic monitoring. Monitor renal function. Monitor electrolytes. Supplement as necessary. Monitor ins and outs. DVT prophylaxis. Prognosis: Guarded given patient's multiple co-morbidities. Rest of plan per hospitalist and other consultants. Thank you, Dr. Durbin, for allowing me to participate in this patient's care. Further recommendations will depend on the patient's clinical course. Please do not hesitate to contact me if you have any questions or concerns. This medical document was created using an electronic medical record system with [employer] dictation system. Although these documentations are being carefully reviewed, there may still be some phonetic and typographical changes. The errors are purely typographical, due to imperfection on the software program, and do not reflect any compromise in the patient's medical care. Dietary Evaluation Review Comments: 1) If GI route is prefererred, consider Jevity 1.2 @ 50 mL/hr goal rate as tolerated. Goal rate will provide 1440 kcals, 67g Pro, and 968 mL free H2O per 24 hrs. TF regimen will meet ~ 94% daily estimated energy needs and 100% daily estiamted protein needs. 2) If patient remains NPO for more than 7 days, consider TPN to meet at least 75% of estimated needs 3) Advance patient to cardiac diet when medically feasible, pending [employer] approval 4) Continue current plan of care Expected Outcomes/Goals: 1) patient to receive nutritional support within 7 days 2) labs to improve 3) diet to advance 4) f/u in 3 days Plan discussed with: Patient, Other (NATHAN Marte MD Aug 18, 2024 23:12
== END 2024-08-18 16:30 | disposition home or self-care (01) | DRG 208 ==
LOC: EDBD 16:14 → ER 16:22 → OVERFLOW 23:16 → TELE-WESTW 08-06 19:00 → ICU CENTRL 08-07 19:10 → DOU IN ICU 08-13 14:49 → TELE-WESTW 08-14 17:37
PROVIDERS: ADMIT Nurse Practitioner Acute Care; ATTEND Nurse Practitioner Acute Care
PROC: 5A1945Z Respiratory Ventilation, 24-96 Consecutive Hours (ICD-10-PCS; principal; 2024-08-07)
PROC: 0BH17EZ Insertion of Endotracheal Airway into Trachea, Via Natural or Artificial Opening (ICD-10-PCS; 2024-08-07)
PROC: 0B9D8ZX Drainage of Right Middle Lung Lobe, Via Natural or Artificial Opening Endoscopic, Diagnostic (ICD-10-PCS; 2024-08-07)
PROC: 0BC38ZZ Extirpation of Matter from Right Main Bronchus, Via Natural or Artificial Opening Endoscopic (ICD-10-PCS; 2024-08-07)
PROC: 0BC78ZZ Extirpation of Matter from Left Main Bronchus, Via Natural or Artificial Opening Endoscopic (ICD-10-PCS; 2024-08-07)
PROC: 02HV33Z Insertion of Infusion Device into Superior Vena Cava, Percutaneous Approach (ICD-10-PCS; 2024-08-07)
PROC: B548ZZA Ultrasonography of Superior Vena Cava, Guidance (ICD-10-PCS; 2024-08-07)
PROC: 03HY32Z Insertion of Monitoring Device into Upper Artery, Percutaneous Approach (ICD-10-PCS; 2024-08-07)
PROC: 5A09357 Assistance with Respiratory Ventilation, Less than 24 Consecutive Hours, Continuous Positive Airway Pressure (ICD-10-PCS; 2024-08-07)
DX: J96.21 Acute and chronic respiratory failure with hypoxia (principal); J15.69 Pneumonia due to other Gram-negative bacteria; I50.31 Acute diastolic (congestive) heart failure; N17.0 Acute kidney failure with tubular necrosis; J15.9 Unspecified bacterial pneumonia; J44.1 Chronic obstructive pulmonary disease with (acute) exacerbation; R57.9 Shock, unspecified; I48.20 Chronic atrial fibrillation, unspecified; E87.0 Hyperosmolality and hypernatremia; Z94.81 Bone marrow transplant status; I48.92 Unspecified atrial flutter; J44.0 Chronic obstructive pulmonary disease with (acute) lower respiratory infection; I11.0 Hypertensive heart disease with heart failure; E78.5 Hyperlipidemia, unspecified; E83.41 Hypermagnesemia; E87.5 Hyperkalemia; I25.10 Atherosclerotic heart disease of native coronary artery without angina pectoris; G62.9 Polyneuropathy, unspecified; K21.9 Gastro-esophageal reflux disease without esophagitis; E53.8 Deficiency of other specified B group vitamins; Z20.822 Contact with and (suspected) exposure to COVID-19; F17.210 Nicotine dependence, cigarettes, uncomplicated; I73.9 Peripheral vascular disease, unspecified; R94.6 Abnormal results of thyroid function studies; Z79.899 Other long term (current) drug therapy; Z79.1 Long term (current) use of non-steroidal anti-inflammatories (NSAID); Z79.2 Long term (current) use of antibiotics; Z79.82 Long term (current) use of aspirin; Z85.72 Personal history of non-Hodgkin lymphomas; Z82.49 Family history of ischemic heart disease and other diseases of the circulatory system; Z99.81 Dependence on supplemental oxygen; Z95.5 Presence of coronary angioplasty implant and graft; Z79.01 Long term (current) use of anticoagulants; Z95.818 Presence of other cardiac implants and grafts; Z85.71 Personal history of Hodgkin lymphoma; Z92.21 Personal history of antineoplastic chemotherapy
CPT/HCPCS: 36415; 36556; 36600; 36620; 71045; 76536; 76775; 76937; 80048; 80053; 80061; 81001; 82306; 82550; 82805; 83735; 83880; 83970; 84100; 84439; 84443; 84484; 85007; 85025; 85027; 85379; 86376; 87070; 87081; 87205; 87426; 87804; 93005; 93306; 94002; 94003; 94640; 94660; 96365; 96372; 97110; 97116; 97163; G0378; J1885; J2248; J2405; J2704; J7060